=== PATIENT | male | born 1965 | race Two or more races ===

== ENCOUNTER 2020-07-16 08:16 | Outpatient (REF) | payer OTHER, SELFPAY ==
[2020-07-16 09:00] LABS: MANUAL DIFF FLAG NO
[2020-07-16 09:04] LABS: Basophils Percent Auto 0.9 % (0-2); Eosinophils Absolute Auto 0.2 X10*3/uL (0.0-0.4); Eosinophils Percent Auto 4.5 % (0-4); Hematocrit 45.7 % (42-52); Hemoglobin 14.8 g/dl (14.0-18.0); Imm Gran Abs Auto 0.02 X10*3/uL (0.00-0.03); Imm Gran Pct Auto 0.5 % (0.0-0.4); Lymphocytes Percent Auto 23.1 % (20-40); Mean Corpuscular HGB Conc 32.4 g/dl (31.0-36.0); Mean Corpuscular Hemoglobin 28.8 pg (27.0-33.0); Mean Corpuscular Volume 89.1 fL (80-98); Mean Platelet Volume 10.1 fL (9.4-12.4); Monocytes Absolute Auto 0.8 X10*3/uL (0.1-1.2); Monocytes Percent Auto 18.6 % (2-11); Neutrophils Absolute Auto 2.3 X10*3/uL (2.0-8.3); Neutrophils Percent Auto 52.4 % (45-73); Platelet Count 236 X10*3/uL (160-400); Red Blood Count 5.13 X10*6/uL (4.60-5.80); Red Cell Distribution Width 13.6 % (11.0-16.0); White Blood Count 4.4 X10*3/uL (4.8-10.8)
[2020-07-16 09:22] LABS: Alanine Aminotransferase 75 U/L (0-40); Albumin Level 4.8 g/dL (3.5-5.0); Alkaline Phosphatase 59 U/L (39-117); Anion Gap 15 (12-20); Aspartate Amino Transferase 92 U/L (5-37); Bilirubin Total 1.4 mg/dL (0.0-1.0); Blood Urea Nitrogen 9 mg/dL (9-16); Calcium 9.8 mg/dL (8.4-10.2); Carbon Dioxide 26 mmol/L (22-29); Chloride 102 mmol/L (96-108); Cholesterol 146 mg/dL; Estimated Glomerular Filt Rate > 60; Glucose Fasting 93 mg/dL (60-99); HDL Cholesterol 43 mg/dL; LDL Cholesterol Calculated 86 mg/dl; Potassium 3.8 mmol/l (3.3-5.1); Sodium 139 mmol/L (135-145); Total Protein 8.8 g/dL (6.5-8.0); Triglycerides 87 mg/dL
[2020-07-16 09:26] LABS: Glucose Urine UA NEG (NEG); Leukocyte Esterase Urine NEG (NEG); Nitrite Urine NEG (NEG); PH 7.5 (5.0-8.0); Urine Blood NEG (NEG); Urine Ketones NEG (NEG); Urine Protein NEG (NEG-TRACE)
[2020-07-16 09:27] LABS: Appearance Urine HAZY; Color Urine DARK YELLOW
== END 2020-07-16 08:17 | disposition home or self-care (01) ==
LOC: HO.LAB 08:16
PROVIDERS: Visit Provider Internal Medicine
DX: J45.909 Unspecified asthma, uncomplicated (principal); E78.00 Pure hypercholesterolemia, unspecified; R74.8 Abnormal levels of other serum enzymes; E66.3 Overweight
CPT/HCPCS: 36415; 80053; 80061; 81003; 84443; 85025

== ENCOUNTER 2020-11-07 15:22 | Emergency (ER) | payer OTHER, SELFPAY ==
[2020-11-07 15:44] VITALS: BP 141/74; PULSE 80; RESP 19; TEMP 37.2; O2SAT 98; BMI 25.8
--- NOTE | 2020-11-07 16:04 | ED.EYEPROB ---
HPI - Eye Problem General Chief complaint: Eye Problems Stated complaint: eye swelling Time Seen by Provider: 11/07/20 16:03 Source: patient Mode of arrival: ambulatory Limitations: no limitations History of Present Illness chief complaint: other (boil on eyelid) Onset (ago): day(s) (few) Onset description: gradual Duration: constant Location: left eye Eye Symptoms: redness Place: home Mechanism: direct trauma Severity: mild If Pain, Quality: aching Context: other (something hit his upper lid and developed yellow boil) Associated symptoms: none Treatments Prior to Arrival: none Related Data Previous Rx's Medication Instructions Recorded albuterol sulfate 90 mcg/actuation 2 puff INHALATION Q6H PRN 30 Days 07/11/20 aerosol inhaler #18 g fluticasone propionate 110 1 puff INHALATION BID 30 Days #12 g 07/11/20 mcg/actuation HFA aerosol inhaler cephalexin 500 mg PO BID 7 Days #14 cap 11/07/20 Allergies Allergy/AdvReac Type Severity Reaction Status Date / Time No Known Allergies Allergy Verified 07/11/20 17:11 [No Known Allergies*] Review of Systems Review of Systems: Constitutional : No Fever, No Chills ENT/Mouth : No sore throat, No Rhinorrhea Eyes: No Eye Pain, No Swelling, No Redness Cardiovascular : No Chest Pain, No SOB Respiratory : No Cough, No Sputum Gastrointestinal : No Nausea, No Vomiting, No Diarrhea, No abdominal Pain Genitourinary : No Dysuria, No Hematuria Musculoskeletal : No joint pain, No Myalgias, No Joint Swelling Skin : No Skin Lesions, positive skin abscess Neuro : No Weakness, No Numbness, No Headache Psych : No Anxiety, No Depression PMFSH Past Medical History Attestation statement: The following information was validated with the patient. Medical History Allergic rhinitis Anxiety Asthma Depression Elevated liver enzymes Overweight (BMI 25.0-29.9) Pure hypercholesterolemia Surgical History No pertinent past surgical history Family History Family History Father Medical history unknown Mother Ovarian cancer Brother No problems noted. Sister No problems noted. Sister In good health Social History Social History Alcohol intake: never Smoking Status: Former smoker Advance Directives: No Advance Directives Information Provided: No Physical Exam Vital Signs: Vital Signs: Last Vital Signs Temp 99 F 11/07/20 15:44 Pulse 80 11/07/20 15:44 Resp 19 11/07/20 15:44 BP 141/74 H 11/07/20 15:44 Pulse Ox 98 11/07/20 15:44 Body Mass Index 25.8 Appearance: Alert. Oriented X3. No acute distress. Eyes: Pupils equal, round and reactive to light. ENT: Pharynx normal. L upper lid 1cm yellow raised area with fluctuance lateral aspect above the lash line Neck: Normal inspection. Neck supple. CVS: Normal heart rate and rhythm. Pulses normal. Respiratory: No respiratory distress. Breath sounds normal. Abdomen: Soft and nontender. Skin: Skin warm and dry. Normal skin color. Normal skin turgor. Extremities: No lower extremity edema. No calf ttp Neuro: Oriented X 3. No motor deficit. No sensory deficit. Procedures Abscess I/D Site: face (left upper lid) Side (if applicable): left Technique: needle aspiration Sent for culture/gram staining?: No Irrigation: No Packing used?: none MDM - Eye Problem MDM Narrative Medical decision making narrative: 54 yo male with asthma HPL here with left upper eyelid abscess for the last few days after getting something in his eye and rubbing it the abscess is above the follicle line and painful as well as to a very yellow point, no surrounding infection, will clean with betadine and puncture area with 25G and instruct warm compressess as well as eye doctor followup PO cephalexin to prevent infection Discharge Plan Discharge Clinical Impression: Abscess Patient Disposition: Home, Self-Care Additional Instructions: return to ED for any worsening symptoms or concerns warm compresses 6 times a day, if not better in 3 days see eye doctor Prescriptions: New cephalexin 500 mg capsule 500 mg PO BID 7 Days Qty: 14 RF: 0 No Action Flovent HFA 110 mcg/actuation HFA aerosol inhaler 1 puff inhalation BID 30 Days Qty: 12 RF: 5 albuterol sulfate [ProAir HFA] 90 mcg/actuation HFA aerosol inhaler 2 puff inhalation Q6H PRN (Reason: shortness of breath or wheezing) 30 Days Qty: 18 RF: 5 Referrals: Chauncey Molina [Physician] - 3 days
== END 2020-11-07 17:09 | disposition home or self-care (01) ==
PROVIDERS: Emergency Provider Emergency Medicine; PCP Internal Medicine
DX: H00.034 Abscess of left upper eyelid (principal); H57.12 Ocular pain, left eye
CPT/HCPCS: 10160; 99283; 99284

== ENCOUNTER 2021-05-28 13:21 | Emergency (ER) | payer OTHER, SELFPAY ==
--- NOTE | ~2021-05-28 | CT_ITS ---
EXAMINATION: CT HEAD W/O IV CONTRAST CT CERVICAL SPINE W/O IV CONTRAST CLINICAL INFORMATION: 55-year-old male with history of fall, alcohol. COMPARISON: None TECHNIQUE: Head - Contiguous axial imaging of the head was performed from the skull base to the vertex without the administration of intravenous contrast, and axial images are reconstructed at 2 mm and 5 mm slice thickness. Cervical spine - A volumetric, helical CT acquisition of the cervical spine was obtained without contrast; in addition to the standard set of axial images, multiplanar reformatted images were provided in the coronal and sagittal imaging planes. This CT examination was performed using dose optimization techniques as appropriate, variously including the following: *Automated exposure control *Adjustment of mA and/or kV according to patient size (this includes techniques or standardized protocols for targeted exams where dose is matched to indication/reason for exam; i.e. extremities or head) *Use of iterative reconstruction technique DLP: 1150 mGy-cm (total) FINDINGS: HEAD: No evidence of intracranial hemorrhage, major vascular territory infarction, focal mass effect or midline shift. Vines to white matter differentiation is preserved. The ventricles have normal size and configuration. No extra-axial fluid collections. The calvarium is intact and the visualized paranasal sinuses, mastoid air cells and middle ear cavities are clear. The temporomandibular joints are unremarkable. The visualized orbits and globes are intact. There are small areas of increased attenuation in soft tissue in the occipital and right frontal scalp, likely minimal hematomas from recent trauma. CERVICAL SPINE: No acute abnormalities. The craniocervical junction is normal. The occipital condyles, dens and atlantodental articulation are intact. The vertebral body heights and alignment are maintained. No fractures in the anterior or posterior elements. No prevertebral soft tissue swelling. [id number] degenerative disc space narrowing, vertebral osteophyte formation and moderate left-sided uncovertebral hypertrophy at C5-C6. No significant stenosis of the central spinal canal. No spinal hematoma or focal fluid collection in the visualized neck. The examined lung apices are notable for minimal paraseptal emphysema. Thyroid gland is unremarkable. CT/CT cervical spine wo con IMPRESSION: * No acute intracranial pathology. Very small scalp hematomas are suspected in the right frontal and occipital regions. No calvarial fracture. * No fracture or malalignment in the cervical spine.
[2021-05-28 13:31] VITALS: BP 141/84; BP 160/80; PULSE 104; PULSE 82; RESP 16; TEMP 36.6; O2SAT 95; O2SAT 99; BMI 27.3
--- NOTE | 2021-05-28 13:34 | ED_ITS ---
HPI - Alcohol General Chief Complaint: ETOH/Substance Use Stated Complaint: ETOH, FALL. -LOC Time Seen by Provider: 05/28/21 13:23 Source: patient and EMS Mode of arrival: EMS Limitations: other (Intoxicated) History of Present Illness HPI narrative: Patient comes to emergency room by EMS, patient was found on the floor by his intoxicated. Patient states he fell but he did not lose consciousness, denies being on blood thinners. Patient denies pain anywhere. Patient's called EMS, patient, from home. Initially patient had a C- collar, patient took it off Related Data Previous Rx's Medication Instructions Recorded fluticasone propionate 110 1 puff INHALATION BID 30 Days #12 g 07/11/20 mcg/actuation HFA aerosol inhaler (Flovent HFA) cephalexin 500 mg capsule 500 mg PO BID 7 Days #14 cap 11/07/20 albuterol sulfate 90 mcg/actuation 2 puff INHALATION Q6H PRN 30 Days 12/02/20 aerosol inhaler (ProAir HFA) #18 g Allergies Allergy/AdvReac Type Severity Reaction Status Date / Time No Known Allergies Allergy Verified 07/11/20 17:11 [No Known Allergies*] Review of Systems Review of Systems: Constitutional : No fever or chills ENT/Mouth : No Hearing loss, No Ear Pain, No Nasal Congestion, No Sinus Pain, No Hoarseness, No sore throat, No Rhinorrhea, No Swallowing Difficulty Eyes: No Eye Pain, No Swelling, No Redness, No Foreign Body, No Discharge, No Vision Changes Cardiovascular : No Chest Pain, No SOB, No Dyspnea on Exertion, No Orthopnea, No Edema, No Palpitations Respiratory : No Cough, No Sputum, No Wheezing, No Smoke Exposure, No Dyspnea Gastrointestinal : No Nausea, No Vomiting, No Diarrhea, No Constipation, No abdominal Pain, No Hematochezia, No Melena Genitourinary : no irregular bleeding, No Dysuria, No Urinary Frequency, No Hematuria, No Urinary Incontinence, No Urgency, No Flank Pain, No Urinary Flow Changes, No Hesitancy Musculoskeletal : No joint pain, No Myalgias, No Joint Swelling Skin : No Skin Lesions, No rash Neuro : No Weakness, No Numbness, No Paresthesias, No Loss of Consciousness, No Dizziness, No Headache Psych : No Anxiety/Panic, No Depression, No SI/HI/AH/VH, moves to alcohol drinking Heme/Lymph: No Bruising, No Bleeding,No Lymphadenopathy Endocrine : No Polyuria, No Polydipsia, No Temperature Intolerance [facility] Past Medical History Medical History Allergic rhinitis Anxiety Asthma Depression Elevated liver enzymes Overweight (BMI 25.0-29.9) Pure hypercholesterolemia Surgical History No pertinent past surgical history Family History Family History Father Medical history unknown Mother Ovarian cancer Brother No problems noted. Sister No problems noted. Sister In good health Social History Social History Alcohol intake: never Advance Directives: No Advance Directives Information Provided: Yes Physical Exam 2 Vital Signs: Vital Signs: Last Vital Signs Temp 97.8 F 05/28/21 13:31 Pulse 104 H 05/28/21 13:31 Resp 16 05/28/21 13:31 BP 141/84 H 05/28/21 13:31 Pulse Ox 95 05/28/21 13:31 Body Mass Index 27.3 Const: Other: Appearance: Alert. Oriented X3. No acute distress. Intoxicated, calm, cooperative Eyes: Pupils equal, round and reactive to light. ENT: Pharynx normal. Neck: Normal inspection. Neck supple. No lymph nodes noted. No crepitus CVS: Normal heart rate and rhythm. Pulses normal. Normal S1 and S2 Respiratory: No respiratory distress. Breath sounds normal. No Wheezing. No rales Abdomen: Soft and nontender. No rigidity. No distention. Skin: Skin warm and dry. Normal skin color. Normal skin turgor. Extremities: No lower extremity edema. No lower extremity edema. No Lacerations. No Rash Neuro: Oriented X 3. No motor deficit. No sensory deficit. Moving all extermities. A bit slurry. Course Course Course Narrative: Patient's head and cervical spine CT shows no acute abnormality. Patient's is here to pick him up. And is able to walk MDM - Alcohol Lab Data Result diagrams: 05/28/21 15:04 05/28/21 15:04 Labs: Lab Results 05/28/21 05/28/21 05/28/21 Range/Units 13:40 15:04 15:04 WBC 4.4 L (4.8-10.8) X10*3/uL RBC 3.63 L (4.60-5.80) X10*6/uL Hgb 11.9 L (14.0-18.0) g/dl Hct 34.5 L (42.0-52.0) % MCV 95.0 (80.0-98.0) fL MCH 32.8 (27.0-33.0) pg MCHC 34.5 (31.0-36.0) g/dl RDW 15.5 (11.0-16.0) % Plt Count 189 (160-400) X10*3/uL MPV 9.7 (9.4-12.4) fL Immature Gran % (Auto) 0.2 (0.0-0.4) % Neut % (Auto) 46.7 (45-73) % Lymph % (Auto) 38.8 (20-40) % [place] % (Auto) 12.2 H (2-11) % Eos % (Auto) 1.6 (0-4) % Baso % (Auto) 0.5 (0-2) % Lymph # (Auto) 1.7 (1.2-4.9) X10*3/uL [place] # (Auto) 0.5 (0.1-1.2) X10*3/uL Eos # (Auto) 0.1 (0.0-0.4) X10*3/uL Baso # (Auto) 0.0 (0.0-0.2) X10*3/uL Abs Immat Gran (auto) 0.01 (0.00-0.03) X10*3/uL Absolute Neuts (auto) 2.0 (2.0-8.3) x10*3/uL Absolute Nucleated RBC 0.000 (0.0-0.012) X10*3/uL Nucleated RBC % (auto) 0.0 (0.0-0.2) /100WBC Sodium 146 H (135-145) mmol/L Potassium 2.9 L (3.3-5.1) mmol/L Chloride 109 H (96-108) mmol/L Carbon Dioxide 25 (22-29) mmol/L Anion Gap 15 (12-20) BUN 9 (9-16) mg/dL Creatinine 0.69 (0.5-1.4) mg/dL Estim Creat Clear Calc 126.3 Estimated GFR > 60 POC Glucose 118 H (60-115) mg/dL Random Glucose 127 H (60-115) mg/dL Calcium 8.7 D (8.4-10.2) mg/dL Total Bilirubin 0.6 (0.0-1.0) mg/dL Direct Bilirubin 0.3 (0.0-0.5) mg/dL AST 101 H (5-37) U/L ALT 29 (0-40) U/L Alkaline Phosphatase 120 H D (39-117) U/L Total Protein 7.8 (6.5-8.0) g/dL Albumin 4.0 (3.5-5.0) g/dL Imaging Data CT scan - head: Radiologist's impression: FINDINGS: HEAD: No evidence of intracranial hemorrhage, major vascular territory infarction, focal mass effect or midline shift. Vines to white matter differentiation is preserved. The ventricles have normal size and configuration. No extra-axial fluid collections. The calvarium is intact and the visualized paranasal sinuses, mastoid air cells and middle ear cavities are clear. The temporomandibular joints are unremarkable. The visualized orbits and globes are intact. There are small areas of increased attenuation in soft tissue in the occipital and right frontal scalp, likely minimal hematomas from recent trauma. CERVICAL SPINE: No acute abnormalities. The craniocervical junction is normal. The occipital condyles, dens and atlantodental articulation are intact. The vertebral body heights and alignment are maintained.? No fractures in the anterior or posterior elements. No prevertebral soft tissue swelling. [id number] degenerative disc space narrowing, vertebral osteophyte formation and moderate left-sided uncovertebral hypertrophy at C5-C6. No significant stenosis of the central spinal canal. No spinal hematoma or focal fluid collection in the visualized neck. The examined lung apices are notable for minimal paraseptal emphysema. Thyroid gland is unremarkable. CT/CT cervical spine wo con IMPRESSION: *? No acute intracranial pathology. Very small scalp hematomas are suspected in the right frontal and occipital regions. No calvarial fracture. *? No fracture or malalignment in the cervical spine. Discharge Plan Discharge Clinical Impression: Alcoholic intoxication Qualifiers: Complication of substance-induced condition: uncomplicated Qualified Code(s): F10.920 - Alcohol use, unspecified with intoxication, uncomplicated Patient Disposition: Home, Self-Care Instructions: Alcohol Intoxication (ED) Additional Instructions: Please follow-up with your primary care physician tomorrow. If you have any worsening or new symptoms, please return to the emergency room or call 911 Prescriptions: No Action albuterol sulfate [ProAir HFA] 90 mcg/actuation HFA aerosol inhaler 2 puff inhalation Q6H PRN (Reason: shortness of breath or wheezing) 30 Days Qty: 18 RF: 5 cephalexin 500 mg capsule 500 mg PO BID 7 Days Qty: 14 RF: 0 Flovent HFA 110 mcg/actuation HFA aerosol inhaler 1 puff inhalation BID 30 Days Qty: 12 RF: 5
[2021-05-28 13:44] LABS: Glucose, Whole Blood 118 mg/dL (60-115)
--- NOTE | 2021-05-28 13:59 | PC.NURSE ---
pt came in via ambulance after found him passed out on the floor and called the ambulance. pt unable to remember anything that happened before or after him being found on the floor. pt is a chronic drinker, he denies SI/HI. It is unclear if pt fell, hit his head, loss consciousness, or how long he was on the floor. pt is cooperative, alert, oriented to self and month, his vss, he denies any pain. no headache/dizziness/n/v. no feelings of anxiety. His POC 118, Dr. Cha aware. will continue to monitor.
--- NOTE | 2021-05-28 14:57 | PC.NURSE ---
will p/u when ready, , she requested lft's
[2021-05-28 15:08] LABS: MANUAL DIFF FLAG NO
[2021-05-28 15:09] LABS: Basophils Percent Auto 0.5 % (0-2); Eosinophils Absolute Auto 0.1 X10*3/uL (0.0-0.4); Eosinophils Percent Auto 1.6 % (0-4); Hematocrit 34.5 % (42.0-52.0); Hemoglobin 11.9 g/dl (14.0-18.0); Imm Gran Abs Auto 0.01 X10*3/uL (0.00-0.03); Imm Gran Pct Auto 0.2 % (0.0-0.4); Lymphocytes Absolute Auto 1.7 X10*3/uL (1.2-4.9); Lymphocytes Percent Auto 38.8 % (20-40); Mean Corpuscular HGB Conc 34.5 g/dl (31.0-36.0); Mean Corpuscular Hemoglobin 32.8 pg (27.0-33.0); Mean Platelet Volume 9.7 fL (9.4-12.4); Monocytes Absolute Auto 0.5 X10*3/uL (0.1-1.2); Monocytes Percent Auto 12.2 % (2-11); Neutrophils Percent Auto 46.7 % (45-73); Platelet Count 189 X10*3/uL (160-400); Red Blood Count 3.63 X10*6/uL (4.60-5.80); Red Cell Distribution Width 15.5 % (11.0-16.0); White Blood Count 4.4 X10*3/uL (4.8-10.8)
[2021-05-28 15:45] LABS: Alanine Aminotransferase 29 U/L (0-40); Alkaline Phosphatase 120 U/L (39-117); Anion Gap 15 (12-20); Aspartate Amino Transferase 101 U/L (5-37); Bilirubin Direct 0.3 mg/dL (0.0-0.5); Bilirubin Total 0.6 mg/dL (0.0-1.0); Blood Urea Nitrogen 9 mg/dL (9-16); Calcium 8.7 mg/dL (8.4-10.2); Carbon Dioxide 25 mmol/L (22-29); Chloride 109 mmol/L (96-108); Creatinine Clr Calc Pharmacy 126.3; Estimated Glomerular Filt Rate > 60; Glucose Random 127 mg/dL (60-115); Potassium 2.9 mmol/L (3.3-5.1); Sodium 146 mmol/L (135-145); Total Protein 7.8 g/dL (6.5-8.0)
--- NOTE | 2021-05-28 16:15 | PC.NURSE ---
spoke to pt's she will be coming to get him in a few minutes
== END 2021-05-28 16:23 | disposition home or self-care (01) ==
PROVIDERS: Emergency Provider Emergency Medicine; PCP Internal Medicine
DX: F10.920 Alcohol use, unspecified with intoxication, uncomplicated (principal); Y90.9 Presence of alcohol in blood, level not specified; Z91.81 History of falling
CPT/HCPCS: 36415; 70450; 72125; 80048; 80076; 82947; 85025; 99284

== ENCOUNTER 2022-02-12 10:53 | Outpatient (REF) | payer OTHER, SELFPAY ==
[2022-02-12 11:35] LABS: COVID-19 Test Positive (Negative); IDNOW Serial# 9DB6401D
== END 2022-02-12 10:54 | disposition home or self-care (01) ==
LOC: HO.LAB 10:53
PROVIDERS: Visit Provider Internal Medicine
DX: Z20.822 Contact with and (suspected) exposure to COVID-19 (principal)
CPT/HCPCS: 87635; C9803

== ENCOUNTER 2022-11-24 08:18 | Outpatient (REF) | payer OTHER, SELFPAY ==
--- NOTE | ~2022-11-24 | XR_ITS ---
EXAMINATION: XR CHEST CLINICAL INFORMATION: History of asthma. Cough. COMPARISON: April 14, 2019 TECHNIQUE: 2 views of the chest were obtained. FINDINGS: No significant abnormality is noted involving the heart, lungs, mediastinum, bony thorax or soft tissues. XR/XR chest 2V IMPRESSION: No acute disease.
[2022-11-24 08:31] LABS: MANUAL DIFF FLAG NO
[2022-11-24 08:40] LABS: Basophils Absolute Auto 0.1 X10*3/uL (0.0-0.2); Basophils Percent Auto 0.8 % (0-2); Eosinophils Absolute Auto 0.1 X10*3/uL (0.0-0.4); Eosinophils Percent Auto 1.2 % (0-4); Hematocrit 44.4 % (42.0-52.0); Hemoglobin 14.7 g/dl (14.0-18.0); Imm Gran Abs Auto 0.03 X10*3/uL (0.00-0.03); Imm Gran Pct Auto 0.5 % (0.0-0.4); Lymphocytes Absolute Auto 1.3 X10*3/uL (1.2-4.9); Lymphocytes Percent Auto 22.4 % (20-40); Mean Corpuscular HGB Conc 33.1 g/dl (31.0-36.0); Mean Corpuscular Hemoglobin 29.9 pg (27.0-33.0); Mean Corpuscular Volume 90.2 fL (80.0-98.0); Mean Platelet Volume 10.7 fL (9.4-12.4); Monocytes Absolute Auto 1.1 X10*3/uL (0.1-1.2); Monocytes Percent Auto 18.9 % (2-11); Neutrophils Absolute Auto 3.4 x10*3/uL (2.0-8.3); Neutrophils Percent Auto 56.2 % (45-73); Platelet Count 194 X10*3/uL (160-400); Red Blood Count 4.92 X10*6/uL (4.60-5.80)
[2022-11-24 09:19] LABS: Alanine Aminotransferase 94 U/L (0-40); Albumin Level 4.1 g/dL (3.5-5.0); Alkaline Phosphatase 68 U/L (39-117); Anion Gap 14 (12-20); Aspartate Amino Transferase 165 U/L (5-37); Bilirubin Total 2.2 mg/dL (0.0-1.0); Blood Urea Nitrogen 8 mg/dL (9-16); Calcium 9.4 mg/dL (8.4-10.2); Carbon Dioxide 25 mmol/L (22-29); Chloride 102 mmol/L (96-108); Cholesterol 188 mg/dL; Estimated Glomerular Filt Rate > 60; Glucose Fasting 112 mg/dL (60-99); HDL Cholesterol 35 mg/dL; LDL Cholesterol Calculated 135 mg/dl; Potassium 3.5 mmol/L (3.3-5.1); Sodium 137 mmol/L (135-145); Total Protein 8.6 g/dL (6.5-8.0); Triglycerides 92 mg/dL
[2022-11-24 09:35] LABS: TSH reflex Free T4 2.51 uIU/mL (0.32-4.0); Vitamin D 25-OH Total 15.8 ng/mL (>30)
== END 2022-11-24 08:19 | disposition home or self-care (01) ==
LOC: HO.LAB 08:18
PROVIDERS: PCP Internal Medicine; Visit Provider Internal Medicine
DX: R06.00 Dyspnea, unspecified (principal); E78.00 Pure hypercholesterolemia, unspecified; E55.9 Vitamin D deficiency, unspecified; I10 Essential (primary) hypertension
CPT/HCPCS: 36415; 71046; 80053; 80061; 82306; 84443; 85025

== ENCOUNTER 2023-03-22 09:38 | Outpatient (AMB) | payer SELFPAY ==
[2023-03-22 09:53] VITALS: BP 146/82; PULSE 94; O2SAT 98; BMI 31.9
--- NOTE | 2023-03-22 09:53 | A.OFFPC_ITS ---
Vital Signs 03/22/23 09:53 Height 5 ft 10 in Weight 222 lb 4 oz BMI 31.9 BP 146/82 H Blood Pressure Location Lt brachial Position Sitting Pulse 94 Pulse Source Pulse Oximeter Pulse Oximetry (%) 98 Oxygen Delivery Method Room Air Intake Visit Reasons: hyperlipidemia, asthma Etl Tester Required: No Accompanied by: Self / Same As Patient Allergies No Known Allergies [No Known Allergies*] Allergy (Verified 03/22/23 10:16) Medication List - Last Reconciled 03/22/23 by Harry Vargas MD albuterol sulfate 90 mcg/actuation (ProAir HFA) 2 puffs inhalation Q6H PRN 30 days fluticasone propionate 110 mcg/actuation (Flovent HFA) 2 inhalations PO BID Ventolin HFA 90 mcg/actuation (albuterol sulfate) 2 puffs inhalation Q6H PRN 30 days NS Tobacco use date assessed: 03/22/23 Dental Screening Dental Screen Date: 03/22/23 Did you have a dental visit in the last 12 months?: No Did you have a dental problem in the last 6 months where you did not have access to dental care?: No Was dental information given to patient?: Patient has dentist HPI hyperlipidemia, asthma HPI Details Patient comes in today for his follow up visit States that he feels okay Admits that he drinks 12 pack or more but only on weekends He denies any headaches or dizziness Denies any chest pains but feels that his asthma has been flaring up often lately even though he uses his inhalers regularly as instructed Will be needing his Flovent inhaler Rx refilled No nausea/vomiting, no abdominal pain No change in bowel habits noted Would also like to go over in more details the results of his labs done a few months ago [facility] Medical History Allergic rhinitis Anxiety Asthma Benign essential hypertension Depression Elevated liver enzymes Impaired fasting glucose Obesity (BMI 30-39.9) Overweight (BMI 25.0-29.9) Pure hypercholesterolemia Vitamin D deficiency Surgical History No pertinent past surgical history Family History Father Medical history unknown Mother Ovarian cancer Brother No problems noted. Sister No problems noted. Sister In good health Social History Housing: House Alcohol intake: never Patient Tobacco Use Status: Former Tobacco user e-Cigarette/Vaping Use: Never Used service: No Current occupational status: employed Current occupational exposures/hazards: No Cognitive needs: No Hearing needs: No Vision needs: No Questionnaire PHQ-9 Over the last 2 weeks, how often have you been bothered by any of the following problems? 1. Little interest or pleasure in doing things: not at all 2. Feeling down, depressed, or hopeless: not at all 3. Trouble falling or staying asleep, or sleeping too much: not at all 4. Feeling tired or having little energy: not at all 5. Poor appetite or overeating: not at all 6. Feeling bad about yourself - or that you are a failure or have let yourself or your family down: not at all 7. Trouble concentrating on things, such as reading the newspaper or watching television: not at all 8. Moving or speaking so slowly that other people could have noticed. Or the opposite - being so fidgety or restless that you have been moving around a lot more than usual: not at all 9. Thoughts that you would be better off or of hurting yourself in some way: not at all Total score: 0 Depression Screening Interpretation: Negative 01422 - PHQ-9 Billing: Yes Source: Developed by Drs. Ryan Spencer, Beatris Gupta, Ugo Fernandes and colleagues, with an educational sloane from [employer]. Thrive Questionnaire Date Thrive assessed: 03/22/23 I am a: Patient What is your living situation today?: I have a steady place to live Within the past 12 months, did the food you bought not last and you didn't have the money to get more?: Never true Within the past 12 months, did you worry whether your food would run out before you got money to buy more?: Never true Do you have trouble paying for medicines?: No Do you have trouble getting transportation to medical appointments?: No Do you have trouble paying your heating and electricity bill?: No Do you have trouble taking care of your child, family member or friend?: No Do you have trouble with day-to-day activities such as bathing, preparing meals, shopping, managing finances, etc.?: No Are you currently unemployed and looking for a job?: No Are you interested in more education?: No Please select the resources that you would like help with: None Currently or been in a relationship where the following occur: no concerns reported AUDIT C Alcohol Use Questionnaire (AUDIT-C) 1. How often do you have a drink containing alcohol?: 2-4 times a month Total Score: 2 Score Reviewed/Action Taken: Yes TAMIKO-7 AMB Questionnaire TAMIKO-7 Date TAMIKO - 7 assessed: 03/22/23 Feeling nervous, anxious, or on edge: 0 = Not at all Not being able to stop or control worryin = Not at all Worrying too much about different things: 0 = Not at all Trouble relaxin = Not at all Being so restless that it is hard to sit still: 0 = Not at all Becoming easily annoyed or irritable: 0 = Not at all Feeling afraid as if something awful might happen: 0 = Not at all Total TAMIKO-7 score (0-4 normal; 5-9 mild; 10-14 moderate; 15-21 severe): 0 Source: Developed by Drs. Ryan Spencer, Beatris Gupta, Ugo Fernandes and colleagues, with an educational sloane from [employer]. Review of Systems Const Denies chills, Denies fatigue, Denies fever(s) and Denies headache(s) ENT Denies dysphagia, Denies dizziness, Denies otalgia, Denies headache(s), Denies neck pain, Denies odynophagia and Denies sore throat Card Denies chest pain, Denies palpitations and Reports dyspnea on exertion (on and off lately) Resp Reports chest congestion (states that his chest feels tight at times), Reports cough (on and off lately, non-productive), Denies excessive phlegm production, Reports dyspnea on exertion (on and off lately) and Reports wheezing (at times) GI Denies abdominal pain, Denies constipation, Denies dysphagia, Denies heartburn, Denies diarrhea, Denies nausea, Denies odynophagia and Denies vomiting Denies dysuria, Denies nocturia and Denies urinary frequency Musc Denies neck pain Neuro Denies dizziness and Denies headache(s) Endo Denies fatigue and Denies palpitations Aller/Immun Reports wheezing (at times) Physical exam (Primary Care) Vital Signs: Last Vital Signs Pulse 94 03/22/23 09:53 BP 146/82 H 03/22/23 09:53 Pulse Ox 98 03/22/23 09:53 Oxygen Delivery Method Room Air 03/22/23 09:53 BMI result Body Mass Index 31.9 Tobacco/Smoking Status: Tobacco use Status Tobacco use date assessed 03/22/23 03/22/23 10:02 Patient Tobacco Use Status Former Tobacco user 03/22/23 10:02 e-Cigarette/Vaping Use Never Used 03/22/23 10:02 PHQ-9: PHQ-9 Score PHQ-9: Total score 0 03/22/23 10:02 Depression Screening Interpretation: Negative Thrive Assessment: Date of Thrive Assessment Date Thrive assessed 03/22/23 03/22/23 10:02 Currently or been in a relationship where the following occur: no concerns reported Const General: no acute distress and alert HENMT Ears: TM's normal bilaterally and EAC's normal Throat: Yes posterior oropharynx normal and Yes tonsils normal (no TP congestion) Neck Neck: Yes no lymphadenopathy and Yes supple Resp Auscultation: no rales, rhonchi (scattered) throughout, wheezes (occasional, faint) expiratory wheezes and diminished lung sounds (slightly) bilateral Cardio Rate: regular rate Rhythm: regular rhythm Heart sounds: no murmurs GI Palpation (GI): Soft to palpation and nontender Auscultation: normal bowel sounds Skin General skin exam: no rashes or lesions noted Extrem General: Yes no clubbing, cyanosis or edema Results Reviewed Results Reviewed: Laboratory Tests 11/24/22 11/24/22 08:30 08:30 WBC 6.0 Hgb 14.7 D Hct 44.4 D Plt Count 194 Sodium 137 Potassium 3.5 D Creatinine 0.80 Estimated GFR > 60 Fasting Glucose 112 H Calcium 9.4 D Total Bilirubin 2.2 H AST 165 H ALT 94 H Triglycerides 92 Cholesterol 188 LDL Cholesterol, Calc 135 HDL Cholesterol 35 25-OH Vitamin D Total 15.8 TSH 2.51 Assessment and Plan Assessment & Plan (1) Asthma: Code(s): J45.909 - Unspecified asthma, uncomplicated Qualifiers: Asthma severity: moderate Asthma persistence: persistent Asthma complication type: uncomplicated Qualified Code(s): J45.40 - Moderate persistent asthma, uncomplicated Plan: Will increase patient's Flovent HFA now to 220 mcg at 2 inhalations BID; con tinue Albuterol HFA 2 inhalations Q 6 hours PRN Chest x-rays done a few months ago came out normal (2) Pure hypercholesterolemia: Code(s): E78.00 - Pure hypercholesterolemia, unspecified Plan: Results of his labs done a few months ago reviewed and discussed with patient - cautioned that his cholesterol levels have increased significantly compared to a couple of years ago; his LDL cholesterol is now at 135 mg /dl Reinforced low cholesterol diet - advised that his LDL cholesterol used to be at 86 mg/dl a few years ago so his increased lately is most likely due to his diet Will recheck his labs and fasting lipids again in 3 months for follow up (3) Elevated liver enzymes: Code(s): R74.8 - Abnormal levels of other serum enzymes Plan: Cautioned that his LFTs have increased further from previous - is most likely due to his alcohol intake as well as his weight and partly also due to his cholesterol Will send patient for abdominal US for further evaluation Will recheck his labs and LFTs again in 3 months for follow up (4) Benign essential hypertension: Code(s): I10 - Essential (primary) hypertension Plan: Reinforced low sodium diet - goal is systolic BP of 120 mm or less Will go ahead and start patient on Lisinopril 2.5 mg QD He is instructed to try monitoring his blood pressure regularly (5) Impaired fasting glucose: Code(s): R73.01 - Impaired fasting glucose Plan: Advised that his fasting glucose has also been elevated when checked the last couple of times recently and that this may indicate that he is now around the borderline diabetes category Discussed low calorie/low carb diet and advised that exercising and losing weight can help a lot with this Will recheck his FBS and also check his HgbA1c in a few months for follow up / further evaluation (6) Allergic rhinitis: Code(s): J30.9 - Allergic rhinitis, unspecified Qualifiers: Allergic rhinitis trigger: unspecified Allergic rhinitis seasonality: unspecified Qualified Code(s): J30.9 - Allergic rhinitis, unspecified Plan: Continue OTC Loratadine 10 mg QD PRN (7) Vitamin D deficiency: Code(s): E55.9 - Vitamin D deficiency, unspecified Plan: Advised that his vitamin D level was also very low on his recent labs Will start him on Vitamin D3 tablets 2000 units QD (8) Alcohol use disorder: Code(s): F10.90 - Alcohol use, unspecified, uncomplicated Plan: Admits that he currently drinks a 12 pack or more regularly on weekends but states that he avoids drinking on weekdays Advised that what he is currently doing is practically binge-drinking on weekends and this can be just as bad, if not worse, than drinking everyday Have encouraged him to try to work on cutting back on his alcohol intake, especially now in light of his current issues, most notably his elevated LFTs and hyperbiliribunemia Advised that if he ever feels that he needs help with his alcohol cravings, we can refer him to the appropriate specialists to help him with this and all he has to do is call for referral (9) Anxiety: Code(s): F41.9 - Anxiety disorder, unspecified Plan: Was on Lorazepam 1 mg QD PRN in the past but he has not had to take this in a while He is again advised to call if he feels his anxiety is getting out of hand and if he needs to go back on his Rx Discussed that he may be drinking (alcohol) as a way to help him cope with his anxiety although patient states that he does not think so (10) Depression: Code(s): F32.9 - Major depressive disorder, single episode, unspecified Qualifiers: Depression Type: major depressive disorder Major depression recurrence: recurrent Active/Remission status: in remission of unspecified degree Qualified Code(s): F33.40 - Major depressive disorder, recurrent, in remission, unspecified Plan: Was seeing psychiatry in the past although he has not done so in a while Is advised to call if he feels that he needs to go back to see psyschiatry and we will refer him back if necessary (11) Obesity (BMI 30-39.9): Code(s): E66.9 - Obesity, unspecified Plan: Reinforced diet/exercise as tolerated/lose weight Plan Follow up in 3 months Orders: Orders US abdomen comp w elastography Today E80.6 - Other disorders of bilirubin metabolism, R74.8 - Abnormal levels of other serum enzymes Complete Blood Count Auto Diff 3 Months I10 - Essential (primary) hypertension Comprehensive [place]. Panel Fast 3 Months E78.00 - Pure hypercholesterolemia, unspecified Hemoglobin A1c 3 Months E11.9 - Type 2 diabetes mellitus without complications Lipid Panel 3 Months E78.00 - Pure hypercholesterolemia, unspecified TSH reflex Free T4 3 Months E78.00 - Pure hypercholesterolemia, unspecified UA CC w/rflx Micro + Cult 3 Months R30.0 - Dysuria Vitamin D 25-OH Total 3 Months E55.9 - Vitamin D deficiency, unspecified Gamma Glutamyl Transpeptidase 3 Months R79.89 - Other specified abnormal findings of blood chemistry Medications: New cholecalciferol (vitamin D3) 50 mcg PO DAILY 90 days 90 caps 3RF E55.9 - Vitamin D deficiency, unspecified lisinopril 2.5 mg PO DAILY 90 days 90 tabs 1RF Changed From fluticasone propionate 110 mcg/actuation (Flovent HFA) 2 inhalations PO BID 12 grams 5RF J45.909 - Unspecified asthma, uncomplicated To fluticasone propionate 220 mcg/actuation 2 inhalations PO BID 12 grams 5RF J45.909 - Unspecified asthma, uncomplicated Refilled albuterol sulfate 90 mcg/actuation (ProAir HFA) 2 puffs inhalation Q6H 30 days PRN 18 grams 5RF shortness of breath or wheezing J45.909 - Unspecified asthma, uncomplicated Ventolin HFA 90 mcg/actuation (albuterol sulfate) 2 puffs inhalation Q6H 30 days PRN 18 grams 5RF shortness of breath or wheezing NS J45.40 - Moderate persistent asthma, uncomplicated Coding Level of Care Code Est Pt Level 4 (41124) Diagnoses Asthma J45.40 Asthma severity: moderate Asthma persistence: persistent Asthma complication type: uncomplicated Pure hypercholesterolemia E78.00 Elevated liver enzymes R74.8 Benign essential hypertension I10 Impaired fasting glucose R73.01 Allergic rhinitis J30.9 Allergic rhinitis trigger: unspecified Allergic rhinitis seasonality: unspecified Vitamin D deficiency E55.9 Alcohol use disorder F10.90 Anxiety F41.9 Depression F33.40 Depression Type: major depressive disorder Major depression recurrence: recurrent Active/Remission status: in remission of unspecified degree Obesity (BMI 30-39.9) E66.9
== END 2023-03-22 10:30 | disposition home or self-care (01) ==
PROVIDERS: PCP Internal Medicine; Visit Provider Internal Medicine
DX: I10 Essential (primary) hypertension (principal); J45.40 Moderate persistent asthma, uncomplicated; E55.9 Vitamin D deficiency, unspecified; F33.40 Major depressive disorder, recurrent, in remission, unspecified; F41.9 Anxiety disorder, unspecified; E78.00 Pure hypercholesterolemia, unspecified; R74.8 Abnormal levels of other serum enzymes; R73.01 Impaired fasting glucose; J30.9 Allergic rhinitis, unspecified; F10.90 Alcohol use, unspecified, uncomplicated; E66.9 Obesity, unspecified
CPT/HCPCS: 99214

== ENCOUNTER 2023-06-19 05:02 | Inpatient (IN) | payer OTHER, SELFPAY ==
[2023-06-19] VITALS (9 sets, daily range): BP systolic 140–171; BP diastolic 76–88; PULSE 110–132; RESP 16–27; TEMP 37.1–37.9; O2SAT 92–95; BMI 32.2
--- NOTE | 2023-06-19 | ECG_ITS ---
Test Reason : ABDOMINAL PAIN Blood Pressure : / mmHG Vent. Rate : 115 BPM Atrial Rate : 115 BPM P-R Int : 128 ms QRS Dur : 094 ms QT Int : 390 ms P-R-T Axes : 024 048 031 degrees QTc Int : 539 ms Sinus tachycardia RSR' or QR pattern in V1 suggests right ventricular conduction delay Possible Left atrial enlargement Prolonged QT Abnormal ECG When compared with ECG of 14-APR-2019 19:34, Vent. rate has increased BY 38 BPM Referred By: Generic ED Physician Electronically Signed By:RAMÓN ROBLES MD
--- NOTE | ~2023-06-19 | CT_ITS ---
EXAMINATION: CT ABDOMEN AND PELVIS WITH CONTRAST CLINICAL INFORMATION: Alcoholic with abdominal pain. COMPARISON: None available. TECHNIQUE: Contiguous axial thin section helical images of the abdomen were performed following the administration of oral contrast and 85 mL of Omnipaque 350 intravenous contrast. The data set was reformatted in the coronal and sagittal planes and reviewed on an independent workstation. This CT examination was performed using dose optimization techniques as appropriate, variously including the following: *Automated exposure control *Adjustment of mA and/or kV according to patient size (this includes techniques or standardized protocols for targeted exams where dose is matched to indication/reason for exam; i.e. extremities or head) *Use of iterative reconstruction technique DLP: 684 mGy-cm FINDINGS: LUNG BASES: Subpleural reticulation is seen consistent with interstitial disease. No worrisome lung mass or pleural effusion is seen. LIVER, GALLBLADDER, AND BILIARY TREE: The liver is cirrhotic in appearance, enlarged at 20.8 cm with a nodular border. No focal liver mass or bile duct dilatation is seen. There is a recanalized umbilical vein and abdominal wall and periumbilical varices present. Some gastric and esophageal varices are present as well. There is a small splenorenal shunt. The gallbladder is contracted with a small amount of pericholecystic fluid but no evidence of radiopaque gallstones or obvious pericholecystic inflammatory changes. PANCREAS: Unremarkable. SPLEEN: The spleen is enlarged at 15.6 cm. ADRENAL GLANDS: Unremarkable. KIDNEYS AND URETERS: The kidneys are normal in size, shape, and attenuation. No hydronephrosis, hydroureter, or calculi seen. Multiple benign Bosniak class I and class II renal cysts are noted which require no additional imaging or followup. No solid renal masses are seen. No perinephric stranding. BLADDER: Unremarkable. GASTROINTESTINAL TRACT: Some mild edematous changes are present in the colon, especially on the right, which may be secondary to portal colopathy. The appendix is normal. There is some minimal prominence of some small bowel loops in the left abdomen. ABDOMINAL WALL: There is a small periumbilical hernia seen which contains a knuckle of a portion of a loop of small bowel which does not appear to be obstructing. LYMPH NODES: Some small periceliac lymph nodes are seen with some small aortocaval lymph nodes, the largest measuring about 1 cm in short axis dimension (2:35). VASCULAR: No aortic aneurysm. Minimal calcified plaque right common iliac artery. PELVIC VISCERA: The prostate and seminal vesicles are unremarkable. OSSEOUS STRUCTURES: Unremarkable. CT/CT abdomen pelvis w IV con IMPRESSION: 1. Enlarged cirrhotic liver with associated splenomegaly and varices. No focal liver mass is seen. 2. Edematous changes in the colon, especially on the right, which may be secondary to portal colopathy. 3. Small periumbilical hernia containing a knuckle of small bowel which does not appear to be obstructing. 4. Other incidental findings, as described above, including benign renal cysts which require no additional imaging or followup, small periceliac and aortocaval lymph nodes. Fleischner guidelines were followed.
--- NOTE | ~2023-06-19 | CT_ITS ---
EXAMINATION: CT CHEST WITHOUT CONTRAST CLINICAL INFORMATION: Pneumonia evaluation, shortness of breath COMPARISON: Chest x-ray performed today. TECHNIQUE: Multidetector volumetric CT imaging of the chest was done. Axial MIP volume rendering provided. Sagittal and coronal reformatted images were obtained. This CT examination was performed using dose optimization techniques as appropriate, variously including the following: *Automated exposure control *Adjustment of mA and/or kV according to patient size (this includes techniques or standardized protocols for targeted exams where dose is matched to indication/reason for exam; i.e. extremities or head) *Use of iterative reconstruction technique DLP: 331 mGy-cm FINDINGS: LUNGS: Main airways unremarkable. Subpleural reticulation with some coarsened features in the posterolateral inferior right upper lobe, posterolateral right lower lobe, posteromedial left lower lobe, and the lingula. This may reflect a combination of interstitial fibrotic change and atelectasis. No dominant suspicious masses. MEDIASTINUM: Small mediastinal nodes without suspicious enlargement. Small pericardial fluid. CORONARY ARTERY CALCIFICATION: Present. PLEURA: There is no pleural effusion. No pleural mass or thickening. AXILLA: No suspicious axillary adenopathy. UPPER ABDOMEN: Recanalized umbilical vein. Paraesophageal and celiac region nodes for example series 3 image 63 at 1.1 cm short axis. Hepatic fatty infiltration. Possible anterior lobular configuration of the liver. OSSEOUS STRUCTURES: No compression fractures. CT/CT chest wo IV con IMPRESSION: Subpleural reticulation with some coarsened features as described above. This may be related to a combination of interstitial fibrotic change and atelectasis. No effusions or suspiciously enlarged mediastinal/axillary adenopathy. Paraesophageal and celiac region nodes. Possible anterior lobular configuration of the liver which can be seen in the setting of cirrhosis. Fleischner guidelines were followed.
--- NOTE | ~2023-06-19 | CT_ITS ---
EXAMINATION: CT ABDOMEN AND PELVIS WITH CONTRAST CLINICAL INFORMATION: Alcoholic with abdominal pain. COMPARISON: None available. TECHNIQUE: Contiguous axial thin section helical images of the abdomen were performed following the administration of oral contrast and 85 mL of Omnipaque 350 intravenous contrast. The data set was reformatted in the coronal and sagittal planes and reviewed on an independent workstation. This CT examination was performed using dose optimization techniques as appropriate, variously including the following: *Automated exposure control *Adjustment of mA and/or kV according to patient size (this includes techniques or standardized protocols for targeted exams where dose is matched to indication/reason for exam; i.e. extremities or head) *Use of iterative reconstruction technique DLP: 684 mGy-cm FINDINGS: LUNG BASES: Subpleural reticulation is seen consistent with interstitial disease. No worrisome lung mass or pleural effusion is seen. LIVER, GALLBLADDER, AND BILIARY TREE: The liver is cirrhotic in appearance, enlarged at 20.8 cm with a nodular border. No focal liver mass or bile duct dilatation is seen. There is a recanalized umbilical vein and abdominal wall and periumbilical varices present. Some gastric and esophageal varices are present as well. There is a small splenorenal shunt. The gallbladder is contracted with a small amount of pericholecystic fluid but no evidence of radiopaque gallstones or obvious pericholecystic inflammatory changes. PANCREAS: Unremarkable. SPLEEN: The spleen is enlarged at 15.6 cm. ADRENAL GLANDS: Unremarkable. KIDNEYS AND URETERS: The kidneys are normal in size, shape, and attenuation. No hydronephrosis, hydroureter, or calculi seen. Multiple benign Bosniak class I and class II renal cysts are noted which require no additional imaging or followup. No solid renal masses are seen. No perinephric stranding. BLADDER: Unremarkable. GASTROINTESTINAL TRACT: Some mild edematous changes are present in the colon, especially on the right, which may be secondary to portal colopathy. The appendix is normal. There is some minimal prominence of some small bowel loops in the left abdomen. ABDOMINAL WALL: There is a small periumbilical hernia seen which contains a knuckle of a portion of a loop of small bowel which does not appear to be obstructing. LYMPH NODES: Some small periceliac lymph nodes are seen with some small aortocaval lymph nodes, the largest measuring about 1 cm in short axis dimension (2:35). VASCULAR: No aortic aneurysm. Minimal calcified plaque right common iliac artery. PELVIC VISCERA: The prostate and seminal vesicles are unremarkable. OSSEOUS STRUCTURES: Unremarkable.
--- NOTE | ~2023-06-19 | XR_ITS ---
EXAMINATION: XR CHEST CLINICAL INFORMATION: Shortness of breath COMPARISON: 11/24/2022 TECHNIQUE: Frontal view of the chest was obtained. FINDINGS: Lung volumes are symmetric. There is a region of predominantly streaky opacity at the left lung base. No evidence of pneumothorax, significant pleural effusion, or overt pulmonary edema. The cardiomediastinal contour is unremarkable. No acute osseous findings are seen. XR/XR chest 1V IMPRESSION: Predominantly streaky left basilar opacity which may reflect atelectasis or developing consolidation.
[2023-06-19 05:47] LABS: MANUAL DIFF FLAG NO
[2023-06-19 05:48] LABS: Basophils Percent Auto 0.4 % (0-2); Eosinophils Percent Auto 0.3 % (0-4); Hematocrit 37.7 % (42.0-52.0); Hemoglobin 13.2 g/dl (14.0-18.0); Imm Gran Abs Auto 0.03 X10*3/uL (0.00-0.03); Imm Gran Pct Auto 0.4 % (0.0-0.4); Lymphocytes Absolute Auto 0.6 X10*3/uL (1.2-4.9); Lymphocytes Percent Auto 8.3 % (20-40); Mean Corpuscular Hemoglobin 30.9 pg (27.0-33.0); Mean Corpuscular Volume 88.3 fL (80.0-98.0); Mean Platelet Volume 10.5 fL (9.4-12.4); Monocytes Absolute Auto 1.1 X10*3/uL (0.1-1.2); Monocytes Percent Auto 15.7 % (2-11); Neutrophils Absolute Auto 5.1 x10*3/uL (2.0-8.3); Neutrophils Percent Auto 74.9 % (45-73); Platelet Count 149 X10*3/uL (160-400); Red Blood Count 4.27 X10*6/uL (4.60-5.80); Red Cell Distribution Width 15.7 % (11.0-16.0); White Blood Count 6.9 X10*3/uL (4.8-10.8)
--- NOTE | 2023-06-19 05:57 | PC.NURSE ---
Dr. polk aware of pt meeting sepsis criteria. ekg obtained. iv established. labs drawn. pt reporting cough/sore throat swabs obtained and sent to lab. [facility] call [facility] within reach.
[2023-06-19 06:04] LABS: Alanine Aminotransferase 45 U/L (0-40); Albumin Level 3.5 g/dL (3.5-5.0); Alkaline Phosphatase 75 U/L (39-117); Anion Gap 15 (12-20); Aspartate Amino Transferase 156 U/L (5-37); Bilirubin Direct 1.2 mg/dL (0.0-0.5); Bilirubin Total 2.4 mg/dL (0.0-1.0); Blood Urea Nitrogen 7 mg/dL (9-16); Calcium 8.7 mg/dL (8.4-10.2); Carbon Dioxide 20 mmol/L (22-29); Chloride 100 mmol/L (96-108); Creatinine Clr Calc Pharmacy 134.6; Estimated Glomerular Filt Rate > 60; Glucose Random 128 mg/dL (60-115); Lactic Acid 2.4 mmol/L (0.5-2.0); Lipase 36 U/L (8-78); Potassium 3.1 mmol/L (3.3-5.1); Sodium 132 mmol/L (135-145); Total Protein 9.1 g/dL (6.5-8.0)
[2023-06-19 06:08] LABS: IDNOW Serial# 08D9AD1C; Strep A Nucleic Acid Negative (Negative)
[2023-06-19 06:34] LABS: Influenza A PCR NEGATIVE (Negative); Influenza B PCR NEGATIVE (Negative); Resp Syncy Virus RNA Qual PCR NEGATIVE (Negative); SARS COV2 PCR INHOUSE NEGATIVE (Negative)
--- NOTE | 2023-06-19 06:45 | ED_ITS ---
HPI - General Adult General Chief complaint: General Medical Stated complaint: stomach pain Time Seen by Provider: 06/19/23 06:02 Source: patient Mode of arrival: ambulatory Limitations: no limitations History of Present Illness HPI narrative: Patient is a 57 year old assigned male at with a history of asthma, anxiety, and alcohol abuse presenting to the emergency department today with abdominal pain, nausea, vomiting, and increased shortness of breath. Patient states that over the last 2 days he has been having abdominal pain and worsening shortness of breath. Patient states that he is a daily drinker. Patient denies any dizziness, lightheadedness, fever, chills, blurry vision, double vision, loss of vision, chest pain, back pain, night sweats, pain with urination, increased urinary frequency, increased urinary urgency, blood in his urine or stool, syncope or a near syncopal episode, recent trauma or falls, bowel incontinence, bladder incontinence, bowel retention, bladder retention, or any other complaints at this time. Onset (ago): day(s) (2) Location: abdomen Severity: mild Severity scale (1-10): 4 Relieving factors: none Exacerbating factors: none Associated symptoms: nausea/vomiting and shortness of breath Treatments prior to arrival: none Related Data Previous Rx's Medication Instructions Recorded albuterol sulfate 90 mcg/actuation 2 puff inhalation Q6H PRN 03/22/23 aerosol inhaler (ProAir HFA) shortness of breath or wheezing 30 days #18 grams fluticasone propionate 220 2 inh PO BID #12 grams 03/22/23 mcg/actuation HFA aerosol inhaler lisinopril 2.5 mg tablet 2.5 mg PO DAILY 90 days #90 tabs 03/22/23 Allergies Allergy/AdvReac Type Severity Reaction Status Date / Time No Known Allergies Allergy Verified 03/22/23 10:16 [No Known Allergies*] Review of Systems 2 Constitutional: Constitutional: Reports no additional constitutional complaints, Denies chills, Denies fever(s) and Denies night sweats Eyes: Eyes: Reports no additional eye complaints, Denies blurry vision, Denies change in vision, Denies diplopia, Denies eye discharge, Denies loss of vision and Denies eye pain ENT: Denies dizziness Cardiovascular: Cardiovascular: Reports no additional cardiovascular complaints, Denies chest pain, Denies lightheadedness, Denies Loss of Consciousness and Reports dyspnea Respiratory: Respiratory: Reports no additional respiratory complaints and Reports dyspnea Gastrointestinal: Gastrointestinal: Reports no additional gastrointestinal complaints, Reports abdominal pain, Denies melena, Denies hematochezia, Denies change in bowel habits, Denies change in stool character, Reports nausea and Reports vomiting Genitourinary: Genitourinary: Reports no additional male genitourinary complaints, Denies hematuria, Denies oliguria, Denies difficulty urinating, Denies dysuria, Denies urinary frequency, Denies urinary hesitancy, Denies urinary incontinence and Denies urinary urgency Musculoskeletal: Musculoskeletal: Reports no additional musculoskeletal complaints, Denies numbness and Denies tingling Neurologic: Denies dizziness, Denies loss of vision, Denies numbness and Denies tingling Psychiatric: Psychiatric: Reports no additional psychiatric complaints Endocrine: Endocrine: Reports no additional endocrine complaints Hematologic/Lymphatic: Hematologic/Lymphatic: Reports no additional hematologic/lymphatic complaints Allergic/Immunologic: Allergic/Immunologic: Reports no additional allergic/immunologic complaints [facility] Past Medical History Attestation statement: The following information was validated with the patient. Source: old records reviewed and nursing notes reviewed Medical History Vitamin D deficiency Impaired fasting glucose Benign essential hypertension Obesity (BMI 30-39.9) Overweight (BMI 25.0-29.9) Depression Anxiety Elevated liver enzymes Pure hypercholesterolemia Allergic rhinitis Asthma Surgical History No pertinent past surgical history Family History Family History Father Medical history unknown Mother Ovarian cancer Brother No problems noted. Sister No problems noted. Sister In good health Social History Social History Housing: House Alcohol intake: current Alcohol intake frequency: 3 or more drinks per day Alcohol type: beer Patient Tobacco Use Status: Former Tobacco user Smoked in Last 30 Days: No e-Cigarette/Vaping Use: Never Used Use of substances other than those prescribed or required for medical reasons: No Advance Directives: No Advance Directives Information Provided: No service: No Current occupational status: employed Current occupational exposures/hazards: No Cognitive needs: No Hearing needs: No Vision needs: No Physical Exam ED Vital Signs: Vital Signs - 24 hr 06/19/23 05:17 06/19/23 05:22 06/19/23 05:55 Temperature 99.4 F 99.4 F Pulse Rate 116 H 116 H Pulse Rate [Monitor] 113 H Respiratory Rate 16 24 H Blood Pressure 156/82 H 156/82 H Pulse Oximetry 95 95 Oxygen Delivery Method Room Air Room Air 06/19/23 07:20 06/19/23 09:56 Temperature 99.1 F 99.7 F Pulse Rate 115 H 113 H Pulse Rate [Monitor] Respiratory Rate 22 H 27 H Blood Pressure 140/79 H 142/82 H Pulse Oximetry 92 92 Oxygen Delivery Method Room Air Room Air BMI result Body Mass Index 32.2 Const General: cooperative, no acute distress, alert and awake Nutritional Appearance: well nourished Orientation/consciousness: patient oriented x3 Limitations: no limitations HENMT Head: Yes normal to inspection and Yes atraumatic Ears: hearing grossly normal bilaterally and external ears normal General nose exam: Normal external nose present, no nasal discharge noted and no epistaxis Face and sinus: Yes normal facial exam, No abrasion and No laceration Mouth: Normal oral and palatal mucosa present, no drooling and no muffled voice Eyes General: appearance normal, both eyes and all related structures Periorbital: periorbital findings normal Eyelids: Yes eyelids normal Conjunctivae: conjunctivae normal Pupils: Equal, round and reactive pupils present EOM: EOMs intact bilaterally Neck Neck: Yes normal visual inspection, Yes full ROM and Yes no lymphadenopathy Chest Chest palpation & inspection: normal inspection of the chest Resp Effort & Inspection: normal respiratory effort and able to speak in complete sentences Auscultation: wheezes scattered wheezes and throughout Cardio Rate: tachycardic Rhythm: regular rhythm GI Inspection: Yes distended Palpation (GI): Soft to palpation, not firm, Tenderness to palpation present (GI) (diffuse), no guarding and not rigid Neuro General: patient oriented x3 and moves all extremities Cranial nerves: Yes Equal, round and reactive pupils present Cognition (Neuro): normal cognition Motor exam (neuro): 5/5 motor strength present throughout Sensory Exam: Normal double simultaneous stimulation for sensation Coordination: [id number] test normal Extrem General: Yes normal to inspection, Yes full ROM and Yes capillary refill normal Psych Appearance: grossly normal Mental Status: mental status grossly normal Affect: normal affect Attitude: cooperative Thought process: Normal thought process present Thought content: Normal thought content present Insight: Good insight present (Psych) Medications Administered Discontinued Medications Generic Name Dose Route Start Last Admin Trade Name Leonel PRN Reason Stop Dose Admin Sodium Chloride 1,000 mls @ 999 mls/hr 06/19/23 07:00 06/19/23 08:58 Ns IV 06/19/23 08:00 Infused .Q1H1M CHARISSE Infusion Potassium Chloride 10 meq in 100 mls @ 100 mls/hr 06/19/23 07:00 06/19/23 10:09 Potassium Chloride/H20 IV 06/19/23 08:59 Infused Q1H CHARISSE Infusion Ceftriaxone Sodium 1 gm/ 50 mls @ 100 mls/hr 06/19/23 07:01 06/19/23 07:52 Sodium Chloride IV 06/19/23 07:30 Infused ONCE ONE Infusion Iohexol 85 ml 06/19/23 08:09 06/19/23 08:09 Iohexol 350 Mg/Ml 100 Ml Infus..Btl IV 06/19/23 08:10 85 ml ONCE ONE Administration Ondansetron HCl 4 mg 06/19/23 06:46 06/19/23 07:17 Ondansetron Hcl 4 Mg/2 Ml Vial IVPUSH 06/19/23 06:47 4 mg ONCE ONE Administration Phenobarbital Sodium 282 mg 06/19/23 08:00 06/19/23 08:15 Phenobarbital Sodium 130 Mg/Ml Im Once IM 06/19/23 08:01 282 mg ONCE ONE Administration Protocol Medical Decision Making Medical Decision Making MDM Narrative: Patient is a 57 year old assigned male at with a history of alcohol abuse presenting to the emergency department today with abdominal pain. Patient's physical exam was as noted in the physical exam portion of this note. Patient's blood work showed a sodium of 132, potassium of 3.2, lactic acid of 2.4, and chronically elevated LFTs. Patient's urine showed no acute process. Patient's EKG was unremarkable. Patient's abdomen/pelvis CT showed cirrhotic liver with diffuse edematous changes in the colon secondary to portal HTN. Patient's chest x-ray showed a possible pneumonia. Patient's clinical presentation is most consistent with alcohol withdrawal and developing pneumonia. Patient's clinical presentation is not consistent with sepsis (@0940). Patient was given IV ceftriaxone. Patient was started on phenobarb alcohol withdrawal protocol. I spoke to the hospitalist team who agreed to admission. Patient verbalized agreement and understanding with this treatment plan and admission. Differential Diagnosis Differential Diagnoses: The differential diagnosis associated with the presentation includes Alcoholism Alcohol withdrawal Cirrhosis Pneumonia Admission/Observation Consideration of admission/observation: Escalation of care including admission/observation considered Patient admitted. Consult Healthcare Provider Management of the patient was discussed with: Hospitalist (Agreed to admission.) Lab Data MDM Lab Attestation statement: I reviewed the patient's lab results. My interpretation of these results are in the MDM Rationale portion of this note. 06/19/23 05:39 06/19/23 05:39 Labs: Lab Results 06/19/23 06/19/23 06/19/23 Range/Units 05:39 05:46 08:10 WBC 6.9 (4.8-10.8) X10*3/uL RBC 4.27 L (4.60-5.80) X10*6/uL Hgb 13.2 L (14.0-18.0) g/dl Hct 37.7 L (42.0-52.0) % MCV 88.3 (80.0-98.0) fL MCH 30.9 (27.0-33.0) pg MCHC 35.0 (31.0-36.0) g/dl RDW 15.7 (11.0-16.0) % Plt Count 149 L (160-400) X10*3/uL MPV 10.5 (9.4-12.4) fL Immature Gran % (Auto) 0.4 (0.0-0.4) % Neut % (Auto) 74.9 H (45-73) % Lymph % (Auto) 8.3 L (20-40) % [place] % (Auto) 15.7 H (2-11) % Eos % (Auto) 0.3 (0-4) % Baso % (Auto) 0.4 (0-2) % Lymph # (Auto) 0.6 L (1.2-4.9) X10*3/uL [place] # (Auto) 1.1 (0.1-1.2) X10*3/uL Eos # (Auto) 0.0 (0.0-0.4) X10*3/uL Baso # (Auto) 0.0 (0.0-0.2) X10*3/uL Abs Immat Gran (auto) 0.03 (0.00-0.03) X10*3/uL Absolute Neuts (auto) 5.1 (2.0-8.3) x10*3/uL Absolute Nucleated RBC 0.000 (0.0-0.012) X10*3/uL Nucleated RBC % (auto) 0.0 (0.0-0.2) /100WBC PT 17.2 H (11.1-13.3) SEC INR 1.4 H (0.9-1.1) APTT 35.9 (26.0-36.4) SEC Sodium 132 L (135-145) mmol/L Potassium 3.1 L (3.3-5.1) mmol/L Chloride 100 (96-108) mmol/L Carbon Dioxide 20 L (22-29) mmol/L Anion Gap 15 (12-20) BUN 7 L (9-16) mg/dL Creatinine 0.71 (0.5-1.4) mg/dL Estim Creat Clear Calc 134.6 Estimated GFR > 60 Random Glucose 128 H (60-115) mg/dL Lactic Acid 2.4 H* (0.5-2.0) mmol/L Lactic Acid F/U @ 2Hr 2.4 H* (0.5-2.0) mmol/L Calcium 8.7 D (8.4-10.2) mg/dL Total Bilirubin 2.4 H (0.0-1.0) mg/dL Direct Bilirubin 1.2 H (0.0-0.5) mg/dL AST 156 H (5-37) U/L ALT 45 H (0-40) U/L Alkaline Phosphatase 75 (39-117) U/L Total Protein 9.1 H (6.5-8.0) g/dL Albumin 3.5 (3.5-5.0) g/dL Lipase 36 (8-78) U/L Urine Color Urine Appearance Urine pH (5.0-9.0) Ur Specific [place] (1.005-1.025) Urine Protein (Neg-Trace) mg/dL Urine Glucose (UA) (Negative) mg/dL Urine Ketones (Negative) mg/dL Urine Blood (Negative) Urine Nitrite (Negative) Ur Leukocyte Esterase (Negative) Influenza Type A (PCR) NEGATIVE (Negative) Influenza Type B (PCR) NEGATIVE (Negative) RSV RNA Qual (PCR) NEGATIVE (Negative) SARS-CoV-2 RNA (RT-PCR) NEGATIVE (Negative) S. pyogenes GrpA VALERIA Negative (Negative) 06/19/23 Range/Units 08:48 WBC (4.8-10.8) X10*3/uL RBC (4.60-5.80) X10*6/uL Hgb (14.0-18.0) g/dl Hct (42.0-52.0) % MCV (80.0-98.0) fL MCH (27.0-33.0) pg MCHC (31.0-36.0) g/dl RDW (11.0-16.0) % Plt Count (160-400) X10*3/uL MPV (9.4-12.4) fL Immature Gran % (Auto) (0.0-0.4) % Neut % (Auto) (45-73) % Lymph % (Auto) (20-40) % [place] % (Auto) (2-11) % Eos % (Auto) (0-4) % Baso % (Auto) (0-2) % Lymph # (Auto) (1.2-4.9) X10*3/uL [place] # (Auto) (0.1-1.2) X10*3/uL Eos # (Auto) (0.0-0.4) X10*3/uL Baso # (Auto) (0.0-0.2) X10*3/uL Abs Immat Gran (auto) (0.00-0.03) X10*3/uL Absolute Neuts (auto) (2.0-8.3) x10*3/uL Absolute Nucleated RBC (0.0-0.012) X10*3/uL Nucleated RBC % (auto) (0.0-0.2) /100WBC PT (11.1-13.3) SEC INR (0.9-1.1) APTT (26.0-36.4) SEC Sodium (135-145) mmol/L Potassium (3.3-5.1) mmol/L Chloride (96-108) mmol/L Carbon Dioxide (22-29) mmol/L Anion Gap (12-20) BUN (9-16) mg/dL Creatinine (0.5-1.4) mg/dL Estim Creat Clear Calc Estimated GFR Random Glucose (60-115) mg/dL Lactic Acid (0.5-2.0) mmol/L Lactic Acid F/U @ 2Hr (0.5-2.0) mmol/L Calcium (8.4-10.2) mg/dL Total Bilirubin (0.0-1.0) mg/dL Direct Bilirubin (0.0-0.5) mg/dL AST (5-37) U/L ALT (0-40) U/L Alkaline Phosphatase (39-117) U/L Total Protein (6.5-8.0) g/dL Albumin (3.5-5.0) g/dL Lipase (8-78) U/L Urine Color Yellow Urine Appearance Clear Urine pH 7.5 (5.0-9.0) Ur Specific [place] <= 1.005 (1.005-1.025) Urine Protein Negative (Neg-Trace) mg/dL Urine Glucose (UA) Negative (Negative) mg/dL Urine Ketones Negative (Negative) mg/dL Urine Blood Negative (Negative) Urine Nitrite Negative (Negative) Ur Leukocyte Esterase Negative (Negative) Influenza Type A (PCR) (Negative) Influenza Type B (PCR) (Negative) RSV RNA Qual (PCR) (Negative) SARS-CoV-2 RNA (RT-PCR) (Negative) S. pyogenes GrpA VALERIA (Negative) Independent Interpretation I performed an independent interpretation of an: EKG, Plain X-Ray and CT Scan Interpretation: My interpretation is in agreement with the radiologist's impression of these imaging studies. - EXAMINATION: XR CHEST CLINICAL INFORMATION: Shortness of breath COMPARISON: 11/24/2022 TECHNIQUE: Frontal view of the chest was obtained. FINDINGS: Lung volumes are symmetric. There is a region of predominantly streaky opacity at the left lung base. No evidence of pneumothorax, significant pleural effusion, or overt pulmonary edema. The cardiomediastinal contour is unremarkable. No acute osseous findings are seen. XR/XR chest 1V IMPRESSION: Predominantly streaky left basilar opacity which may reflect atelectasis or developing consolidation. Dictated By: Christian Mccallum MD Signed By: Electronically signed by Christian Mccallum MD 06/19/23 0604 - EXAMINATION: CT ABDOMEN AND PELVIS WITH CONTRAST CLINICAL INFORMATION: Alcoholic with abdominal pain. COMPARISON: None available. TECHNIQUE: Contiguous axial thin section helical images of the abdomen were performed following the administration of oral contrast and 85 mL of Omnipaque 350 intravenous contrast. The data set was reformatted in the coronal and sagittal planes and reviewed on an independent workstation. This CT examination was performed using dose optimization techniques as appropriate, variously including the following: *Automated exposure control *Adjustment of mA and/or kV according to patient size (this includes techniques or standardized protocols for targeted exams where dose is matched to indication/reason for exam; i.e. extremities or head) *Use of iterative reconstruction technique DLP: 684 mGy-cm FINDINGS: LUNG BASES: Subpleural reticulation is seen consistent with interstitial disease. No worrisome lung mass or pleural effusion is seen. LIVER, GALLBLADDER, AND BILIARY TREE: The liver is cirrhotic in appearance, enlarged at 20.8 cm with a nodular border. No focal liver mass or bile duct dilatation is seen. There is a recanalized umbilical vein and abdominal wall and periumbilical varices present. Some gastric and esophageal varices are present as well. There is a small splenorenal shunt. The gallbladder is contracted with a small amount of pericholecystic fluid but no evidence of radiopaque gallstones or obvious pericholecystic inflammatory changes. PANCREAS: Unremarkable. SPLEEN: The spleen is enlarged at 15.6 cm. ADRENAL GLANDS: Unremarkable. KIDNEYS AND URETERS: The kidneys are normal in size, shape, and attenuation. No hydronephrosis, hydroureter, or calculi seen. Multiple benign Bosniak class I and class II renal cysts are noted which require no additional imaging or followup. No solid renal masses are seen. No perinephric stranding. BLADDER: Unremarkable. GASTROINTESTINAL TRACT: Some mild edematous changes are present in the colon, especially on the right, which may be secondary to portal colopathy. The appendix is normal. There is some minimal prominence of some small bowel loops in the left abdomen. ABDOMINAL WALL: There is a small periumbilical hernia seen which contains a knuckle of a portion of a loop of small bowel which does not appear to be obstructing. LYMPH NODES: Some small periceliac lymph nodes are seen with some small aortocaval lymph nodes, the largest measuring about 1 cm in short axis dimension (2:35). VASCULAR: No aortic aneurysm. Minimal calcified plaque right common iliac artery. PELVIC VISCERA: The prostate and seminal vesicles are unremarkable. OSSEOUS STRUCTURES: Unremarkable. CT/CT abdomen w IV con IMPRESSION: 1. Enlarged cirrhotic liver with associated splenomegaly and varices. No focal liver mass is seen. 2. Edematous changes in the colon, especially on the right, which may be secondary to portal colopathy. 3. Small periumbilical hernia containing a knuckle of small bowel which does not appear to be obstructing. 4. Other incidental findings, as described above, including benign renal cysts which require no additional imaging or followup, small periceliac and aortocaval lymph nodes. Fleischner guidelines were followed. Dictated By: Burak Silva MD Signed By: Electronically signed by Burak Silva MD 06/19/23 0854 - Vent. Rate : 115 BPM Atrial Rate : 115 BPM P-R Int : 128 ms QRS Dur : 094 ms QT Int : 390 ms P-R-T Axes : 024 048 031 degrees QTc Int : 539 ms Sinus tachycardia RSR' or QR pattern in V1 suggests right ventricular conduction delay Possible Left atrial enlargement Prolonged QT Abnormal ECG When compared with ECG of 14-APR-2019 19:34, Vent. rate has increased BY 38 BPM Electronically Signed By:RAMÓN ROBLES MD Dictated By: Leon Robles MD Signed By: Electronically signed by Leon Robles MD 06/19/23 0905 Critical Care Time Critical Care Time Critical Care Time: Yes Total Critical Care Time: 55 Attestation: I spent 55 minutes of Critical Care Time with this patient. This does not include time spent on separately reported billable procedures. Discharge Plan Discharge Clinical Impression: Alcohol abuse, Alcohol withdrawal, Pneumonia Patient Disposition: Admitted As Inpatient Prescriptions: No Action albuterol sulfate [ProAir HFA] 90 mcg/actuation HFA aerosol inhaler 2 puff inhalation Q6H PRN (Reason: shortness of breath or wheezing) 30 Days Qty: 18 5RF Flovent HFA 220 mcg/actuation HFA aerosol inhaler 2 inh PO BID Qty: 12 5RF albuterol sulfate [Ventolin HFA] 90 mcg/actuation HFA aerosol inhaler 2 puff inhalation Q6H PRN (Reason: shortness of breath or wheezing) 30 Days Qty: 18 5RF cholecalciferol (vitamin D3) 50 mcg (2,000 unit) capsule 50 mcg PO DAILY 90 Days Qty: 90 3RF lisinopril 2.5 mg tablet 2.5 mg PO DAILY 90 Days Qty: 90 1RF
[2023-06-19] MEDS: cefTRIAXone sodium 1 GM in 0.9 % Sodium Chloride 50 ML IV (07:17)
[2023-06-19] MEDS: ondansetron HCL 4 MG/2 ML VIAL IVPUSH (07:17)
--- NOTE | 2023-06-19 07:21 | PC.NURSE ---
Alert and oriented. reports 5/10 abdominal pain. blood cultures obtained and abt started per sep. sinus tacy on monitor, vss. Patient denies etoh withdrawal symptoms however mild tremor noted, provider notified
[2023-06-19 07:46] LABS: Reflex Lactate? Lactic Acid Added
[2023-06-19] MEDS: 0.9 % Sodium Chloride 1,000 ML 999 ML IV (07:54)
[2023-06-19] MEDS: Potassium Chloride/H20 10 MEQ/100 ML PIGGYBACK 100 MEQ IV ×2 (07:55→08:58)
--- NOTE | 2023-06-19 08:05 | PC.NURSE ---
Returned from CT, medicated per mar
[2023-06-19] MEDS: iohexoL 350 MG/ML 100 ML INFUS..BTL 85 ML IV (08:09)
[2023-06-19] MEDS: PHENobarbitaL sodium 130 MG/ML IM ONCE 282 MG IM (08:15)
[2023-06-19 08:21] LABS: INTERNATIONAL NORM RATIO 1.4 (0.9-1.1); Prothrombin Time 17.2 SEC (11.1-13.3)
[2023-06-19 08:24] LABS: Partial Thromboplastin Time 35.9 SEC (26.0-36.4)
[2023-06-19 08:32] LABS: ~Lactic Acid-LAB USE ONLY 2.4 mmol/L (0.5-2.0)
[2023-06-19 08:56] LABS: Appearance Urine Clear; Color Urine Yellow; Glucose Urine UA Negative (Negative); Leukocyte Esterase Urine Negative (Negative); Nitrite Urine Negative (Negative); PH 7.5 (5.0-9.0); Specific Gravity - Urine <= 1.005 (1.005-1.025); Urine Blood Negative (Negative); Urine Ketones Negative (Negative); Urine Protein Negative (Neg-Trace)
[2023-06-19 10:14] LABS: Reflex Lactate? 2 Y
--- NOTE | 2023-06-19 11:02 | PHA.MEDREC ---
Pharmacy Consult ? Medication Reconciliation Pharmacy has completed the medication reconciliation. Unable to speak with patient used pharmacy claims and list from PCP visit in march
[2023-06-19] MEDS: PHENobarbitaL sodium 130 MG/ML VIAL IM Q3Hx2 212 MG IM (11:06)
--- NOTE | 2023-06-19 11:33 | PM.IMHP ---
History of Present Illness Date of Service: 06/19/23 Attending physician on admission: Duncan Davidson Chief Complaint: Abdominal pain, N/V, cough Pt is a 57-year-old male with a PMH significant for?mild intermittent asthma, HTN, and alcohol use disorder who presents to the ED with multiple complaints, though primarily complaining of lower abdominal pain that has been intermittent the past few months and more persistent the past 2-3 weeks. Last night pt says pain increased and became sharp and stabbing, which prompted his visit to the ED today. Has experienced some diarrhea since Saturday. Last bowel movement 20 minutes prior, was soft but not liquid. Pt admits to drinking a six pack or so daily, starting in the afternoon. However pt reports waking up to upper extremity tremors and daily nausea and vomiting for the past 3 weeks. Vomiting sometimes with streaks of blood in them, though denies gross hematuria. Also reports a remote hx of alcohol withdrawal years ago. Denies withdrawal seizures or hallucinations. Has had abdominal swelling for the past few months but with no noticeable increases recently. He also notes increased SOB, fatigue, and cough occasionally productive of black/brown sputum over the past 2-3 weeks. No chest pain/pressure, palpitations. No headache, auditory or visual hallucinations. Denies fever, chills. In the ED pt was tachycardic up to 160, took a 27, with low-grade fever 99.7, slightly hypertensive up to 156/82, and satting at 92% on RA. Labs were significant for H&H 13.2/37.7, sodium 132, potassium 3.1, lactic acid 2.4 with repeat 2.4, bilirubin 2 point, AST 156, and ALT 45. Renal function baseline. Lipase WNL. UA negative for UTI. Patient tested negative for influenza type a and B, RSV, COVID, strep pyogenes. CXR showed predominately streaky left basilar opacity which may reflect atelectasis or developing consolidation. CT?of abd/pelvis showed enlarged cirrhotic liver with associated splenomegaly and varices but no focal of volar mass, edematous changes to the colon likely from portal hypertension. Also found non-obstructing small periumbilical hernia, as well as benign renal cysts. EKG demonstrated sinus tachycardia of 115 with possible right ventricular conduction delay left atrial enlargement, with prolonged QTc of 539. Pt was treated with ceftriaxone, ondansetron, IVF, potassium chloride, and started on phenobarb protocol. Pt will be admitted to the hospital for treatment further evaluation pneumonia and acute alcohol withdrawal. Review of Systems Review of Systems: Lower abdominal pain increased SOB, productive cough N/V primarily in the morning Upper extremity tremors in the morning LLE, abdominal swelling [facility] Medical History Vitamin D deficiency Impaired fasting glucose Benign essential hypertension Obesity (BMI 30-39.9) Overweight (BMI 25.0-29.9) Depression Anxiety Elevated liver enzymes Pure hypercholesterolemia Allergic rhinitis Asthma Family History Father Medical history unknown Mother Ovarian cancer Brother No problems noted. Sister No problems noted. Sister In good health Surgical History No pertinent past surgical history Social History Housing: House Alcohol intake: current Alcohol intake frequency: 3 or more drinks per day Alcohol type: beer Patient Tobacco Use Status: Former Tobacco user Smoked in Last 30 Days: No e-Cigarette/Vaping Use: Never Used Use of substances other than those prescribed or required for medical reasons: No Advance Directives: No Advance Directives Information Provided: No service: No Current occupational status: employed Current occupational exposures/hazards: No Cognitive needs: No Hearing needs: No Vision needs: No Meds Allergies Allergy/AdvReac Type Severity Reaction Status Date / Time No Known Allergies Allergy Verified 03/22/23 10:16 [No Known Allergies*] Active Medications: Current Medications Pharmacy Consult (Consult Rx Etoh Phenob Im/Po) 1 each MISCELLANE ONCE PRN; Protocol PRN Reason: Consult order Phenobarbital (Phenobarbital 15 Mg Tablet) 45 mg PO BID CHARISSE; Protocol Stop: 06/21/23 09:01 Phenobarbital (Phenobarbital 30 Mg Tablet) 30 mg PO BID CHARISSE; Protocol Stop: 06/23/23 09:01 Phenobarbital (Phenobarbital 30 Mg Tablet) 30 mg PO DAILY@2100 CHARISSE; Protocol Stop: 06/24/23 21:01 Phenobarbital Sodium (Phenobarbital Sodium 130 Mg/Ml Vial Im Q3hx2) 212 mg IM Q3H CHARISSE; Protocol Stop: 06/19/23 14:01 Last Admin: 06/19/23 11:06 Dose: 212 mg Physical Exam Vital Signs and Narrative: Vital Signs: Last Vital Signs Temp 99.7 F 06/19/23 09:56 Pulse 113 H 06/19/23 09:56 Resp 27 H 06/19/23 09:56 BP 142/82 H 06/19/23 09:56 Pulse Ox 92 06/19/23 09:56 O2 Del Method Room Air 06/19/23 09:56 BMI result Body Mass Index 32.2 Constitutional: Alert, in no acute distress. Mental Status: Oriented to person, place and time. Eyes: Pupils are equal, round, and reactive to light. Ear, Nose, and Throat: Oropharynx clear, mucous membranes moist. Ears and nose without deformities. Trachea midline. Respiratory: Clear to auscultation bilaterally. No wheezing, rales, or rhonchi. Cardiovascular: S1, S2, tachy. No murmurs, rubs, or gallops. Gastrointestinal: Abdomen firm, moderately distended, with lower abdominal tenderness. Neurologic: Cranial nerves II-XII are grossly intact bilaterally. No focal neurological deficits. Moves all extremities spontaneously. Mild upper extremity tremors noted. Skin: Warm, dry. Extremities: 2+ bilateral pitting edema. Psychiatric: Normal mood and affect. Results Labs 06/19/23 05:39 06/19/23 05:39 Labs: Laboratory Results - last 24 hr 06/19/23 06/19/23 06/19/23 05:39 05:46 08:10 MCV 88.3 MCH 30.9 MCHC 35.0 RDW 15.7 Plt Count 149 L MPV 10.5 Immature Gran % (Auto) 0.4 Neut % (Auto) 74.9 H Lymph % (Auto) 8.3 L Pepin % (Auto) 15.7 H Eos % (Auto) 0.3 Baso % (Auto) 0.4 Lymph # (Auto) 0.6 L Pepin # (Auto) 1.1 Eos # (Auto) 0.0 Baso # (Auto) 0.0 Abs Immat Gran (auto) 0.03 Absolute Neuts (auto) 5.1 Absolute Nucleated RBC 0.000 Nucleated RBC % (auto) 0.0 PT 17.2 H INR 1.4 H APTT 35.9 Anion Gap 15 Estim Creat Clear Calc 134.6 Estimated GFR > 60 Random Glucose 128 H Lactic Acid 2.4 H* Lactic Acid F/U @ 2Hr 2.4 H* Calcium 8.7 D Total Bilirubin 2.4 H Direct Bilirubin 1.2 H AST 156 H ALT 45 H Alkaline Phosphatase 75 Total Protein 9.1 H Albumin 3.5 Lipase 36 Urine Color Urine Appearance Urine pH Ur Specific [place] Urine Protein Urine Glucose (UA) Urine Ketones Urine Blood Urine Nitrite Ur Leukocyte Esterase Influenza Type A (PCR) NEGATIVE Influenza Type B (PCR) NEGATIVE RSV RNA Qual (PCR) NEGATIVE SARS-CoV-2 RNA (RT-PCR) NEGATIVE S. pyogenes GrpA VALERIA Negative 06/19/23 08:48 MCV MCH MCHC RDW Plt Count MPV Immature Gran % (Auto) Neut % (Auto) Lymph % (Auto) Pepin % (Auto) Eos % (Auto) Baso % (Auto) Lymph # (Auto) Pepin # (Auto) Eos # (Auto) Baso # (Auto) Abs Immat Gran (auto) Absolute Neuts (auto) Absolute Nucleated RBC Nucleated RBC % (auto) PT INR APTT Anion Gap Estim Creat Clear Calc Estimated GFR Random Glucose Lactic Acid Lactic Acid F/U @ 2Hr Calcium Total Bilirubin Direct Bilirubin AST ALT Alkaline Phosphatase Total Protein Albumin Lipase Urine Color Yellow Urine Appearance Clear Urine pH 7.5 Ur Specific [place] <= 1.005 Urine Protein Negative Urine Glucose (UA) Negative Urine Ketones Negative Urine Blood Negative Urine Nitrite Negative Ur Leukocyte Esterase Negative Influenza Type A (PCR) Influenza Type B (PCR) RSV RNA Qual (PCR) SARS-CoV-2 RNA (RT-PCR) S. pyogenes GrpA VALERIA Imaging Radiologist's Impressions: Impressions Chest X-Ray 06/19/23 05:50 IMPRESSION: Predominantly streaky left basilar opacity which may reflect atelectasis or developing consolidation. Abdomen CT 06/19/23 07:02 IMPRESSION: 1. Enlarged cirrhotic liver with associated splenomegaly and varices. No focal liver mass is seen. 2. Edematous changes in the colon, especially on the right, which may be secondary to portal colopathy. 3. Small periumbilical hernia containing a knuckle of small bowel which does not appear to be obstructing. 4. Other incidental findings, as described above, including benign renal cysts which require no additional imaging or followup, small periceliac and aortocaval lymph nodes. Fleischner guidelines were followed. Abdomen/Pelvis CT 06/19/23 08:33 IMPRESSION: 1. Enlarged cirrhotic liver with associated splenomegaly and varices. No focal liver mass is seen. 2. Edematous changes in the colon, especially on the right, which may be secondary to portal colopathy. 3. Small periumbilical hernia containing a knuckle of small bowel which does not appear to be obstructing. 4. Other incidental findings, as described above, including benign renal cysts which require no additional imaging or followup, small periceliac and aortocaval lymph nodes. Fleischner guidelines were followed. Assessment and Plan (1) Pneumonia: Status: Acute (2) Alcohol withdrawal: Status: Acute Plan Pneumonia Patient with increased SOB, cough productive of black/brown sputum past 2-3 weeks CXR with possible atelectasis vs developing consolidation Pt meets sepsis criteria: Tachycardia, tachypnea, lactic acid 2.4 Given IVF and started on broad spectrum antibiotics in the ED Will treat with ceftriaxone, doxycycline Will get CT of chest Alcohol use disorder/acute alcohol withdrawal Mild shakiness, no hallucinations Received IVF, ondansetron, and phenobarb protocol in the ED Continue Phenobarb protocol Daily multivitamin, folic acid, Thiamine Famotidine Follow lytes, Mag, BMP CIWA scale Addiction medicine consult Monitor on telemetry Abdominal pain Pt complaining of lower abdominal pain past 2-3 weeks, worse since last night CT of abd with no clear source, but shows cirrhotic liver with splenomegaly and varices, as well as edematous changes in the colon likely secondary to portal hypertension Analgesics for pain management GI consult Lower leg edema 2+ bilateral pitting edema of lower extremities Likely secondary to portal HTN Will treat with Lasix 20mg IV daily for now Lactic acidosis, resolved Initial lactic acid 2.4 with repeats 2.4 and then 1.5 after receiving IVF Hypokalemia Potassium 3.1 at time of presentation Received potassium chloride in ED Follow BMP Prolonged QTc EKG showed sinus tachycardia with possible right ventricular conduction delay and left atrial enlargement QTc prolonged at 539 Avoid QT-prolonging agents Will repeat EKG tomorrow Asthma Not in acute exacerbation Continue home inhalers Obesity class I Encourage weight loss Full Code Attending:?Dr. Davidson DVT Prophylaxis: Lovenox Pt will require a hospitalization of at least two nights for treatment of?pneumonia and acute alcohol withdrawal with IV antibiotics, phenobarb protocol, close monitoring, and specialist consultation. Quality Stroke Does the patient have a stroke diagnosis?: No VTE Prior VTE?: No VTE Risk Level:: Medical - moderate - high VTE Device Contraindication: Treatment Not Indicated VTE Drug Contraindication: N/A - Med Ordered
[2023-06-19 12:26] LABS: ~Lactic Acid-LAB USE ONLY 1.5 mmol/L (0.5-2.0)
[2023-06-19] MEDS: lisinopriL 2.5 MG TABLET PO (13:17)
[2023-06-19] MEDS: Furosemide 20 MG/2 ML VIAL IVPUSH (13:17)
[2023-06-19] MEDS: Enoxaparin Sodium 40 MG/0.4 ML SYRINGE SUBCUT (13:18)
[2023-06-19] MEDS: Doxycycline Hyclate 100 MG in 0.9 % Sodium Chloride 250 ML 166.67 MG IV (13:24)
[2023-06-19] MEDS: Thiamine HCL 100 MG TABLET PO (15:22)
[2023-06-19] MEDS: Folic Acid 1 MG TABLET PO (15:22)
--- NOTE | 2023-06-19 15:23 | PC.NURSE ---
Patient declined phenobarb stating that he feels okay right now
--- NOTE | 2023-06-19 15:57 | PC.NURSE ---
Patient ambulating to bathroom numerous times, reports frequent diarrhea. Provider aware
[2023-06-19] MEDS: Famotidine 20 MG TABLET PO (20:14)
[2023-06-19] MEDS: PHENobarbitaL 15 MG TABLET 45 MG PO (20:14)
[2023-06-20] VITALS (8 sets, daily range): BP systolic 142–167; BP diastolic 76–86; PULSE 92–110; RESP 18–20; TEMP 36.1–37.2; O2SAT 93–95
[2023-06-20] MEDS: Doxycycline Hyclate 100 MG in 0.9 % Sodium Chloride 250 ML 166.67 MG IV ×2 (01:17→14:15)
[2023-06-20] MEDS: 0.9 % Sodium Chloride Flush 3 ML SYRINGE IVFLUSH ×4 (01:18→19:58)
[2023-06-20] MEDS: cefTRIAXone sodium 1 GM in 0.9 % Sodium Chloride 50 ML IV (05:52)
--- NOTE | 2023-06-20 07:00 | ECG_ITS ---
Test Reason : REPEAT Blood Pressure : / mmHG Vent. Rate : 119 BPM Atrial Rate : 119 BPM P-R Int : 116 ms QRS Dur : 096 ms QT Int : 358 ms P-R-T Axes : 052 055 040 degrees QTc Int : 503 ms Sinus tachycardia Possible Left atrial enlargement Nonspecific T wave abnormality Intra-ventricular conduction delay Abnormal ECG When compared with ECG of 19-JUN-2023 05:40, No significant change was found Referred By: Dana Talley Electronically Signed By:RAMÓN ROBLES MD
[2023-06-20] MEDS: Fluticasone Propionate 250 MCG BLST.W.DEV 2 PUFF INHALE ×2 (07:41→19:32)
[2023-06-20 08:04] LABS: Hematocrit 39.6 % (42.0-52.0); Hemoglobin 13.7 g/dl (14.0-18.0); Mean Corpuscular HGB Conc 34.6 g/dl (31.0-36.0); Mean Corpuscular Hemoglobin 31.1 pg (27.0-33.0); Mean Platelet Volume 11.2 fL (9.4-12.4); Platelet Count 145 X10*3/uL (160-400); Red Cell Distribution Width 15.5 % (11.0-16.0); White Blood Count 7.6 X10*3/uL (4.8-10.8)
--- NOTE | 2023-06-20 08:14 | MHC.CM.PN ---
CM met with Patient at bedside. Patient lives alone in a house that he rents a room in and he required no services nor DME CENTRAL SERVICE TECH. Home self care vs Recovery Team intervention r/t ETOH is the tentative e plan and CM has initiated and will follow for dc planning. Patient is from his but they are still supportive of one another. PCP is Dr. Harry Vargas.
[2023-06-20 08:22] LABS: Anion Gap 11 (12-20); Blood Urea Nitrogen 11 mg/dL (9-16); Carbon Dioxide 21 mmol/L (22-29); Chloride 102 mmol/L (96-108); Creatinine Clr Calc Pharmacy 132.7; Estimated Glomerular Filt Rate > 60; Glucose Random 96 mg/dL (60-115); Magnesium 1.6 mg/dL (1.6-2.6); Potassium 2.8 mmol/L (3.3-5.1); Sodium 131 mmol/L (135-145)
[2023-06-20] MEDS: Furosemide 20 MG/2 ML VIAL IVPUSH (08:28)
[2023-06-20] MEDS: Thiamine HCL 100 MG TABLET PO (08:28)
[2023-06-20] MEDS: PHENobarbitaL 15 MG TABLET 45 MG PO ×2 (08:28→19:57)
[2023-06-20] MEDS: Famotidine 20 MG TABLET PO ×2 (08:28→19:57)
[2023-06-20] MEDS: Folic Acid 1 MG TABLET PO (08:28)
[2023-06-20] MEDS: lisinopriL 2.5 MG TABLET PO (08:29)
[2023-06-20 08:46] LABS: Alanine Aminotransferase 44 U/L (0-40); Albumin Level 3.6 g/dL (3.5-5.0); Alkaline Phosphatase 65 U/L (39-117); Aspartate Amino Transferase 147 U/L (5-37); Bilirubin Direct 1.4 mg/dL (0.0-0.5); Bilirubin Total 2.2 mg/dL (0.0-1.0); Total Protein 9.3 g/dL (6.5-8.0)
[2023-06-20 10:34] LABS: CDiff Gene PCR NEGATIVE (Negative)
--- NOTE | 2023-06-20 11:46 | PM.EVENT ---
Event Note Date of Service: 06/20/23 Event Note: GI consult dictated cirrhosis likely due to alcohol usage. agree with present management abd pain resolved, may have had gastroenteritis. stool studies pending. he will need eventual egd/colonscopy, my office will arrange as outpatient. advised to cease alcohol use. Time Spent With Patient Time: Total time managing care of this patient today ____ minutes.
--- NOTE | 2023-06-20 13:31 | CONS_ITS ---
DATE OF SERVICE: 06/20/2023 REFERRING PHYSICIAN: JACLYN Aiken REASON FOR CONSULTATION: Abdominal pain and cirrhosis. HISTORY OF PRESENT ILLNESS: The patient is a pleasant 57-year-old man, who was admitted to the hospital after presenting to the emergency room yesterday with complaints of abdominal pain and shortness of breath. He states he has had abdominal discomfort across the lower abdomen for several days prior to admission. This did not seem related to diet or bowel movements. There was no associated nausea or vomiting, but he did have some diarrhea that was nonbloody. He has a history of chronic alcohol use, drinking 6 alcoholic drinks on a daily basis. He has gone through detox in the past and has been sober for periods of time. He was evaluated in the emergency department and noted to be tachycardic with a temperature of 99.7, and hypertension. Laboratory studies were obtained documenting a hematocrit of 37. Liver function tests were elevated in a pattern consistent with alcoholic hepatitis. Stool testing has been obtained since admission and is pending, although C. diff testing has been negative. Since admission, he has been treated with phenobarbital and reports no tremors. He denies any complications from liver disease such as varices or bleeding, jaundice, or ascites. CT scanning of the abdomen and pelvis is reviewed and showed cirrhotic liver with splenomegaly and varices, but no focal liver mass. There were some edematous changes thought secondary to portal colopathy in the right colon and a small periumbilical hernia. PAST MEDICAL HISTORY: 1. Asthma. 2. Anxiety/depression. 3. Hyperlipidemia. 4. Hypertension. 5. Alcohol abuse. CURRENT MEDICATIONS: His current medication list is reviewed in the chart. ALLERGIES: THERE ARE NONE REPORTED. FAMILY HISTORY: This is reviewed with the patient and is noncontributory. SOCIAL HISTORY: There is no current tobacco use. REVIEW OF SYSTEMS: SKIN: No pruritus. HEENT: Negative. CARDIOPULMONARY: He denies shortness of breath or chest pain. GASTROINTESTINAL: As above. GENITOURINARY: Negative. NEUROPSYCHIATRIC: Negative. PHYSICAL EXAMINATION: GENERAL: Shows a pleasant male, lying comfortably in bed. VITAL SIGNS: Stable. SKIN: Anicteric. HEENT: Shows no scleral icterus. NECK: Without lymphadenopathy or thyromegaly. LUNGS: Clear. HEART: Shows a regular rate and rhythm. S1, S2. No murmur. ABDOMEN: Obese and protuberant. Bowel sounds are present. There is no definite shifting dullness. There is no guarding or rebound. EXTREMITIES: Show trace edema. There is no asterixis. Laboratory data and imaging studies including CT scanning of the abdomen and pelvis are reviewed. My impression is that he does appear to have cirrhosis on the basis of his chronic alcohol use. I discussed this with him. I have recommended that he cease alcohol use and he intends to do this. I agree with treating him symptomatically and gradually advancing his diet. His stool tests are pending to rule out any treatable infectious etiology. He may have had a gastroenteritis as a cause of his lower abdominal symptoms. I have recommended eventual outpatient upper endoscopy and colonoscopy as he has not had a screening colonoscopy and he should undergo endoscopy to evaluate for esophageal varices. I advised him to call my office after he is discharged. Thanks for asking me to see him. I will follow him in the hospital with you. MD ALEXYS Jane/CHERIE / [phone]
[2023-06-20 13:35] LABS: Adenovirus F 40/41 Not Detected (Not Detect.); Astrovirus Not Detected (Not Detect.); Campylobacter Not Detected (Not Detect.); Cryptosporidium Not Detected (Not Detect.); Cyclospora cayetanensis Not Detected (Not Detect.); E. coli EAEC Not Detected (Not Detect.); E. coli EPEC Not Detected (Not Detect.); E. coli ETEC Not Detected (Not Detect.); E. coli STEC Not Detected (Not Detect.); Entamoeba histolytica Not Detected (Not Detect.); Giardia lamblia Not Detected (Not Detect.); Norovirus GI/GII Not Detected (Not Detect.); Plesiomonas shigelloides Not Detected (Not Detect.); Rotavirus A Not Detected (Not Detect.); Salmonella Not Detected (Not Detect.); Sapovirus Detected (Not Detect.); Shigella sp./EIEC Not Detected (Not Detect.); Vibrio Not Detected (Not Detect.); Vibrio Cholerae Not Detected (Not Detect.); Yersinia enterocolitica Not Detected (Not Detect.)
[2023-06-20] MEDS: Enoxaparin Sodium 40 MG/0.4 ML SYRINGE SUBCUT (14:15)
--- NOTE | 2023-06-20 15:26 | MHC.IC ---
PT IS POSITIVE FOR SAPOVIRUS. WASH HANDS WITH SOAP AND WATER/USE BLEACH ON SURFACES
--- NOTE | 2023-06-20 16:23 | HO.PM.IMPN ---
Subjective Subjective Date of Service: 06/20/23 Interval History: seen and examined this morning follow up for pneumonia, alcohol withdrawal breathing improving, some productive cough no significant withdrawal symptoms at this time Review of Systems Review of Systems: Yes all other systems are reviewed and are negative Constitutional Constitutional: Denies chills and Denies fever(s) Cardiovascular Cardiovascular: Denies chest pain Respiratory Respiratory: Reports cough Physical Exam Vital Signs: Vital Signs: Last Vital Signs Temp 97.5 F 06/20/23 15:19 Pulse 101 H 06/20/23 15:19 Resp 20 06/20/23 15:19 BP 145/82 H 06/20/23 15:19 Pulse Ox 93 06/20/23 15:19 O2 Del Method Room Air 06/20/23 15:19 BMI result Body Mass Index 32.2 Const: General: cooperative, comfortable, alert and awake Nutritional Appearance: average body habitus Orientation/consciousness: patient oriented x3 Resp: Effort & Inspection: normal respiratory effort, able to speak in complete sentences, no respiratory distress and no use of accessory muscles Cardio: Rate: tachycardic GI: Inspection: No distended Palpation (GI): Soft to palpation Neuro: General: patient oriented x3 and moves all extremities Objective Data Active Medications Acetaminophen (Acetaminophen 325 Mg Tablet) 650 mg PO Q6H PRN PRN Reason: Pain, Mild (Pain Scale 1-3) Albuterol Sulfate (Albuterol Sulfate 90 Mcg 8 Gm Inhaler) 2 puff INHALE RQ6H PRN PRN Reason: shortness of breath or wheezing Docusate Sodium (Docusate Sodium 100 Mg Capsule) 100 mg PO DAILY PRN PRN Reason: Constipation Enoxaparin Sodium (Enoxaparin Sodium 40 Mg/0.4 Ml Syringe) 40 mg SUBCUT Q24H [facility] Last Admin: 06/20/23 14:15 Dose: 40 mg Documented By: ARIAN Famotidine (Famotidine 20 Mg Tablet) 20 mg PO BID [facility] Last Admin: 06/20/23 08:28 Dose: 20 mg Documented By: ARIAN Fluticasone Propionate (Fluticasone Propionate 250 Mcg Blst.W.Dev) 2 puff INHALE RBID [facility] Last Admin: 06/20/23 07:41 Dose: 2 puff Documented By: CHRISTINE Folic Acid (Folic Acid 1 Mg Tablet) 1 mg PO DAILY [facility] Stop: 06/22/23 13:24 Last Admin: 06/20/23 08:28 Dose: 1 mg Documented By: ARIAN Furosemide (Furosemide 20 Mg/2 Ml Vial) 20 mg IVPUSH DAILY [facility]; Protocol Last Admin: 06/20/23 08:28 Dose: 20 mg Documented By: ARIAN Guaifenesin/Dextromethorphan (Guaifenesin Dm 100/10/5 Ml 5 Ml Syrup) 5 ml PO Q6H PRN PRN Reason: Cough Ceftriaxone Sodium 1 gm/ (Sodium Chloride) 50 mls @ 100 mls/hr IV Q24H [facility] Last Infusion: 06/20/23 06:22 Dose: Infused Documented By: JACI Doxycycline Hyclate 100 mg/ (Sodium Chloride) 250 mls @ 166.67 mls/hr IV Q12H [facility] Last Admin: 06/20/23 14:15 Dose: 166.67 mls/hr Documented By: ARIAN Lisinopril (Lisinopril 2.5 Mg Tablet) 2.5 mg PO DAILY [facility]; Protocol Last Admin: 06/20/23 08:29 Dose: 2.5 mg Documented By: ARIAN Pharmacy Consult (Consult Rx Etoh Phenob Im/Po) 1 each MISCELLANE ONCE PRN; Protocol PRN Reason: Consult order Phenobarbital (Phenobarbital 15 Mg Tablet) 45 mg PO BID [facility]; Protocol Stop: 06/21/23 09:01 Last Admin: 06/20/23 08:28 Dose: 45 mg Documented By: ARIAN Phenobarbital (Phenobarbital 30 Mg Tablet) 30 mg PO BID [facility]; Protocol Stop: 06/23/23 09:01 Phenobarbital (Phenobarbital 30 Mg Tablet) 30 mg PO DAILY@2100 [facility]; Protocol Stop: 06/24/23 21:01 Sodium Chloride (0.9 % Sodium Chloride Flush 3 Ml Syringe) 3 ml IVFLUSH QSHIFT [facility] Last Admin: 06/20/23 14:15 Dose: 3 ml Documented By: ARIAN Thiamine HCl (Thiamine Hcl 100 Mg Tablet) 100 mg PO DAILY [facility] Stop: 06/22/23 13:24 Last Admin: 06/20/23 08:28 Dose: 100 mg Documented By: ARIAN Labs 06/20/23 07:36 06/20/23 07:36 Labs: Laboratory Results - last 24 hr 06/20/23 06/20/23 07:36 08:34 MCV 90.0 MCH 31.1 MCHC 34.6 RDW 15.5 Plt Count 145 L MPV 11.2 Absolute Nucleated RBC 0.000 Nucleated RBC % (auto) 0.0 Anion Gap 11 L Estim Creat Clear Calc 132.7 Estimated GFR > 60 Random Glucose 96 Calcium 9.0 Magnesium 1.6 Total Bilirubin 2.2 H Direct Bilirubin 1.4 H AST 147 H ALT 44 H Alkaline Phosphatase 65 Total Protein 9.3 H Albumin 3.6 Stl C. cayetanensis PCR Not Detected Stool Rotavirus A PCR Not Detected Stl Adenov F 40/41 PCR Not Detected Stool Astrovirus (PCR) Not Detected Stool Campylobacter PCR Not Detected Stool Cryptosporidium PCR Not Detected Stl Sh Tox Pr E STEC PCR Not Detected Stool E coli O157 PCR Not applicable Stl Enterotoxigenic E PCR Not Detected Stool EPEC (PCR) Not Detected Stool EAEC (PCR) Not Detected Stl E. histolytica PCR Not Detected Stool Giardia Lamblia PCR Not Detected Stl P. shigelloides PCR Not Detected Stool Salmonella PCR Not Detected Stool Sapovirus (PCR) Detected A Stl Shigella/EIEC PCR Not Detected St Y.enterocolitica PCR Not Detected Stool Vibrio (PCR) Not Detected Stl Vibrio cholerae PCR Not Detected Stl Norovirus GI/GII PCR Not Detected C. difficile Tox B Gene NEGATIVE Microbiology Microbiology Results: Microbiology 06/19/23 07:08 Blood Culture - Preliminary Blood - Venous No growth after 24 hours. 06/19/23 07:08 Blood Culture - Preliminary Blood - Venous No growth after 24 hours. Assessment and Plan (1) Alcohol withdrawal: Status: Acute (2) Pneumonia: Status: Acute (3) Cirrhosis: Status: Acute Plan This is a 57-year-old male with history of asthma, hypertension presents to the emergency department with abdominal pain found to have likely gastroenteritis and possible pneumonia Abdominal pain with N/V/D likely due gastroenteritis stool studies +for sapovirus seems to be improving, continue supportive care Alcohol use disorder/acute alcohol withdrawal scoring low on CIWA Continue Phenobarb protocol Daily multivitamin, folic acid, Thiamine has declined Addiction medicine consult Monitor on telemetry Hypokalemia/hyopomagnesemia due to GI losses replace IV and PO Follow BMP liver cirrhosis likely due to etoh seen by GI will need outpatient egd/colonoscopy avoid alcohol Pneumonia Patient with increased SOB, cough productive of black/brown sputum past 2-3 weeks CXR with possible atelectasis vs developing consolidation Pt meets sepsis criteria: Tachycardia, tachypnea, lactic acid 2.4 Given IVF and started on broad spectrum antibiotics in the ED Will treat with ceftriaxone, doxycycline no discrete pneumonia on CT ?bronchitis blood cultures negative Lower leg edema due to liver dz s/p IV lasix Prolonged QTc EKG showed sinus tachycardia with possible right ventricular conduction delay and left atrial enlargement improving Avoid QT-prolonging agents Asthma Not in acute exacerbation Continue home inhalers Obesity class I Encourage weight loss Full Code Attending:?Dr. Davidson DVT Prophylaxis: Lovenox Pt will require a hospitalization of at least two nights for treatment of?pneumonia and acute alcohol withdrawal with IV antibiotics, phenobarb protocol, close monitoring, and specialist consultation. Quality Stroke Does the patient have a stroke diagnosis?: No VTE Prior VTE?: No VTE Risk Level:: Medical - moderate - high VTE Device Contraindication: Treatment Not Indicated VTE Drug Contraindication: N/A - Med Ordered
[2023-06-20] MEDS: Potassium Chloride Packet 20 MEQ PACKET 40 MEQ PO (17:10)
[2023-06-20] MEDS: Magnesium Sulfate/H2O 2 GM/50 ML PIGGYBACK IV (17:13)
[2023-06-20] MEDS: Potassium Chloride/H20 10 MEQ/100 ML PIGGYBACK 100 MEQ IV ×2 (19:57→21:25)
[2023-06-21] MEDS: Doxycycline Hyclate 100 MG in 0.9 % Sodium Chloride 250 ML 166.67 MG IV (01:50)
[2023-06-21 04:00] VITALS: BP 168/76; PULSE 94; RESP 18; TEMP 36.6; O2SAT 94
[2023-06-21] MEDS: cefTRIAXone sodium 1 GM in 0.9 % Sodium Chloride 50 ML IV (05:35)
[2023-06-21 06:54] LABS: Anion Gap 12 (12-20); Blood Urea Nitrogen 11 mg/dL (9-16); Calcium 8.4 mg/dL (8.4-10.2); Carbon Dioxide 19 mmol/L (22-29); Chloride 103 mmol/L (96-108); Creatinine Clr Calc Pharmacy 154.1; Estimated Glomerular Filt Rate > 60; Glucose Random 88 mg/dL (60-115); Magnesium 2.1 mg/dL (1.6-2.6); Potassium 2.9 mmol/L (3.3-5.1); Sodium 131 mmol/L (135-145)
[2023-06-21 07:23] VITALS: BP 155/81; PULSE 89; RESP 20; TEMP 36.7; O2SAT 95
[2023-06-21] MEDS: Thiamine HCL 100 MG TABLET PO (08:16)
[2023-06-21] MEDS: PHENobarbitaL 15 MG TABLET 45 MG PO (08:16)
[2023-06-21] MEDS: lisinopriL 2.5 MG TABLET PO (08:17)
[2023-06-21] MEDS: Famotidine 20 MG TABLET PO (08:17)
[2023-06-21] MEDS: Folic Acid 1 MG TABLET PO (08:17)
[2023-06-21] MEDS: Potassium Chloride Packet 20 MEQ PACKET 60 MEQ PO (08:18)
[2023-06-21] MEDS: 0.9 % Sodium Chloride Flush 3 ML SYRINGE IVFLUSH (08:21)
[2023-06-21 09:00] VITALS: PULSE 84; RESP 20; O2SAT 95
[2023-06-21] MEDS: Fluticasone Propionate 250 MCG BLST.W.DEV 2 PUFF INHALE (09:00)
[2023-06-21 11:17] VITALS: BP 141/79; PULSE 88; RESP 18; TEMP 36.5; O2SAT 95
--- NOTE | 2023-06-21 11:42 | PM.DS ---
DS: Providers Provider Date of Service: 06/21/23 Date of admission: 06/19/23 12:50 Date of discharge: 06/21/23 Primary care physician: Harry Vargas MD Consults: 06/19/23 13:00 Consult to Gastroenterology Routine Consulting Provider: Levy Goyal Reason for consultation: Lower abd pain, CT w/ cirrhotic liver, varices, edematous changes to colon Attending physician on discharge: Duncan Davidson Discharging clinician: Nora Arenas DS: Diagnosis Discharge Diagnosis (1) Alcohol withdrawal: Status: Acute (2) Pneumonia: Status: Acute (3) Cirrhosis: Status: Acute (4) Gastroenteritis: Status: Acute DS: Summary Hospital Course Hospital Course: From H&P on the day of admission Pt is a 57-year-old male with a PMH significant for?mild intermittent asthma, HTN, and alcohol use disorder who presents to the ED with multiple complaints, though primarily complaining of lower abdominal pain that has been intermittent the past few months and more persistent the past 2-3 weeks. Last night pt says pain increased and became sharp and stabbing, which prompted his visit to the ED today. Has experienced some diarrhea since Saturday. Last bowel movement 20 minutes prior, was soft but not liquid. Pt admits to drinking a six pack or so daily, starting in the afternoon. However pt reports waking up to upper extremity tremors and daily nausea and vomiting for the past 3 weeks. Vomiting sometimes with streaks of blood in them, though denies gross hematuria. Also reports a remote hx of alcohol withdrawal years ago. Denies withdrawal seizures or hallucinations. Has had abdominal swelling for the past few months but with no noticeable increases recently. He also notes increased SOB, fatigue, and cough occasionally productive of black/brown sputum over the past 2-3 weeks. No chest pain/pressure, palpitations. No headache, auditory or visual hallucinations. Denies fever, chills. In the ED pt was tachycardic up to 160, took a 27, with low-grade fever 99.7, slightly hypertensive up to 156/82, and satting at 92% on RA. Labs were significant for H&H 13.2/37.7, sodium 132, potassium 3.1, lactic acid 2.4 with repeat 2.4, bilirubin 2 point, AST 156, and ALT 45. Renal function baseline. Lipase WNL. UA negative for UTI. Patient tested negative for influenza type a and B, RSV, COVID, strep pyogenes. CXR showed predominately streaky left basilar opacity which may reflect atelectasis or developing consolidation. CT?of abd/pelvis showed enlarged cirrhotic liver with associated splenomegaly and varices but no focal of volar mass, edematous changes to the colon likely from portal hypertension. Also found non-obstructing small periumbilical hernia, as well as benign renal cysts. EKG demonstrated sinus tachycardia of 115 with possible right ventricular conduction delay left atrial enlargement, with prolonged QTc of 539. Pt was treated with ceftriaxone, ondansetron, IVF, potassium chloride, and started on phenobarb protocol. Pt will be admitted to the hospital for treatment further evaluation pneumonia and acute alcohol withdrawal. Abdominal pain with N/V/D. likely due gastroenteritis. stool studies were positive for sapovirus. c dif negative. Patient's symptoms have gradually started to improve. He is tolerating a full diet. Alcohol use disorder/acute alcohol withdrawal. He was treated with phenobarbital protocol and supplemented with multivitamin, folic acid and thiamine. He has been scoring low on the CIWA score, and he declined addiction medicine consult. Hypokalemia/hyopomagnesemia due to GI losses. replaced with both IV and PO K and IV magnesium with improvement. liver cirrhosis with thrombocytopenia likely due to etoh. Imaging found to have evidence of liver cirrhosis. He was seen by GI and will need outpatient egd/colonoscopy . Recommended to avoid alcohol. Pneumonia Patient with complaints of SOB, productive cough. CXR with possible atelectasis vs developing consolidation. He initially met sepsis criteria with tachycardia, tachypnea, lactic acid 2.4. His tachycardia and tachypnea resolved as well as lactic acidosis. He was treated with IV ceftriaxone, doxycycline. Although no discrete pneumonia seen on CT ?bronchitis, patient improving with current management, will discharge to complete course of oral antibiotics. blood cultures negative to date Time Attestation Discharge coordination time: Greater than 30 minutes Quality: Safe Use of Opioids Does Pt have an Active Cancer Diagnosis on the Problem List?: No Quality: Stroke Does the patient have a stroke diagnosis?: No Physical Exam Vital Signs: Vital Signs: Last Vital Signs Temp 97.7 F 06/21/23 11:17 Pulse 88 06/21/23 11:17 Resp 18 06/21/23 11:17 BP 141/79 H 06/21/23 11:17 Pulse Ox 95 06/21/23 11:17 O2 Del Method Room Air 06/21/23 11:17 BMI result Body Mass Index 32.2 Const: General: cooperative, comfortable, no acute distress, alert and awake Nutritional Appearance: overweight Orientation/consciousness: patient oriented x3 Resp: Effort & Inspection: normal respiratory effort, able to speak in complete sentences, no respiratory distress and no use of accessory muscles Auscultation: clear to auscultation bilaterally Cardio: Rate: regular rate GI: Inspection: No distended Palpation (GI): Soft to palpation and nontender Neuro: General: patient oriented x3, moves all extremities and CN's II-XI intact bilaterally DS: Data Data Completed and Pending Labs on day of discharge: Laboratory Results - last 24 hr 06/20/23 06/21/23 08:34 06:20 Hold Purple Top SEE NOTE Sodium 131 L Potassium 2.9 L Chloride 103 Carbon Dioxide 19 L Anion Gap 12 BUN 11 Creatinine 0.62 Estim Creat Clear Calc 154.1 Estimated GFR > 60 Random Glucose 88 Calcium 8.4 D Magnesium 2.1 Stl C. cayetanensis PCR Not Detected Stool Rotavirus A PCR Not Detected Stl Adenov F 40/41 PCR Not Detected Stool Astrovirus (PCR) Not Detected Stool Campylobacter PCR Not Detected Stool Cryptosporidium PCR Not Detected Stl Sh Tox Pr E STEC PCR Not Detected Stool E coli O157 PCR Not applicable Stl Enterotoxigenic E PCR Not Detected Stool EPEC (PCR) Not Detected Stool EAEC (PCR) Not Detected Stl E. histolytica PCR Not Detected Stool Giardia Lamblia PCR Not Detected Stl P. shigelloides PCR Not Detected Stool Salmonella PCR Not Detected Stool Sapovirus (PCR) Detected A Stl Shigella/EIEC PCR Not Detected St Y.enterocolitica PCR Not Detected Stool Vibrio (PCR) Not Detected Stl Vibrio cholerae PCR Not Detected Stl Norovirus GI/GII PCR Not Detected Preliminary micro results at discharge 06/19/23 07:08 Blood Culture - Preliminary Blood - Venous No growth after 48 hours. 06/19/23 07:08 Blood Culture - Preliminary Blood - Venous No growth after 48 hours. Discharge Plan Discharge Anticipated Discharge Date/Time: 06/21/23 12:03 Patient Disposition: Home, Self-Care Discharge Diagnosis: gastroenteritis due to sapovirus liver cirrhosis alcohol use with alcohol withdrawal hypokalemia/hypomagnesemia Referrals: Harry Vargas MD [Primary Care Provider] - 1 Week Levy Goyal MD [Physician] - 1 Week Discharge Medications: New folic acid 1 mg Tablet 1 mg PO DAILY 30 Days Qty: 30 0RF thiamine mononitrate (vit B1) 100 mg Tablet 100 mg PO DAILY 30 Days Qty: 30 0RF doxycycline hyclate 100 mg tablet 100 mg PO BID 4 Days Qty: 8 0RF cefuroxime axetil 500 mg tablet 500 mg PO BID 4 Days Qty: 8 0RF Continued albuterol sulfate [ProAir HFA] 90 mcg/actuation HFA aerosol inhaler 2 puff inhalation Q6H PRN (Reason: shortness of breath or wheezing) 30 Days Qty: 18 5RF fluticasone propionate 220 mcg/actuation HFA aerosol inhaler 2 inh PO BID Qty: 12 5RF lisinopril 2.5 mg tablet 2.5 mg PO DAILY 90 Days Qty: 90 1RF Discharge Orders: Discharge Order (Routine); Ordered 06/21/23 Ordered By: Nora Arenas Activity on Discharge: As tolerated Stand Alone Forms: Patient Portal Discharge page Care Plan Goals: see before Health Concerns: viral gastroenteritis liver cirrhosis pneumonia low potassium/low magnesium due to diarrhea alcohol withdrawal Plan of Treatment: complete course of antibiotics as prescribed call to schedule a follow up appointment with GI - you will need follow up for liver cirrhosis recommend to completely avoid alcohol potassium and magnesium levels improved with replacement call to schedule a follow up appointment with PCP Assessment: see discharge summary
[2023-06-21 11:58] LABS: Potassium 3.5 mmol/L (3.3-5.1)
--- NOTE | 2023-06-21 12:34 | MHC.CM.PN ---
PT WILL DC HOME TODAY WITH NO SERVICES PT TO ARRANGE TRANSPORT
== END 2023-06-21 12:56 | disposition home or self-care (01) | DRG 139 ==
LOC: HO.ED 11:02 → HO.EDOVER 13:07 → HO.IMC 14:48
PROVIDERS: Internal Medicine; Physician Assistant Medical; Admitting Provider Student in an Organized Health Care Education/Training Program; Emergency Provider Emergency Medicine; PCP Internal Medicine; Visit Provider Physician Assistant Medical
DX: J18.9 Pneumonia, unspecified organism (principal); K70.30 Alcoholic cirrhosis of liver without ascites; A08.39 Other viral enteritis; D69.59 Other secondary thrombocytopenia; E66.8 Other obesity; F10.139 Alcohol abuse with withdrawal, unspecified; E83.42 Hypomagnesemia; Z68.32 Body mass index [BMI] 32.0-32.9, adult; K42.9 Umbilical hernia without obstruction or gangrene; E87.6 Hypokalemia; R94.31 Abnormal electrocardiogram [ECG] [EKG]; J45.20 Mild intermittent asthma, uncomplicated; Z20.822 Contact with and (suspected) exposure to COVID-19; Z87.891 Personal history of nicotine dependence; Z79.51 Long term (current) use of inhaled steroids; Z79.899 Other long term (current) drug therapy
CPT/HCPCS: 0241U; 36415; 71045; 71250; 74160; 74177; 80048; 80076; 81003; 83605; 83690; 83735; 84132; 85025; 85027; 85610; 85730; 87040; 87493; 87507; 87651; 93005; 99285; J0696; J1650; J1940; J2405; J2560; J3475; J3480; Q9967

== ENCOUNTER → 2023-06-19 12:50 | Outpatient (BNV) | payer OTHER, SELFPAY | PROVIDERS: Admitting Provider Student in an Organized Health Care Education/Training Program; Emergency Provider Emergency Medicine; PCP Internal Medicine; Visit Provider Student in an Organized Health Care Education/Training Program | DX: F10.939 Alcohol use, unspecified with withdrawal, unspecified (principal); J18.9 Pneumonia, unspecified organism; K74.60 Unspecified cirrhosis of liver; K52.9 Noninfective gastroenteritis and colitis, unspecified | CPT/HCPCS: 99223; 99232; 99239 ==

== ENCOUNTER 2023-07-12 09:33 | Outpatient (AMB) | payer OTHER, SELFPAY ==
--- NOTE | 2023-07-12 09:46 | MHC.PC.OV ---
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 Accompanied by: Self / Same As Patient Allergies No Known Allergies [No Known Allergies*] Allergy (Verified 07/12/23 10:30) Medication List - Last Reconciled 07/12/23 by Harry Vargas MD folic acid 1 mg PO DAILY 30 days lisinopril 2.5 mg PO DAILY 90 days mometasone 100 mcg/actuation (Asmanex HFA) 2 puffs inhalation BID thiamine mononitrate (vit B1) 100 mg PO DAILY 30 days Ventolin HFA 90 mcg/actuation (albuterol sulfate) 2 puffs inhalation Q6H PRN 30 days NS Tobacco use date assessed: 07/12/23 Dental Screening Dental Screen Date: 07/12/23 Did you have a dental visit in the last 12 months?: No Did you have a dental problem in the last 6 months where you did not have access to dental care?: No Was dental information given to patient?: No HPI 3mth f/u HPI Details Patient comes in today for his follow up visit Was admitted to [facility] [place] [facility] for a couple of days at the beginning of the month when he presented to the ER then with increasing lower abdominal pain Was found to have pneumonia and gastroenteritis on work up He was also found to have some electrolyte derangements and in acute alcohol withdrawal Imaging studies done revealed the presence of cirrhosis He was treated medically and discharged home on oral Abx a couple of days later when his symptoms improved Relates that he had a lot of diarrhea while on the antibiotics he was sent home on - was on Doxycycline 100 mg BID and Cefuroxine 500 mg BID for a few days States that he completed both Abx a couple of weeks ago and his diarrhea has gradually subsided since Patient states that he stopped drinking alcohol completely since his most recent hospitalization and continues to work on staying sober; states that his is helping him a lot but he has been having trouble sleeping since he quit drinking Thinks that he was just drinking a lot of alcohol back in the past and he would just pass out in bed from being drunk Would like to know if there is anything he can take to help him sleep that is not habit-forming States that he tried to schedule an appointment with Dr. Goyal as he was instructed to do so when he was discharged but was reportedly told that he will need to get a referral from his PCP States that he presently has increased sore throat and is still coughing on and off - coughs up minimal clear to whitish phlegm at times He denies any fever, headaches or dizziness Denies any chest pains, no SOB No nausea/vomiting and he has had no abdominal pains since he was discharged He was not able to get his previously ordered labs prior to his visit today Adds that his insurance has informed him that they will no longer cover his Flovent HFA inhaler and have recommended that he switch to a covered alternative - have suggested Asmanex as one of their covered Rx [facility] Medical History (Updated 07/15/23 @ 02:04 by Harry Vargas MD) Insomnia Vitamin D deficiency Impaired fasting glucose Benign essential hypertension Obesity (BMI 30-39.9) Overweight (BMI 25.0-29.9) Depression Anxiety Elevated liver enzymes Pure hypercholesterolemia Allergic rhinitis Asthma Surgical History No pertinent past surgical history Family History Father Medical history unknown Mother Ovarian cancer Brother No problems noted. Sister No problems noted. Sister In good health Social History Household Members: Family Housing: House Do you presently have visiting nurse or other home services: No Alcohol intake: current Alcohol intake frequency: 3 or more drinks per day Alcohol type: beer Comment: PT REFUSES BED ALARM Patient Tobacco Use Status: Former Tobacco user e-Cigarette/Vaping Use: Never Used Second Hand Smoke Exposure: No service: No Current occupational status: employed Current occupational exposures/hazards: No Cognitive needs: No Hearing needs: No Vision needs: No Questionnaire PHQ-9 Over the last 2 weeks, how often have you been bothered by any of the following problems? 1. Little interest or pleasure in doing things: not at all 2. Feeling down, depressed, or hopeless: not at all 3. Trouble falling or staying asleep, or sleeping too much: not at all 4. Feeling tired or having little energy: not at all 5. Poor appetite or overeating: not at all 6. Feeling bad about yourself - or that you are a failure or have let yourself or your family down: not at all 7. Trouble concentrating on things, such as reading the newspaper or watching television: not at all 8. Moving or speaking so slowly that other people could have noticed. Or the opposite - being so fidgety or restless that you have been moving around a lot more than usual: not at all 9. Thoughts that you would be better off or of hurting yourself in some way: not at all Total score: 0 Depression Screening Interpretation: Negative Depression Screening Done: Yes 44800 - PHQ-9 Billing: Yes Source: Developed by Drs. Ryan Spencer, Beatris Gupta, Ugo Fernandes and colleagues, with an educational sloane from [employer]. Thrive Questionnaire Date Thrive assessed: 07/12/23 I am a: Patient What is your living situation today?: I have a steady place to live Within the past 12 months, did the food you bought not last and you didn't have the money to get more?: Never true Within the past 12 months, did you worry whether your food would run out before you got money to buy more?: Never true Do you have trouble paying for medicines?: No Do you have trouble getting transportation to medical appointments?: No Do you have trouble paying your heating and electricity bill?: No Do you have trouble taking care of your child, family member or friend?: No Do you have trouble with day-to-day activities such as bathing, preparing meals, shopping, managing finances, etc.?: No Are you currently unemployed and looking for a job?: No Are you interested in more education?: No Please select the resources that you would like help with: None Currently or been in a relationship where the following occur: no concerns reported AUDIT C Alcohol Use Questionnaire (AUDIT-C) 1. How often do you have a drink containing alcohol?: 2-4 times a month 3. How often do you have six or more drinks on one occasion?: Daily or almost daily Total Score: 6 Score Reviewed/Action Taken: Yes (states that he quit drinking since his discharge from hospital) TAMIKO-7 AMB Questionnaire TAMIKO-7 Date TAMIKO - 7 assessed: 07/12/23 Feeling nervous, anxious, or on edge: 0 = Not at all Not being able to stop or control worryin = Not at all Worrying too much about different things: 0 = Not at all Trouble relaxin = Not at all Being so restless that it is hard to sit still: 0 = Not at all Becoming easily annoyed or irritable: 0 = Not at all Feeling afraid as if something awful might happen: 0 = Not at all Total TAMIKO-7 score (0-4 normal; 5-9 mild; 10-14 moderate; 15-21 severe): 0 Source: Developed by Drs. Ryan Spencer, Beatris Gupta, Ugo Fernandes and colleagues, with an educational sloane from [employer]. Review of Systems Const Denies chills, Reports difficulty sleeping, Reports fatigue, Denies fever(s) and Denies headache(s) ENT Denies dysphagia, Denies dizziness, Denies otalgia, Denies headache(s), Denies neck pain, Denies odynophagia and Reports sore throat Card Denies chest pain, Denies palpitations and Denies dyspnea Resp Reports chest congestion (mild, at times), Reports cough (recurrent; coughs up minimal phlegm at times), Denies hemoptysis, Denies pain with cough, Denies dyspnea and Denies wheezing GI Denies abdominal pain, Denies constipation, Denies dysphagia, Denies heartburn, Denies diarrhea, Denies nausea, Denies odynophagia and Denies vomiting Denies dysuria, Denies nocturia and Denies urinary frequency Musc Denies neck pain Skin/Breast Denies rash Neuro Denies dizziness and Denies headache(s) Endo Reports fatigue and Denies palpitations Aller/Immun Denies wheezing Physical exam (Primary Care) Vital Signs: Last Vital Signs Pulse 89 07/12/23 09:47 BP 116/82 07/12/23 09:47 Pulse Ox 95 07/12/23 09:47 Oxygen Delivery Method Room Air 07/12/23 09:47 BMI result Body Mass Index 31.5 Tobacco/Smoking Status: Tobacco use Status Tobacco use date assessed 07/12/23 07/12/23 09:47 Patient Tobacco Use Status Former Tobacco user 07/12/23 09:47 e-Cigarette/Vaping Use Never Used 07/12/23 09:47 PHQ-9: PHQ-9 Score PHQ-9: Total score 0 07/14/23 21:18 Depression Screening Interpretation: Negative Thrive Assessment: Date of Thrive Assessment Date Thrive assessed 07/12/23 07/12/23 09:52 Currently or been in a relationship where the following occur: no concerns reported Const General: no acute distress and alert HENMT Ears: TM's normal bilaterally and EAC's normal Throat: Yes tonsils normal (no TP congestion) and Yes posterior oropharynx abnormal (increased erythema of the posterior pharynx) Neck Neck: Yes no lymphadenopathy and Yes supple Resp Auscultation: clear to auscultation bilaterally, no rales and no wheezes Cardio Rate: regular rate Rhythm: regular rhythm Heart sounds: no murmurs GI Palpation (GI): Soft to palpation and nontender Auscultation: normal bowel sounds Skin Rashes: no rashes Extrem General: No clubbing, No cyanosis and Yes pedal edema (trace edema bilaterally) Assessment and Plan Assessment & Plan (1) Asthma: Code(s): J45.909 - Unspecified asthma, uncomplicated Qualifiers: Asthma complication type: uncomplicated Asthma persistence: persistent Asthma severity: moderate Qualified Code(s): J45.40 - Moderate persistent asthma, uncomplicated Plan: Will switch patient from Flovent HFA 220 mcg 2 inhalations BID to Asmanex HFA 100 mcg 2 inhalations BID due to insurance restrictions Continue Albuterol HFA 2 inhalations Q 6 hours PRN (Rx refilled) (2) Pure hypercholesterolemia: Code(s): E78.00 - Pure hypercholesterolemia, unspecified Plan: Reminded cecelia his LDL cholesterol was most recently at 135 mg /dl when last checked in November 2022 and that he should get his follow up labs done KUNAL to look into this again (was previously at 86 mg/dl and he has not been on any cholesterol-lowering Rx in the past) Reinforced low cholesterol diet (3) Elevated liver enzymes: Code(s): R74.8 - Abnormal levels of other serum enzymes Plan: Is again most likely due to his alcohol intake as well as his weight Patient was sent for abdominal US for further evaluation a couple of months ago but this was never done He ended up getting an abdominal CT done a few weeks ago that revealed the liver to be cirrhotic in appearance and enlarged at 20.8 cm with a nodular border. No focal liver mass or bile duct dilatation is seen; there is a recanalized umbilical vein and abdominal wall and periumbilical varices present as well as some gastric and esophageal varices and small splenorenal shunt Will recheck his labs and LFTs KUNAL for follow up (4) Cirrhosis: Code(s): K74.60 - Unspecified cirrhosis of liver Qualifiers: Hepatic cirrhosis type: alcoholic cirrhosis Ascites presence: without ascites Qualified Code(s): K70.30 - Alcoholic cirrhosis of liver without ascites Plan: Abdominal CT done a few weeks ago revealed (+) liver cirrhosis - the liver is enlarged at 20.8 cm with a nodular border. No focal liver mass or bile duct dilatation is seen; there is a recanalized umbilical vein and abdominal wall and periumbilical varices present as well as some gastric and esophageal varices and small splenorenal shunt Will refer him to GI (Dr. Goyal) for further evaluation and management (5) Benign essential hypertension: Code(s): I10 - Essential (primary) hypertension Plan: Reinforced low sodium diet - goal is systolic BP of 120 mm or less Continue Lisinopril 2.5 mg QD He is reminded to monitor his blood pressure regularly (6) Impaired fasting glucose: Code(s): R73.01 - Impaired fasting glucose Plan: Patient's fasting glucose has been elevated when checked the last couple of times Reinforced low calorie/low carb diet Will recheck his FBS and check his HgbA1c for further evaluation (7) Upper respiratory tract infection: Code(s): J06.9 - Acute upper respiratory infection, unspecified Qualifiers: URI type: unspecified URI Qualified Code(s): J06.9 - Acute upper respiratory infection, unspecified Plan: Will start patient empirically on Azithromycin QD x 5 days (8) Allergic rhinitis: Code(s): J30.9 - Allergic rhinitis, unspecified Qualifiers: Allergic rhinitis seasonality: unspecified Allergic rhinitis trigger: unspecified Qualified Code(s): J30.9 - Allergic rhinitis, unspecified Plan: Continue OTC Loratadine 10 mg QD PRN (9) Vitamin D deficiency: Code(s): E55.9 - Vitamin D deficiency, unspecified Plan: Continue Vitamin D3 tablets 2000 units QD (10) Alcohol use disorder: Code(s): F10.90 - Alcohol use, unspecified, uncomplicated Plan: Patient states that he stopped drinking alcohol completely since his most recent hospitalization and continues to work on staying sober - states that his is helping him a lot Recent imaging studies revealed (+) liver cirrhosis; labs still show elevated LFTs Have encouraged patient to continue working on his sobriety and offered to refer him to addiction medicine if he wants to but he declined at present Have advised patient that he can call at any time for the referral if he changes his mind and needs help Continue Thiamine 100 mg QD and Folic Acid 1 mg QD - Rx refilled (11) Insomnia: Code(s): G47.00 - Insomnia, unspecified Qualifiers: Insomnia type: unspecified Qualified Code(s): G47.00 - Insomnia, unspecified Plan: Discussed sleep hygiene although advised that his trouble sleeping currently is most likely related to his drinking Will start patient for now on Trazodone 50 mg Q HS PRN (12) Anxiety: Code(s): F41.9 - Anxiety disorder, unspecified Plan: Was on Lorazepam 1 mg QD PRN in the past but he has not had to take this in a while He is again advised to call if he feels his anxiety is getting out of hand and he needs help (13) Depression: Code(s): F32.9 - Major depressive disorder, single episode, unspecified Qualifiers: Active/Remission status: in remission of unspecified degree Depression Type: major depressive disorder Major depression recurrence: recurrent Qualified Code(s): F33.40 - Major depressive disorder, recurrent, in remission, unspecified Plan: Was seeing psychiatry in the past although he has not done so in a while Is advised to call if he feels that he needs to go back to see psyschiatry and we will refer him back if necessary (14) Obesity (BMI 30-39.9): Code(s): E66.9 - Obesity, unspecified Plan: Reinforced diet/exercise as tolerated/lose weight Plan Follow up in 3 months Orders: Referrals Gastroenterology Referral K52.9 - Noninfective gastroenteritis and colitis, unspecified, K74.60 - Unspecified cirrhosis of liver Medications: New azithromycin take 500 mg today (day 1), then 250 mg for 4 days (days 2-5) PO 6 tabs 0RF trazodone 50 mg PO BEDTIME 30 days PRN 30 tabs 3RF sleep Changed From thiamine mononitrate (vit B1) 100 mg PO DAILY 30 days 30 tabs 0RF To thiamine mononitrate (vit B1) 100 mg PO DAILY 90 days 90 tabs 3RF From albuterol sulfate 90 mcg/actuation (ProAir HFA) 2 puffs inhalation Q6H 30 days PRN 18 grams 5RF shortness of breath or wheezing J45.909 - Unspecified asthma, uncomplicated To Ventolin HFA 90 mcg/actuation (albuterol sulfate) 2 puffs inhalation Q6H 30 days PRN 18 grams 5RF shortness of breath or wheezing NS J45.909 - Unspecified asthma, uncomplicated From folic acid 1 mg PO DAILY 30 days 30 tabs 0RF To folic acid 1 mg PO DAILY 90 days 90 tabs 3RF Coding Level of Care Code Est Pt Level 4 (42127) Diagnoses Moderate persistent asthma without complication J45.40 Asthma complication type: uncomplicated Asthma persistence: persistent Asthma severity: moderate Pure hypercholesterolemia E78.00 Elevated liver enzymes R74.8 Alcoholic cirrhosis of liver without ascites K70.30 Hepatic cirrhosis type: alcoholic cirrhosis Ascites presence: without ascites Benign essential hypertension I10 Impaired fasting glucose R73.01 Upper respiratory tract infection, unspecified type J06.9 URI type: unspecified URI Allergic rhinitis, unspecified seasonality, unspecified trigger J30.9 Allergic rhinitis seasonality: unspecified Allergic rhinitis trigger: unspecified Vitamin D deficiency E55.9 Alcohol use disorder F10.90 Insomnia, unspecified type G47.00 Insomnia type: unspecified Anxiety F41.9 Recurrent major depressive disorder, in remission F33.40 Active/Remission status: in remission of unspecified degree Depression Type: major depressive disorder Major depression recurrence: recurrent Obesity (BMI 30-39.9) E66.9
[2023-07-12 09:47] VITALS: BP 116/82; PULSE 89; O2SAT 95; BMI 31.5
== END 2023-07-12 10:47 | disposition home or self-care (01) ==
PROVIDERS: PCP Internal Medicine; Visit Provider Internal Medicine
DX: E78.00 Pure hypercholesterolemia, unspecified (principal); K70.30 Alcoholic cirrhosis of liver without ascites; F33.40 Major depressive disorder, recurrent, in remission, unspecified; J45.40 Moderate persistent asthma, uncomplicated; R74.8 Abnormal levels of other serum enzymes; I10 Essential (primary) hypertension; R73.01 Impaired fasting glucose; J06.9 Acute upper respiratory infection, unspecified; J30.9 Allergic rhinitis, unspecified; E55.9 Vitamin D deficiency, unspecified; F10.90 Alcohol use, unspecified, uncomplicated; G47.00 Insomnia, unspecified
CPT/HCPCS: 99214

== ENCOUNTER 2023-07-13 07:01 | Outpatient (REF) | payer OTHER, SELFPAY ==
[2023-07-13 07:18] LABS: MANUAL DIFF FLAG NO
[2023-07-13 09:16] LABS: Basophils Absolute Auto 0.1 X10*3/uL (0.0-0.2); Basophils Percent Auto 1.1 % (0-2); Eosinophils Absolute Auto 0.1 X10*3/uL (0.0-0.4); Eosinophils Percent Auto 1.8 % (0-4); Hematocrit 39.8 % (42.0-52.0); Imm Gran Abs Auto 0.02 X10*3/uL (0.00-0.03); Imm Gran Pct Auto 0.3 % (0.0-0.4); Lymphocytes Percent Auto 27.7 % (20-40); Mean Corpuscular HGB Conc 32.7 g/dl (31.0-36.0); Mean Corpuscular Hemoglobin 30.4 pg (27.0-33.0); Mean Platelet Volume 12.5 fL (9.4-12.4); Monocytes Absolute Auto 1.3 X10*3/uL (0.1-1.2); Monocytes Percent Auto 17.6 % (2-11); Neutrophils Absolute Auto 3.7 x10*3/uL (2.0-8.3); Neutrophils Percent Auto 51.5 % (45-73); Platelet Count 165 X10*3/uL (160-400); Red Blood Count 4.28 X10*6/uL (4.60-5.80); Red Cell Distribution Width 14.7 % (11.0-16.0); White Blood Count 7.2 X10*3/uL (4.8-10.8)
[2023-07-13 09:23] LABS: Estimated Average Glucose 100 mg/dL; Hemoglobin A1c % 5.1 % (<6.0)
[2023-07-13 09:27] LABS: Appearance Urine Clear; Color Urine Yellow; Glucose Urine UA Negative (Negative); Leukocyte Esterase Urine Negative (Negative); Nitrite Urine Negative (Negative); PH 6.5 (5.0-9.0); Urine Blood Negative (Negative); Urine Ketones Negative (Negative); Urine Protein Negative (Neg-Trace)
[2023-07-13 09:40] LABS: Alanine Aminotransferase 32 U/L (0-40); Albumin Level 3.5 g/dL (3.5-5.0); Alkaline Phosphatase 52 U/L (39-117); Anion Gap 11 (12-20); Aspartate Amino Transferase 64 U/L (5-37); Blood Urea Nitrogen 7 mg/dL (9-16); Calcium 9.4 mg/dL (8.4-10.2); Carbon Dioxide 24 mmol/L (22-29); Chloride 105 mmol/L (96-108); Cholesterol 129 mg/dL (<200); Estimated Glomerular Filt Rate > 60; Glucose Fasting 91 mg/dL (60-99); HDL Cholesterol 32 mg/dL (>40); LDL Cholesterol Calculated 83 mg/dL (<100); Potassium 3.7 mmol/L (3.3-5.1); Sodium 136 mmol/L (135-145); Total Protein 8.6 g/dL (6.5-8.0); Triglycerides 74 mg/dL (<150)
[2023-07-13 10:06] LABS: TSH reflex Free T4 2.52 uIU/mL (0.32-4.0); Vitamin D 25-OH Total 29.1 ng/mL (>30)
[2023-07-13 10:25] LABS: Gamma Glutamyl Transpeptidase 192 U/L (11-51)
== END 2023-07-13 07:02 | disposition home or self-care (01) ==
LOC: HO.LAB 07:01
PROVIDERS: PCP Internal Medicine; Visit Provider Internal Medicine
DX: E78.00 Pure hypercholesterolemia, unspecified (principal); I10 Essential (primary) hypertension; R79.89 Other specified abnormal findings of blood chemistry; E11.9 Type 2 diabetes mellitus without complications; R30.0 Dysuria; E55.9 Vitamin D deficiency, unspecified
CPT/HCPCS: 36415; 80053; 80061; 81003; 82306; 82977; 83036; 84443; 85025

== ENCOUNTER 2023-10-15 09:53 | Outpatient (AMB) | payer OTHER, SELFPAY ==
--- NOTE | 2023-10-15 10:01 | A.OFFPC_ITS ---
Vital Signs 10/15/23 10:03 Height 5 ft 9 in Weight 212 lb 8 oz BMI 31.4 BP 140/62 H Blood Pressure Location Lt brachial Position Sitting Pulse 101 H Pulse Source Pulse Oximeter Pulse Oximetry (%) 95 Oxygen Delivery Method Room Air Intake Visit Reasons: Liver cirrhosis, HTN, insomnia Intake Note: Patient is here to follow up on Liver Cirrhosis, HTN, Insomnia. Enrollment Management Coordinator Required: No Mcat Tutor: Not Required per policy Accompanied by: Self / Same As Patient Allergies No Known Allergies [No Known Allergies*] Allergy (Verified 10/15/23 10:02) Tobacco use date assessed: 10/15/23 Dental Screening Dental Screen Date: 10/15/23 Did you have a dental visit in the last 12 months?: No Did you have a dental problem in the last 6 months where you did not have access to dental care?: No Was dental information given to patient?: No HPI Liver cirrhosis, HTN, insomnia HPI Details inc pain over right dorsal wrist and over right elbow latley doing a lot of repetitive hand movement at work ON LICENSE OF [facility] Medical History (Updated 10/15/23 @ 10:46 by Harry Vargas MD) Insomnia Vitamin D deficiency Impaired fasting glucose Benign essential hypertension Obesity (BMI 30-39.9) Overweight (BMI 25.0-29.9) Depression Anxiety Elevated liver enzymes Pure hypercholesterolemia Allergic rhinitis Asthma Surgical History No pertinent past surgical history Family History Father Medical history unknown Mother Ovarian cancer Brother No problems noted. Sister No problems noted. Sister In good health Social History (Updated 10/15/23 @ 10:06 by MALORIE Cabezas) Household Members: Family Housing: House Do you presently have visiting nurse or other home services: No Alcohol intake: current Alcohol intake frequency: does not drink Alcohol type: beer Comment: PT REFUSES BED ALARM Patient Tobacco Use Status: Former Tobacco user e-Cigarette/Vaping Use: Never Used Second Hand Smoke Exposure: No service: No Current occupational status: employed Current occupational exposures/hazards: No Cognitive needs: No Hearing needs: No Vision needs: No Questionnaire PHQ-9 Over the last 2 weeks, how often have you been bothered by any of the following problems? 1. Little interest or pleasure in doing things: not at all 2. Feeling down, depressed, or hopeless: not at all 3. Trouble falling or staying asleep, or sleeping too much: not at all 4. Feeling tired or having little energy: not at all 5. Poor appetite or overeating: not at all 6. Feeling bad about yourself - or that you are a failure or have let yourself or your family down: not at all 7. Trouble concentrating on things, such as reading the newspaper or watching television: not at all 8. Moving or speaking so slowly that other people could have noticed. Or the opposite - being so fidgety or restless that you have been moving around a lot more than usual: not at all 9. Thoughts that you would be better off or of hurting yourself in some way: not at all Total score: 0 Depression Screening Interpretation: Negative Depression Screening Done: Yes Source: Developed by Drs. Ryan Spencer, Beatris Gupta, Ugo Fernandes and colleagues, with an educational sloane from [employer]. Thrive Questionnaire Date Thrive assessed: 10/15/23 I am a: Patient What is your living situation today?: I have a steady place to live Within the past 12 months, did the food you bought not last and you didn't have the money to get more?: Never true Within the past 12 months, did you worry whether your food would run out before you got money to buy more?: Never true Do you have trouble paying for medicines?: No Do you have trouble getting transportation to medical appointments?: No Do you have trouble paying your heating and electricity bill?: No Do you have trouble taking care of your child, family member or friend?: No Do you have trouble with day-to-day activities such as bathing, preparing meals, shopping, managing finances, etc.?: No Are you currently unemployed and looking for a job?: No Are you interested in more education?: No Currently or been in a relationship where the following occur: no concerns reported THRIVE Score: 0 AUDIT C Alcohol Use Questionnaire (AUDIT-C) 1. How often do you have a drink containing alcohol?: Never 2. How many drinks containing alcohol do you have on a typical day when you are drinking?: 1 or 2 3. How often do you have six or more drinks on one occasion?: Never Total Score: 0 TAMIKO-7 AMB Questionnaire TAMIKO-7 Date TAMIKO - 7 assessed: 10/15/23 Feeling nervous, anxious, or on edge: 0 = Not at all Not being able to stop or control worryin = Not at all Worrying too much about different things: 0 = Not at all Trouble relaxin = Not at all Being so restless that it is hard to sit still: 0 = Not at all Becoming easily annoyed or irritable: 0 = Not at all Feeling afraid as if something awful might happen: 0 = Not at all Total TAMIKO-7 score (0-4 normal; 5-9 mild; 10-14 moderate; 15-21 severe): 0 Source: Developed by Drs. Ryan Spencer, Beatris Gupta, Ugo Fernandes and colleagues, with an educational sloane from [employer]. Review of Systems Const Denies chills, Denies difficulty sleeping (improved with Rx), Reports fatigue, Denies fever(s) and Denies headache(s) ENT Denies dysphagia, Denies dizziness, Denies otalgia, Denies headache(s), Denies neck pain, Denies odynophagia and Reports sore throat Card Denies chest pain, Denies palpitations and Denies dyspnea Resp Denies chest congestion, Denies cough, Denies dyspnea and Denies wheezing GI Denies abdominal pain, Denies constipation, Denies dysphagia, Denies heartburn, Denies diarrhea, Denies nausea, Denies odynophagia and Denies vomiting Denies dysuria, Denies nocturia and Denies urinary frequency Musc Reports arthralgias (over the right wrist and right elbow - see HPI) and Denies neck pain Skin/Breast Denies rash Neuro Denies dizziness and Denies headache(s) Endo Reports fatigue and Denies palpitations Aller/Immun Denies wheezing Physical exam (Primary Care) Vital Signs: Last Vital Signs Pulse 101 H 10/15/23 10:03 BP 140/62 H 10/15/23 10:03 Pulse Ox 95 10/15/23 10:03 Oxygen Delivery Method Room Air 10/15/23 10:03 BMI result Body Mass Index 31.4 Tobacco/Smoking Status: Tobacco use Status Tobacco use date assessed 10/15/23 10/15/23 10:08 Patient Tobacco Use Status Former Tobacco user 10/15/23 10:08 e-Cigarette/Vaping Use Never Used 10/15/23 10:08 PHQ-9: PHQ-9 Score PHQ-9: Total score 0 10/15/23 10:08 Depression Screening Interpretation: Negative Thrive Assessment: Date of Thrive Assessment Date Thrive assessed 10/15/23 10/15/23 10:08 Currently or been in a relationship where the following occur: no concerns reported Results Reviewed Results Reviewed: Laboratory Tests 06/19/23 06/19/23 06/19/23 05:39 08:48 08:48 WBC Hgb Hct Plt Count Sodium Potassium Creatinine Estimated GFR Random Glucose Fasting Glucose Hemoglobin A1c % Calcium Total Bilirubin Direct Bilirubin GGT AST ALT Triglycerides Cholesterol LDL Cholesterol, Calc HDL Cholesterol Lipase 36 25-OH Vitamin D Total TSH Urine pH 7.5 Ur Specific Riparius <= 1.005 Urine Protein Negative Urine Glucose (UA) Negative Urine Blood Urine Nitrite Ur Leukocyte Esterase 06/20/23 06/20/23 06/21/23 07:36 07:36 06:20 WBC 7.6 Hgb 13.7 L Hct 39.6 L Plt Count 145 L Sodium Potassium Creatinine 0.62 Estimated GFR > 60 Random Glucose 88 Fasting Glucose Hemoglobin A1c % Calcium Total Bilirubin 2.2 H Direct Bilirubin 1.4 H GGT AST 147 H ALT 44 H Triglycerides Cholesterol LDL Cholesterol, Calc HDL Cholesterol Lipase 25-OH Vitamin D Total TSH Urine pH Ur Specific Riparius Urine Protein Urine Glucose (UA) Urine Blood Urine Nitrite Ur Leukocyte Esterase 06/21/23 06/21/23 07/13/23 06:20 10:59 07:07 WBC Hgb Hct Plt Count Sodium 131 L Potassium 3.5 D Creatinine Estimated GFR Random Glucose Fasting Glucose Hemoglobin A1c % Calcium Total Bilirubin Direct Bilirubin GGT AST ALT Triglycerides Cholesterol LDL Cholesterol, Calc HDL Cholesterol Lipase 25-OH Vitamin D Total TSH Urine pH Ur Specific Riparius 1.010 Urine Protein Negative Urine Glucose (UA) Negative Urine Blood Negative Urine Nitrite Negative Ur Leukocyte Esterase 07/13/23 07/13/23 07/13/23 07:07 07:15 07:15 WBC 7.2 Hgb 13.0 L Hct 39.8 L Plt Count 165 Sodium 136 Potassium 3.7 Creatinine 0.70 Estimated GFR > 60 Random Glucose Fasting Glucose 91 Hemoglobin A1c % 5.1 Calcium 9.4 D Total Bilirubin 2.0 H Direct Bilirubin GGT 192 H AST 64 H ALT Triglycerides 74 Cholesterol 129 LDL Cholesterol, Calc 83 HDL Cholesterol 32 L Lipase 25-OH Vitamin D Total 29.1 L TSH 2.52 Urine pH Ur Specific Riparius Urine Protein Urine Glucose (UA) Urine Blood Urine Nitrite Ur Leukocyte Esterase Negative 07/13/23 07:15 WBC Hgb Hct Plt Count Sodium Potassium Creatinine Estimated GFR Random Glucose Fasting Glucose Hemoglobin A1c % Calcium Total Bilirubin Direct Bilirubin GGT AST ALT 32 Triglycerides Cholesterol LDL Cholesterol, Calc HDL Cholesterol Lipase 25-OH Vitamin D Total TSH Urine pH Ur Specific Riparius Urine Protein Urine Glucose (UA) Urine Blood Urine Nitrite Ur Leukocyte Esterase Assessment and Plan Assessment & Plan (1) Asthma: Code(s): J45.909 - Unspecified asthma, uncomplicated Qualifiers: Asthma severity: moderate Asthma persistence: persistent Asthma complication type: uncomplicated Qualified Code(s): J45.40 - Moderate persistent asthma, uncomplicated Plan: Stable/controlled Continue Asmanex HFA 100 mcg 2 inhalations BID and Albuterol HFA 2 inhalations Q 6 hours PRN (Rx refilled) (2) Pure hypercholesterolemia: Code(s): E78.00 - Pure hypercholesterolemia, unspecified Plan: Results of his labs done back in June 2023 reviewed and discussed with patient His LDL cholesterol appears to have improved to 83 mg/dl then (was at 135 mg/dl back in November 2022) Reinforced low cholesterol diet (3) Elevated liver enzymes: Code(s): R74.8 - Abnormal levels of other serum enzymes Plan: Was most likely due to his alcohol intake as well as his weight - patient states that he has completely quit drinking since his ER visit back on 06/19/[address] done back on 06/19/2023 revealed a cirrhotic-appearing and enlarged liver at 20.8 cm with a nodular border. No focal liver mass or bile duct dilatation is seen; there is a recanalized umbilical vein and abdominal wall and periumbilical varices present as well as some gastric and esophageal varices and a small splenorenal shunt His LFTs back in June 2023 were still slightly elevated but have improved from a few weeks prior Will continue to monitor his LFTs and recheck his labs in 3 months for follow up (4) Cirrhosis: Code(s): K74.60 - Unspecified cirrhosis of liver Qualifiers: Hepatic cirrhosis type: alcoholic cirrhosis Ascites presence: without ascites Qualified Code(s): K70.30 - Alcoholic cirrhosis of liver without ascites Plan: Abdominal CT done on 06/19/2023 revealed (+) liver cirrhosis - the liver is enlarged at 20.8 cm with a nodular border. No focal liver mass or bile duct dilatation is seen; there is a recanalized umbilical vein and abdominal wall and periumbilical varices present as well as some gastric and esophageal varices and small splenorenal shunt He was previously referred to Dr. Goyal for GI follow up and he is scheduled to be seen by Dr. Goyal sometime in November 2023 (5) Benign essential hypertension: Code(s): I10 - Essential (primary) hypertension Plan: Reinforced low sodium diet - goal is systolic BP of 120 mm or less Continue Lisinopril 2.5 mg QD He is again reminded to continue monitoring his blood pressure regularly (6) Impaired fasting glucose: Code(s): R73.01 - Impaired fasting glucose Plan: Patient's fasting glucose has been elevated in the past but was normal on his most recent labs done in June 2023 His HgbA1c was also normal then at 5/1% Reinforced low calorie/low carb diet (7) Allergic rhinitis: Code(s): J30.9 - Allergic rhinitis, unspecified Qualifiers: Allergic rhinitis trigger: unspecified Allergic rhinitis seasonality: unspecified Qualified Code(s): J30.9 - Allergic rhinitis, unspecified Plan: Continue OTC Loratadine 10 mg QD PRN (8) Right wrist pain: Code(s): M25.531 - Pain in right wrist Plan: Is likely due to tendinitis of the wrist that is brought about by what he does (repetitively) at work Will refer him to physical therapy for further evaluation and management (9) Right elbow pain: Code(s): M25.521 - Pain in right elbow Plan: Discussed that this is most likely tendinitis of the right elbow triggered by what he does frequently at work Will also refer him to physical therapy for further evaluation and management of this issue (10) Vitamin D deficiency: Code(s): E55.9 - Vitamin D deficiency, unspecified Plan: Continue Vitamin D3 tablets 2000 units QD (11) Alcohol use disorder: Code(s): F10.90 - Alcohol use, unspecified, uncomplicated Plan: Patient states that he stopped drinking alcohol completely since his most recent hospitalization on 06/19/2023 and continues to work on staying sober - states that his is helping him a lot Recent imaging studies revealed (+) liver cirrhosis; labs still showed elevated LFTs but they are improving Have encouraged patient to continue working on his sobriety I have previously offered to refer him to addiction medicine but he declined - have advised patient that he can call at any time for the referral if he changes his mind and/or he needs help Continue Thiamine 100 mg QD and Folic Acid 1 mg QD (12) Insomnia: Code(s): G47.00 - Insomnia, unspecified Qualifiers: Insomnia type: unspecified Qualified Code(s): G47.00 - Insomnia, unspecified Plan: Sleep hygiene reinforced Continue Trazodone 50 mg Q HS PRN - states that this has helped him a lot with his sleep (13) Anxiety: Code(s): F41.9 - Anxiety disorder, unspecified Plan: Was on Lorazepam 1 mg QD PRN in the past but he has not had to take this in a while He is again advised to call if he feels his anxiety is getting out of hand and he needs help (14) Depression: Code(s): F32.9 - Major depressive disorder, single episode, unspecified Qualifiers: Depression Type: major depressive disorder Major depression recurrence: recurrent Active/Remission status: in remission of unspecified degree Qualified Code(s): F33.40 - Major depressive disorder, recurrent, in remission, unspecified Plan: Was seeing psychiatry in the past although he has not done so in a while Is advised to call if he feels that he needs to go back to see psyschiatry and we will refer him back if necessary (15) Obesity (BMI 30-39.9): Code(s): E66.9 - Obesity, unspecified Plan: Reinforced diet/exercise as tolerated/lose weight Plan Follow up in 3 months Orders: Orders Comprehensive Met. Panel 3 Months E80.6 - Other disorders of bilirubin metabolism, I10 - Essential (primary) hypertension, K74.60 - Unspecified cirrhosis of liver Vitamin D 25-OH Total 3 Months E55.9 - Vitamin D deficiency, unspecified, E80.6 - Other disorders of bilirubin metabolism, I10 - Essential (primary) hypertension, K74.60 - Unspecified cirrhosis of liver Complete Blood Count Auto Diff 3 Months D64.9 - Anemia, unspecified, E80.6 - Other disorders of bilirubin metabolism, I10 - Essential (primary) hypertension, K74.60 - Unspecified cirrhosis of liver TSH reflex Free T4 3 Months E78.00 - Pure hypercholesterolemia, unspecified, E80.6 - Other disorders of bilirubin metabolism, I10 - Essential (primary) hypertension, K74.60 - Unspecified cirrhosis of liver UA CC w/rflx Micro + Cult 3 Months E80.6 - Other disorders of bilirubin metabolism, I10 - Essential (primary) hypertension, K74.60 - Unspecified cirrhosis of liver, R30.0 - Dysuria PT Evaluation and Treatment Today M25.521 - Pain in right elbow, M25.531 - Pain in right wrist Coding Level of Care Code Est Pt Level 4 (65012) Diagnoses Moderate persistent asthma without complication J45.40 Asthma severity: moderate Asthma persistence: persistent Asthma complication type: uncomplicated Pure hypercholesterolemia E78.00 Elevated liver enzymes R74.8 Alcoholic cirrhosis of liver without ascites K70.30 Hepatic cirrhosis type: alcoholic cirrhosis Ascites presence: without ascites Benign essential hypertension I10 Impaired fasting glucose R73.01 Allergic rhinitis, unspecified seasonality, unspecified trigger J30.9 Allergic rhinitis trigger: unspecified Allergic rhinitis seasonality: unspecified Right wrist pain M25.531 Right elbow pain M25.521 Vitamin D deficiency E55.9 Alcohol use disorder F10.90 Insomnia, unspecified type G47.00 Insomnia type: unspecified Anxiety F41.9 Recurrent major depressive disorder, in remission F33.40 Depression Type: major depressive disorder Major depression recurrence: recurrent Active/Remission status: in remission of unspecified degree Obesity (BMI 30-39.9) E66.9
--- NOTE | 2023-10-15 10:01 | MHC.PC.OV ---
Vital Signs 10/15/23 10:03 Height 5 ft 9 in Weight 212 lb 8 oz BMI 31.4 BP 140/62 H Blood Pressure Location Lt brachial Position Sitting Pulse 101 H Pulse Source Pulse Oximeter Pulse Oximetry (%) 95 Oxygen Delivery Method Room Air Intake Visit Reasons: Liver cirrhosis, HTN, insomnia Intake Note: Patient is here to follow up on Liver Cirrhosis, HTN, Insomnia. 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 Accompanied by: Self / Same As Patient Allergies No Known Allergies [No Known Allergies*] Allergy (Verified 10/08/24 10:46) Medication List - Last Reconciled 10/09/24 by Harry Vargas MD blood pressure monitor As directed budesonide 180 mcg/actuation (Pulmicort Flexhaler) 1 inh inhalation BID cholecalciferol (vitamin D3) (Vitamin D3) 50 mcg PO DAILY 90 days docusate sodium (Colace) 100 mg PO BID folic acid 1 mg PO DAILY 90 days mupirocin 2% 1 appl topical BID prednisone 40 mg (2 x 20 mg) PO DAILY spironolactone 50 mg See Protocol PO BID@0900,1800 thiamine mononitrate (vit B1) 100 mg PO DAILY 90 days Ventolin HFA 90 mcg/actuation (albuterol sulfate) 2 puffs inhalation Q6H PRN 30 days NS Tobacco use date assessed: 10/15/23 Dental Screening Dental Screen Date: 10/15/23 Did you have a dental visit in the last 12 months?: No Did you have a dental problem in the last 6 months where you did not have access to dental care?: No Was dental information given to patient?: No HPI Liver cirrhosis, HTN, insomnia HPI Details Patient comes in today for his follow up visit States that he has been experiencing increased pain over his right wrist dorsally and over his right elbow lately Reports that he normally does a lot of repetitive hand movement while he is at work and thinks that this is what is triggering his recent right upper extremity symptoms States that he feels okay otherwise He denies any headaches or dizziness Denies any chest pains, no increased shortness of breath No nausea/vomiting, no abdominal pain No change in bowel habits noted He had some follow-up labs done a few months ago in May and June 2023 - to discuss his results [facility] Medical History (Updated 10/09/24 @ 03:42 by Harry Vargas MD) Hypomagnesemia Liver cirrhosis Splenomegaly Thrombocytopenia Insomnia Vitamin D deficiency Impaired fasting glucose Benign essential hypertension Overweight (BMI 25.0-29.9) Depression Anxiety Elevated liver enzymes Pure hypercholesterolemia Allergic rhinitis Asthma Surgical History No pertinent past surgical history Family History Father Medical history unknown Mother Ovarian cancer Brother No problems noted. Sister No problems noted. Sister In good health Social History Household Members: Family Housing: House Do you presently have visiting nurse or other home services: No Alcohol intake: current Alcohol intake frequency: a few times a week Alcohol type: beer Comment: ongoing patient declines bed alarm, enc to alert staff to needs Patient Tobacco Use Status: Former Tobacco user e-Cigarette/Vaping Use: Never Used Second Hand Smoke Exposure: No service: No Current occupational status: employed Current occupational exposures/hazards: No Cognitive needs: No Hearing needs: No Vision needs: No Questionnaire PHQ-9 Over the last 2 weeks, how often have you been bothered by any of the following problems? 1. Little interest or pleasure in doing things: not at all 2. Feeling down, depressed, or hopeless: not at all 3. Trouble falling or staying asleep, or sleeping too much: not at all 4. Feeling tired or having little energy: not at all 5. Poor appetite or overeating: not at all 6. Feeling bad about yourself - or that you are a failure or have let yourself or your family down: not at all 7. Trouble concentrating on things, such as reading the newspaper or watching television: not at all 8. Moving or speaking so slowly that other people could have noticed. Or the opposite - being so fidgety or restless that you have been moving around a lot more than usual: not at all 9. Thoughts that you would be better off or of hurting yourself in some way: not at all Total score: 0 Depression Screening Interpretation: Negative Depression Screening Done: Yes 75991 - PHQ-9 Billing: Yes Source: Developed by Drs. Ryan Beatris Linares Kurt Kroenke and colleagues, with an educational sloane from [employer]. Thrive Questionnaire Date Thrive assessed: 10/15/23 I am a: Patient What is your living situation today?: I have a steady place to live Within the past 12 months, did the food you bought not last and you didn't have the money to get more?: Never true Within the past 12 months, did you worry whether your food would run out before you got money to buy more?: Never true Do you have trouble paying for medicines?: No Do you have trouble getting transportation to medical appointments?: No Do you have trouble paying your heating and electricity bill?: No Do you have trouble taking care of your child, family member or friend?: No Do you have trouble with day-to-day activities such as bathing, preparing meals, shopping, managing finances, etc.?: No Are you currently unemployed and looking for a job?: No Are you interested in more education?: No Currently or been in a relationship where the following occur: no concerns reported THRIVE Score: 0 AUDIT C Alcohol Use Questionnaire (AUDIT-C) 1. How often do you have a drink containing alcohol?: Never 2. How many drinks containing alcohol do you have on a typical day when you are drinking?: 1 or 2 3. How often do you have six or more drinks on one occasion?: Never Total Score: 0 Score Reviewed/Action Taken: Yes TAMIKO-7 AMB Questionnaire TAMIKO-7 Date TAMIKO - 7 assessed: 10/15/23 Feeling nervous, anxious, or on edge: 0 = Not at all Not being able to stop or control worryin = Not at all Worrying too much about different things: 0 = Not at all Trouble relaxin = Not at all Being so restless that it is hard to sit still: 0 = Not at all Becoming easily annoyed or irritable: 0 = Not at all Feeling afraid as if something awful might happen: 0 = Not at all Total TAMIKO-7 score (0-4 normal; 5-9 mild; 10-14 moderate; 15-21 severe): 0 Source: Developed by Beatris Schuster Kurt Kroenke and colleagues, with an educational sloane from [employer]. Review of Systems Const Denies chills, Denies difficulty sleeping (improved with Rx), Reports fatigue, Denies fever(s) and Denies headache(s) ENT Denies dysphagia, Denies dizziness, Denies otalgia, Denies headache(s), Denies neck pain, Denies odynophagia and Reports sore throat Card Denies chest pain, Denies palpitations and Denies dyspnea Resp Denies chest congestion, Denies cough, Denies dyspnea and Denies wheezing GI Denies abdominal pain, Denies constipation, Denies dysphagia, Denies heartburn, Denies diarrhea, Denies nausea, Denies odynophagia and Denies vomiting Denies dysuria, Denies nocturia and Denies urinary frequency Musc Reports arthralgias (over the right wrist and right elbow - see HPI) and Denies neck pain Skin/Breast Denies rash Neuro Denies dizziness and Denies headache(s) Endo Reports fatigue and Denies palpitations Aller/Immun Denies wheezing Physical exam (Primary Care) Vital Signs: Last Vital Signs Pulse 101 H 10/15/23 10:03 BP 140/62 H 10/15/23 10:03 Pulse Ox 95 10/15/23 10:03 Oxygen Delivery Method Room Air 10/15/23 10:03 BMI result Body Mass Index 31.4 Tobacco/Smoking Status: Tobacco use Status Tobacco use date assessed 10/15/23 10/15/23 10:08 Patient Tobacco Use Status Former Tobacco user 10/15/23 10:08 e-Cigarette/Vaping Use Never Used 10/15/23 10:08 PHQ-9: PHQ-9 Score PHQ-9: Total score 0 10/15/23 10:41 Depression Screening Interpretation: Negative Thrive Assessment: Date of Thrive Assessment Date Thrive assessed 10/15/23 10/15/23 10:08 Currently or been in a relationship where the following occur: no concerns reported Const General: no acute distress and alert HENMT Ears: TM's normal bilaterally and EAC's normal Throat: Yes tonsils normal (no TP congestion) and Yes posterior oropharynx abnormal (increased erythema of the posterior pharynx) Neck Neck: Yes no lymphadenopathy and Yes supple Thyroid: Thyroid normal Resp Auscultation: clear to auscultation bilaterally, no rales and no wheezes Cardio Rate: regular rate Rhythm: regular rhythm Heart sounds: no murmurs GI Palpation (GI): Soft to palpation and nontender Auscultation: normal bowel sounds General: Yes no CVA tenderness Back/Spine/Pelvis Back: no CVA tenderness Thoracic/Lumbar Spine: No lumbar spinal tenderness Skin Rashes: no rashes Extrem General: Yes no clubbing, cyanosis or edema Right upper extremity: elbow/forearm Details: tenderness Location: of the olecranon; no swelling and wrist Details: tenderness Location: of the dorsal wrist; no swelling Results Reviewed Results Reviewed: Laboratory Tests 06/19/23 06/19/23 06/19/23 05:39 08:48 08:48 WBC Hgb Hct Plt Count Sodium Potassium Creatinine Estimated GFR Random Glucose Fasting Glucose Hemoglobin A1c % Calcium Total Bilirubin Direct Bilirubin GGT AST ALT Triglycerides Cholesterol LDL Cholesterol, Calc HDL Cholesterol Lipase 36 25-OH Vitamin D Total TSH Urine pH 7.5 Ur Specific [place] <= 1.005 Urine Protein Negative Urine Glucose (UA) Negative Urine Blood Urine Nitrite Ur Leukocyte Esterase 06/20/23 06/20/23 06/21/23 07:36 07:36 06:20 WBC 7.6 Hgb 13.7 L Hct 39.6 L Plt Count 145 L Sodium Potassium Creatinine 0.62 Estimated GFR > 60 Random Glucose 88 Fasting Glucose Hemoglobin A1c % Calcium Total Bilirubin 2.2 H Direct Bilirubin 1.4 H GGT AST 147 H ALT 44 H Triglycerides Cholesterol LDL Cholesterol, Calc HDL Cholesterol Lipase 25-OH Vitamin D Total TSH Urine pH Ur Specific [place] Urine Protein Urine Glucose (UA) Urine Blood Urine Nitrite Ur Leukocyte Esterase 06/21/23 06/21/23 07/13/23 06:20 10:59 07:07 WBC Hgb Hct Plt Count Sodium 131 L Potassium 3.5 D Creatinine Estimated GFR Random Glucose Fasting Glucose Hemoglobin A1c % Calcium Total Bilirubin Direct Bilirubin GGT AST ALT Triglycerides Cholesterol LDL Cholesterol, Calc HDL Cholesterol Lipase 25-OH Vitamin D Total TSH Urine pH Ur Specific [place] 1.010 Urine Protein Negative Urine Glucose (UA) Negative Urine Blood Negative Urine Nitrite Negative Ur Leukocyte Esterase 07/13/23 07/13/23 07/13/23 07:07 07:15 07:15 WBC 7.2 Hgb 13.0 L Hct 39.8 L Plt Count 165 Sodium 136 Potassium 3.7 Creatinine 0.70 Estimated GFR > 60 Random Glucose Fasting Glucose 91 Hemoglobin A1c % 5.1 Calcium 9.4 D Total Bilirubin 2.0 H Direct Bilirubin GGT 192 H AST 64 H ALT Triglycerides 74 Cholesterol 129 LDL Cholesterol, Calc 83 HDL Cholesterol 32 L Lipase 25-OH Vitamin D Total 29.1 L TSH 2.52 Urine pH Ur Specific [place] Urine Protein Urine Glucose (UA) Urine Blood Urine Nitrite Ur Leukocyte Esterase Negative 07/13/23 07:15 WBC Hgb Hct Plt Count Sodium Potassium Creatinine Estimated GFR Random Glucose Fasting Glucose Hemoglobin A1c % Calcium Total Bilirubin Direct Bilirubin GGT AST ALT 32 Triglycerides Cholesterol LDL Cholesterol, Calc HDL Cholesterol Lipase 25-OH Vitamin D Total TSH Urine pH Ur Specific [place] Urine Protein Urine Glucose (UA) Urine Blood Urine Nitrite Ur Leukocyte Esterase Coding Level of Care Code Est Pt Level 4 (68860) Diagnoses Moderate persistent asthma without complication J45.40 Asthma complication type: uncomplicated Asthma persistence: persistent Asthma severity: moderate Pure hypercholesterolemia E78.00 Elevated liver enzymes R74.8 Alcoholic cirrhosis of liver without ascites K70.30 Ascites presence: without ascites Hepatic cirrhosis type: alcoholic cirrhosis Benign essential hypertension I10 Impaired fasting glucose R73.01 Allergic rhinitis, unspecified seasonality, unspecified trigger J30.9 Allergic rhinitis seasonality: unspecified Allergic rhinitis trigger: unspecified Right wrist pain M25.531 Right elbow pain M25.521 Vitamin D deficiency E55.9 Alcohol use disorder F10.90 Insomnia, unspecified type G47.00 Insomnia type: unspecified Anxiety F41.9 Recurrent major depressive disorder, in remission F33.40 Active/Remission status: in remission of unspecified degree Depression Type: major depressive disorder Major depression recurrence: recurrent Obesity (BMI 30-39.9) E66.9
[2023-10-15 10:03] VITALS: BP 140/62; PULSE 101; O2SAT 95; BMI 31.4
== END 2023-10-15 10:49 | disposition home or self-care (01) ==
PROVIDERS: PCP Internal Medicine; Visit Provider Internal Medicine
DX: J45.40 Moderate persistent asthma, uncomplicated (principal); E78.00 Pure hypercholesterolemia, unspecified; R74.8 Abnormal levels of other serum enzymes; K70.30 Alcoholic cirrhosis of liver without ascites; I10 Essential (primary) hypertension; R73.01 Impaired fasting glucose; J30.9 Allergic rhinitis, unspecified; M25.531 Pain in right wrist; M25.521 Pain in right elbow; E55.9 Vitamin D deficiency, unspecified; F10.90 Alcohol use, unspecified, uncomplicated; G47.00 Insomnia, unspecified; F41.9 Anxiety disorder, unspecified; F33.40 Major depressive disorder, recurrent, in remission, unspecified; E66.9 Obesity, unspecified
CPT/HCPCS: 99499

== ENCOUNTER 2024-01-18 07:13 | Outpatient (REF) | payer OTHER, SELFPAY ==
[2024-01-18 07:29] LABS: MANUAL DIFF FLAG NO
[2024-01-18 09:15] LABS: Basophils Percent Auto 0.9 % (0-2); Eosinophils Absolute Auto 0.1 X10*3/uL (0.0-0.4); Eosinophils Percent Auto 2.1 % (0-4); Hematocrit 41.3 % (42.0-52.0); Imm Gran Abs Auto 0.01 X10*3/uL (0.00-0.03); Imm Gran Pct Auto 0.2 % (0.0-0.4); Lymphocytes Absolute Auto 1.3 X10*3/uL (1.2-4.9); Lymphocytes Percent Auto 30.5 % (20-40); Mean Corpuscular HGB Conc 33.9 g/dl (31.0-36.0); Mean Corpuscular Hemoglobin 31.1 pg (27.0-33.0); Mean Corpuscular Volume 91.8 fL (80.0-98.0); Monocytes Absolute Auto 0.8 X10*3/uL (0.1-1.2); Monocytes Percent Auto 18.9 % (2-11); Neutrophils Absolute Auto 2.1 x10*3/uL (2.0-8.3); Neutrophils Percent Auto 47.4 % (45-73); Red Cell Distribution Width 14.1 % (11.0-16.0); White Blood Count 4.3 X10*3/uL (4.8-10.8)
[2024-01-18 09:15] LABS: Appearance Urine Clear; Color Urine Dark Yellow; Glucose Urine UA Negative (Negative); Leukocyte Esterase Urine Negative (Negative); Nitrite Urine Negative (Negative); Specific Gravity - Urine 1.015 (1.005-1.025); Urine Blood Negative (Negative); Urine Ketones Negative (Negative); Urine Protein Negative (Neg-Trace)
[2024-01-18 09:31] LABS: Platelet Count 104 X10*3/uL (160-400)
[2024-01-18 09:32] LABS: Mean Platelet Volume 11.2 fL (9.4-12.4)
[2024-01-18 09:53] LABS: Alanine Aminotransferase 35 U/L (0-40); Albumin Level 4.1 g/dL (3.5-5.0); Alkaline Phosphatase 64 U/L (39-117); Anion Gap 13 (12-20); Aspartate Amino Transferase 90 U/L (5-37); Bilirubin Total 2.3 mg/dL (0.0-1.0); Blood Urea Nitrogen 7 mg/dL (9-16); Calcium 9.3 mg/dL (8.4-10.2); Carbon Dioxide 23 mmol/L (22-29); Chloride 107 mmol/L (96-108); Estimated Glomerular Filt Rate > 60; Glucose Random 93 mg/dL (60-115); Potassium 3.1 mmol/L (3.3-5.1); Sodium 140 mmol/L (135-145); Total Protein 8.7 g/dL (6.5-8.0)
[2024-01-18 10:10] LABS: TSH reflex Free T4 2.07 uIU/mL (0.32-4.0); Vitamin D 25-OH Total 41.6 ng/mL (>30)
== END 2024-01-18 07:14 | disposition home or self-care (01) ==
LOC: HO.LAB 07:13
PROVIDERS: PCP Internal Medicine; Visit Provider Internal Medicine
DX: K74.60 Unspecified cirrhosis of liver (principal); I10 Essential (primary) hypertension; E80.6 Other disorders of bilirubin metabolism; E55.9 Vitamin D deficiency, unspecified; D64.9 Anemia, unspecified; E78.00 Pure hypercholesterolemia, unspecified; R30.0 Dysuria
CPT/HCPCS: 36415; 80053; 81003; 82306; 84443; 85025

== ENCOUNTER 2024-01-28 09:56 | Outpatient (AMB) | payer OTHER, SELFPAY ==
[2024-01-28 09:58] VITALS: BP 142/70; PULSE 92; O2SAT 95; BMI 31.3
--- NOTE | 2024-01-28 09:58 | A.OFFPC_ITS ---
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: No Allergies No Known Allergies [No Known Allergies*] Allergy (Verified 01/28/24 10:26) Medication List - Last Reconciled 01/28/24 by Harry Vargas MD budesonide 180 mcg/actuation (Pulmicort Flexhaler) 1 inh inhalation BID folic acid 1 mg PO DAILY 90 days lisinopril 2.5 mg PO DAILY 90 days thiamine mononitrate (vit B1) 100 mg PO DAILY 90 days trazodone 50 mg PO BEDTIME PRN 30 days Ventolin HFA 90 mcg/actuation (albuterol sulfate) 2 puffs inhalation Q6H PRN 30 days NS Tobacco use date assessed: 10/15/23 Dental Screening Dental Screen Date: 10/15/23 HPI liver cirrhosis, elevated LFTs HPI Details Patient comes in today for his follow up visit States that he feels okay and has not had any relapse since his last hospital admission in June 2023 He denies any headaches or dizziness Denies any chest pains; states that he has not been able to get his Pulmicort inhaler in about a week now and has just been using his Ventolin inhaler PRN for the past week He now needs his Ventolin inhaler Rx refilled and needs to get back on track with his Pulmicort inhaler as well before his asthma starts to get out of control No nausea/vomiting, no abdominal pain No change in bowel habits noted He had his follow up labs done last week - to discuss his results [facility] Medical History Insomnia Vitamin D deficiency Impaired fasting glucose Benign essential hypertension Obesity (BMI 30-39.9) Overweight (BMI 25.0-29.9) Depression Anxiety Elevated liver enzymes Pure hypercholesterolemia Allergic rhinitis Asthma Surgical History No pertinent past surgical history Family History Father Medical history unknown Mother Ovarian cancer Brother No problems noted. Sister No problems noted. Sister In good health Social History Household Members: Family Housing: House Do you presently have visiting nurse or other home services: No Alcohol intake: current Alcohol intake frequency: does not drink Alcohol type: beer Comment: PT REFUSES BED ALARM Patient Tobacco Use Status: Former Tobacco user e-Cigarette/Vaping Use: Never Used Second Hand Smoke Exposure: No service: No Current occupational status: employed Current occupational exposures/hazards: No Cognitive needs: No Hearing needs: No Vision needs: No Questionnaire Thrive Questionnaire Date Thrive assessed: 10/15/23 I am a: Patient What is your living situation today?: I have a steady place to live Within the past 12 months, did the food you bought not last and you didn't have the money to get more?: Never true Within the past 12 months, did you worry whether your food would run out before you got money to buy more?: Never true Do you have trouble paying for medicines?: No Do you have trouble getting transportation to medical appointments?: No Do you have trouble paying your heating and electricity bill?: No Do you have trouble taking care of your child, family member or friend?: No Do you have trouble with day-to-day activities such as bathing, preparing meals, shopping, managing finances, etc.?: No Are you currently unemployed and looking for a job?: No Are you interested in more education?: No Please select the resources that you would like help with: None Currently or been in a relationship where the following occur: No concerns reported THRIVE Score: 0 AUDIT C Alcohol Use Questionnaire (AUDIT-C) 1. How often do you have a drink containing alcohol?: Never 2. How many drinks containing alcohol do you have on a typical day when you are drinking?: 1 or 2 3. How often do you have six or more drinks on one occasion?: Never Total Score: 0 Score Reviewed/Action Taken: Yes TAMIKO-7 AMB Questionnaire TAMIKO-7 Date TAMIKO - 7 assessed: 10/15/23 Source: Developed by Drs. Ryan Spencer, Beatris Gupta, Ugo Fernandes and colleagues, with an educational sloane from [employer]. Review of Systems Const Denies chills, Denies difficulty sleeping (improved with Rx), Denies fatigue, Denies fever(s) and Denies headache(s) ENT Denies dysphagia, Denies dizziness, Denies otalgia, Denies headache(s), Denies neck pain, Denies odynophagia and Denies sore throat Card Denies chest pain, Denies palpitations and Denies dyspnea Resp Denies chest congestion, Denies cough, Denies dyspnea and Denies wheezing GI Denies abdominal pain, Denies constipation, Denies dysphagia, Denies heartburn, Denies diarrhea, Denies nausea, Denies odynophagia and Denies vomiting Denies dysuria, Denies nocturia and Denies urinary frequency Musc Denies back pain, Denies arthralgias and Denies neck pain Skin/Breast Denies rash Neuro Denies dizziness and Denies headache(s) Endo Denies fatigue and Denies palpitations Aller/Immun Denies wheezing Physical exam (Primary Care) Vital Signs: Last Vital Signs Pulse 92 01/28/24 09:58 BP 142/70 H 01/28/24 09:58 Pulse Ox 95 01/28/24 09:58 Oxygen Delivery Method Room Air 01/28/24 09:58 BMI result Body Mass Index 31.3 Tobacco/Smoking Status: Tobacco use Status Tobacco use date assessed 10/15/23 01/28/24 09:59 Patient Tobacco Use Status Former Tobacco user 01/28/24 09:59 e-Cigarette/Vaping Use Never Used 01/28/24 09:59 Thrive Assessment: Date of Thrive Assessment Date Thrive assessed 10/15/23 01/28/24 09:59 Currently or been in a relationship where the following occur: No concerns reported Const General: no acute distress and alert HENMT Ears: TM's normal bilaterally and EAC's normal Throat: Yes posterior oropharynx normal and Yes tonsils normal (no TP congestion) Neck Neck: Yes no lymphadenopathy and Yes supple Thyroid: Thyroid normal Resp Auscultation: clear to auscultation bilaterally, no rales and no wheezes Cardio Rate: regular rate Rhythm: regular rhythm Heart sounds: no murmurs GI Palpation (GI): Soft to palpation and nontender Auscultation: normal bowel sounds General: Yes no CVA tenderness Back/Spine/Pelvis Back: no CVA tenderness Thoracic/Lumbar Spine: No lumbar spinal tenderness Skin Rashes: no rashes Extrem General: Yes no clubbing, cyanosis or edema Results Reviewed Results Reviewed: Laboratory Tests 01/18/24 01/18/24 07:23 07:27 WBC 4.3 L Hgb 14.0 Hct 41.3 L Plt Count 104 L D Sodium 140 Potassium 3.1 L Creatinine 0.71 Estimated GFR > 60 Random Glucose 93 Calcium 9.3 AST 90 H ALT 35 25-OH Vitamin D Total 41.6 TSH 2.07 Ur Specific [place] 1.015 Urine Protein Negative Urine Glucose (UA) Negative Urine Blood Negative Urine Nitrite Negative Ur Leukocyte Esterase Negative Assessment and Plan Assessment & Plan (1) Pure hypercholesterolemia: Code(s): E78.00 - Pure hypercholesterolemia, unspecified Plan: Results of his labs done last week reviewed and discussed with patient but these were non-fasting labs and did not include his fasting lipids His LDL cholesterol was much improved at 83 mg/dl when it was last checked in June 2023 (was at 135 mg/dl back in November 2022) Reinforced low cholesterol diet (2) Benign essential hypertension: Code(s): I10 - Essential (primary) hypertension Plan: Reinforced low sodium diet - goal is systolic BP of 120 mm or less Continue Lisinopril 2.5 mg QD States that he forgot to take his BP med this morning so his blood pressure is high at this time - will take it as soon as he gets home He is again reminded to continue monitoring his blood pressure regularly (3) Asthma: Code(s): J45.909 - Unspecified asthma, uncomplicated Qualifiers: Asthma severity: moderate Asthma persistence: persistent Asthma complication type: uncomplicated Qualified Code(s): J45.40 - Moderate persistent asthma, uncomplicated Plan: States that he has been out of his Pulmicort inhaler for a week now and has been getting by with using his Albuterol inhaler more frequently lately - will need both of his inhalers Rx refilled He was doing well on Asmanex HFA 100 mcg 2 inhalations BID in the past but had to switch over to Pulmicort a few months ago due to insurance formulary change Continue Pulmicort Flexhaler 180 mcg 1 inhalation BID and Albuterol HFA 2 inhalations Q 6 hours PRN (Rx refilled) (4) Liver cirrhosis: Code(s): K74.60 - Unspecified cirrhosis of liver Qualifiers: Hepatic cirrhosis type: alcoholic cirrhosis Ascites presence: without ascites Qualified Code(s): K70.30 - Alcoholic cirrhosis of liver without ascites Plan: Abdominal CT done on 06/19/2023 revealed (+) liver cirrhosis - the liver is enlarged at 20.8 cm with a nodular border. No focal liver mass or bile duct dilatation is seen; there is a recanalized umbilical vein and abdominal wall and periumbilical varices present as well as some gastric and esophageal varices and small splenorenal shunt He was previously referred to Dr. Goyal for GI follow up as Dr. Goyal has seen him when he was in the hospital last year - is scheduled to be seen by Dr. Goyal sometime soon Will also check his liver fibrosis panel in a few months (can be done together with his other routine labs) for follow up (5) Elevated liver enzymes: Code(s): R74.8 - Abnormal levels of other serum enzymes Plan: This was most likely due to his alcohol intake as well as his weight - patient states that he has completely quit drinking since his ER visit back on 06/19/[address] done back on 06/19/2023 revealed a cirrhotic-appearing and enlarged liver at 20.8 cm with a nodular border. No focal liver mass or bile duct dilatation is seen; there is a recanalized umbilical vein and abdominal wall and periumbilical varices present as well as some gastric and esophageal varices and a small splenorenal shunt His LFTs back in June 2023 were still slightly elevated but have improved from a few weeks prior - have improved further on his recent labs done last week Will continue to monitor his LFTs regularly (6) Splenomegaly: Code(s): R16.1 - Splenomegaly, not elsewhere classified Plan: This was seen on his abdominal CT in June 2023 - spleen is enlarged at 15.6 cm - and is likely related to his liver cirrhosis With his recent thrombocytopenia, will send patient for a repeat abdominal US for further evaluation (7) Thrombocytopenia: Code(s): D69.6 - Thrombocytopenia, unspecified Plan: Have advised patient that his platelet count has dropped down significantly from previous although he is still far from where we have to start being concerned This is likely due to his splenomegaly and hepatic issues Will continue to monitor his CBC regularly (8) Impaired fasting glucose: Code(s): R73.01 - Impaired fasting glucose Plan: Patient's fasting glucose has been elevated in the past but was normal on his most recent labs done in June 2023; RBS was also normal on his labs done last week His HgbA1c was normal then at 5.1% when previously checked Reinforced low calorie/low carb diet (9) Allergic rhinitis: Code(s): J30.9 - Allergic rhinitis, unspecified Qualifiers: Allergic rhinitis trigger: unspecified Allergic rhinitis seasonality: unspecified Qualified Code(s): J30.9 - Allergic rhinitis, unspecified Plan: Continue OTC Loratadine 10 mg QD PRN (10) Vitamin D deficiency: Code(s): E55.9 - Vitamin D deficiency, unspecified Plan: Continue Vitamin D3 tablets 2000 units QD (11) Alcohol use disorder: Code(s): F10.90 - Alcohol use, unspecified, uncomplicated Plan: Patient states that he stopped drinking alcohol completely since his most recent hospitalization on 06/19/2023 and continues to work on staying sober - states that his is helping him a lot Recent imaging studies revealed (+) liver cirrhosis; labs still showed slightly elevated LFTs but they have been gradually and consistently improving Have encouraged patient to continue working on his sobriety I have previously offered to refer him to addiction medicine but he declined - have advised patient that he can call at any time for the referral if he changes his mind and/or he needs help Continue Thiamine 100 mg QD and Folic Acid 1 mg QD (12) Insomnia: Code(s): G47.00 - Insomnia, unspecified Qualifiers: Insomnia type: unspecified Qualified Code(s): G47.00 - Insomnia, unspecified Plan: Sleep hygiene reinforced Continue Trazodone 50 mg Q HS PRN - states that this has helped him a lot with his sleep (13) Anxiety: Code(s): F41.9 - Anxiety disorder, unspecified Plan: Was on Lorazepam 1 mg QD PRN in the past but he has not had to take this in a while He is again advised to call if he feels his anxiety is getting out of hand and he needs help (14) Depression: Code(s): F32.9 - Major depressive disorder, single episode, unspecified Qualifiers: Depression Type: major depressive disorder Major depression recurrence: recurrent Active/Remission status: in remission of unspecified degree Qualified Code(s): F33.40 - Major depressive disorder, recurrent, in remission, unspecified Plan: Was seeing psychiatry in the past although he has not done so in a while Is advised to call if he feels that he needs to go back to see psyschiatry and we will refer him back if necessary (15) Obesity (BMI 30-39.9): Code(s): E66.9 - Obesity, unspecified Plan: Reinforced diet/exercise as tolerated/lose weight Plan Follow up in 4 months Orders: Orders US abdomen comp w elastography Today D69.6 - Thrombocytopenia, unspecified, K74.60 - Unspecified cirrhosis of liver, R16.1 - Splenomegaly, not elsewhere classified Complete Blood Count Auto Diff 4 Months D64.9 - Anemia, unspecified Comprehensive [place]. Panel Fast 4 Months E78.00 - Pure hypercholesterolemia, unspecified UA CC w/rflx Micro + Cult 4 Months R30.0 - Dysuria Vitamin B1 4 Months K74.60 - Unspecified cirrhosis of liver Liver Fibrosis Pnl 4 Months K74.60 - Unspecified cirrhosis of liver Lipid Panel 4 Months E78.00 - Pure hypercholesterolemia, unspecified TSH reflex Free T4 4 Months E78.00 - Pure hypercholesterolemia, unspecified Vitamin D 25-OH Total 4 Months E55.9 - Vitamin D deficiency, unspecified, K74.60 - Unspecified cirrhosis of liver Vitamin B12 and Folate 4 Months E53.8 - Deficiency of other specified B group vitamins, K74.60 - Unspecified cirrhosis of liver Medications: Refilled budesonide 180 mcg/actuation (Pulmicort Flexhaler) 1 inh inhalation BID 1 ea 3RF Ventolin HFA 90 mcg/actuation (albuterol sulfate) 2 puffs inhalation Q6H 30 days PRN 18 grams 5RF shortness of breath or wheezing NS J45.909 - Unspecified asthma, uncomplicated Coding Level of Care Code Est Pt Level 4 (33445) Complex EM visit Add On G2211 Diagnoses Pure hypercholesterolemia E78.00 Benign essential hypertension I10 Moderate persistent asthma without complication J45.40 Asthma severity: moderate Asthma persistence: persistent Asthma complication type: uncomplicated Alcoholic cirrhosis of liver without ascites K70.30 Hepatic cirrhosis type: alcoholic cirrhosis Ascites presence: without ascites Elevated liver enzymes R74.8 Splenomegaly R16.1 Thrombocytopenia D69.6 Impaired fasting glucose R73.01 Allergic rhinitis, unspecified seasonality, unspecified trigger J30.9 Allergic rhinitis trigger: unspecified Allergic rhinitis seasonality: unspecified Vitamin D deficiency E55.9 Alcohol use disorder F10.90 Insomnia, unspecified type G47.00 Insomnia type: unspecified Anxiety F41.9 Recurrent major depressive disorder, in remission F33.40 Depression Type: major depressive disorder Major depression recurrence: recurrent Active/Remission status: in remission of unspecified degree Obesity (BMI 30-39.9) E66.9
== END 2024-01-28 10:35 | disposition home or self-care (01) ==
PROVIDERS: PCP Internal Medicine; Visit Provider Internal Medicine
DX: K70.30 Alcoholic cirrhosis of liver without ascites (principal); R74.01 Elevation of levels of liver transaminase levels; F32.9 Major depressive disorder, single episode, unspecified; I10 Essential (primary) hypertension; J45.40 Moderate persistent asthma, uncomplicated; R16.1 Splenomegaly, not elsewhere classified; R73.01 Impaired fasting glucose; J30.9 Allergic rhinitis, unspecified; E55.9 Vitamin D deficiency, unspecified; F10.90 Alcohol use, unspecified, uncomplicated; G47.00 Insomnia, unspecified; F41.9 Anxiety disorder, unspecified
CPT/HCPCS: 99214; G2211

== ENCOUNTER 2024-06-04 09:24 | Outpatient (AMB) | payer OTHER, SELFPAY ==
[2024-06-04 09:28] VITALS: BP 150/80; PULSE 89; O2SAT 95; BMI 30.9
--- NOTE | 2024-06-04 09:28 | MHC.PC.OV ---
Vital Signs 06/04/24 09:28 06/04/24 10:05 Height 5 ft 9 in Weight 209 lb 4 oz BMI 30.9 BP 150/80 H 148/70 H Blood Pressure Location Lt brachial Lt brachial Position Sitting Sitting Pulse 89 Pulse Source Pulse Oximeter Pulse Oximetry (%) 95 Oxygen Delivery Method Room Air Intake Visit Reasons: 4mth f/u Leather Splitter Required: No Accompanied by: Self / Same As Patient Allergies No Known Allergies [No Known Allergies*] Allergy (Verified 06/04/24 10:00) Medication List - Last Reconciled 06/04/24 by Harry Vargas MD budesonide 180 mcg/actuation (Pulmicort Flexhaler) 1 inh inhalation BID cholecalciferol (vitamin D3) (Vitamin D3) 50 mcg PO DAILY folic acid 1 mg PO DAILY 90 days lisinopril 2.5 mg PO DAILY 90 days thiamine mononitrate (vit B1) 100 mg PO DAILY 90 days trazodone 50 mg PO BEDTIME PRN 30 days Ventolin HFA 90 mcg/actuation (albuterol sulfate) 2 puffs inhalation Q6H PRN 30 days NS Tobacco use date assessed: 06/04/24 Dental Screening Dental Screen Date: 06/04/24 Did you have a dental visit in the last 12 months?: No Did you have a dental problem in the last 6 months where you did not have access to dental care?: No Was dental information given to patient?: No HPI 4mt f/u HPI Details Patient comes in today for his follow up visit States that he feels okay except for some itching in his throat over the past few days; denies any sore throat Also relates (+) nasal / sinus congestion He denies any fever or chills Relates (+) HARDY yesterday - took some OTC Ibuprofen with (+) relief He denies any chest pains, no increased SOB No nausea/vomiting, no abdominal pain No change in bowel habits noted Needs a few of his Rx refilled, including his asthma inhalers He had an abdominal US with elastography ordered at his last visit but not done yet He also did not get his follow up labs done prior to his appt today [facility] Medical History Insomnia Vitamin D deficiency Impaired fasting glucose Benign essential hypertension Obesity (BMI 30-39.9) Overweight (BMI 25.0-29.9) Depression Anxiety Elevated liver enzymes Pure hypercholesterolemia Allergic rhinitis Asthma Surgical History No pertinent past surgical history Family History Father Medical history unknown Mother Ovarian cancer Brother No problems noted. Sister No problems noted. Sister In good health Social History Household Members: Family Housing: House Do you presently have visiting nurse or other home services: No Alcohol intake: current Alcohol intake frequency: does not drink Alcohol type: beer Comment: PT REFUSES BED ALARM Patient Tobacco Use Status: Former Tobacco user e-Cigarette/Vaping Use: Never Used Second Hand Smoke Exposure: No service: No Current occupational status: employed Current occupational exposures/hazards: No Cognitive needs: No Hearing needs: No Vision needs: No Questionnaire PHQ-9 Over the last 2 weeks, how often have you been bothered by any of the following problems? 1. Little interest or pleasure in doing things: not at all 2. Feeling down, depressed, or hopeless: not at all 3. Trouble falling or staying asleep, or sleeping too much: not at all 4. Feeling tired or having little energy: not at all 5. Poor appetite or overeating: not at all 6. Feeling bad about yourself - or that you are a failure or have let yourself or your family down: not at all 7. Trouble concentrating on things, such as reading the newspaper or watching television: not at all 8. Moving or speaking so slowly that other people could have noticed. Or the opposite - being so fidgety or restless that you have been moving around a lot more than usual: not at all 9. Thoughts that you would be better off or of hurting yourself in some way: not at all Total score: 0 Depression Screening Interpretation: Negative Depression Screening Done: Yes 87905 - PHQ-9 Billing: Yes Source: Developed by Drs. Ryan Spencer, Beatris Gupta, Ugo Fernandes and colleagues, with an educational sloane from [employer]. Thrive Questionnaire Date Thrive assessed: 06/04/24 I am a: Patient What is your living situation today?: I have a steady place to live Within the past 12 months, did the food you bought not last and you didn't have the money to get more?: Never true Within the past 12 months, did you worry whether your food would run out before you got money to buy more?: Never true Do you have trouble paying for medicines?: No Do you have trouble getting transportation to medical appointments?: No Do you have trouble paying your heating and electricity bill?: No Do you have trouble taking care of your child, family member or friend?: No Do you have trouble with day-to-day activities such as bathing, preparing meals, shopping, managing finances, etc.?: No Are you currently unemployed and looking for a job?: No Are you interested in more education?: No Please select the resources that you would like help with: None Currently or been in a relationship where the following occur: No concerns reported THRIVE Score: 0 AUDIT C Alcohol Use Questionnaire (AUDIT-C) 1. How often do you have a drink containing alcohol?: Never 2. How many drinks containing alcohol do you have on a typical day when you are drinking?: 1 or 2 3. How often do you have six or more drinks on one occasion?: Never Total Score: 0 Score Reviewed/Action Taken: Yes TAMIKO-7 AMB Questionnaire TAMIKO-7 Date TAMIKO - 7 assessed: 06/04/24 Feeling nervous, anxious, or on edge: 0 = Not at all Not being able to stop or control worryin = Not at all Worrying too much about different things: 0 = Not at all Trouble relaxin = Not at all Being so restless that it is hard to sit still: 0 = Not at all Becoming easily annoyed or irritable: 0 = Not at all Feeling afraid as if something awful might happen: 0 = Not at all Total TAMIKO-7 score (0-4 normal; 5-9 mild; 10-14 moderate; 15-21 severe): 0 Source: Developed by Drs. Ryan Spencer, Beatris Gupta, Ugo Fernandes and colleagues, with an educational sloane from [employer]. Review of Systems Const Denies chills, Denies difficulty sleeping (improved with Rx), Denies fatigue, Denies fever(s) and Denies headache(s) ENT Denies dysphagia, Denies dizziness, Denies otalgia, Denies headache(s), Reports nasal congestion, Denies neck pain, Denies odynophagia and Denies sore throat (but reports (+) itching of his throat) Card Denies chest pain, Denies palpitations and Denies dyspnea Resp Reports chest congestion (mild, at times recently), Denies cough, Denies dyspnea and Denies wheezing GI Denies abdominal pain, Denies constipation, Denies dysphagia, Denies heartburn, Denies diarrhea, Denies nausea, Denies odynophagia and Denies vomiting Denies dysuria, Denies nocturia and Denies urinary frequency Musc Denies back pain, Denies arthralgias and Denies neck pain Skin/Breast Denies rash Neuro Denies dizziness and Denies headache(s) Endo Denies fatigue and Denies palpitations Aller/Immun Denies wheezing Physical exam (Primary Care) Vital Signs: Last Vital Signs Pulse 89 06/04/24 09:28 BP 148/70 H 06/04/24 10:05 Pulse Ox 95 06/04/24 09:28 Oxygen Delivery Method Room Air 06/04/24 09:28 BMI result Body Mass Index 30.9 Tobacco/Smoking Status: Tobacco use Status Tobacco use date assessed 06/04/24 06/04/24 09:34 Patient Tobacco Use Status Former Tobacco user 06/04/24 09:34 e-Cigarette/Vaping Use Never Used 06/04/24 09:34 PHQ-9: PHQ-9 Score PHQ-9: Total score 0 06/04/24 09:54 Depression Screening Interpretation: Negative Thrive Assessment: Date of Thrive Assessment Date Thrive assessed 06/04/24 06/04/24 09:34 Currently or been in a relationship where the following occur: No concerns reported Const General: no acute distress and alert HENMT Ears: TM's normal bilaterally and EAC's normal Throat: Yes tonsils normal (no TP congestion) and Yes posterior oropharynx abnormal (increased erythema of the posterior pharynx) Neck Neck: Yes no lymphadenopathy and Yes supple Thyroid: Thyroid normal Resp Auscultation: clear to auscultation bilaterally, no rales and no wheezes Cardio Rate: regular rate Rhythm: regular rhythm Heart sounds: no murmurs GI Palpation (GI): Soft to palpation and nontender Auscultation: normal bowel sounds General: Yes no CVA tenderness Back/Spine/Pelvis Back: no CVA tenderness Thoracic/Lumbar Spine: No lumbar spinal tenderness Skin Rashes: no rashes Extrem General: Yes no clubbing, cyanosis or edema Office Procedures Flu Questionnaire Does the patient have a severe egg allergy?: No Immunizations Fluarix Triv [id number] (PF) 45 mcg (15 mcg x 3)/0.5 mL IM syringe Performing Provider: Harry Vargas MD [facility] [place] Documented (not given) by: MALORIE Lao on 06/04/24 09:35 Reason Not Given: Patient Refused Coding Level of Care Code Est Pt Level 4 (81602) Diagnoses Pure hypercholesterolemia E78.00 Benign essential hypertension I10 Moderate persistent asthma without complication J45.40 Asthma severity: moderate Asthma persistence: persistent Asthma complication type: uncomplicated Alcoholic cirrhosis of liver without ascites K70.30 Hepatic cirrhosis type: alcoholic cirrhosis Ascites presence: without ascites Elevated liver enzymes R74.8 Splenomegaly R16.1 Thrombocytopenia D69.6 Impaired fasting glucose R73.01 Allergic rhinitis, unspecified seasonality, unspecified trigger J30.9 Allergic rhinitis trigger: unspecified Allergic rhinitis seasonality: unspecified Vitamin D deficiency E55.9 Alcohol use disorder F10.90 Insomnia, unspecified type G47.00 Insomnia type: unspecified Anxiety F41.9 Recurrent major depressive disorder, in remission F33.40 Depression Type: major depressive disorder Major depression recurrence: recurrent Active/Remission status: in remission of unspecified degree Overweight (BMI 25.0-29.9) E66.3 Additional Codes PHQ-9 - 52712 - PHQ-9 Billing: Yes ([id number]) Assessment & Plan Assessment & Plan (1) Pure hypercholesterolemia: Code(s): E78.00 - Pure hypercholesterolemia, unspecified Category: Medical Plan: Patient was not able to get his follow-up labs done prior to his appointment today Reinforce low-cholesterol diet As his LDL cholesterol level was well controlled at his last visit, will have him pass on getting labs done at this time Will have him recheck his labs and fasting lipids in 4 months for follow-up - will just have him use his current orders (updated) for his next lab draw (2) Benign essential hypertension: Code(s): I10 - Essential (primary) hypertension Category: Medical Plan: Reinforced low sodium diet - goal is systolic BP of 120 mm or less He is advised that his blood pressure is still higher than recommended today Will go ahead and increase his Lisinopril now to 5 mg QD He is again reminded to continue monitoring his blood pressure regularly - RX for BP monitor sent to his local pharmacy (3) Asthma: Code(s): J45.909 - Unspecified asthma, uncomplicated Category: Medical Qualifiers: Asthma severity: moderate Asthma persistence: persistent Asthma complication type: uncomplicated Qualified Code(s): J45.40 - Moderate persistent asthma, uncomplicated Plan: Stable/controlled lately He was doing well on Asmanex HFA 100 mcg 2 inhalations BID in the past but had to switch over to Pulmicort a few months ago due to insurance formulary change Continue Pulmicort Flexhaler 180 mcg 1 inhalation BID and Albuterol HFA 2 inhalations Q 6 hours PRN (4) Liver cirrhosis: Code(s): K74.60 - Unspecified cirrhosis of liver Category: Medical Qualifiers: Hepatic cirrhosis type: alcoholic cirrhosis Ascites presence: without ascites Qualified Code(s): K70.30 - Alcoholic cirrhosis of liver without ascites Plan: Abdominal CT done on 06/19/2023 revealed (+) liver cirrhosis - the liver is enlarged at 20.8 cm with a nodular border. No focal liver mass or bile duct dilatation is seen; there is a recanalized umbilical vein and abdominal wall and periumbilical varices present as well as some gastric and esophageal varices and small splenorenal shunt He was previously referred to Dr. Goyal for GI follow up as Dr. Goyal has seen him when he was in the hospital last year - is scheduled to be seen by Dr. Goyal sometime soon Will also check his liver fibrosis panel in a few months (can be done together with his other routine labs) for follow up (5) Elevated liver enzymes: Code(s): R74.8 - Abnormal levels of other serum enzymes Category: Medical Plan: Abdominal CT done on 06/19/2023 revealed (+) liver cirrhosis - the liver is enlarged at 20.8 cm with a nodular border. No focal liver mass or bile duct dilatation is seen; there is a recanalized umbilical vein and abdominal wall and periumbilical varices present as well as some gastric and esophageal varices and small splenorenal shunt He was previously referred to Dr. Goyal for GI follow up as Dr. Goyal has seen him when he was in the hospital last year - is scheduled to be seen by Dr. Goyal sometime soon Will also check his liver fibrosis panel in a few months (can be done together with his other routine labs) for follow up (6) Splenomegaly: Code(s): R16.1 - Splenomegaly, not elsewhere classified Category: Medical Plan: This was seen on his abdominal CT in June 2023 - spleen is enlarged at 15.6 cm - and is likely related to his liver cirrhosis With his recent thrombocytopenia, will send patient for a repeat abdominal US for further evaluation (7) Thrombocytopenia: Code(s): D69.6 - Thrombocytopenia, unspecified Category: Medical Plan: This is likely due to his splenomegaly and hepatic issues Will continue to monitor his CBC regularly (8) Impaired fasting glucose: Code(s): R73.01 - Impaired fasting glucose Category: Medical Plan: Patient's fasting glucose has been elevated in the past but was normal on his most recent labs done His HgbA1c was normal then at 5.1% when previously checked Reinforced low calorie/low carb diet (9) Allergic rhinitis: Code(s): J30.9 - Allergic rhinitis, unspecified Category: Medical Qualifiers: Allergic rhinitis trigger: unspecified Allergic rhinitis seasonality: unspecified Qualified Code(s): J30.9 - Allergic rhinitis, unspecified Plan: Continue OTC Loratadine 10 mg QD PRN (10) Vitamin D deficiency: Code(s): E55.9 - Vitamin D deficiency, unspecified Category: Medical Plan: Continue Vitamin D3 tablets 2000 units QD (11) Alcohol use disorder: Code(s): F10.90 - Alcohol use, unspecified, uncomplicated Category: Medical Plan: Patient states that he stopped drinking alcohol completely since his most recent hospitalization on 06/19/2023 and continues to work on staying sober - states that his is helping him a lot Recent imaging studies revealed (+) liver cirrhosis; labs still showed slightly elevated LFTs but they have been gradually and consistently improving Have encouraged patient to continue working on his sobriety I have previously offered to refer him to addiction medicine but he declined - have advised patient that he can call at any time for the referral if he changes his mind and/or he needs help Continue Thiamine 100 mg QD and Folic Acid 1 mg QD (12) Insomnia: Code(s): G47.00 - Insomnia, unspecified Category: Medical Qualifiers: Insomnia type: unspecified Qualified Code(s): G47.00 - Insomnia, unspecified Plan: Sleep hygiene reinforced Continue Trazodone 50 mg Q HS PRN - states that this has helped him a lot with his sleep (13) Anxiety: Code(s): F41.9 - Anxiety disorder, unspecified Category: Medical Plan: He was on Lorazepam 1 mg QD PRN in the past but he has not had to take this in a while He is again advised to call if he feels his anxiety is getting out of hand and he needs help (14) Depression: Code(s): F32.9 - Major depressive disorder, single episode, unspecified Category: Medical Qualifiers: Depression Type: major depressive disorder Major depression recurrence: recurrent Active/Remission status: in remission of unspecified degree Qualified Code(s): F33.40 - Major depressive disorder, recurrent, in remission, unspecified Plan: He was seeing psychiatry in the past although he has not done so in a while Is advised to call if he feels that he needs to go back to see psychiatry and we will refer him back if necessary (15) Overweight (BMI 25.0-29.9): Code(s): E66.3 - Overweight Category: Medical Plan: Reinforced diet/exercise as tolerated/lose weight Plan To return in 4 months for his annual physical examination Orders: Orders Influenza [id number] Immunization 06/04/24 Z23 - Encounter for immunization Medications: New blood pressure monitor As directed 1 ea 0RF I10 - Essential (primary) hypertension cholecalciferol (vitamin D3) (Vitamin D3) 50 mcg PO DAILY 90 days 90 caps 3RF Changed From lisinopril 2.5 mg PO DAILY 90 days 90 tabs 1RF To lisinopril 5 mg PO DAILY 90 days 90 tabs 1RF Refilled budesonide 180 mcg/actuation (Pulmicort Flexhaler) 1 inh inhalation BID 1 ea 3RF Ventolin HFA 90 mcg/actuation (albuterol sulfate) 2 puffs inhalation Q6H 30 days PRN 18 grams 5RF shortness of breath or wheezing NS J45.909 - Unspecified asthma, uncomplicated
[2024-06-04 10:05] VITALS: BP 148/70
== END 2024-06-04 10:13 | disposition home or self-care (01) ==
PROVIDERS: PCP Internal Medicine; Visit Provider Internal Medicine
DX: E78.00 Pure hypercholesterolemia, unspecified (principal); K70.30 Alcoholic cirrhosis of liver without ascites; D69.6 Thrombocytopenia, unspecified; F33.40 Major depressive disorder, recurrent, in remission, unspecified; I10 Essential (primary) hypertension; J45.40 Moderate persistent asthma, uncomplicated; R74.8 Abnormal levels of other serum enzymes; R16.1 Splenomegaly, not elsewhere classified; R73.01 Impaired fasting glucose; J30.9 Allergic rhinitis, unspecified; E55.9 Vitamin D deficiency, unspecified; F10.90 Alcohol use, unspecified, uncomplicated

== ENCOUNTER → 2024-06-04 09:24 | Outpatient (BNVA) | payer OTHER, SELFPAY | PROVIDERS: PCP Internal Medicine; Visit Provider Internal Medicine | DX: E78.00 Pure hypercholesterolemia, unspecified (principal); I10 Essential (primary) hypertension; J45.40 Moderate persistent asthma, uncomplicated; K70.30 Alcoholic cirrhosis of liver without ascites; R74.8 Abnormal levels of other serum enzymes; R16.1 Splenomegaly, not elsewhere classified; D69.6 Thrombocytopenia, unspecified; R73.01 Impaired fasting glucose; J30.9 Allergic rhinitis, unspecified; E55.9 Vitamin D deficiency, unspecified; F10.90 Alcohol use, unspecified, uncomplicated; G47.00 Insomnia, unspecified; F41.9 Anxiety disorder, unspecified; F33.40 Major depressive disorder, recurrent, in remission, unspecified; E66.3 Overweight | CPT/HCPCS: 90471; 96127; 99212 ==

== ENCOUNTER 2024-07-06 01:23 | Emergency (ER) | payer OTHER, SELFPAY ==
--- NOTE | ~2024-07-06 | XR_ITS ---
EXAMINATION: XR CHEST CLINICAL INFORMATION: cough COMPARISON: CT chest 06/19/2023, chest radiograph 06/19/2023 TECHNIQUE: AP and repeat AP radiographs of the chest. FINDINGS: Normal appearance of the cardiomediastinal structures. No effusions or pneumothoraces. Normal pattern of pulmonary vasculature. No focal pulmonary consolidation. XR/XR chest 1V IMPRESSION: No acute cardiopulmonary abnormalities. Lungs clear. Electronically signed by: Michael Davis MD 07/06/2024 03:09 AM BATSHEVA
[2024-07-06 01:25] VITALS: BP 124/74; PULSE 88; RESP 20; TEMP 37.1; O2SAT 95; BMI 29.4
--- OUTSIDE RECORDS SUMMARY | 2024-07-06 01:25 | XMS_ITS ---
Author Organization [facility] Address [address] [place] [phone] Care Team Providers Care Professor Of Art Name Role Phone Sam MOYER, Nelson Primary Care Provider Unava ilable Ryan Perez [phone] REASON FOR VISIT Patient presents today for cirrhosis, gastroenteritis and colitis Encounters Encounter Location Date Provider Diagnosis [facility] [address] [place] [phone] 11/22/2023 Ryan Perez PLAN OF TREATMENT No Information
--- OUTSIDE RECORDS SUMMARY | 2024-07-06 01:25 | XMS_ITS ---
Author Organization [facility] Address [address] [place] [id number] Care Team Providers Care Harness Cleaner Name Role Phone Sam MOYER, Harry Primary Care Provider Unava ilable Ryan Perez Unavailable [phone] REASON FOR VISIT New pt no show Encounters Encounter Location Date Provider Diagnosis [facility] [address] [place] [phone] 11/22/2023 Ryan Perez PLAN OF TREATMENT No Information
--- OUTSIDE RECORDS SUMMARY | 2024-07-06 01:26 | XMS_ITS ---
Author Organization [facility] Address [address] [place] [phone] Care Team Providers Care Bariatric Coordinator Name Role Phone Sam MOYER, [place] Primary Care Provider Unava ilable Ryan Perez Unavailable [phone] Levy Goyal Jr Unavailable [phone] REASON FOR VISIT new insurance? Encounters Encounter Location Date Provider Diagnosis [facility] [address] [place] [phone] 10/28/2023 Levy Goyal Jr PLAN OF TREATMENT No Information
--- OUTSIDE RECORDS SUMMARY | 2024-07-06 01:26 | XMS_ITS | Patient Health Record ---
Author Organization [facility] Address [address] [place] [address] Care Team Providers Care Nursing Consultant Name Role Phone Sam MOYER, [place] Primary Care Provider Ryan Rich Unavailable [phone] Levy Goyal Jr Unavailable REASON FOR REFERRAL No Information SOCIAL HISTORY Sex Assigned At : Social History Observation Description Sex Assigned At Unknown PROBLEMS Problem Type ICD Code Onset Dates Problem Status W/U Status Risk SNOMED Code Notes Problem Cirrhosis (K74.60) Active confirmed Cirrhotic ([id number]) Encounters Encounter Location Date Provider Diagnosis [facility] [address] [place] [phone] 11/22/2023 Ryan Perez [facility] [address] [place] [phone] 10/28/2023 Levy Goyal Jr [facility] [address] [place] [phone] 11/22/2023 Ryan Perez PLAN OF TREATMENT No Information Insurance Providers Payer Name Payer Address Payer Phone Subscriber Number Group Number Insured Name Patient Relationship to Insured Coverage Start Date Coverage End Date [facility] [address] [address] [place], [place] [id number] MARIEL JONES Self - patient is the insured
[2024-07-06 01:58] LABS: IDNOW Serial# 6674DD1D; Strep A Nucleic Acid Negative (Negative)
[2024-07-06 02:20] LABS: Influenza A PCR NEGATIVE (Negative); Influenza B PCR NEGATIVE (Negative); Resp Syncy Virus RNA Qual PCR NEGATIVE (Negative); SARS COV2 PCR INHOUSE NEGATIVE (Negative)
--- NOTE | 2024-07-06 03:19 | ED.GENADULT ---
HPI - General Adult General Chief complaint: Upper Respiratory Symptoms Stated complaint: sore throat Time Seen by Provider: 07/06/24 02:50 Source: patient Mode of arrival: ambulatory Limitations: no limitations History of Present Illness ED Provider: Dr. Katerine Cha HPI narrative: Patient comes to the emergency room complaining of itchy oropharynx for 1 month, erythema, pain with swallowing. Patient denies any fever chills. Patient states that he has been using cough lozenges for several months without any relief. Patient denies any oropharyngeal swelling Related Data Previous Rx's ?Medication ?Instructions ?Recorded folic acid 1 mg tablet 1 mg PO DAILY 90 days #90 tabs 07/12/23 thiamine mononitrate (vit B1) 100 100 mg PO DAILY 90 days #90 tabs 07/12/23 mg tablet trazodone 50 mg tablet 50 mg PO BEDTIME PRN sleep 30 days 07/12/23 #30 tabs blood pressure monitor #1 ea 06/04/24 budesonide 180 mcg/actuation 1 inh inhalation BID #1 ea 06/04/24 breath activated powder inhaler (Pulmicort Flexhaler) cholecalciferol (vitamin D3) 50 50 mcg PO DAILY 90 days #90 caps 06/04/24 mcg (2,000 unit) capsule (Vitamin D3) lisinopril 5 mg tablet 5 mg PO DAILY 90 days #90 tabs 06/04/24 benzocaine 15 mg-menthol 2.6 mg 1 inessa mucous membrane Q2-4H PRN 06/09/24 lozenges (Cepacol Sore Throat sore throat 7 days #40 ea (benzocaine-menthol)) Ventolin HFA 90 mcg/actuation 2 puff inhalation Q6H PRN 06/30/24 aerosol inhaler (albuterol sulfate) shortness of breath or wheezing 30 days #18 grams nystatin 100,000 unit/mL oral 500,000 unit (5 mL) PO TID 10 days 07/06/24 suspension #150 mL Allergies Allergy/AdvReac Type Severity Reaction Status Date / Time No Known Allergies Allergy Verified 07/06/24 01:31 [No Known Allergies*] Review of Systems Review of Systems: Constitutional : No Weight loss, No Fever, No Chills, No Night Sweats, No Fatigue, No Malaise ENT/Mouth : No Hearing loss, No Ear Pain, No Nasal Congestion, No Sinus Pain, No Hoarseness, complaining of itchy she palate and oropharynx, mild soreness, redness, No Rhinorrhea, No Swallowing Difficulty Eyes: No Eye Pain, No Swelling, No Redness, No Foreign Body, No Discharge, No Vision Changes Cardiovascular : No Chest Pain, No SOB, No Dyspnea on Exertion, No Orthopnea, No Edema, No Palpitations Respiratory : No Cough, No Sputum, No Wheezing, No Smoke Exposure, No Dyspnea Gastrointestinal : No Nausea, No Vomiting, No Diarrhea, No Constipation, No abdominal Pain, No Hematochezia, No Melena Genitourinary : no irregular bleeding, No Dysuria, No Urinary Frequency, No Hematuria, No Urinary Incontinence, No Urgency, No Flank Pain, No Urinary Flow Changes, No Hesitancy Musculoskeletal : No joint pain, No Myalgias, No Joint Swelling Skin : No Skin Lesions, No rash Neuro : No Weakness, No Numbness, No Paresthesias, No Loss of Consciousness, No Dizziness, No Headache Psych : No Anxiety/Panic, No Depression, No SI/HI/AH/VH, No Social Issues, Heme/Lymph: No Bruising, No Bleeding,No Lymphadenopathy Endocrine : No Polyuria, No Polydipsia, No Temperature Intolerance [facility] Past Medical History Medical History Insomnia Vitamin D deficiency Impaired fasting glucose Benign essential hypertension Obesity (BMI 30-39.9) Overweight (BMI 25.0-29.9) Depression Anxiety Elevated liver enzymes Pure hypercholesterolemia Allergic rhinitis Asthma Surgical History No pertinent past surgical history Family History Family History Father Medical history unknown Mother Ovarian cancer Brother No problems noted. Sister No problems noted. Sister In good health Social History Social History Household Members: Family Housing: House Do you presently have visiting nurse or other home services: No Alcohol intake: current Alcohol intake frequency: does not drink Alcohol type: beer Comment: PT REFUSES BED ALARM Patient Tobacco Use Status: Former Tobacco user e-Cigarette/Vaping Use: Never Used Second Hand Smoke Exposure: No Advance Directives: No Advance Directives Information Provided: Yes service: No Current occupational status: employed Current occupational exposures/hazards: No Cognitive needs: No Hearing needs: No Vision needs: No Physical Exam ED Vital Signs: Vital Signs - 24 hr 07/06/24 01:25 Temperature 98.7 F Pulse Rate 88 Respiratory Rate 20 Blood Pressure 124/74 Pulse Oximetry 95 Oxygen Delivery Method Room Air BMI result Body Mass Index 29.4 Const Other: Appearance: Alert. Oriented X3. No acute distress. Eyes: Pupils equal, round and reactive to light. ENT: Pharynx is erythematous from the palate to the distal oropharynx, whitish patches in the roof of the palate and uvula, tonsils not swollen Neck: Normal inspection. Neck supple. No lymph nodes noted. No crepitus CVS: Normal heart rate and rhythm. Pulses normal. Normal S1 and S2 Respiratory: No respiratory distress. Breath sounds normal. No Wheezing. No rales Abdomen: Soft and nontender. No rigidity. No distention. Skin: Skin warm and dry. Normal skin color. Normal skin turgor. Extremities: No lower extremity edema. No Lacerations. No Rash Neuro: Oriented X 3. No motor deficit. No sensory deficit. Moving all extremities. No slurred speech. CN 2 through 12 grossly intact Psych: calm, cooperative, normal affect Medical Decision Making Medical Decision Making MDM Narrative: Patient tested negative for COVID and strep -I discussed the physical exam with the patient, patient likely has oral thrush -patient is known to be a heavy alcohol drinker. Patient denies it but patient has been seen multiple times for alcohol intoxication. Patient's at bedside states that he does drink quite a bit. -patient will be giving a prescription for nystatin swish and swallow, patient agrees with plan, will follow-up with his PCP Lab Data MDM Lab Attestation statement: I reviewed the patient's lab results. Labs: Lab Results 07/06/24 Range/Units 01:34 Influenza Type A (PCR) NEGATIVE (Negative) Influenza Type B (PCR) NEGATIVE (Negative) RSV RNA Qual (PCR) NEGATIVE (Negative) SARS-CoV-2 RNA (RT-PCR) NEGATIVE (Negative) S. pyogenes GrpA VALERIA Negative (Negative) Discharge Plan Discharge Clinical Impression: Esophageal thrush Patient Disposition: Home, Self-Care Instructions: Oral Candidiasis (ED) Additional Instructions: Please follow-up with your primary care physician tomorrow. If you have any worsening or new symptoms, please return to the emergency room or call 911 Prescriptions: New nystatin 100,000 unit/mL suspension 500,000 unit PO TID 10 Days Qty: 150 0RF Rx Instructions: Swish and swallow No Action Cepacol Sore Throat (debbie-men) 15-2.6 mg lozenge 1 inessa mucous membrane Q2-4H PRN (Reason: sore throat) 7 Days Qty: 40 0RF albuterol sulfate [Ventolin HFA] 90 mcg/actuation HFA aerosol inhaler 2 puff inhalation Q6H PRN (Reason: shortness of breath or wheezing) 30 Days Qty: 18 5RF trazodone 50 mg tablet 50 mg PO BEDTIME PRN (Reason: sleep) 30 Days Qty: 30 3RF folic acid 1 mg tablet 1 mg PO DAILY 90 Days Qty: 90 3RF thiamine mononitrate (vit B1) 100 mg tablet 100 mg PO DAILY 90 Days Qty: 90 3RF cholecalciferol (vitamin D3) [Vitamin D3] 50 mcg (2,000 unit) capsule 50 mcg PO DAILY 90 Days Qty: 90 3RF Pulmicort Flexhaler 180 mcg/actuation aerosol powdr breath activated 1 inh inhalation BID Qty: 1 3RF lisinopril 5 mg tablet 5 mg PO DAILY 90 Days Qty: 90 1RF (DME) blood pressure monitor Kit See Rx Instructions .ROUTE .MEDSUPPLY Qty: 1 0RF Rx Instructions: As directed Print Language: French
[2024-07-06 03:30] VITALS: BP 134/84; PULSE 68; RESP 16; TEMP 36.7; O2SAT 96
== END 2024-07-06 03:31 | disposition home or self-care (01) ==
PROVIDERS: Emergency Provider Emergency Medicine; PCP Internal Medicine
DX: J02.9 Acute pharyngitis, unspecified (principal); R05.9 Cough, unspecified; Z87.891 Personal history of nicotine dependence; Z03.818 Encounter for observation for suspected exposure to other biological agents ruled out; Z79.899 Other long term (current) drug therapy
CPT/HCPCS: 0241U; 71045; 87651; 99282; 99283

== ENCOUNTER 2024-08-24 03:41 | Emergency (ER) | payer OTHER, SELFPAY ==
--- NOTE | ~2024-08-24 | CT_ITS ---
EXAMINATION: CT CERVICAL SPINE WITHOUT CONTRAST CLINICAL INFORMATION: Fall, head strike COMPARISON: CT cervical spine 05/28/2021 TECHNIQUE: Axial 3 mm thin and reformatted 2 mm thin sagittal and coronal images of cervical spine were obtained without contrast. This CT examination was performed using dose optimization techniques as appropriate, variously including the following: *Automated exposure control *Adjustment of mA and/or kV according to patient size (this includes techniques or standardized protocols for targeted exams where dose is matched to indication/reason for exam; i.e. extremities or head)/ *Use of iterative reconstruction technique DLP: 1267 mGy/cm. FINDINGS: There is mild straightening of cervical lordosis. The vertebral heights and alignment is normal. There is loss of C5-6 disc height with ventral spondylosis C4-5, C5-6 disc levels. The craniovertebral junction and C1-C2 alignment is normal. The C2-3, C3-4 and C4-5 disc levels are unremarkable. The neural foramina are widely patent. The facet joints are symmetrical and normal. At C5-6 disc level there is degenerative disc changes with mild diffuse bulge/osteophyte complex resulting in mild AP canal stenosis. There is moderate left neural foraminal narrowing from uncovertebral hypertrophic changes. The right neural foramina is minimally narrowed. The C6-7 and C7-T1 disc levels are unremarkable. CT/CT cervical spine wo IV con IMPRESSION: C5-6 disc level diffuse bulge/osteophyte complex resulting in mild AP canal stenosis. There is moderate left and mild right neural foramina narrowing from uncovertebral hypertrophic changes. Similar findings are visualized on previous MRI 05/28/2021 Mild straightening of cervical lordosis likely spasm. Fleischner guidelines were followed. Electronically signed by: Preet Harrison MD 08/24/2024 08:40 AM [facility]
--- NOTE | ~2024-08-24 | CT_ITS ---
EXAMINATION: CT HEAD WITHOUT CONTRAST CLINICAL INFORMATION: Fall, head strike. COMPARISON: CT brain 05/28/2021. TECHNIQUE: Contiguous axial imaging was performed from the skull base to vertex without intravenous administration of contrast. This CT examination was performed using dose optimization techniques as appropriate, variously including the following: *Automated exposure control *Adjustment of mA and/or kV according to patient size (this includes techniques or standardized protocols for targeted exams where dose is matched to indication/reason for exam; i.e. extremities or head) *Use of iterative reconstruction technique DLP: 1267 mGy/cm. FINDINGS: There is no acute intra-axial, extra-axial bleed, masses or midline shift. There is no acute infarction evolution. There is no edema. The wesley to white matter differentiation is maintained normal. The lateral ventricles are symmetrical in size and configuration without enlargement. Bone windows reveal no calvarial abnormality. No scalp soft tissue abnormality seen. Bilateral paranasal sinuses and mastoid air cells are well-aerated. CT/CT head/brain wo IV con IMPRESSION: No acute intracranial process seen. Electronically signed by: Preet Harrison MD 08/24/2024 08:34 AM EST
--- NOTE | ~2024-08-24 | XR_ITS ---
CLINICAL HISTORY: injury 2 view right knee Comparison: None Findings: No fractures or dislocations. Medial and patellofemoral compartment osteophyte formation with mild medial joint space loss. No joint effusion. No radiopaque foreign body. IMPRESSION: 1. Mild medial and patellofemoral compartment osteoarthropathy. This document has been electronically signed by: Cherri Bautista MD on 08/24/2024 06:10:16
[2024-08-24 03:42] VITALS: BP 144/66; PULSE 96; O2SAT 94
[2024-08-24 03:51] VITALS: BP 133/72; PULSE 92; RESP 18; TEMP 36.8; O2SAT 96; BMI 29.1
[2024-08-24 06:31] VITALS: BP 113/60; PULSE 99; RESP 12; TEMP 37; O2SAT 92
--- NOTE | 2024-08-24 06:55 | ED_ITS ---
HPI - General Adult General Chief complaint: Fall Stated complaint: Fall downstairs +HS, LOC,-thin, /kneepain ETOH Time Seen by Provider: 08/24/24 06:51 Source: patient and EMS Mode of arrival: EMS Limitations: no limitations History of Present Illness ED Provider: Tracy Hernandez PA-C HPI narrative: Patient is a 58 year old assigned male at with a history of alcohol abuse, depression, anxiety, asthma, and HTN presenting to the emergency department today with bilateral knee pain after a fall. Patient states that he slipped and fell down a set of wooden stairs. Patient states that he hit his head and may have loss consciousness. Patient states that his knees hurt, specifically his right one more than his left one. Patient denies any dizziness, lightheadedness, abdominal pain, nausea, vomiting, fever, chills, blurry vision, double vision, loss of vision, chest pain, difficulty breathing, shortness of breath, back pain, night sweats, pain with urination, increased urinary frequency, increased urinary urgency, blood in his urine or stool, syncope or a near syncopal episode, bowel incontinence, bladder incontinence, or any other complaints at this time. Relieving factors: none Exacerbating factors: none Associated symptoms: denies other symptoms Treatments prior to arrival: none Related Data Previous Rx's ?Medication ?Instructions ?Recorded trazodone 50 mg tablet 50 mg PO BEDTIME PRN sleep 30 days 07/12/23 #30 tabs blood pressure monitor #1 ea 06/04/24 budesonide 180 mcg/actuation 1 inh inhalation BID #1 ea 06/04/24 breath activated powder inhaler (Pulmicort Flexhaler) cholecalciferol (vitamin D3) 50 50 mcg PO DAILY 90 days #90 caps 06/04/24 mcg (2,000 unit) capsule (Vitamin D3) lisinopril 5 mg tablet 5 mg PO DAILY 90 days #90 tabs 06/04/24 benzocaine 15 mg-menthol 2.6 mg 1 inessa mucous membrane Q2-4H PRN 06/09/24 lozenges (Cepacol Sore Throat sore throat 7 days #40 ea (benzocaine-menthol)) Ventolin HFA 90 mcg/actuation 2 puff inhalation Q6H PRN 06/30/24 aerosol inhaler (albuterol sulfate) shortness of breath or wheezing 30 days #18 grams nystatin 100,000 unit/mL oral 500,000 unit (5 mL) PO TID 10 days 07/06/24 suspension #150 mL folic acid 1 mg tablet 1 mg PO DAILY 90 days #90 tabs 07/30/24 thiamine mononitrate (vit B1) 100 100 mg PO DAILY 90 days #90 tabs 07/30/24 mg tablet Allergies Allergy/AdvReac Type Severity Reaction Status Date / Time No Known Allergies Allergy Verified 08/24/24 03:52 [No Known Allergies*] Review of Systems Constitutional: Constitutional: Reports no additional constitutional complaints, Denies chills, Denies fever(s) and Denies night sweats Eyes: Eyes: Reports no additional eye complaints, Denies blurry vision, Denies change in vision, Denies diplopia, Denies eye discharge, Denies loss of vision and Denies eye pain ENT: Denies dizziness Cardiovascular: Cardiovascular: Reports no additional cardiovascular complaints, Denies chest pain, Denies lightheadedness, Denies Loss of Consciousness and Denies dyspnea Respiratory: Respiratory: Reports no additional respiratory complaints and Denies dyspnea Gastrointestinal: Gastrointestinal: Reports no additional gastrointestinal complaints, Denies abdominal pain, Denies melena, Denies hematochezia, Denies change in bowel habits and Denies change in stool character Genitourinary: Genitourinary: Reports no additional male genitourinary complaints, Denies hematuria, Denies oliguria, Denies difficulty urinating, Denies dysuria, Denies urinary frequency, Denies urinary hesitancy, Denies urinary incontinence and Denies urinary urgency Musculoskeletal: Musculoskeletal: Reports no additional musculoskeletal complaints, Denies numbness and Denies tingling Comments: bilateral knee pain right worse than left Neurologic: Denies dizziness, Denies loss of vision, Denies numbness and Denies tingling Psychiatric: Psychiatric: Reports no additional psychiatric complaints Endocrine: Endocrine: Reports no additional endocrine complaints Hematologic/Lymphatic: Hematologic/Lymphatic: Reports no additional hematologic/lymphatic complaints Allergic/Immunologic: Allergic/Immunologic: Reports no additional allergic/immunologic complaints PMFSH Past Medical History Attestation statement: The following information was validated with the patient. Source: old records reviewed and nursing notes reviewed Medical History Insomnia Vitamin D deficiency Impaired fasting glucose Benign essential hypertension Obesity (BMI 30-39.9) Overweight (BMI 25.0-29.9) Depression Anxiety Elevated liver enzymes Pure hypercholesterolemia Allergic rhinitis Asthma Surgical History No pertinent past surgical history Family History Family History Father Medical history unknown Mother Ovarian cancer Brother No problems noted. Sister No problems noted. Sister In good health Social History Social History Household Members: Family Housing: House Do you presently have visiting nurse or other home services: No Alcohol intake: current Alcohol intake frequency: a few times a week Alcohol type: beer Comment: PT REFUSES BED ALARM Patient Tobacco Use Status: Former Tobacco user Smoked in Last 30 Days: No e-Cigarette/Vaping Use: Never Used Second Hand Smoke Exposure: No Use of substances other than those prescribed or required for medical reasons: No Advance Directives: No Advance Directives Information Provided: Yes service: No Current occupational status: employed Current occupational exposures/hazards: No Cognitive needs: No Hearing needs: No Vision needs: No Physical Exam ED Vital Signs: Vital Signs - 24 hr 08/24/24 03:51 08/24/24 06:31 08/24/24 07:25 Temperature 98.2 F 98.6 F 98.6 F Pulse Rate 92 99 97 Respiratory Rate 18 12 18 Blood Pressure 133/72 113/60 113/54 L Pulse Oximetry 96 92 96 Oxygen Delivery Method Room Air Room Air Room Air BMI result Body Mass Index 29.1 Const General: cooperative, no acute distress, alert and awake Nutritional Appearance: well nourished Orientation/consciousness: patient oriented x3 Limitations: no limitations HENMT Head: Yes normal to inspection and Yes atraumatic Ears: hearing grossly normal bilaterally and external ears normal General nose exam: Normal external nose present, no nasal discharge noted and no epistaxis Face and sinus: Yes normal facial exam, No abrasion and No laceration Mouth: Normal oral and palatal mucosa present, no drooling and no muffled voice Eyes General: appearance normal, both eyes and all related structures Periorbital: periorbital findings normal Eyelids: Yes eyelids normal Conjunctivae: conjunctivae normal Pupils: Equal, round and reactive pupils present EOM: EOMs intact bilaterally Neck Neck: Yes normal visual inspection, Yes full ROM and Yes no lymphadenopathy Chest Chest palpation & inspection: normal inspection of the chest Resp Effort & Inspection: normal respiratory effort and able to speak in complete sentences GI Inspection: Yes normal to inspection Neuro General: patient oriented x3 and moves all extremities Cranial nerves: Yes Equal, round and reactive pupils present Cognition (Neuro): normal cognition Extrem General: Yes normal to inspection, Yes full ROM and Yes capillary refill normal Psych Appearance: grossly normal Mental Status: mental status grossly normal Affect: normal affect Attitude: cooperative Thought process: Normal thought process present Thought content: Normal thought content present Insight: Good insight present (Psych) Medications Administered Discontinued Medications Generic Name Dose Route Start Last Admin Trade Name Freq PRN Reason Stop Dose Admin Oxycodone HCl 10 mg 08/24/24 07:06 08/24/24 07:23 Oxycodone Hcl Immed Release 5 Mg Tablet PO 08/24/24 07:07 10 mg ONCE ONE Administration Medical Decision Making Medical Decision Making [facility] Narrative: Patient is a 58 year old assigned male at with a history of alcohol abuse, depression, anxiety, asthma, and HTN presenting to the emergency department today with bilateral knee pain after a fall. Patient's physical exam was unremarkable. Patient's right knee x-ray, head CT, and c-spine CT showed no acute process. I explained my physical exam findings as well as all test results to the patient. I answered all questions asked by the patient. I stressed the importance of the patient taking his medication as directed (either prescribed or as the over the counter packaging recommends). I stressed the importance of the patient following up with his primary care provider. I stressed the importance of the patient returning to the emergency department immediately if his symptoms were to worsen or if he were to develop any dizziness, shortness of breath, difficulty breathing, chest pain, blurry vision, loss of vision, nausea, vomiting, abdominal pain, fever, chills, back pain, or any other complaints. Patient verbalized agreement and understanding with this treatment plan and discharge. Differential Diagnosis Differential Diagnoses: The differential diagnosis associated with the presentation includes Fall Knee pain Concussion Contusion Fracture Intracranical injury Admission/Observation Consideration of admission/observation: Escalation of care including admission/observation considered Patient would have been admitted to the hospital had his work up had any findings where hospital admission was appropriate and his clinical presentation warranted hospital admission. Independent Interpretation I performed an independent interpretation of an: Plain X-Ray and CT Scan Interpretation: My interpretation is in agreement with the radiologist's impression of these imaging studies. Report Number: [id number]: Total DLP = 502.00 mGy-cm EXAMINATION: CT CERVICAL SPINE WITHOUT CONTRAST CLINICAL INFORMATION: Fall, head strike COMPARISON: CT cervical spine 05/28/2021 TECHNIQUE: Axial 3 mm thin and reformatted 2 mm thin sagittal and coronal images of cervical spine were obtained without contrast. This CT examination was performed using dose optimization techniques as appropriate, variously including the following: *Automated exposure control *Adjustment of mA and/or kV according to patient size (this includes techniques or standardized protocols for targeted exams where dose is matched to indication/reason for exam; i.e. extremities or head)/ *Use of iterative reconstruction technique DLP: 1267 mGy/cm. FINDINGS: There is mild straightening of cervical lordosis. The vertebral heights and alignment is normal. There is loss of C5-6 disc height with ventral spondylosis C4-5, C5-6 disc levels. The craniovertebral junction and C1-C2 alignment is normal. The C2-3, C3-4 and C4-5 disc levels are unremarkable. The neural foramina are widely patent. The facet joints are symmetrical and normal. At C5-6 disc level there is degenerative disc changes with mild diffuse bulge/osteophyte complex resulting in mild AP canal stenosis. There is moderate left neural foraminal narrowing from uncovertebral hypertrophic changes. The right neural foramina is minimally narrowed. The C6-7 and C7-T1 disc levels are unremarkable. CT/CT cervical spine wo IV con IMPRESSION: C5-6 disc level diffuse bulge/osteophyte complex resulting in mild AP canal stenosis. There is moderate left and mild right neural foramina narrowing from uncovertebral hypertrophic changes. Similar findings are visualized on previous MRI 05/28/2021 Mild straightening of cervical lordosis likely spasm. Fleischner guidelines were followed. Electronically signed by: Preet Harrison MD 08/24/2024 08:40 AM EST RP Dictated By: Preet Harrison MD Signed By: Electronically signed by Preet Harrison MD 08/24/24 0840 Report Number: [id number]: Total DLP = 764.00 mGy-cm EXAMINATION: CT HEAD WITHOUT CONTRAST CLINICAL INFORMATION: Fall, head strike. COMPARISON: CT brain 05/28/2021. TECHNIQUE: Contiguous axial imaging was performed from the skull base to vertex without intravenous administration of contrast. This CT examination was performed using dose optimization techniques as appropriate, variously including the following: *Automated exposure control *Adjustment of mA and/or kV according to patient size (this includes techniques or standardized protocols for targeted exams where dose is matched to indication/reason for exam; i.e. extremities or head) *Use of iterative reconstruction technique DLP: 1267 mGy/cm. FINDINGS: There is no acute intra-axial, extra-axial bleed, masses or midline shift. There is no acute infarction evolution. There is no edema. The wesley to white matter differentiation is maintained normal. The lateral ventricles are symmetrical in size and configuration without enlargement. Bone windows reveal no calvarial ab normality. No scalp soft tissue abnormality seen. Bilateral paranasal sinuses and mastoid air cells are well-aerated. CT/CT head/brain wo IV con IMPRESSION: No acute intracranial process seen. Electronically signed by: Preet Harrison MD 08/24/2024 08:34 AM EST RP Dictated By: Preet Harrison MD Signed By: Electronically signed by Preet Harrison MD 08/24/24 0834 CLINICAL HISTORY: injury 2 view right knee Comparison: None Findings: No fractures or dislocations. Medial and patellofemoral compartment osteophyte formation with mild medial joint space loss. No joint effusion. No radiopaque foreign body. IMPRESSION: 1. Mild medial and patellofemoral compartment osteoarthropathy. This document has been electronically signed by: Cherri Bautista MD on 08/24/2024 06:10:16 Dictated By: Cherri Bautista MD Signed By: Electronically signed by Cherri Bautista MD 08/24/24 0610 Radiology Impression Discussion of test interpretation with radiology: I have reviewed the radiologist's reading. Independent Historian Clinical information obtained from an independent historian. History obtained from or confirmed by: EMS (EMS provided additional history and confirmed the history provided by the patient.) Discharge Plan Discharge Clinical Impression: Fall from slipping, Bilateral knee pain Patient Disposition: Home, Self-Care Instructions: Knee Pain (ED) Additional Instructions: Your work up today is unremarkable for any acute process. Follow up with your primary care provider. Return to the emergency department immediately if your symptoms worsen or if you develop any dizziness, shortness of breath, difficulty breathing, chest pain, blurry vision, loss of vision, nausea, vomiting, abdominal pain, fever, chills, back pain, or any other complaints. Prescriptions: No Action Cepacol Sore Throat (debbie-men) 15-2.6 mg lozenge 1 inessa mucous membrane Q2-4H PRN (Reason: sore throat) 7 Days Qty: 40 0RF albuterol sulfate [Ventolin HFA] 90 mcg/actuation HFA aerosol inhaler 2 puff inhalation Q6H PRN (Reason: shortness of breath or wheezing) 30 Days Qty: 18 5RF folic acid 1 mg tablet 1 mg PO DAILY 90 Days Qty: 90 3RF thiamine mononitrate (vit B1) 100 mg tablet 100 mg PO DAILY 90 Days Qty: 90 3RF nystatin 100,000 unit/mL suspension 500,000 unit PO TID 10 Days Qty: 150 0RF Rx Instructions: Swish and swallow trazodone 50 mg tablet 50 mg PO BEDTIME PRN (Reason: sleep) 30 Days Qty: 30 3RF cholecalciferol (vitamin D3) [Vitamin D3] 50 mcg (2,000 unit) capsule 50 mcg PO DAILY 90 Days Qty: 90 3RF Pulmicort Flexhaler 180 mcg/actuation aerosol powdr breath activated 1 inh inhalation BID Qty: 1 3RF lisinopril 5 mg tablet 5 mg PO DAILY 90 Days Qty: 90 1RF (DME) blood pressure monitor Kit See Rx Instructions .ROUTE .MEDSUPPLY Qty: 1 0RF Rx Instructions: As directed Referrals: Harry Vargas MD [Primary Care Provider] - Stand Alone Forms: Work/School Release Print Language: Guyanese
--- NOTE | 2024-08-24 06:55 | PC.NURSE ---
Pt A&Ox3, reports 10/10 right knee pain. Pt ambulated with walker use to BR.
[2024-08-24] MEDS: oxyCODONE HCl Immed Release 5 MG TABLET 10 MG PO (07:23)
[2024-08-24 07:25] VITALS: BP 113/54; PULSE 97; RESP 18; TEMP 37; O2SAT 96
[2024-08-24 09:09] VITALS: BP 142/72; PULSE 95; RESP 15; TEMP 36.7; O2SAT 92
[2024-08-24 09:26] VITALS: BP 142/72; PULSE 95; RESP 15; TEMP 36.7; O2SAT 92
== END 2024-08-24 09:27 | disposition home or self-care (01) ==
PROVIDERS: Emergency Provider Emergency Medicine; PCP Internal Medicine
DX: S09.90XA Unspecified injury of head, initial encounter (principal); S89.91XA Unspecified injury of right lower leg, initial encounter; M54.2 Cervicalgia; R51.9 Headache, unspecified; M25.561 Pain in right knee; M25.562 Pain in left knee; W10.9XXA Fall (on) (from) unspecified stairs and steps, initial encounter; Y93.9 Activity, unspecified; Y92.89 Other specified places as the place of occurrence of the external cause; Y99.8 Other external cause status
CPT/HCPCS: 70450; 72125; 73560; 99284

== ENCOUNTER → 2024-08-24 05:30 | Outpatient (BNV) | payer OTHER, SELFPAY | PROVIDERS: PCP Internal Medicine; Visit Provider Radiology Diagnostic Radiology | DX: M48.02 Spinal stenosis, cervical region (principal); M25.561 Pain in right knee; R51.9 Headache, unspecified; W01.198A Fall on same level from slipping, tripping and stumbling with subsequent striking against other object, initial encounter | CPT/HCPCS: 70450; 72125; 73560 ==

== ENCOUNTER 2024-08-31 05:41 | Inpatient (IN) | payer OTHER, SELFPAY ==
[2024-08-31] VITALS (7 sets, daily range): BP systolic 113–137; BP diastolic 62–78; PULSE 91–107; RESP 16–22; TEMP 36.4–36.8; O2SAT 93–96; BMI 33.2
--- NOTE | 2024-08-31 | ECG_ITS ---
Test Reason : SOB Blood Pressure : */* mmHG Vent. Rate : 92 BPM Atrial Rate : 92 BPM P-R Int : 136 ms QRS Dur : 106 ms QT Int : 426 ms P-R-T Axes : 40 30 -3 degrees QTcB Int : 526 ms Normal sinus rhythm Prolonged QT Abnormal ECG When compared with ECG of 19-Jun-2023 15:53, No significant change was found Referred By: Generic ED Physician Electronically Signed By: LINUS GREEN MD
--- NOTE | ~2024-08-31 | US_ITS ---
EXAMINATION: US RENAL WITH DOPPLER CLINICAL INFORMATION: Cirrhosis. Ascites. Concerning portal venous thrombosis. COMPARISON: None available. TECHNIQUE: Ultrasound along with color Doppler imaging and spectral analysis was performed of the portal veins, hepatic veins and the hepatic arteries. FINDINGS: The main portal veins, right and left portal veins are patent with hepatopedal flow direction. Peak systolic velocity approximately 20 cm/s. The main hepatic veins are patent with normal hepatofugal flow direction. The hepatic artery is patent with antegrade flow and peak systolic velocity: 126 cm/s. Ascites, no fully evaluated. US/US duplex arterial venous comp IMPRESSION: Normal patency and flow directions of the interrogated vessels. Electronically signed by: Kevin Vora MD 09/01/2024 02:06 PM [facility]
--- NOTE | ~2024-08-31 | XR_ITS ---
EXAMINATION: XR KNEE, RIGHT CLINICAL INFORMATION: Fall COMPARISON: August 24, 2024. TECHNIQUE: Four views of the right knee. FINDINGS: Joint space narrowing, medial compartment. Mild articular surface sclerosis of the medial tibial plateau. No acute cortical disruption or malalignment. No lytic or blastic lesions. Vascular calcifications. No suprapatellar bursa joint effusion. XR/XR knee RT 4V IMPRESSION: Medial compartment osteoarthrosis without acute fracture or dislocation. Electronically signed by: Kevin Vora MD 08/31/2024 11:30 AM [facility]
--- NOTE | ~2024-08-31 | CT_ITS ---
EXAMINATION: CT CHEST WITH CONTRAST CLINICAL INFORMATION: Fall and dyspnea COMPARISON: 06/19/2023. TECHNIQUE: Multidetector volumetric CT imaging of the chest was obtained after the administration of 50 mL of Omnipaque 350 intravenous contrast without immediate adverse reactions. Axial MIP volume rendering provided. Sagittal and coronal reformatted images were obtained. This CT examination was performed using dose optimization techniques as appropriate, variously including the following: *Automated exposure control *Adjustment of mA and/or kV according to patient size (this includes techniques or standardized protocols for targeted exams where dose is matched to indication/reason for exam; i.e. extremities or head) *Use of iterative reconstruction technique FINDINGS: LUNGS: No pneumothorax or pleural effusion. Platelike atelectasis in the right lower lobe and lesser degree in the left base. Subpleural interstitial changes in the posterolateral inferior right upper lobe, posterolateral right lower lobe, posteromedial left lower lobe, and the lingula. This reflects mild scarring/subpleural fibrosis. Small airways appear normal. Lungs otherwise clear. MEDIASTINUM: Normal thyroid. Normal aorta. Main pulmonary artery is prominent, but not enlarged by size criteria. There is no lymphadenopathy present. There are small esophageal varices. Heart size is normal. No pericardial effusion. There are moderate coronary calcifications. PLEURA: There is no pleural effusion. No pleural mass or thickening. AXILLA/CHEST WALL: No lymphadenopathy. UPPER ABDOMEN: Hepatic cirrhosis with [id number] volume ascites. Hepatomegaly and splenomegaly. No suspicious hepatic lesions. Geographic fatty infiltration. There are splenic and gastric varices. Refer to the dedicated report. OSSEOUS STRUCTURES: No fractures evident. Spinal column, sternum, imaged ribs intact. CT/CT chest w IV con IMPRESSION: 1. No acute posttraumatic abnormality of the thorax. No active lung disease. No pneumothorax or effusions. 2. Platelike atelectasis versus scarring right greater than left lower lobes. 3. Mild subpleural interstitial fibrosis most notable right middle lobe and lingula, consistent with stable mild scarring. 4. Additional ancillary findings as discussed in the body of the report. Electronically signed by: Donte Hebert MD 08/31/2024 12:32 PM [facility]
--- NOTE | ~2024-08-31 | US_ITS ---
Ultrasound paracentesis History: Ascites. Risks and benefits and possible complications were discussed with the patient and consent form was signed. A safe pocket of ascitic fluid was identified using ultrasound guidance, and the overlying skin was marked. The abdomen prepped and draped in sterile fashion. 1% lidocaine was used as a local anesthetic. Using ultrasound guidance, a 5 fr catheter was placed into the ascitic pocket. 3.0 liters of yellow fluid was removed passively. The catheter was then removed. A few airport representative images from before and after the examination were obtained. The procedure was performed by Stuart Paiz PA-C and supervised by Dr. He. US/US paracentesis abd w/image Impression: Ultrasound-guided paracentesis as described above. No immediate complications Electronically signed by: Raymond He MD 09/14/2024 04:17 PM [facility]
--- NOTE | ~2024-08-31 | CT_ITS ---
EXAMINATION: CT HEAD WITHOUT CONTRAST CLINICAL INFORMATION: Fall, head strike COMPARISON: 08/24/2024. TECHNIQUE: Contiguous axial imaging was performed from the skull base to vertex without intravenous administration of contrast. This CT examination was performed using dose optimization techniques as appropriate, variously including the following: *Automated exposure control *Adjustment of mA and/or kV according to patient size (this includes techniques or standardized protocols for targeted exams where dose is matched to indication/reason for exam; i.e. extremities or head) *Use of iterative reconstruction technique FINDINGS: There is no evidence of intracranial hemorrhage or extra-axial fluid collection. There is no mass effect, or edema. No CT evidence of acute territorial infarct. Ventricles, sulci, and cisterns are normal in size and configuration for patient age. No hydrocephalus. No midline shift. Negative hyperdense MCA sign. Negative insular ribbon sign. No significant white matter change. Normal pituitary. Globes and orbital contents image normally. No extracranial soft tissue abnormalities. The paranasal sinuses, mastoid air cells, and tympanic cavities are normally aerated. No suspicious bony abnormalities. There are no acute fractures evident. Old nasal bone fractures likely present. CT/CT head/brain wo IV con IMPRESSION: No acute intracranial abnormality. Electronically signed by: Donte Hebert MD 08/31/2024 12:21 PM [facility]
--- NOTE | ~2024-08-31 | CT_ITS ---
EXAMINATION: CT CERVICAL SPINE WITHOUT CONTRAST CLINICAL INFORMATION: Status post fall. COMPARISON: August 24, 2024. TECHNIQUE: Contiguous axial images through the cervical spine using 3 mm collimation with bone and soft tissue algorithm. Sagittal and coronal reformatted images acquired. This CT examination was performed using dose optimization techniques as appropriate, variously including the following: *Automated exposure control *Adjustment of mA and/or kV according to patient size (this includes techniques or standardized protocols for targeted exams where dose is matched to indication/reason for exam; i.e. extremities or head) *Use of iterative reconstruction technique DLP: 478.08 mGy centimeter. FINDINGS: Craniocervical junction is intact. C1 is intact. C2 is intact. C3 is intact. C4 is intact. C5 is intact. C6 is intact. C7 is intact. Marginal osteophyte formation and decreased intervertebral disc height and endplate irregularities at C5-6 and to a lesser extent C4-5 and C6-7. Reverse curvature apex at C5. No gross malalignment between the vertebral bodies or the facet joints. No gross prevertebral compartment hematoma. Calcified plaques in the carotid bulbs and proximal ICAs more conspicuous on the left side. Tympanic cavities and mastoid air cells are aerated. CT/CT cervical spine wo IV con IMPRESSION: Multilevel cervical spondylosis more conspicuous at C5-6 without acute fracture or trauma-related listhesis. If patient's symptoms persist consider MRI cervical spine for further imaging evaluation. Fleischner guidelines were followed. Electronically signed by: Kevin Vora MD 08/31/2024 12:23 PM [facility]
--- NOTE | ~2024-08-31 | XR_ITS ---
CLINICAL HISTORY: shortness of breath, rib pain 2 view chest x-ray Comparison: CR/SR - XR CHEST 1V - 07/06/24 02:04 EST Findings: Lungs are well inflated. Cardiac silhouette is within normal limits. Streaky perihilar densities with mild perihilar bronchial wall thickening. No focal areas of consolidation. No pleural effusion or pneumothorax. IMPRESSION: Perihilar bronchitis. This document has been electronically signed by: aCli Brewer MD on 08/31/2024 07:07:15
--- NOTE | ~2024-08-31 | CT_ITS ---
EXAMINATION: CT ABDOMEN AND PELVIS WITH CONTRAST CLINICAL INFORMATION: Fall, history of cirrhosis. COMPARISON: CT abdomen and pelvis with IV contrast 06/19/2023 TECHNIQUE: Multidetector volumetric images were obtained from the superior aspect of the liver through the pubic symphysis following administration 85 mL of Omnipaque 350 intravenous contrast. Sagittal and coronal reformatted images were obtained on the technologist's workstation. Oral contrast: No This CT examination was performed using dose optimization techniques as appropriate, variously including the following: *Automated exposure control *Adjustment of mA and/or kV according to patient size (this includes techniques or standardized protocols for targeted exams where dose is matched to indication/reason for exam; i.e. extremities or head) *Use of iterative reconstruction technique [facility] FINDINGS: LUNG BASES: There is a bandlike atelectasis right lower lobe. Minimal atelectatic changes in left lung base. Heart size is normal. LIVER, GALLBLADDER, AND BILIARY TREE: The liver is normal in size, lobulated shape, and attenuation. No focal hepatic lesion or biliary ductal dilatation is present. The gallbladder is unremarkable with no evidence of radiopaque gallstones, gallbladder wall thickening, or obvious pericholecystic inflammatory changes. There is perihepatic and perisplenic ascites. PANCREAS: Unremarkable. SPLEEN: The measures 16 cm in length and mildly enlarged. No focal lesion seen. ADRENAL GLANDS: Unremarkable. KIDNEYS AND URETERS: The kidneys are normal in size, shape, and attenuation. No hydronephrosis, hydroureter, or calculi seen. No perinephric stranding. There is a 1.2 cm hypodensity upper pole left kidney and lower pole right kidney with posterior wall calcification. BLADDER: Unremarkable. GASTROINTESTINAL TRACT: There is moderate diffuse submucosal thickening involving the ascending colon and the right transverse colon likely inflammatory changes. There are left transverse and the descending colon is of normal caliber. Small bowel loops are normal caliber. The stomach is nondistended. There is diffuse ascites. No free air. There is mild mesenteric haziness from ascites. ABDOMINAL WALL: Small umbilical hernia containing ascites fluid is noted. There is mild anasarca especially along the lower abdomen was LYMPH NODES: No abnormal lymph nodes seen. VASCULAR: Unremarkable. PELVIC VISCERA: Unremarkable. OSSEOUS STRUCTURES: No aggressive lytic or sclerotic process seen. CT/CT abdomen pelvis w IV con IMPRESSION: Cirrhotic liver with mild splenomegaly and diffuse ascites. No mesenteric haziness from edema Umbilical hernia with fluid within.. Diffuse submucosal thickening involving the ascending and right transverse colon likely nonspecific inflammatory or infectious etiology. Similar findings were seen on 06/19/2023 CT abdomen and pelvis exam. Simple cyst upper pole left kidney and a complex cyst Bosniak 2 lower pole right kidney. They are stable. Fleischner guidelines were followed. Electronically signed by: Preet Harrison MD 08/31/2024 12:32 PM [facility]
--- OUTSIDE RECORDS SUMMARY | 2024-08-31 06:19 | XMS_ITS | Clinical Summary ---
Author Organization [facility] it Address [address] [place] [address] Care Team Providers Care Security Shift Supervisor Name Role Phone Unavailable Primary Care Provider Unavailabl e Social History Tobacco Use Types Packs/Day Years Used Date Smoking Tobacco: Never Assessed Sex and Gender Information Value Date Recorded Sex Assigned at Not on file Legal Sex Male 3:32 PM EST Gender Identity Not on file Sexual Orientation Not on file Plan of Treatment Health Maintenance Due Date Last Done Comments DTaP,Tdap,and Td Vaccines (1 - Tdap) 1985 Hepatitis B Vaccines (1 of 3 - 19+ 3-dose series) 1985 Zoster Vaccines (1 of 2) 2016 COVID-19 Vaccine ( - 2023-2 5 season) 2024 Influenza Vaccine (#1) 2024 HIB Vaccines Aged Out No longer eligi ble based on patient's age to complete this topic HPV Vaccines Aged Out No longer eligi ble based on patient's age to complete this topic Hepatitis A Vaccines Aged Out No long er eligible based on patient's age to complete this topic IPV Vaccines Aged Out No longer eligi ble based on patient's age to complete this topic MMR Vaccines Aged Out No longer eligi ble based on patient's age to complete this topic Meningococcal ACWY Vaccine Aged Out N o longer eligible based on patient's age to complete this topic Pneumococcal Vaccine: Pediat rics (0 to 5 Years) and At-Risk Patients (6 to 64 Years) Aged Out No longer eligible b ased on patient's age to complete this topic RSV Immunization Patients Un adithya 20 months Aged Out No longer eligible b ased on patient's age to complete this topic Varicella Vaccines Aged Out No longer eligible based on patient's age to complete this topic
--- OUTSIDE RECORDS SUMMARY | 2024-08-31 06:19 | XMS_ITS ---
Author Organization [facility] Address [address] [place] [address] Care Team Providers Care Dramatic Coach Name Role Phone Sam MOYER, [place] Primary Care Provider Unava ilable Ryan Perez [facility] [phone] REASON FOR VISIT Patient presents today for cirrhosis, gastroenteritis and colitis Encounters Encounter Location Date Provider Diagnosis [facility] [address] [place] [phone] 11/22/2023 Ryan Perez PLAN OF TREATMENT No Information
--- OUTSIDE RECORDS SUMMARY | 2024-08-31 06:19 | XMS_ITS | Patient Health Record ---
Author Organization [facility] Address [address] [place] [address] Care Team Providers Care Small Appliance Assembly Supervisor Name Role Phone Sam MOYER, [place] Primary Care Provider Ryan Rich Unavailable [phone] Levy Goyal Jr Unavailable REASON FOR REFERRAL No Information SOCIAL HISTORY Sex Assigned At : Social History Observation Description Sex Assigned At Unknown PROBLEMS Problem Type ICD Code Onset Dates Problem Status W/U Status Risk SNOMED Code Notes Problem Cirrhosis (K74.60) Active confirmed Cirrhotic ([id number]) Encounters Encounter Location Date Provider Diagnosis [facility] [address] [place] [phone] 11/22/2023 Ryan Perez [facility] [address] [place] [phone] 10/28/2023 Levy Goyal Jr [facility] [address] [place] [phone] 11/22/2023 Ryan Perez PLAN OF TREATMENT No Information Insurance Providers Payer Name Payer Address Payer Phone Subscriber Number Group Number Insured Name Patient Relationship to Insured Coverage Start Date Coverage End Date [facility] [address] [address] [place], [place] [id number] MARIEL JONES Self - patient is the insured
--- OUTSIDE RECORDS SUMMARY | 2024-08-31 06:20 | XMS_ITS ---
Author Organization [facility] Address [address] [place] [phone] Care Team Providers Care Customs Entry Clerk Name Role Phone Sam MOYER, [place] Primary Care Provider Unava ilable Ryan Perez Unavailable [phone] REASON FOR VISIT New pt no show Encounters Encounter Location Date Provider Diagnosis [facility] [address] [place] [phone] 11/22/2023 Ryan Perez PLAN OF TREATMENT No Information
--- OUTSIDE RECORDS SUMMARY | 2024-08-31 06:20 | XMS_ITS ---
Author Organization [facility] Address [address] [place] [phone] Care Team Providers Care Real Estate Administrator Name Role Phone Sam MOYER, [place] Primary Care Provider Unava ilable Ryan Perez Unavailable [phone] Levy Goyal Jr Unavailable REASON FOR VISIT new insurance? Encounters Encounter Location Date Provider Diagnosis [facility] [address] [place] [phone] 10/28/2023 Levy Goyal Jr PLAN OF TREATMENT No Information
[2024-08-31 06:27] LABS: MANUAL DIFF FLAG NO
[2024-08-31 06:29] LABS: Basophils Absolute Auto 0.1 X10*3/uL (0.0-0.2); Basophils Percent Auto 0.6 % (0-2); Eosinophils Absolute Auto 0.1 X10*3/uL (0.0-0.4); Eosinophils Percent Auto 1.2 % (0-4); Hematocrit 26.3 % (42.0-52.0); Hemoglobin 9.5 g/dl (14.0-18.0); Imm Gran Abs Auto 0.12 X10*3/uL (0.00-0.03); Imm Gran Pct Auto 1.5 % (0.0-0.4); Lymphocytes Absolute Auto 1.3 X10*3/uL (1.2-4.9); Lymphocytes Percent Auto 15.5 % (20-40); Mean Corpuscular HGB Conc 36.1 g/dl (31.0-36.0); Mean Corpuscular Hemoglobin 32.1 pg (27.0-33.0); Mean Corpuscular Volume 88.9 fL (80.0-98.0); Mean Platelet Volume 10.5 fL (9.4-12.4); Monocytes Absolute Auto 1.5 X10*3/uL (0.1-1.2); Monocytes Percent Auto 18.2 % (2-11); Neutrophils Absolute Auto 5.1 x10*3/uL (2.0-8.3); Platelet Count 104 X10*3/uL (160-400); Red Blood Count 2.96 X10*6/uL (4.60-5.80); Red Cell Distribution Width 21.2 % (11.0-16.0); White Blood Count 8.1 X10*3/uL (4.8-10.8)
[2024-08-31 06:48] LABS: Alanine Aminotransferase 19 U/L (0-40); Albumin Level 2.2 g/dL (3.5-5.0); Alkaline Phosphatase 111 U/L (39-117); Anion Gap 13 (12-20); Aspartate Amino Transferase 132 U/L (5-37); Bilirubin Direct 8.8 mg/dL (0.0-0.5); Bilirubin Total 11.5 mg/dL (0.0-1.0); Blood Urea Nitrogen 21 mg/dL (9-16); Calcium 7.7 mg/dL (8.4-10.2); Carbon Dioxide 21 mmol/L (22-29); Chloride 104 mmol/L (96-108); Creatinine Clr Calc Pharmacy 69.6; Estimated Glomerular Filt Rate 51; Glucose Random 97 mg/dL (60-115); Lipase 61 U/L (8-78); Potassium 3.2 mmol/L (3.3-5.1); Sodium 135 mmol/L (135-145); Total Protein 7.1 g/dL (6.5-8.0)
[2024-08-31 08:06] LABS: Ethanol 318 mg/dL
[2024-08-31 09:24] LABS: Ammonia 32 umol/L (13-55)
[2024-08-31 09:27] LABS: INTERNATIONAL NORM RATIO 1.6 (0.9-1.1); Prothrombin Time 18.7 SEC (10.9-12.4)
[2024-08-31 09:30] LABS: Partial Thromboplastin Time 38.8 SEC (26.0-36.8)
[2024-08-31 09:36] LABS: Acetaminophen LAB < 3 mcg/mL (<30)
--- NOTE | 2024-08-31 09:43 | ED.GENADULT ---
HPI - General Adult General Chief complaint: General Medical Stated complaint: Rib pain, bloated/hard time breathing Time Seen by Provider: 08/31/24 09:42 History of Present Illness ED Provider: Dr. Bean HPI narrative: 58 y/o M patient; PMH alcohol use disorder with liver cirrhosis, HTN; presents from home with report of shortness of breath and left-sided rib pain after a fall several days ago. The patient states he think he fell down approx 4 - 5 steps but does not remember it. He has residual knee pain right > left from the fall. He has been using a right knee brace and a cane to walk. Patient states he has been drinking alcohol regularly recently. He otherwise denies: fever or chills, abdominal pain, nausea/vomiting, chest pain, cough/congestion. No known sick contacts. Related Data Home Medications ?Medication ?Instructions ?Recorded ?Confirmed budesonide 180 mcg/actuation 1 inh inhalation BID 08/31/24 08/31/24 breath activated powder inhaler (Pulmicort Flexhaler) Previous Rx's ?Medication ?Instructions ?Recorded blood pressure monitor #1 ea 06/04/24 cholecalciferol (vitamin D3) 50 50 mcg PO DAILY 90 days #90 caps 06/04/24 mcg (2,000 unit) capsule (Vitamin D3) lisinopril 5 mg tablet 5 mg PO DAILY 90 days #90 tabs 06/04/24 Ventolin HFA 90 mcg/actuation 2 puff inhalation Q6H PRN 06/30/24 aerosol inhaler (albuterol sulfate) shortness of breath or wheezing 30 days #18 grams folic acid 1 mg tablet 1 mg PO DAILY 90 days #90 tabs 07/30/24 thiamine mononitrate (vit B1) 100 100 mg PO DAILY 90 days #90 tabs 07/30/24 mg tablet Allergies Allergy/AdvReac Type Severity Reaction Status Date / Time No Known Allergies Allergy Verified 08/31/24 06:03 [No Known Allergies*] Review of Systems Review of Systems: Yes all other systems are reviewed and are negative PMFSH Past Medical History Attestation statement: The following information was validated with the patient. Source: old records reviewed Medical History Insomnia Vitamin D deficiency Impaired fasting glucose Benign essential hypertension Obesity (BMI 30-39.9) Overweight (BMI 25.0-29.9) Depression Anxiety Elevated liver enzymes Pure hypercholesterolemia Allergic rhinitis Asthma Surgical History No pertinent past surgical history Family History Family History Father Medical history unknown Mother Ovarian cancer Brother No problems noted. Sister No problems noted. Sister In good health Social History Social History Household Members: Family Housing: House Do you presently have visiting nurse or other home services: No Alcohol intake: current Alcohol intake frequency: a few times a week Alcohol type: beer Comment: PT REFUSES BED ALARM Patient Tobacco Use Status: Former Tobacco user Smoked in Last 30 Days: No e-Cigarette/Vaping Use: Never Used Second Hand Smoke Exposure: No Use of substances other than those prescribed or required for medical reasons: No Advance Directives: No Advance Directives Information Provided: Yes service: No Current occupational status: employed Current occupational exposures/hazards: No Cognitive needs: No Hearing needs: No Vision needs: No Physical Exam ED Vital Signs: Vital Signs - 24 hr 08/31/24 05:50 08/31/24 10:03 Temperature 97.5 F Pulse Rate 92 95 Respiratory Rate 22 H 20 Blood Pressure 113/62 125/70 Pulse Oximetry 94 96 Oxygen Delivery Method Room Air Room Air BMI result Body Mass Index 33.2 Patient is afebrile and hemodynamically stable, 94% on RA. Const General: cooperative HENMT Head: Yes normal to inspection and Yes atraumatic Eyes General: appearance normal, both eyes and all related structures Conjunctivae: other Sclerae: abnormal sclerae (+ scleral icterus ) Pupils: Equal, round and reactive pupils present EOM: EOMs intact bilaterally Neck Neck: Yes normal visual inspection, Yes full ROM, Yes supple and No tender Chest Chest palpation & inspection: normal inspection of the chest and normal palpation of entire chest wall Resp Effort & Inspection: normal respiratory effort, able to speak in complete sentences, no cough and no respiratory distress Auscultation: clear to auscultation bilaterally Cardio Rate: regular rate Rhythm: regular rhythm Peripheral pulses: Peripheral pulses 2+ throughout GI Inspection: Yes distended Palpation (GI): not soft, Firmness to palpation present (GI), nontender, no guarding and not rigid Auscultation: normal bowel sounds Back/Spine/Pelvis Back: No back tenderness Neuro Cranial nerves: Yes Equal, round and reactive pupils present Course Course Course Narrative: Patient is afebrile and hemodynamically stable. Ordered for EKG and laboratory studies. Labs reviewed. No leukocytosis. Hgb 9.5 (decrease from baseline 14 in 01/18/2024). Thrombocytopenia 104 (baseline). INR 1.6. Hypokalemia 3.2. Cr 1.42 (baseline 0.71 in 01/18/2024). Hypocalcemia 7.7. Total bilirubin 11.5. Direct bilirubin 8.8. AST 132. Albumin 2.2. Ethanol 318. CXR with perihilar bronchitis. Reevaluation(s) Reevaluation #1: Ordered for CT Head/Neck due to reported at least one fall, and CT Chest/Abdomen/Pelvis. Will discuss with GI. Will require admission for JANE, hyperbilirubinemia, cirrhosis in the setting of alcohol misuse. Child Dinero Score 11: total bili >3, albumin <2.8, INR <1.7, moderate ascites, and no encephalopathy (although this is difficult to be sure of given patient is quite intoxicated with alcohol >300). Life expectancy 1 - 3 years. MELD-NA Score 26: no dialysis, cr 1.42, bili 11.5, INR 1.6, sodium 135. 14 - 15% chance of 90 day mortality. Provided high dose thiamine and folic acid IV. Placed on CIWA. Reevaluation #2: XR Knee without fx or dislocation noted. CT Head/Neck unremarkable for acute traumatic process. CT Chest without acute abnormalities. CT Abdomen/Pelvis with cirrhotic liver with mild splenomegaly and diffuse ascites. No mesenteric haziness from edema. GI consulted. Agree with holding antibiotics at this time as low suspicion for SBP. Recommend 10mg IV Vitamin K and PPI. Plan: Admit to hospitalist for JANE, anemia, decompensated alcoholic cirrhosis, alcohol use disorder Condition: Stable Medications Administered Discontinued Medications Generic Name Dose Route Start Last Admin Trade Name Freq PRN Reason Stop Dose Admin Thiamine HCl 500 mg/ Sodium 105 mls @ 210 mls/hr 08/31/24 10:07 08/31/24 13:13 Chloride IV 08/31/24 10:36 Infused ONCE ONE Infusion Folic Acid 1 mg/ Sodium 50.2 mls @ 100.4 mls/hr 08/31/24 10:07 08/31/24 12:06 Chloride IV 08/31/24 10:36 Not Given ONCE ONE Folic Acid 1 mg/ Sodium 50.2 mls @ 100.4 mls/hr 08/31/24 10:15 08/31/24 13:13 Chloride IV 08/31/24 10:44 Infused ONCE ONE Infusion Iohexol 85 ml 08/31/24 12:10 08/31/24 12:10 Iohexol 350 Mg/Ml 75 Ml Infus..Btl IV 08/31/24 12:11 85 ml ONCE ONE Administration Medical Decision Making Lab Data 08/31/24 06:18 08/31/24 06:18 Labs: Lab Results 08/31/24 08/31/24 Range/Units 06:18 09:10 WBC 8.1 (4.8-10.8) X10*3/uL RBC 2.96 L D (4.60-5.80) X10*6/uL Hgb 9.5 L D (14.0-18.0) g/dl Hct 26.3 L D (42.0-52.0) % MCV 88.9 (80.0-98.0) fL MCH 32.1 (27.0-33.0) pg MCHC 36.1 H (31.0-36.0) g/dl RDW 21.2 H (11.0-16.0) % Plt Count 104 L (160-400) X10*3/uL MPV 10.5 (9.4-12.4) fL Immature Gran % (Auto) 1.5 H (0.0-0.4) % Neut % (Auto) 63.0 (45-73) % Lymph % (Auto) 15.5 L (20-40) % [place] % (Auto) 18.2 H (2-11) % Eos % (Auto) 1.2 (0-4) % Baso % (Auto) 0.6 (0-2) % Lymph # (Auto) 1.3 (1.2-4.9) X10*3/uL [place] # (Auto) 1.5 H (0.1-1.2) X10*3/uL Eos # (Auto) 0.1 (0.0-0.4) X10*3/uL Baso # (Auto) 0.1 (0.0-0.2) X10*3/uL Abs Immat Gran (auto) 0.12 H (0.00-0.03) X10*3/uL Absolute Neuts (auto) 5.1 (2.0-8.3) x10*3/uL Absolute Nucleated RBC 0.000 (0.0-0.012) X10*3/uL Nucleated RBC % (auto) 0.0 (0.0-0.2) /100WBC PT 18.7 H (10.9-12.4) SEC INR 1.6 H (0.9-1.1) APTT 38.8 H (26.0-36.8) SEC Sodium 135 (135-145) mmol/L Potassium 3.2 L (3.3-5.1) mmol/L Chloride 104 (96-108) mmol/L Carbon Dioxide 21 L (22-29) mmol/L Anion Gap 13 (12-20) BUN 21 H (9-16) mg/dL Creatinine 1.42 H (0.5-1.4) mg/dL Estim Creat Clear Calc 69.6 Estimated GFR 51 Random Glucose 97 (60-115) mg/dL Calcium 7.7 L D (8.4-10.2) mg/dL Total Bilirubin 11.5 H (0.0-1.0) mg/dL Direct Bilirubin 8.8 H (0.0-0.5) mg/dL AST 132 H (5-37) U/L ALT 19 (0-40) U/L Alkaline Phosphatase 111 (39-117) U/L Ammonia 32 (13-55) umol/L Total Protein 7.1 (6.5-8.0) g/dL Albumin 2.2 L (3.5-5.0) g/dL Lipase 61 (8-78) U/L Acetaminophen < 3 (<30) mcg/mL Ethyl Alcohol 318 H* mg/dL Hepatitis A IgM Ab Nonreactive (Nonreactive) Hep Bs Antigen Negative (Negative) Hep Bs Antibody NONREACTIVE (Nonreactive) Hep B Core Total Ab Nonreactive (Nonreactive) Hepatitis C Ab (EIA) Nonreactive (Nonreactive) Influenza Type A (PCR) NEGATIVE (Negative) Influenza Type B (PCR) NEGATIVE (Negative) RSV RNA Qual (PCR) NEGATIVE (Negative) SARS-CoV-2 RNA (RT-PCR) NEGATIVE (Negative) Independent Interpretation I performed an independent interpretation of an: EKG Interpretation: NSR 92BPM with QTc 526 Radiology Impression Discussion of test interpretation with radiology: I have reviewed the radiologist's reading. Radiologist Impression: CLINICAL HISTORY: shortness of breath, rib pain 2 view chest x-ray Comparison: CR/SR - XR CHEST 1V - 07/06/24 02:04 EST Findings: Lungs are well inflated. Cardiac silhouette is within normal limits. Streaky perihilar densities with mild perihilar bronchial wall thickening. No focal areas of consolidation. No pleural effusion or pneumothorax. IMPRESSION: Perihilar bronchitis. This document has been electronically signed by: Cali Brewer MD on 08/31/2024 07:07:15 EXAMINATION: XR KNEE, RIGHT CLINICAL INFORMATION: Fall COMPARISON: August 24, 2024. TECHNIQUE: Four views of the right knee. FINDINGS: Joint space narrowing, medial compartment. Mild articular surface sclerosis of the medial tibial plateau. No acute cortical disruption or malalignment. No lytic or blastic lesions. Vascular calcifications. No suprapatellar bursa joint effusion. XR/XR knee RT 4V IMPRESSION: Medial compartment osteoarthrosis without acute fracture or dislocation. Electronically signed by: Kevin Vora MD 08/31/2024 11:[address] CERVICAL SPINE WITHOUT CONTRAST CLINICAL INFORMATION: Status post fall. COMPARISON: August 24, 2024. TECHNIQUE: Contiguous axial images through the cervical spine using 3 mm collimation with bone and soft tissue algorithm. Sagittal and coronal reformatted images acquired. This CT examination was performed using dose optimization techniques as appropriate, variously including the following: *Automated exposure control *Adjustment of mA and/or kV according to patient size (this includes techniques or standardized protocols for targeted exams where dose is matched to indication/reason for exam; i.e. extremities or head) *Use of iterative reconstruction technique DLP: 478.08 mGy centimeter. FINDINGS: Craniocervical junction is intact. C1 is intact. C2 is intact. C3 is intact. C4 is intact. C5 is intact. C6 is intact. C7 is intact. Marginal osteophyte formation and decreased intervertebral disc height and endplate irregularities at C5-6 and to a lesser extent C4-5 and C6-7. Reverse curvature apex at C5. No gross malalignment between the vertebral bodies or the facet joints. No gross prevertebral compartment hematoma. Calcified plaques in the carotid bulbs and proximal ICAs more conspicuous on the left side. Tympanic cavities and mastoid air cells are aerated. CT/CT cervical spine wo IV con IMPRESSION: Multilevel cervical spondylosis more conspicuous at C5-6 without acute fracture or trauma-related listhesis. If patient's symptoms persist consider MRI cervical spine for further imaging evaluation. Fleischner guidelines were followed. Electronically signed by: Kevin Vora MD 08/31/2024 12:[address] HEAD WITHOUT CONTRAST CLINICAL INFORMATION: Fall, head strike COMPARISON: 08/24/2024. TECHNIQUE: Contiguous axial imaging was performed from the skull base to vertex without intravenous administration of contrast. This CT examination was performed using dose optimization techniques as appropriate, variously including the following: *Automated exposure control *Adjustment of mA and/or kV according to patient size (this includes techniques or standardized protocols for targeted exams where dose is matched to indication/reason for exam; i.e. extremities or head) *Use of iterative reconstruction technique FINDINGS: There is no evidence of intracranial hemorrhage or extra-axial fluid collection. There is no mass effect, or edema. No CT evidence of acute territorial infarct. Ventricles, sulci, and cisterns are normal in size and configuration for patient age. No hydrocephalus. No midline shift. Negative hyperdense MCA sign. Negative insular ribbon sign. No significant white matter change. Normal pituitary. Globes and orbital contents image normally. No extracranial soft tissue abnormalities. The paranasal sinuses, mastoid air cells, and tympanic cavities are normally aerated. No suspicious bony abnormalities. There are no acute fractures evident. Old nasal bone fractures likely present. CT/CT head/brain wo IV con IMPRESSION: No acute intracranial abnormality. Electronically signed by: Donte Hebert MD 08/31/2024 12:21 PM EST RP Report Number: [id number]: Total DLP = 351.00 mGy-cm EXAMINATION: CT CHEST WITH CONTRAST CLINICAL INFORMATION: Fall and dyspnea COMPARISON: 06/19/2023. TECHNIQUE: Multidetector volumetric CT imaging of the chest was obtained after the administration of 50 mL of Omnipaque 350 intravenous contrast without immediate adverse reactions. Axial MIP volume rendering provided. Sagittal and coronal reformatted images were obtained. This CT examination was performed using dose optimization techniques as appropriate, variously including the following: *Automated exposure control *Adjustment of mA and/or kV according to patient size (this includes techniques or standardized protocols for targeted exams where dose is matched to indication/reason for exam; i.e. extremities or head) *Use of iterative reconstruction technique FINDINGS: LUNGS: No pneumothorax or pleural effusion. Platelike atelectasis in the right lower lobe and lesser degree in the left base. Subpleural interstitial changes in the posterolateral inferior right upper lobe, posterolateral right lower lobe, posteromedial left lower lobe, and the lingula. This reflects mild scarring/subpleural fibrosis. Small airways appear normal. Lungs otherwise clear. MEDIASTINUM: Normal thyroid. Normal aorta. Main pulmonary artery is prominent, but not enlarged by size criteria. There is no lymphadenopathy present. There are small esophageal varices. Heart size is normal. No pericardial effusion. There are moderate coronary calcifications. PLEURA: There is no pleural effusion. No pleural mass or thickening. AXILLA/CHEST WALL: No lymphadenopathy. UPPER ABDOMEN: Hepatic cirrhosis with [id number] volume ascites. Hepatomegaly and splenomegaly. No suspicious hepatic lesions. Geographic fatty infiltration. There are splenic and gastric varices. Refer to the dedicated report. OSSEOUS STRUCTURES: No fractures evident. Spinal column, sternum, imaged ribs intact. CT/CT chest w IV con IMPRESSION: 1. No acute posttraumatic abnormality of the thorax. No active lung disease. No pneumothorax or effusions. 2. Platelike atelectasis versus scarring right greater than left lower lobes. 3. Mild subpleural interstitial fibrosis most notable right middle lobe and lingula, consistent with stable mild scarring. 4. Additional ancillary findings as discussed in the body of the report. CT ABDOMEN AND PELVIS WITH CONTRAST CLINICAL INFORMATION: Fall, history of cirrhosis. COMPARISON: CT abdomen and pelvis with IV contrast 06/19/2023 TECHNIQUE: Multidetector volumetric images were obtained from the superior aspect of the liver through the pubic symphysis following administration 85 mL of Omnipaque 350 intravenous contrast. Sagittal and coronal reformatted images were obtained on the technologist's workstation. Oral contrast: No This CT examination was performed using dose optimization techniques as appropriate, variously including the following: *Automated exposure control *Adjustment of mA and/or kV according to patient size (this includes techniques or standardized protocols for targeted exams where dose is matched to indication/reason for exam; i.e. extremities or head) *Use of iterative reconstruction technique DL [id number] FINDINGS: LUNG BASES: There is a bandlike atelectasis right lower lobe. Minimal atelectatic changes in left lung base. Heart size is normal. LIVER, GALLBLADDER, AND BILIARY TREE: The liver is normal in size, lobulated shape, and attenuation. No focal hepatic lesion or biliary ductal dilatation is present. The gallbladder is unremarkable with no evidence of radiopaque gallstones, gallbladder wall thickening, or obvious pericholecystic inflammatory changes. There is perihepatic and perisplenic ascites. PANCREAS: Unremarkable. SPLEEN: The measures 16 cm in length and mildly enlarged. No focal lesion seen. ADRENAL GLANDS: Unremarkable. KIDNEYS AND URETERS: The kidneys are normal in size, shape, and attenuation. No hydronephrosis, hydroureter, or calculi seen. No perinephric stranding. There is a 1.2 cm hypodensity upper pole left kidney and lower pole right kidney with posterior wall calcification. BLADDER: Unremarkable. GASTROINTESTINAL TRACT: There is moderate diffuse submucosal thickening involving the ascending colon and the right transverse colon likely inflammatory changes. There are left transverse and the descending colon is of normal caliber. Small bowel loops are normal caliber. The stomach is nondistended. There is diffuse ascites. No free air. There is mild mesenteric haziness from ascites. ABDOMINAL WALL: Small umbilical hernia containing ascites fluid is noted. There is mild anasarca especially along the lower abdomen was LYMPH NODES: No abnormal lymph nodes seen. VASCULAR: Unremarkable. PELVIC VISCERA: Unremarkable. OSSEOUS STRUCTURES: No aggressive lytic or sclerotic process seen. CT/CT abdomen pelvis w IV con IMPRESSION: Cirrhotic liver with mild splenomegaly and diffuse ascites. No mesenteric haziness from edema Umbilical hernia with fluid within.. Diffuse submucosal thickening involving the ascending and right transverse colon likely nonspecific inflammatory or infectious etiology. Similar findings were seen on 06/19/2023 CT abdomen and pelvis exam. Simple cyst upper pole left kidney and a complex cyst Bosniak 2 lower pole right kidney. They are stable. Fleischner guidelines were followed. Electronically signed by: Preet Harrison MD 08/31/2024 12:32 PM [facility] Discharge Plan Discharge Clinical Impression: Hyperbilirubinemia, Alcohol use disorder, Cirrhosis, Anemia, JANE (acute kidney injury) Patient Disposition: Admitted As Inpatient Print Language: Chinese
[2024-08-31 09:54] LABS: HBc Num1 0.14 S/CO (0.00-0.79); HBsAGNum1 0.25 S/CO (0.00-0.99); Hepatitis B Core Antibody Nonreactive (Nonreactive); Hepatitis B Surface Antigen Negative (Negative); ~HepC Num1 0.18 S/CO (0.00-0.79); ~Hepatitis A Antibody IgM Nonreactive (Nonreactive); ~Hepatitis B Surface Antibody NONREACTIVE (Nonreactive); ~Hepatitis C Antibody Nonreactive (Nonreactive)
[2024-08-31 10:01] LABS: Influenza A PCR NEGATIVE (Negative); Influenza B PCR NEGATIVE (Negative); Resp Syncy Virus RNA Qual PCR NEGATIVE (Negative); SARS COV2 PCR INHOUSE NEGATIVE (Negative)
--- NOTE | 2024-08-31 10:09 | PC.NURSE ---
pt reports not drinking, not forthcoming with how much he drinks. Did report that he has never had seizures form withdrawals.
--- NOTE | 2024-08-31 11:37 | PHA.MEDREC ---
Addendum entered by Marta Phillips RPh 08/31/24 12:03: Med rec was reviewed by [facility]. Original Note: Pharmacy Consult ? Medication Reconciliation Pharmacy has completed the medication reconciliation. Spoke to patient and at bedside to confirm med list. Patients states patient is no longer taking Trazodone 50 mg and Nystatin. Patient last took his medications yesterday 08/30/24
[2024-08-31] MEDS: Folic Acid 1 MG in 0.9 % Sodium Chloride 50 ML 100.4 MG IV (12:06)
[2024-08-31] MEDS: Thiamine HCL 500 MG in 0.9 % Sodium Chloride 100 ML 210 MG IV (12:06)
[2024-08-31] MEDS: iohexoL 350 MG/ML 75 ML INFUS..BTL 85 ML IV (12:10)
[2024-08-31 14:06] LABS: Iron 74 mcg/dL (45-160); Percent Iron Saturation 75 % (15-50); Total Iron Binding Capacity 99 mcg/dL (228-428); Unsaturated Iron Binding < 25 ug/dL
[2024-08-31] MEDS: Pantoprazole Sodium 40 MG/10 ML VIAL IVPUSH (14:17)
[2024-08-31] MEDS: Phytonadione (Vit K1) 10 MG in 0.9 % Sodium Chloride 50 ML 51 MG IV (14:17)
--- NOTE | 2024-08-31 14:47 | PM.EVENT ---
Event Note Date of Service: 08/31/24 Event Note: GI Consult-Full note dictated-History from patient, RN, and EMR. 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 Rec: U/S-guided paracentesis for both therapeutic measures for comfort and diagnostic to R/O SBP(ordered stat). Supportive care with nutrition and IV Vit K. PPI prohylaxis. Would hold off on prednisolone for the alcohol-induced hepatitis for the time being until SBP is ruled out. F/U labs daily in the meantime. D/W patient in detail and he is comfortable with this plan. Thanks Time Spent With Patient Time: Total time managing care of this patient today ____ minutes.
--- NOTE | 2024-08-31 15:06 | PM.IMHP ---
History of Present Illness Date of Service: 08/31/24 Chief Complaint: DEcompensated cirrhosis, JANE, Abd pain A 58 years old male with PMH of alcohol abuse, cirrhosis, HTN, asthma, HLD, depression among others who presents to the hospital with sudden onset left sided abdominal pain, increase abdominal girth and lower extremities swelling with jaundice. The patient reports drinking 6 pints of rum daily. he fell last week and was evaluated in ED with no reported injuries. Today he is coming back with left sided abd\rib pain with no injuries that he remember. Found to be jaundiced with abdominal distension and lower extremities swelling. Blood work showed elevated Bili at 11.5 w direct of 8.8, elevated INR, CR and low Albumin. Alcohol level >300. CT scan showing signs of cirrhosis with spleenomegaly and asictes and colonc submucosal thickening (chronic). Admitted for further evaluation and management. Review of Systems Review of Systems: No fever, chills or weakness No chest pain, palpitation No shortness of breath or coughing has abdominal pain with no nausea or vomiting No urinary symptoms increase swelling, abd girth No wounds [facility] Medical History Insomnia Vitamin D deficiency Impaired fasting glucose Benign essential hypertension Obesity (BMI 30-39.9) Overweight (BMI 25.0-29.9) Depression Anxiety Elevated liver enzymes Pure hypercholesterolemia Allergic rhinitis Asthma Family History Father Medical history unknown Mother Ovarian cancer Brother No problems noted. Sister No problems noted. Sister In good health Surgical History No pertinent past surgical history Social History Household Members: Family Housing: House Do you presently have visiting nurse or other home services: No Alcohol intake: current Alcohol intake frequency: a few times a week Alcohol type: beer Comment: PT REFUSES BED ALARM Patient Tobacco Use Status: Former Tobacco user Smoked in Last 30 Days: No e-Cigarette/Vaping Use: Never Used Second Hand Smoke Exposure: No Use of substances other than those prescribed or required for medical reasons: No Advance Directives: No Advance Directives Information Provided: Yes service: No Current occupational status: employed Current occupational exposures/hazards: No Cognitive needs: No Hearing needs: No Vision needs: No Meds Allergies Allergy/AdvReac Type Severity Reaction Status Date / Time No Known Allergies Allergy Verified 08/31/24 06:03 [No Known Allergies*] Active Medications: Current Medications Acetaminophen (Acetaminophen 325 Mg Tablet) 650 mg PO Q6H PRN PRN Reason: Pain, Mild 1-3,fever,headache Albuterol Sulfate (Albuterol Sulfate 90 Mcg 8 Gm Inhaler) 2 puff INHALE Q6H PRN PRN Reason: shortness of breath or wheezing Benzonatate (Benzonatate 100 Mg Capsule) 100 mg PO TID PRN PRN Reason: Cough Budesonide (Budesonide 180 Mcg Aer.Pow.Ba) 1 puff INHALE BID [facility] Calcium Carbonate (Calcium Carbonate 750 Mg Tab.Chew) 750 mg PO Q4H PRN PRN Reason: Heartburn Folic Acid (Folic Acid 1 Mg Tablet) 1 mg PO DAILY [facility] Albumin Human (Kedbumin 25 %) 100 mls @ 100 mls/hr IV Q6H [facility] Stop: 09/01/24 09:59 Magnesium Hydroxide (Milk Of Magnesia 30 Ml Oral.Susp) 30 ml PO DAILY PRN PRN Reason: Constipation Melatonin (Melatonin 3 Mg Tablet) 6 mg PO BEDTIME PRN PRN Reason: Insomnia Midodrine (Midodrine Hcl 5 Mg Tablet) 5 mg PO TID [facility] Octreotide Acetate (Octreotide Acetate 100 Mcg/Ml Ampul) 200 mcg SUBCUT Q8H [facility] Ondansetron HCl (Ondansetron Hcl 4 Mg/2 Ml Vial) 4 mg IVPUSH Q8H PRN PRN Reason: Nausea and Vomiting Prednisolone Sodium Phosphate (Prednisolone Sodium Phosphate 15 Mg/5 Ml Solution) 40 mg PO DAILY [facility] Sodium Chloride (0.9 % Sodium Chloride Flush 3 Ml Syringe) 3 ml IVFLUSH QSHIFT [facility] Thiamine HCl (Thiamine Hcl 100 Mg Tablet) 100 mg PO DAILY [facility] Vitamin D (Cholecalciferol (Vitamin D3) 25 Mcg Tablet) 50 mcg PO DAILY [facility] Home Medications ?Medication ?Instructions ?Recorded ?Confirmed ?Last Taken ?Type budesonide 180 mcg/actuation 1 inh inhalation BID 08/31/24 08/31/24 08/30/24 History breath activated powder inhaler (Pulmicort Flexhaler) Physical Exam Vital Signs and Narrative: Vital Signs: Last Vital Signs Temp 97.5 F 08/31/24 05:50 Pulse 94 08/31/24 14:18 Resp 16 08/31/24 14:18 BP 137/74 08/31/24 14:18 Pulse Ox 96 08/31/24 14:18 O2 Del Method Room Air 08/31/24 14:18 BMI result Body Mass Index 33.2 Const: Other: Constitutional : Awake, interactive, jaundiced, not in distress Neck : Normal inspection, Supple Cardiovascular : RRR, no JVP, +2 bilateral lower extremity edema Respiratory : good bilateral air entry, no crackles, wheezes or rhonchi Gastrointestinal: soft, lax, Normal bowel sounds, LUQ mild tenderness, no rebound. large amount of ascites Skin : Warm, Dry Neurological : Alert & oriented x3, No focal deficit Results Labs 08/31/24 06:18 08/31/24 06:18 Labs: Laboratory Results - last 24 hr 08/31/24 08/31/24 06:18 09:10 MCV 88.9 MCH 32.1 MCHC 36.1 H RDW 21.2 H Plt Count 104 L MPV 10.5 Immature Gran % (Auto) 1.5 H Neut % (Auto) 63.0 Lymph % (Auto) 15.5 L K[place]haw % (Auto) 18.2 H Eos % (Auto) 1.2 Baso % (Auto) 0.6 Lymph # (Auto) 1.3 [place]haw # (Auto) 1.5 H Eos # (Auto) 0.1 Baso # (Auto) 0.1 Abs Immat Gran (auto) 0.12 H Absolute Neuts (auto) 5.1 Absolute Nucleated RBC 0.000 Nucleated RBC % (auto) 0.0 PT 18.7 H INR 1.6 H APTT 38.8 H Anion Gap 13 Estim Creat Clear Calc 69.6 Estimated GFR 51 Random Glucose 97 Calcium 7.7 L D Iron 74 TIBC 99 L % Saturation 75 H Unsat Iron Binding < 25 Total Bilirubin 11.5 H Direct Bilirubin 8.8 H AST 132 H ALT 19 Alkaline Phosphatase 111 Ammonia 32 Total Protein 7.1 Albumin 2.2 L Lipase 61 Acetaminophen < 3 Ethyl Alcohol 318 H* Hepatitis A IgM Ab Nonreactive Hep Bs Antigen Negative Hep Bs Antibody NONREACTIVE Hep B Core Total Ab Nonreactive Hepatitis C Ab (EIA) Nonreactive Influenza Type A (PCR) NEGATIVE Influenza Type B (PCR) NEGATIVE RSV RNA Qual (PCR) NEGATIVE SARS-CoV-2 RNA (RT-PCR) NEGATIVE Imaging Radiologist's Impressions: Impressions Abdomen/Pelvis CT 08/31/24 09:45 IMPRESSION: Cirrhotic liver with mild splenomegaly and diffuse ascites. No mesenteric haziness from edema Umbilical hernia with fluid within.. Diffuse submucosal thickening involving the ascending and right transverse colon likely nonspecific inflammatory or infectious etiology. Similar findings were seen on 06/19/2023 CT abdomen and pelvis exam. Simple cyst upper pole left kidney and a complex cyst Bosniak 2 lower pole right kidney. They are stable. Fleischner guidelines were followed. Electronically signed by: Preet Harrison MD 08/31/2024 12:32 PM EST RP Cervical Spine CT 08/31/24 09:45 IMPRESSION: Multilevel cervical spondylosis more conspicuous at C5-6 without acute fracture or trauma-related listhesis. If patient's symptoms persist consider MRI cervical spine for further imaging evaluation. Fleischner guidelines were followed. Electronically signed by: Kevin Vora MD 08/31/2024 12:23 PM EST RP Head CT 08/31/24 09:45 IMPRESSION: No acute intracranial abnormality. Electronically signed by: Donte Hebert MD 08/31/2024 12:21 PM EST RP Knee X-Ray 08/31/24 10:34 IMPRESSION: Medial compartment osteoarthrosis without acute fracture or dislocation. Electronically signed by: Kevin Vora MD 08/31/2024 11:30 AM EST RP Chest CT 08/31/24 11:24 IMPRESSION: 1. No acute posttraumatic abnormality of the thorax. No active lung disease. No pneumothorax or effusions. 2. Platelike atelectasis versus scarring right greater than left lower lobes. 3. Mild subpleural interstitial fibrosis most notable right middle lobe and lingula, consistent with stable mild scarring. 4. Additional ancillary findings as discussed in the body of the report. Electronically signed by: Donte Hebert MD 08/31/2024 12:32 PM EST RP Assessment and Plan (1) JANE (acute kidney injury): Status: Acute (2) Anemia: Status: Acute (3) Cirrhosis: Status: Acute (4) Splenomegaly: Status: Acute (5) Liver cirrhosis: Qualifiers: Hepatic cirrhosis type: alcoholic cirrhosis Ascites presence: without ascites Qualified Code(s): K70.30 - Alcoholic cirrhosis of liver without ascites Status: Acute (6) Alcohol use disorder: Status: Acute Plan A 58 years old male with PMH of alcohol abuse, cirrhosis, HTN, asthma, HLD, depression among others who presents to the hospital with sudden onset left sided abdominal pain, increase abdominal girth and lower extremities swelling with jaundice. Acute alcoholic hepatitis with decompensated cirrhosis elevated Maddery score at 43 CT scan as reported Pending Paracentesis Prednisolone therapy GI evaluation follow LFT Folic acid, Thiamine IRon Def anemia likely from chronic blood loss check occult Start PPI follow CBC Left sided abd pain has spleenomegaly US Doppler for splenic V infarct ? JANE Cr of 1.4 from 0.7 could be secondary to HRS Albumin, Midodrine and OCtreotide for now follow BMP avoid nephrotoxic Hx Alcoholosim w cirrhosis CIWA Phenobarbprotocol when needed acute hypokalemia replacement, follow BMP DVT PPx SCDs The patient will need 2 overnight hospital stay for treatment of alcoholic cirrhosis pending GI eval, repeat blood work and possible intervention which can not be done in any less acute setting Quality Stroke Does the patient have a stroke diagnosis?: No VTE Prior VTE?: No VTE Risk Level:: Medical - moderate - high VTE Device Contraindication: N/A - Device Ordered VTE Drug Contraindication: Treatment Not Indicated
[2024-08-31] MEDS: Midodrine HCl 5 MG TABLET PO ×2 (16:14→22:07)
[2024-08-31] MEDS: 0.9 % Sodium Chloride Flush 3 ML SYRINGE IVFLUSH (16:15)
[2024-08-31] MEDS: Albumin Human 25 % 100 ML IV ×2 (16:15→22:17)
[2024-08-31] MEDS: Octreotide Acetate 100 MCG/ML AMPUL 200 MCG SUBCUT ×2 (16:15→22:10)
[2024-08-31 16:57] LABS: MN% 96.8 %; PMN% 3.2 %; WBC Peritoneal Fluid 0.123 X10*3/uL
[2024-08-31 16:58] LABS: RBC Peritoneal Fluid < 0.002 X10*6/uL
--- NOTE | 2024-08-31 18:38 | PC.NURSE ---
From US: Patient is going to get a paracentesis and abdomen Doppler done tmrw morning. We need the patient fasting overnight for his exams, please. NEEDS TO BE NPO at midnight. Hold tray ordered by THEO elliott already in chart. Will pass along to next shift RN.
[2024-08-31] MEDS: Spironolactone 25 MG TABLET 50 MG PO (18:41)
[2024-08-31 19:02] LABS: BF Shift QC OK YES; Lymphocyte Peritoneal Fl 4 %; Monocytes Peritoneal Fl 20 %; Neutrophils Peritoneal Fluid 2 %; Other Peritioneal Fl 74 %
[2024-09-01] VITALS (14 sets, daily range): BP systolic 137–152; BP diastolic 70–89; PULSE 90–110; RESP 18–20; TEMP 36.7–37.4; O2SAT 92–95
--- NOTE | 2024-09-01 01:24 | CONS_ITS ---
DATE OF SERVICE: 08/31/2024 REASON FOR CONSULTATION: Cirrhosis with associated ascites, jaundice, and coagulopathy in relation to alcohol. HISTORY OF PRESENT ILLNESS: This has been obtained from the patient, his ER nurse, and the medical record. The patient is a 58-year-old male with a longstanding history of intermittent alcohol use including over the past 2-3 months. He apparently had a fall at home recently causing some rib pain and lower extremity pain. He came to the ER due to some shortness of breath. He was noticed to be jaundice in the ER. The patient describes using alcohol regularly for at least the past 2-3 months. He denies any definitive history of jaundice nor any known complications of liver disease in the past. Most recently, he has noticed increasing abdominal girth and lower extremity edema. He has had some mild nausea, but no vomiting. He describes that his bowel movements have been brown. He denies any fevers or chills. He does describe darkened urine, but no dysuria. He does describe some obvious jaundice as well. The patient does describe a history of some probable ascites in the past, but has never required a paracentesis. He presently feels fairly well, although his abdominal exam is quite distended and he is somewhat uncomfortable from that. He denies any significant heartburn nor dysphagia. He describes his bowel movements are fairly regular and again without any sign of hematochezia nor melena. There is no family history of liver disease in any first-degree relatives. He does use alcohol regularly and to excess. He denies any drug use. MEDICATIONS: At home include inhalers. Medications given to him in the ER include vitamin K and pantoprazole. PAST MEDICAL HISTORY: Acute and chronic alcohol abuse with associated liver disease. Asthma. Hypertension. He denies history of LA, stroke, nor diabetes. PAST SURGICAL HISTORY: He denies any significant surgical history other than a fractured left foot that required placement of some hardware. SOCIAL HISTORY: He is . Alcohol as above. FAMILY HISTORY: Noncontributory. REVIEW OF SYSTEMS: CONSTITUTIONAL: He has been feeling progressively poorly at home with fatigue. CARDIAC: No chest pain. PULMONARY: No coughing nor hemoptysis. GI: As above. URINARY: No dysuria, no hematuria. PHYSICAL EXAMINATION: GENERAL: The patient is alert, pleasant, cooperative male. SKIN: Warm, dry. He does have icteric sclerae. Moist mucous membranes. NECK: Supple. CHEST: Clear. CARDIAC: Normal S1, S2. ABDOMEN: Soft and markedly distended with fluid. There is no focal mass, rebound or guarding. EXTREMITIES: Reveal pitting edema pretibially. NEUROLOGICAL: He is alert and oriented. He answers questions appropriately. There is no obvious asterixis. LABORATORY DATA: White blood cell count 8.1, hemoglobin 9.5, MCV 89, and platelets 104,000. His hemoglobin in December of 2023 was 14.0. PT was 18.7 with INR 1.6. His PT was 17.2 in 2022. Normal electrolytes except for potassium 3.2. BUN 21, creatinine 1.4. Calcium 7.7. Iron 74, iron saturation 25%, total bilirubin is 11.5, direct bilirubin 8.8, AST 132, ALT 19, and alkaline phosphatase 111. Albumin 2.2. Ammonia level is 32. Lipase 61. His alcohol level on admission was 318. Hepatitis A, B, and C studies are negative. IMPRESSION: The patient is a 58-year-old male with a longstanding history of intermittent alcohol use, coming in with what appears to be cirrhosis and alcohol induced hepatitis with associated complications of jaundice, ascites, and coagulopathy. At this point, he does not show any signs of GI bleeding nor hepatic encephalopathy. He does not show any clinical evidence of spontaneous bacterial peritonitis, but this will need to be ruled out. At this point, I have ordered a stat ultrasound with paracentesis to obtain fluid and hopefully, rule out spontaneous bacterial peritonitis. In the meantime, I would continue supportive care with advancing his diet once the ultrasound is done and keeping him on nutritional supplements as needed. I would continue his IV pantoprazole. He has already received vitamin K. I would hold off on administering prednisolone for alcohol-induced hepatitis for the time being until spontaneous bacterial peritonitis has been ruled out. Depending upon his clinical course, he may not need the prednisolone if his LFTs began to improve. He will have daily laboratories in the morning. I did review with the patient in detail the need to abstain completely from alcohol long-term. Thank you for the consultation. MD ADRIEN Woodward/CHERIE / [phone]
[2024-09-01] MEDS: Albumin Human 25 % 100 ML IV ×4 (02:57→21:38)
[2024-09-01] MEDS: Pantoprazole Sodium 40 MG/10 ML VIAL IVPUSH (05:54)
[2024-09-01] MEDS: ondansetron HCL 4 MG/2 ML VIAL IVPUSH (05:54)
[2024-09-01 06:04] LABS: Basophils Percent Auto 0.7 % (0-2); Eosinophils Absolute Auto 0.1 X10*3/uL (0.0-0.4); Eosinophils Percent Auto 0.9 % (0-4); Hematocrit 26.3 % (42.0-52.0); Hemoglobin 9.5 g/dl (14.0-18.0); Imm Gran Pct Auto 1.8 % (0.0-0.4); Lymphocytes Absolute Auto 0.6 X10*3/uL (1.2-4.9); Lymphocytes Percent Auto 9.9 % (20-40); MANUAL DIFF FLAG SCAN; Mean Corpuscular HGB Conc 36.1 g/dl (31.0-36.0); Mean Corpuscular Hemoglobin 32.3 pg (27.0-33.0); Mean Corpuscular Volume 89.5 fL (80.0-98.0); Monocytes Absolute Auto 1.2 X10*3/uL (0.1-1.2); Monocytes Percent Auto 21.8 % (2-11); Neutrophils Absolute Auto 3.6 x10*3/uL (2.0-8.3); Neutrophils Percent Auto 64.9 % (45-73); Red Blood Count 2.94 X10*6/uL (4.60-5.80); SCAN SMEAR FLAG 1; White Blood Count 5.5 X10*3/uL (4.8-10.8)
[2024-09-01 06:07] LABS: Platelet Count 87 X10*3/uL (160-400)
[2024-09-01 06:10] LABS: Ammonia 52 umol/L (13-55)
[2024-09-01 06:23] LABS: Alanine Aminotransferase 20 U/L (0-40); Alkaline Phosphatase 93 U/L (39-117); Anion Gap 14 (12-20); Aspartate Amino Transferase 170 U/L (5-37); Bilirubin Total 16.8 mg/dL (0.0-1.0); Blood Urea Nitrogen 14 mg/dL (9-16); Calcium 7.8 mg/dL (8.4-10.2); Carbon Dioxide 21 mmol/L (22-29); Chloride 104 mmol/L (96-108); Creatinine Clr Calc Pharmacy 137.4; Estimated Glomerular Filt Rate > 60; Glucose Random 115 mg/dL (60-115); Potassium 4.1 mmol/L (3.3-5.1); Sodium 135 mmol/L (135-145); Total Protein 7.7 g/dL (6.5-8.0)
[2024-09-01 06:25] LABS: INTERNATIONAL NORM RATIO 1.6 (0.9-1.1); Prothrombin Time 18.4 SEC (10.9-12.4)
[2024-09-01 06:35] LABS: SLIDE REVIEW VERIFIED
[2024-09-01] MEDS: Octreotide Acetate 100 MCG/ML AMPUL 200 MCG SUBCUT ×3 (07:25→23:19)
[2024-09-01] MEDS: 0.9 % Sodium Chloride Flush 3 ML SYRINGE IVFLUSH ×2 (07:26→18:08)
[2024-09-01] MEDS: Budesonide 180 MCG AER.POW.BA 1 PUFF INHALE ×2 (07:36→19:49)
[2024-09-01 08:02] LABS: Albumin Peritoneal Fluid 0.4
[2024-09-01] MEDS: Thiamine HCL 100 MG TABLET PO (08:53)
[2024-09-01] MEDS: Folic Acid 1 MG TABLET PO (08:53)
[2024-09-01] MEDS: Cholecalciferol (Vitamin D3) 25 MCG TABLET 50 MCG PO (08:53)
[2024-09-01] MEDS: Spironolactone 25 MG TABLET 50 MG PO ×2 (08:53→18:08)
[2024-09-01] MEDS: Midodrine HCl 5 MG TABLET PO ×2 (08:54→15:13)
--- NOTE | 2024-09-01 10:36 | PC.NURSE ---
Provider and ultrasound doing parcentesis at bedside at this time. BP being monitored, pt on cardiac surgeon.
--- NOTE | 2024-09-01 10:53 | PC.NURSE ---
Pt tolerated the procedure well, per US, 3L of fluid was taken off.
[2024-09-01] MEDS: Lidocaine HCl 1 % MPF 5 ML VIAL SUBCUT (11:14)
[2024-09-01 11:42] LABS: WBC Peritoneal Fluid 0.201 X10*3/uL
[2024-09-01 11:50] LABS: RBC Peritoneal Fluid < 0.002 X10*6/uL
[2024-09-01 12:47] LABS: Lymphocyte Peritoneal Fl 19 %; Monocytes Peritoneal Fl 18 %; Neutrophils Peritoneal Fluid 2 %
[2024-09-01 12:48] LABS: BF Shift QC OK YES; Man Diluent Bkgrd OK YES; Other Peritioneal Fl 61 %
--- NOTE | 2024-09-01 12:54 | HO.PM.IMPN ---
Subjective Subjective Date of Service: 09/01/24 Interval History: Seen and evaluated this morning waiting Paracentesis Feels little better , on RA CIWA score low no other events Review of Systems No fever, chills or weakness No chest pain, palpitation No shortness of breath or coughing has abdominal pain with no nausea or vomiting No urinary symptoms increase swelling, abd girth No wounds Physical Exam Vital Signs: Vital Signs: Last Vital Signs Temp 99 F 09/01/24 11:27 Pulse 108 H 09/01/24 11:27 Resp 20 09/01/24 11:27 BP 145/70 H 09/01/24 11:27 Pulse Ox 93 09/01/24 11:27 O2 Del Method Room Air 09/01/24 11:27 BMI result Body Mass Index 33.2 Const: Other: Constitutional : Awake, interactive, jaundiced, not in distress Neck : Normal inspection, Supple Cardiovascular : RRR, no JVP, +2 bilateral lower extremity edema Respiratory : good bilateral air entry, no crackles, wheezes or rhonchi Gastrointestinal: soft, lax, Normal bowel sounds, LUQ mild tenderness, no rebound. large amount of ascites Skin : Warm, Dry Neurological : Alert & oriented x3, No focal deficit Objective Data Active Medications Acetaminophen (Acetaminophen 325 Mg Tablet) 650 mg PO Q6H PRN PRN Reason: Pain, Mild 1-3,fever,headache Albuterol Sulfate (Albuterol Sulfate 90 Mcg 8 Gm Inhaler) 2 puff INHALE Q6H PRN PRN Reason: shortness of breath or wheezing Benzonatate (Benzonatate 100 Mg Capsule) 100 mg PO TID PRN PRN Reason: Cough Budesonide (Budesonide 180 Mcg Aer.Pow.Ba) 1 puff INHALE BID [facility] Last Admin: 09/01/24 07:36 Dose: 1 puff Documented By: CHELSY Calcium Carbonate (Calcium Carbonate 750 Mg Tab.Chew) 750 mg PO Q4H PRN PRN Reason: Heartburn Folic Acid (Folic Acid 1 Mg Tablet) 1 mg PO DAILY [facility] Last Admin: 09/01/24 08:53 Dose: 1 mg Documented By: JOSE ALEJANDRO Magnesium Hydroxide (Milk Of Magnesia 30 Ml Oral.Susp) 30 ml PO DAILY PRN PRN Reason: Constipation Melatonin (Melatonin 3 Mg Tablet) 6 mg PO BEDTIME PRN PRN Reason: Insomnia Midodrine (Midodrine Hcl 5 Mg Tablet) 5 mg PO TID [facility] Last Admin: 09/01/24 08:54 Dose: 5 mg Documented By: JOSE ALEJANDRO Octreotide Acetate (Octreotide Acetate 100 Mcg/Ml Ampul) 200 mcg SUBCUT Q8H [facility] Last Admin: 09/01/24 07:25 Dose: 200 mcg Documented By: JOSE ALEJANDRO Ondansetron HCl (Ondansetron Hcl 4 Mg/2 Ml Vial) 4 mg IVPUSH Q8H PRN PRN Reason: Nausea and Vomiting Last Admin: 09/01/24 05:54 Dose: 4 mg Documented By: RASHEEDA Pantoprazole Sodium (Pantoprazole Sodium 40 Mg/10 Ml Vial) 40 mg IVPUSH DAILY@0630 [facility] Last Admin: 09/01/24 05:54 Dose: 40 mg Documented By: RASHEEDA Prednisolone Sodium Phosphate (Prednisolone Sodium Phosphate 15 Mg/5 Ml Solution) 40 mg PO DAILY [facility] Sodium Chloride (0.9 % Sodium Chloride Flush 3 Ml Syringe) 3 ml IVFLUSH QSHIFT [facility] Last Admin: 09/01/24 07:26 Dose: 3 ml Documented By: JOSE ALEJANDRO Spironolactone (Spironolactone 25 Mg Tablet) 50 mg PO BID@0900,1800 [facility]; Protocol Last Admin: 09/01/24 08:53 Dose: 50 mg Documented By: JOSE ALEJANDRO Thiamine HCl (Thiamine Hcl 100 Mg Tablet) 100 mg PO DAILY [facility] Last Admin: 09/01/24 08:53 Dose: 100 mg Documented By: JOSE ALEJANDRO Vitamin D (Cholecalciferol (Vitamin D3) 25 Mcg Tablet) 50 mcg PO DAILY [facility] Last Admin: 09/01/24 08:53 Dose: 50 mcg Documented By: JOSE ALEJANDRO Labs 09/01/24 05:49 09/01/24 05:49 Labs: Laboratory Results - last 24 hr 08/31/24 08/31/24 08/31/24 06:18 16:30 16:31 MCV MCH MCHC RDW Plt Count MPV Immature Gran % (Auto) Neut % (Auto) Lymph % (Auto) Clay % (Auto) Eos % (Auto) Baso % (Auto) Lymph # (Auto) Clay # (Auto) Eos # (Auto) Baso # (Auto) Abs Immat Gran (auto) Absolute Neuts (auto) Absolute Nucleated RBC Nucleated RBC % (auto) Smear Tech's Comments PT INR Anion Gap Estim Creat Clear Calc Estimated GFR Random Glucose Calcium Iron 74 TIBC 99 L % Saturation 75 H Unsat Iron Binding < 25 Total Bilirubin AST ALT Alkaline Phosphatase Ammonia Total Protein Albumin Peritoneal WBC 0.123 Peritoneal RBC < 0.002 Periton Neutrophils 2 Periton Lymphocytes 4 Peritoneal Monocytes 20 Peritoneal Other Cells 74 Peritoneal Albumin 0.4 09/01/24 09/01/24 05:49 11:24 MCV 89.5 MCH 32.3 MCHC 36.1 H RDW 21.0 H Plt Count 87 L MPV 10.0 Immature Gran % (Auto) 1.8 H Neut % (Auto) 64.9 Lymph % (Auto) 9.9 L Clay % (Auto) 21.8 H Eos % (Auto) 0.9 Baso % (Auto) 0.7 Lymph # (Auto) 0.6 L Clay # (Auto) 1.2 Eos # (Auto) 0.1 Baso # (Auto) 0.0 Abs Immat Gran (auto) 0.10 H Absolute Neuts (auto) 3.6 Absolute Nucleated RBC 0.000 Nucleated RBC % (auto) 0.0 Smear Tech's Comments VERIFIED PT 18.4 H INR 1.6 H Anion Gap 14 Estim Creat Clear Calc 137.4 Estimated GFR > 60 Random Glucose 115 Calcium 7.8 L Iron TIBC % Saturation Unsat Iron Binding Total Bilirubin 16.8 H AST 170 H ALT 20 Alkaline Phosphatase 93 Ammonia 52 Total Protein 7.7 Albumin 3.0 L Peritoneal WBC 0.201 Peritoneal RBC < 0.002 Periton Neutrophils 2 Periton Lymphocytes 19 Peritoneal Monocytes 18 Peritoneal Other Cells 61 Peritoneal Albumin Microbiology Microbiology Results: Microbiology 08/31/24 16:31 Gram Stain - Final Ascites Fluid Routine Culture - Preliminary No growth to date. Anaerobic Culture - Preliminary No growth to date. Assessment and Plan (1) JANE (acute kidney injury): Status: Acute (2) Anemia: Status: Acute (3) Cirrhosis: Status: Acute (4) Thrombocytopenia: Status: Acute (5) Splenomegaly: Status: Acute (6) Liver cirrhosis: Status: Acute Plan A 58 years old male with PMH of alcohol abuse, cirrhosis, HTN, asthma, HLD, depression among others who presents to the hospital with sudden onset left sided abdominal pain, increase abdominal girth and lower extremities swelling with jaundice. Acute alcoholic hepatitis with decompensated cirrhosis elevated Maddery score at 52 CT scan as reported Pending Paracentesis today start Prednisolone therapy as no evidence of SBP GI input appreciated, follow LFT Folic acid, Thiamine IRon Def anemia likely from chronic blood loss , stable 9.5 check occult Start PPI follow CBC Left sided abd pain has spleenomegaly US Doppler for splenic\portal V infarct ? JANE Cr improved back to 0.7 could be secondary to HRS Albumin, Midodrine and OCtreotide for now follow BMP avoid nephrotoxic Hx Alcoholosim w cirrhosis CIWA Phenobarbprotocol when needed acute hypokalemia replacement, follow BMP DVT PPx SCDs The patient will need overnight hospital stay for treatment of alcoholic cirrhosis pending GI eval, repeat blood work and possible intervention which can not be done in any less acute setting Quality Stroke Does the patient have a stroke diagnosis?: No VTE Prior VTE?: No VTE Risk Level:: Medical - moderate - high VTE Device Contraindication: N/A - Device Ordered VTE Drug Contraindication: Treatment Not Indicated
--- NOTE | 2024-09-01 14:12 | MHC.CM.PN ---
PT LIVES WITH HE IS INDEPENDENT HAS HIS OWN RIDE HOME DC PLAN HOME NO SERVICES
[2024-09-01] MEDS: prednisoLONE sodium phosphate 15 MG/5 ML SOLUTION 40 MG PO (15:13)
[2024-09-01] MEDS: Furosemide 20 MG/2 ML VIAL IVPUSH (18:09)
[2024-09-01 21:13] LABS: OBS1 NEGATIVE (NEGATIVE)
[2024-09-01 21:14] LABS: OBS Int Ctl Valid YES
[2024-09-02] VITALS (8 sets, daily range): BP systolic 128–148; BP diastolic 68–80; PULSE 77–95; RESP 16–18; TEMP 36.1–37.6; O2SAT 90–93
--- NOTE | 2024-09-02 02:21 | PC.NURSE ---
Pt sen on bed alert and oriented, routine Vitals showed BP 147/74, Dr. Flowers was made aware, scheduled Midodrine tab held.
[2024-09-02] MEDS: Albumin Human 25 % 100 ML IV ×2 (03:52→09:16)
[2024-09-02] MEDS: Pantoprazole Sodium 40 MG/10 ML VIAL IVPUSH (06:15)
[2024-09-02] MEDS: Octreotide Acetate 100 MCG/ML AMPUL 200 MCG SUBCUT ×3 (06:19→23:09)
[2024-09-02 06:53] LABS: MANUAL DIFF FLAG NO
[2024-09-02 07:06] LABS: Basophils Percent Auto 0.3 % (0-2); Hematocrit 23.6 % (42.0-52.0); Hemoglobin 8.5 g/dl (14.0-18.0); Imm Gran Abs Auto 0.09 X10*3/uL (0.00-0.03); Imm Gran Pct Auto 1.2 % (0.0-0.4); Lymphocytes Absolute Auto 0.9 X10*3/uL (1.2-4.9); Lymphocytes Percent Auto 12.6 % (20-40); Mean Corpuscular Hemoglobin 32.8 pg (27.0-33.0); Mean Corpuscular Volume 91.1 fL (80.0-98.0); Mean Platelet Volume 10.9 fL (9.4-12.4); Monocytes Absolute Auto 1.2 X10*3/uL (0.1-1.2); Monocytes Percent Auto 16.6 % (2-11); Neutrophils Absolute Auto 5.1 x10*3/uL (2.0-8.3); Neutrophils Percent Auto 69.3 % (45-73); Platelet Count 78 X10*3/uL (160-400); Red Blood Count 2.59 X10*6/uL (4.60-5.80); Red Cell Distribution Width 20.7 % (11.0-16.0); White Blood Count 7.4 X10*3/uL (4.8-10.8)
[2024-09-02 07:09] LABS: INTERNATIONAL NORM RATIO 1.9 (0.9-1.1); Prothrombin Time 21.9 SEC (10.9-12.4)
[2024-09-02 07:41] LABS: Alanine Aminotransferase 16 U/L (0-40); Albumin Level 3.2 g/dL (3.5-5.0); Alkaline Phosphatase 76 U/L (39-117); Anion Gap 12 (12-20); Aspartate Amino Transferase 138 U/L (5-37); Bilirubin Direct 10.8 mg/dL (0.0-0.5); Bilirubin Total 18.9 mg/dL (0.0-1.0); Blood Urea Nitrogen 12 mg/dL (9-16); Calcium 8.2 mg/dL (8.4-10.2); Carbon Dioxide 24 mmol/L (22-29); Chloride 101 mmol/L (96-108); Creatinine Clr Calc Pharmacy 141.3; Estimated Glomerular Filt Rate > 60; Glucose Random 110 mg/dL (60-115); Sodium 133 mmol/L (135-145); Total Protein 7.4 g/dL (6.5-8.0)
[2024-09-02] MEDS: Budesonide 180 MCG AER.POW.BA 1 PUFF INHALE ×2 (07:56→19:36)
[2024-09-02] MEDS: Midodrine HCl 5 MG TABLET PO ×3 (08:29→21:23)
[2024-09-02] MEDS: Spironolactone 25 MG TABLET 50 MG PO ×2 (08:29→18:16)
[2024-09-02] MEDS: Folic Acid 1 MG TABLET PO (08:29)
[2024-09-02] MEDS: Cholecalciferol (Vitamin D3) 25 MCG TABLET 50 MCG PO (08:29)
[2024-09-02] MEDS: Thiamine HCL 100 MG TABLET PO (08:29)
[2024-09-02] MEDS: prednisoLONE sodium phosphate 15 MG/5 ML SOLUTION 40 MG PO (08:30)
[2024-09-02] MEDS: 0.9 % Sodium Chloride Flush 3 ML SYRINGE IVFLUSH ×3 (09:16→21:25)
--- NOTE | 2024-09-02 10:11 | P.PNIM_ITS ---
Subjective Subjective Date of Service: 09/02/24 Interval History: Appetite is good but starting to have withdrawal symptoms Physical Exam 2 Vital Signs: Vital Signs: Last Vital Signs Temp 96.9 F 09/02/24 07:17 Pulse 86 09/02/24 07:56 Resp 16 09/02/24 07:56 BP 140/72 H 09/02/24 07:17 Pulse Ox 90 L 09/02/24 07:17 O2 Del Method Room Air 09/02/24 07:17 BMI result Body Mass Index 33.2 Resting tremor, alert oriented x3, jaundice, abdomen soft and nontender Objective Data Active Medications Acetaminophen (Acetaminophen 325 Mg Tablet) 650 mg PO Q6H PRN PRN Reason: Pain, Mild 1-3,fever,headache Albuterol Sulfate (Albuterol Sulfate 90 Mcg 8 Gm Inhaler) 2 puff INHALE Q6H PRN PRN Reason: shortness of breath or wheezing Benzonatate (Benzonatate 100 Mg Capsule) 100 mg PO TID PRN PRN Reason: Cough Budesonide (Budesonide 180 Mcg Aer.Pow.Ba) 1 puff INHALE BID [facility] Last Admin: 09/02/24 07:56 Dose: 1 puff Documented By: RENY Calcium Carbonate (Calcium Carbonate 750 Mg Tab.Chew) 750 mg PO Q4H PRN PRN Reason: Heartburn Folic Acid (Folic Acid 1 Mg Tablet) 1 mg PO DAILY [facility] Last Admin: 09/02/24 08:29 Dose: 1 mg Documented By: MARY Albumin Human (Kedbumin 25 %) 100 mls @ 100 mls/hr IV Q6H [facility] Stop: 09/02/24 10:44 Last Admin: 09/02/24 09:16 Dose: 100 mls/hr Documented By: MARY Magnesium Hydroxide (Milk Of Magnesia 30 Ml Oral.Susp) 30 ml PO DAILY PRN PRN Reason: Constipation Melatonin (Melatonin 3 Mg Tablet) 6 mg PO BEDTIME PRN PRN Reason: Insomnia Midodrine (Midodrine Hcl 5 Mg Tablet) 5 mg PO TID [facility] Last Admin: 09/02/24 08:29 Dose: 5 mg Documented By: MARY Octreotide Acetate (Octreotide Acetate 100 Mcg/Ml Ampul) 200 mcg SUBCUT Q8H [facility] Last Admin: 09/02/24 06:19 Dose: 200 mcg Documented By: MOI Ondansetron HCl (Ondansetron Hcl 4 Mg/2 Ml Vial) 4 mg IVPUSH Q8H PRN PRN Reason: Nausea and Vomiting Last Admin: 09/01/24 05:54 Dose: 4 mg Documented By: RASHEEDA Pantoprazole Sodium (Pantoprazole Sodium 40 Mg/10 Ml Vial) 40 mg IVPUSH DAILY@0630 [facility] Last Admin: 09/02/24 06:15 Dose: 40 mg Documented By: MOI Pharmacy Consult (Consult Rx Etoh Phenob Im/Po) 1 each MISCELLANE ONCE PRN; Protocol PRN Reason: Consult order Phenobarbital (Phenobarbital 15 Mg Tablet) 45 mg PO BID [facility]; Protocol Stop: 09/04/24 09:01 Phenobarbital (Phenobarbital 30 Mg Tablet) 30 mg PO BID [facility]; Protocol Stop: 09/06/24 09:01 Phenobarbital (Phenobarbital 30 Mg Tablet) 30 mg PO DAILY [facility]; Protocol Stop: 09/07/24 09:01 Phenobarbital Sodium (Phenobarbital Sodium 130 Mg/Ml Vial Im Q3hx2) 175 mg IM Q3H [facility]; Protocol Stop: 09/02/24 16:01 Prednisolone Sodium Phosphate (Prednisolone Sodium Phosphate 15 Mg/5 Ml Solution) 40 mg PO DAILY [facility] Last Admin: 09/02/24 08:30 Dose: 40 mg Documented By: MARY Sodium Chloride (0.9 % Sodium Chloride Flush 3 Ml Syringe) 3 ml IVFLUSH QSHIFT [facility] Last Admin: 09/02/24 09:16 Dose: 3 ml Documented By: MARY Spironolactone (Spironolactone 25 Mg Tablet) 50 mg PO BID@0900,1800 [facility]; Protocol Last Admin: 09/02/24 08:29 Dose: 50 mg Documented By: MARY Thiamine HCl (Thiamine Hcl 100 Mg Tablet) 100 mg PO DAILY [facility] Last Admin: 09/02/24 08:29 Dose: 100 mg Documented By: MARY Vitamin D (Cholecalciferol (Vitamin D3) 25 Mcg Tablet) 50 mcg PO DAILY [facility] Last Admin: 09/02/24 08:29 Dose: 50 mcg Documented By: MARY Labs 09/02/24 06:07 09/02/24 06:07 Labs: Laboratory Results - last 24 hr 02/11/25 02/11/25 02/12/25 11:24 21:03 06:07 MCV 91.1 MCH 32.8 MCHC 36.0 RDW 20.7 H Plt Count 78 L MPV 10.9 Immature Gran % (Auto) 1.2 H Neut % (Auto) 69.3 Lymph % (Auto) 12.6 L [place] % (Auto) 16.6 H Eos % (Auto) 0.0 Baso % (Auto) 0.3 Lymph # (Auto) 0.9 L [place] # (Auto) 1.2 Eos # (Auto) 0.0 Baso # (Auto) 0.0 Abs Immat Gran (auto) 0.09 H Absolute Neuts (auto) 5.1 Absolute Nucleated RBC 0.000 Nucleated RBC % (auto) 0.0 PT 21.9 H INR 1.9 H Anion Gap 12 Estim Creat Clear Calc 141.3 Estimated GFR > 60 Random Glucose 110 Calcium 8.2 L Total Bilirubin 18.9 H Direct Bilirubin 10.8 H AST 138 H ALT 16 Alkaline Phosphatase 76 Total Protein 7.4 Albumin 3.2 L Peritoneal WBC 0.201 Peritoneal RBC < 0.002 Periton Neutrophils 2 Periton Lymphocytes 19 Peritoneal Monocytes 18 Peritoneal Other Cells 61 Stool Occult Blood NEGATIVE Microbiology Microbiology Results: Microbiology 08/31/24 16:31 Gram Stain - Final Ascites Fluid Routine Culture - Preliminary No growth to date. Anaerobic Culture - Preliminary No growth to date. Assessment and Plan (1) JANE (acute kidney injury): Status: Acute (2) Anemia: Status: Acute (3) Cirrhosis: Status: Acute (4) Thrombocytopenia: Status: Acute (5) Splenomegaly: Status: Acute (6) Liver cirrhosis: Status: Acute Plan 58M PMH of alcohol abuse, cirrhosis, HTN, asthma, HLD, depression among others who presented to the hospital with sudden onset left sided abdominal pain, increase abdominal girth and lower extremities swelling with jaundice. Acute alcoholic hepatitis with decompensated cirrhosis elevated Maddery score s/p paracentesis with albumin, no SBP started Prednisolone GI input appreciated follow LFT Folic acid, Thiamine Iron Def anemia likely from chronic blood loss , stable 9.5 Started PPI follow CBC Left sided abd pain has splenomegaly US Doppler for splenic\portal V infarct negative JANE Cr improved back to 0.7 resolved Hx Alcoholosim w cirrhosis now with acute withdrawal CIWA Phenobarb protocol starting acute hypokalemia replacemed DVT PPx SCDs - elevated inr, thrombocytopneia reason for continued hospitalization:now with withdrawal, lfts increasing Quality Stroke Does the patient have a stroke diagnosis?: No VTE Prior VTE?: No VTE Risk Level:: Medical - moderate - high VTE Device Contraindication: N/A - Device Ordered VTE Drug Contraindication: Treatment Not Indicated
[2024-09-02] MEDS: PHENobarbitaL sodium 130 MG/ML IM ONCE 234 MG IM (10:21)
--- NOTE | 2024-09-02 12:55 | MHC.CM.PN ---
PER ROUNDS PT NOT READY MEDICALLY READY FOR DC PLAN REMAINSHOME N/S
[2024-09-02] MEDS: PHENobarbitaL sodium 130 MG/ML VIAL IM Q3Hx2 175 MG IM ×2 (13:19→15:56)
[2024-09-02] MEDS: PHENobarbitaL 15 MG TABLET 45 MG PO (21:23)
[2024-09-03] VITALS (9 sets, daily range): BP systolic 139–155; BP diastolic 69–75; PULSE 81–88; RESP 15–18; TEMP 36.7–37.5; O2SAT 92–96
[2024-09-03] MEDS: Pantoprazole Sodium 40 MG/10 ML VIAL IVPUSH (06:08)
[2024-09-03] MEDS: Budesonide 180 MCG AER.POW.BA 1 PUFF INHALE ×2 (07:47→19:37)
--- NOTE | 2024-09-03 08:28 | P.PNIM_ITS ---
Subjective Subjective Date of Service: 09/03/24 Interval History: Appetite is good withdrawal resolved Physical Exam 2 Vital Signs: Vital Signs: Last Vital Signs Temp 98.5 F 09/03/24 07:26 Pulse 84 09/03/24 07:47 Resp 16 09/03/24 07:47 BP 139/69 09/03/24 07:26 Pulse Ox 92 09/03/24 07:26 O2 Del Method Room Air 09/03/24 07:26 BMI result Body Mass Index 33.2 General: AO X 3, no acute distress Resp: CTA bilateral, no accessory muscles used CVS: S1,S2,RRR GI: soft, non tender, non distended Neuro: motor grossly intact, alert Psych: appropriate affect, appropriate insight juandiced Objective Data Active Medications Acetaminophen (Acetaminophen 325 Mg Tablet) 650 mg PO Q6H PRN PRN Reason: Pain, Mild 1-3,fever,headache Albuterol Sulfate (Albuterol Sulfate 90 Mcg 8 Gm Inhaler) 2 puff INHALE Q6H PRN PRN Reason: shortness of breath or wheezing Benzonatate (Benzonatate 100 Mg Capsule) 100 mg PO TID PRN PRN Reason: Cough Budesonide (Budesonide 180 Mcg Aer.Pow.Ba) 1 puff INHALE BID [facility] Last Admin: 09/03/24 07:47 Dose: 1 puff Documented By: CARLOS Calcium Carbonate (Calcium Carbonate 750 Mg Tab.Chew) 750 mg PO Q4H PRN PRN Reason: Heartburn Folic Acid (Folic Acid 1 Mg Tablet) 1 mg PO DAILY [facility] Last Admin: 09/02/24 08:29 Dose: 1 mg Documented By: MARY Magnesium Hydroxide (Milk Of Magnesia 30 Ml Oral.Susp) 30 ml PO DAILY PRN PRN Reason: Constipation Melatonin (Melatonin 3 Mg Tablet) 6 mg PO BEDTIME PRN PRN Reason: Insomnia Midodrine (Midodrine Hcl 5 Mg Tablet) 5 mg PO TID [facility] Last Admin: 09/02/24 21:23 Dose: 5 mg Documented By: BLADIMIR Octreotide Acetate (Octreotide Acetate 100 Mcg/Ml Ampul) 200 mcg SUBCUT Q8H [facility] Last Admin: 09/02/24 23:09 Dose: 200 mcg Documented By: BLADIMIR Ondansetron HCl (Ondansetron Hcl 4 Mg/2 Ml Vial) 4 mg IVPUSH Q8H PRN PRN Reason: Nausea and Vomiting Last Admin: 09/01/24 05:54 Dose: 4 mg Documented By: RASHEEDA Pantoprazole Sodium (Pantoprazole Sodium 40 Mg/10 Ml Vial) 40 mg IVPUSH DAILY@0630 [facility] Last Admin: 09/03/24 06:08 Dose: 40 mg Documented By: BLADIMIR Pharmacy Consult (Consult Rx Etoh Phenob Im/Po) 1 each MISCELLANE ONCE PRN; Protocol PRN Reason: Consult order Phenobarbital (Phenobarbital 15 Mg Tablet) 45 mg PO BID [facility]; Protocol Stop: 09/04/24 09:01 Last Admin: 09/02/24 21:23 Dose: 45 mg Documented By: BLADIMIR Phenobarbital (Phenobarbital 30 Mg Tablet) 30 mg PO BID [facility]; Protocol Stop: 09/06/24 09:01 Phenobarbital (Phenobarbital 30 Mg Tablet) 30 mg PO DAILY [facility]; Protocol Stop: 09/07/24 09:01 Prednisolone Sodium Phosphate (Prednisolone Sodium Phosphate 15 Mg/5 Ml Solution) 40 mg PO DAILY [facility] Last Admin: 09/02/24 08:30 Dose: 40 mg Documented By: MARY Sodium Chloride (0.9 % Sodium Chloride Flush 3 Ml Syringe) [facility] Last Admin: 09/02/24 21:25 Dose: 3 ml Documented By: BLADIMIR Spironolactone (Spironolactone 25 Mg Tablet) 50 mg PO BID@0900,1800 [facility]; Protocol Last Admin: 09/02/24 18:16 Dose: 50 mg Documented By: MARY Thiamine HCl (Thiamine Hcl 100 Mg Tablet) 100 mg PO DAILY [facility] Last Admin: 09/02/24 08:29 Dose: 100 mg Documented By: MARY Vitamin D (Cholecalciferol (Vitamin D3) 25 Mcg Tablet) 50 mcg PO DAILY [facility] Last Admin: 09/02/24 08:29 Dose: 50 mcg Documented By: MARY Labs 09/02/24 06:07 09/02/24 06:07 Microbiology Microbiology Results: Microbiology 08/31/24 16:31 Gram Stain - Final Ascites Fluid Routine Culture - Preliminary No growth to date. Anaerobic Culture - Preliminary No growth to date. Assessment and Plan (1) JANE (acute kidney injury): Status: Acute (2) Anemia: Status: Acute (3) Cirrhosis: Status: Acute (4) Thrombocytopenia: Status: Acute (5) Splenomegaly: Status: Acute (6) Liver cirrhosis: Status: Acute Plan 58M PMH of alcohol abuse, cirrhosis, HTN, asthma, HLD, depression among others who presented to the hospital with sudden onset left sided abdominal pain, increase abdominal girth and lower extremities swelling with jaundice. Acute alcoholic hepatitis with decompensated cirrhosis elevated Maddery score s/p paracentesis with albumin, no SBP started Prednisolone GI input appreciated follow LFT Folic acid, Thiamine Iron Def anemia likely from chronic blood loss , stable 9.5 Started PPI follow CBC Left sided abd pain has splenomegaly US Doppler for splenic\portal V infarct negative JANE Cr improved back to 0.7 resolved Hx Alcoholosim w cirrhosis now with acute withdrawal CIWA Phenobarb protocol acute hypokalemia replacemed DVT PPx SCDs - elevated inr, thrombocytopneia reason for continued hospitalization:waiting for lft plateua Quality Stroke Does the patient have a stroke diagnosis?: No VTE Prior VTE?: No VTE Risk Level:: Medical - moderate - high VTE Device Contraindication: N/A - Device Ordered VTE Drug Contraindication: Treatment Not Indicated
[2024-09-03] MEDS: Cholecalciferol (Vitamin D3) 25 MCG TABLET 50 MCG PO (08:52)
[2024-09-03] MEDS: Folic Acid 1 MG TABLET PO (08:52)
[2024-09-03] MEDS: Thiamine HCL 100 MG TABLET PO (08:52)
[2024-09-03] MEDS: Midodrine HCl 5 MG TABLET PO (08:53)
[2024-09-03] MEDS: Octreotide Acetate 100 MCG/ML AMPUL 200 MCG SUBCUT ×3 (08:53→23:08)
[2024-09-03] MEDS: PHENobarbitaL 15 MG TABLET 45 MG PO ×2 (08:53→21:12)
[2024-09-03] MEDS: Spironolactone 25 MG TABLET 50 MG PO ×2 (08:53→17:30)
[2024-09-03] MEDS: 0.9 % Sodium Chloride Flush 3 ML SYRINGE IVFLUSH ×3 (08:54→21:13)
[2024-09-03] MEDS: prednisoLONE sodium phosphate 15 MG/5 ML SOLUTION 40 MG PO (08:56)
[2024-09-03 10:06] LABS: Albumin Peritoneal Fluid 0.4
[2024-09-03 10:06] LABS: Hematocrit 24.4 % (42.0-52.0); Hemoglobin 8.7 g/dl (14.0-18.0); Mean Corpuscular HGB Conc 35.7 g/dl (31.0-36.0); Mean Corpuscular Hemoglobin 32.7 pg (27.0-33.0); Mean Corpuscular Volume 91.7 fL (80.0-98.0); Mean Platelet Volume 11.2 fL (9.4-12.4); Platelet Count 74 X10*3/uL (160-400); Red Blood Count 2.66 X10*6/uL (4.60-5.80); Red Cell Distribution Width 19.9 % (11.0-16.0); White Blood Count 6.9 X10*3/uL (4.8-10.8)
[2024-09-03 10:25] LABS: Alanine Aminotransferase 21 U/L (0-40); Albumin Level 3.1 g/dL (3.5-5.0); Alkaline Phosphatase 73 U/L (39-117); Anion Gap 13 (12-20); Aspartate Amino Transferase 155 U/L (5-37); Bilirubin Total 21.6 mg/dL (0.0-1.0); Blood Urea Nitrogen 10 mg/dL (9-16); Calcium 8.5 mg/dL (8.4-10.2); Carbon Dioxide 24 mmol/L (22-29); Chloride 99 mmol/L (96-108); Creatinine Clr Calc Pharmacy 137.4; Estimated Glomerular Filt Rate > 60; Glucose Random 151 mg/dL (60-115); Magnesium 1.3 mg/dL (1.6-2.6); Potassium 3.7 mmol/L (3.3-5.1); Sodium 132 mmol/L (135-145); Total Protein 7.4 g/dL (6.5-8.0)
[2024-09-03] MEDS: Magnesium Oxide 400 MG TABLET 800 MG PO ×2 (12:16→17:30)
--- NOTE | 2024-09-03 19:13 | PC.NURSE ---
BP 155/69. Dr. Pete ordered to hold 3pm dose of midodrine.
[2024-09-04 03:07] VITALS: BP 135/69; PULSE 77; RESP 16; TEMP 37.2; O2SAT 94
[2024-09-04 06:18] LABS: Hemoglobin 8.5 g/dl (14.0-18.0); Mean Corpuscular HGB Conc 35.4 g/dl (31.0-36.0); Mean Corpuscular Hemoglobin 32.6 pg (27.0-33.0); Mean Platelet Volume 11.4 fL (9.4-12.4); NRBC Pct Auto 0.3 /100WBC (0.0-0.2); Red Blood Count 2.61 X10*6/uL (4.60-5.80); Red Cell Distribution Width 19.5 % (11.0-16.0); White Blood Count 7.3 X10*3/uL (4.8-10.8)
[2024-09-04 06:19] LABS: Platelet Count 75 X10*3/uL (160-400)
[2024-09-04] MEDS: Pantoprazole Sodium 40 MG/10 ML VIAL IVPUSH (06:20)
[2024-09-04 06:25] LABS: INTERNATIONAL NORM RATIO 2.1 (0.9-1.1); Prothrombin Time 24.9 SEC (10.9-12.4)
[2024-09-04] MEDS: Octreotide Acetate 100 MCG/ML AMPUL 200 MCG SUBCUT (06:34)
[2024-09-04 06:51] LABS: Alanine Aminotransferase 23 U/L (0-40); Alkaline Phosphatase 75 U/L (39-117); Anion Gap 12 (12-20); Aspartate Amino Transferase 146 U/L (5-37); Bilirubin Total 20.5 mg/dL (0.0-1.0); Blood Urea Nitrogen 10 mg/dL (9-16); Calcium 8.6 mg/dL (8.4-10.2); Carbon Dioxide 24 mmol/L (22-29); Chloride 98 mmol/L (96-108); Creatinine Clr Calc Pharmacy 154.6; Estimated Glomerular Filt Rate > 60; Glucose Random 87 mg/dL (60-115); Magnesium 1.3 mg/dL (1.6-2.6); Potassium 3.9 mmol/L (3.3-5.1); Sodium 130 mmol/L (135-145); Total Protein 7.3 g/dL (6.5-8.0)
[2024-09-04 07:46] VITALS: BP 119/62; PULSE 98; RESP 98; TEMP 36.8; O2SAT 92
[2024-09-04] MEDS: Cholecalciferol (Vitamin D3) 25 MCG TABLET 50 MCG PO (08:27)
[2024-09-04] MEDS: prednisoLONE sodium phosphate 15 MG/5 ML SOLUTION 40 MG PO (08:27)
[2024-09-04] MEDS: Midodrine HCl 5 MG TABLET PO (08:27)
[2024-09-04] MEDS: PHENobarbitaL 15 MG TABLET 45 MG PO (08:27)
[2024-09-04] MEDS: Folic Acid 1 MG TABLET PO (08:27)
[2024-09-04] MEDS: Spironolactone 25 MG TABLET 50 MG PO (08:27)
[2024-09-04] MEDS: Magnesium Sulfate/H2O 2 GM/50 ML PIGGYBACK IV (08:27)
[2024-09-04] MEDS: Thiamine HCL 100 MG TABLET PO (08:27)
[2024-09-04] MEDS: 0.9 % Sodium Chloride Flush 3 ML SYRINGE IVFLUSH (08:28)
[2024-09-04] MEDS: Magnesium Oxide 400 MG TABLET 800 MG PO (08:28)
[2024-09-04] MEDS: Budesonide 180 MCG AER.POW.BA 1 PUFF INHALE (08:37)
--- NOTE | 2024-09-04 08:38 | PM.DS ---
DS: Providers Provider Date of Service: 09/04/24 Date of admission: 08/31/24 14:46 Date of discharge: 09/04/24 Primary care physician: Harry Vargas MD Consults: 08/31/24 14:51 Consult to Gastroenterology Routine Consulting Provider: Ryan Perez Reason for consultation: HRS, alcoholic cirrhosis, anemia for eval 08/31/24 15:24 Addiction Medicine Routine Consulting Provider: Addiction Covering Reason for consultation: Alcohol use disorder DS: Diagnosis Discharge Diagnosis (1) JANE (acute kidney injury): Status: Acute (2) Anemia: Status: Acute (3) Cirrhosis: Status: Acute (4) Thrombocytopenia: Status: Acute (5) Splenomegaly: Status: Acute DS: Summary Hospital Course Hospital Course: from initial hpi: 58 years old male with PMH of alcohol abuse, cirrhosis, HTN, asthma, HLD, depression among others who presents to the hospital with sudden onset left sided abdominal pain, increase abdominal girth and lower extremities swelling with jaundice. The patient reports drinking 6 pints of rum daily. he fell last week and was evaluated in ED with no reported injuries. Today he is coming back with left sided abd\rib pain with no injuries that he remember. Found to be jaundiced with abdominal distension and lower extremities swelling. Blood work showed elevated Bili at 11.5 w direct of 8.8, elevated INR, CR and low Albumin. Alcohol level >300. CT scan showing signs of cirrhosis with spleenomegaly and asictes and colonc submucosal thickening (chronic). Admitted for further evaluation and management. hospital course: Was admitted for acute alcoholic hepatitis with decompensated cirrhosis. He underwent paracentesis with albumin given, no signs of spontaneous bacterial peritonitis, started on Aldactone. He was started on prednisolone due to elevated Maddrey score. On discharge will continue prednisone 40 mg daily for another 3 weeks and then to taper. He will also follow up with Gastroenterology. Patient's liver function tests were trended on discharge bilirubin appears to have plateaued around 20, INR around 2. Course complicated by alcohol dependence with withdrawal was treated with phenobarbital protocol and withdrawal symptoms resolved. For chronic iron deficiency anemia hemoglobin remained stable did not require transfusion. For patient's left-sided abdominal pain was likely due to ascites and splenomegaly, ultrasound was negative for thrombosis. On admission patient was noted to have acute kidney injury which resolved. For acute hypokalemia was given replacement. Patient is feeling better eating well will be discharged home. Time Attestation Discharge Coordination Time (in mins): 32 Quality: Safe Use of Opioids Does Pt have an Active Cancer Diagnosis on the Problem List?: No Quality: Stroke Does the patient have a stroke diagnosis?: No Physical Exam Vital Signs: Vital Signs: Last Vital Signs Temp 98.2 F 09/04/24 07:46 Pulse 98 09/04/24 07:46 Resp 98 H 09/04/24 07:46 BP 119/62 09/04/24 07:46 Pulse Ox 92 09/04/24 07:46 O2 Del Method Room Air 09/04/24 07:46 BMI result Body Mass Index 33.2 General: AO X 3, no acute distress Resp: CTA bilateral, no accessory muscles used CVS: S1,S2,RRR GI: soft, non tender, non distended Neuro: motor grossly intact, alert Psych: appropriate affect, appropriate insight juandiced DS: Data Data Completed and Pending Completed studies during hospitalization [Text1]: Pending at discharge 09/01/24 15:22 Cytology [PTH] Stat Procedures Detoxification Services for Substance Abuse Treatment (06/19/23) Labs on day of discharge: Laboratory Results - last 24 hr 09/01/24 09/03/24 09/04/24 11:24 09:22 05:34 WBC 6.9 7.3 RBC 2.66 L 2.61 L Hgb 8.7 L 8.5 L Hct 24.4 L 24.0 L MCV 91.7 92.0 MCH 32.7 32.6 MCHC 35.7 35.4 RDW 19.9 H 19.5 H Plt Count 74 L 75 L MPV 11.2 11.4 Absolute Nucleated RBC 0.000 0.020 H Nucleated RBC % (auto) 0.0 0.3 H PT 23.0 H 24.9 H INR 2.0 H 2.1 H Sodium 132 L 130 L Potassium 3.7 3.9 Chloride 99 98 Carbon Dioxide 24 24 Anion Gap 13 12 BUN 10 10 Creatinine 0.72 0.64 Estim Creat Clear Calc 137.4 154.6 Estimated GFR > 60 > 60 Random Glucose 151 H 87 Calcium 8.5 8.6 Magnesium 1.3 L* 1.3 L* Total Bilirubin 21.6 H 20.5 H Direct Bilirubin 13.0 H 13.0 H AST 155 H 146 H ALT 21 23 Alkaline Phosphatase 73 75 Total Protein 7.4 7.3 Albumin 3.1 L 3.0 L Peritoneal Albumin 0.4 Preliminary micro results at discharge 08/31/24 16:31 Anaerobic Culture - Preliminary Ascites Fluid No growth to date. Discharge Plan Discharge Anticipated Discharge Date/Time: 09/04/24 08:31 Patient Disposition: Home, Self-Care Discharge Diagnosis: etoh hepatitis Referrals: Harry Vargas MD [Primary Care Provider] - 1 Week Ryan Perez MD [Physician] - 1 Week Discharge Medications: New spironolactone 25 mg Tablet 50 mg PO BID@0900,1800 Qty: 270 0RF Protocol: Hold for SBP< HOLD for SBP < : 90 prednisone 20 mg tablet 40 mg PO DAILY Qty: 42 0RF Rx Instructions: 40mg daily for 3 weeks, then follow up with GI for taper Continued albuterol sulfate [Ventolin HFA] 90 mcg/actuation HFA aerosol inhaler 2 puff inhalation Q6H PRN (Reason: shortness of breath or wheezing) 30 Days Qty: 18 5RF folic acid 1 mg tablet 1 mg PO DAILY 90 Days Qty: 90 3RF thiamine mononitrate (vit B1) 100 mg tablet 100 mg PO DAILY 90 Days Qty: 90 3RF Pulmicort Flexhaler 180 mcg/actuation aerosol powdr breath activated 1 inh INHALATION BID cholecalciferol (vitamin D3) [Vitamin D3] 50 mcg (2,000 unit) capsule 50 mcg PO DAILY 90 Days Qty: 90 3RF (DME) blood pressure monitor Kit See Rx Instructions .ROUTE .MEDSUPPLY Qty: 1 0RF Rx Instructions: As directed Discontinued lisinopril 5 mg tablet 5 mg PO DAILY 90 Days Qty: 90 1RF Discharge Orders: Discharge Order (Routine); Ordered 09/04/24 Ordered By: Carlo Pete Diet: Advance to usual diet Activity on Discharge: As tolerated Stand Alone Forms: Patient Portal Discharge page, Work/School Release Print Language: Spanish Care Plan Goals: recovery Health Concerns: etoh hepatitis Plan of Treatment: prednisone 40mg daily for now, then taper, follow up with GI no etoh start aldactone Assessment: see above
[2024-09-04 08:39] VITALS: PULSE 93; RESP 18; O2SAT 94
--- NOTE | 2024-09-04 08:39 | MHC.CM.PN ---
PT TO DC HOME TODAY WITH NO SERVICES VIA PRIVATE TRANSPORT
[2024-09-04 10:20] VITALS: BP 129/67; PULSE 85; RESP 18; TEMP 36.8; O2SAT 92
== END 2024-09-04 11:06 | disposition home or self-care (01) | DRG 280 ==
LOC: HO.ED 13:22 → HO.EDOVER 15:03 → HO.S3 09-01 14:23
PROVIDERS: Internal Medicine; Physician Assistant Surgical; Admitting Provider Student in an Organized Health Care Education/Training Program; Emergency Provider Emergency Medicine; PCP Internal Medicine; Visit Provider Internal Medicine
DX: K70.31 Alcoholic cirrhosis of liver with ascites (principal); K70.11 Alcoholic hepatitis with ascites; K76.7 Hepatorenal syndrome; N17.9 Acute kidney failure, unspecified; D68.4 Acquired coagulation factor deficiency; D73.2 Chronic congestive splenomegaly; D50.0 Iron deficiency anemia secondary to blood loss (chronic); F10.229 Alcohol dependence with intoxication, unspecified; E78.5 Hyperlipidemia, unspecified; I10 Essential (primary) hypertension; E87.6 Hypokalemia; F10.239 Alcohol dependence with withdrawal, unspecified; Y90.8 Blood alcohol level of 240 mg/100 ml or more; Z20.822 Contact with and (suspected) exposure to COVID-19; Z87.891 Personal history of nicotine dependence; Z79.899 Other long term (current) drug therapy
CPT/HCPCS: 0241U; 36415; 49083; 70450; 71046; 71260; 72125; 73564; 74177; 80048; 80053; 80076; 80143; 80307; 82042; 82140; 82248; 82272; 83540; 83690; 83735; 85025; 85027; 85610; 85730; 86704; 86706; 86709; 86803; 87070; 87073; 87205; 87340; 88112; 88305; 89051; 93005; 93975; 99285; J1940; J2003; J2354; J2405; J2470; J2560; J3411; J3430; J3475; P9047; Q9967; S9485

== ENCOUNTER → 2024-08-31 06:13 | Outpatient (BNV) | payer OTHER, SELFPAY | PROVIDERS: Emergency Provider Emergency Medicine; PCP Internal Medicine; Visit Provider Internal Medicine Cardiovascular Disease | DX: R06.02 Shortness of breath (principal); R94.31 Abnormal electrocardiogram [ECG] [EKG] | CPT/HCPCS: 93010 ==

== ENCOUNTER → 2024-08-31 06:40 | Outpatient (BNV) | payer OTHER, SELFPAY | PROVIDERS: PCP Internal Medicine; Visit Provider Radiology Diagnostic Radiology | DX: M25.561 Pain in right knee (principal); R06.02 Shortness of breath; R07.89 Other chest pain; R51.9 Headache, unspecified; M48.02 Spinal stenosis, cervical region; W01.198A Fall on same level from slipping, tripping and stumbling with subsequent striking against other object, initial encounter; R06.09 Other forms of dyspnea; K74.60 Unspecified cirrhosis of liver; R16.1 Splenomegaly, not elsewhere classified; K42.9 Umbilical hernia without obstruction or gangrene | CPT/HCPCS: 70450; 71046; 71260; 72125; 73564; 74177 ==

== ENCOUNTER 2024-08-31 14:46 | Outpatient (BNV) | payer OTHER, SELFPAY | END 2024-09-01 07:00 | PROVIDERS: Admitting Provider Student in an Organized Health Care Education/Training Program; Emergency Provider Emergency Medicine; PCP Internal Medicine; Visit Provider Radiology Diagnostic Radiology | DX: K74.60 Unspecified cirrhosis of liver (principal) | CPT/HCPCS: 93975 ==

== ENCOUNTER → 2024-08-31 14:46 | Outpatient (BNV) | payer OTHER, SELFPAY | PROVIDERS: Admitting Provider Student in an Organized Health Care Education/Training Program; Emergency Provider Emergency Medicine; PCP Internal Medicine; Visit Provider Student in an Organized Health Care Education/Training Program | DX: N17.9 Acute kidney failure, unspecified (principal); D64.9 Anemia, unspecified; K74.60 Unspecified cirrhosis of liver; D69.6 Thrombocytopenia, unspecified; R16.1 Splenomegaly, not elsewhere classified; K70.30 Alcoholic cirrhosis of liver without ascites | CPT/HCPCS: 99222; 99232 ==

== ENCOUNTER 2024-09-09 09:55 | Outpatient (AMB) | payer OTHER, SELFPAY ==
[2024-09-09 10:03] VITALS: BP 136/78; PULSE 91; TEMP 36.9; O2SAT 94; BMI 29.6
--- NOTE | 2024-09-09 10:03 | A.OFFPC_ITS ---
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 Accompanied by: Self / Same As Patient Allergies No Known Allergies [No Known Allergies*] Allergy (Verified 09/09/24 10:29) Medication List - Last Reconciled 09/09/24 by CUCA Wright blood pressure monitor As directed budesonide 180 mcg/actuation (Pulmicort Flexhaler) 1 inh inhalation BID cholecalciferol (vitamin D3) (Vitamin D3) 50 mcg PO DAILY 90 days folic acid 1 mg PO DAILY 90 days prednisone 40 mg (2 x 20 mg) PO DAILY spironolactone 50 mg See Protocol PO BID@0900,1800 thiamine mononitrate (vit B1) 100 mg PO DAILY 90 days Ventolin HFA 90 mcg/actuation (albuterol sulfate) 2 puffs inhalation Q6H PRN 30 days NS Tobacco use date assessed: 09/09/24 Dental Screening Dental Screen Date: 09/09/24 Did you have a dental visit in the last 12 months?: No Did you have a dental problem in the last 6 months where you did not have access to dental care?: No Was dental information given to patient?: No HPI [facility] [place] HPI Details The patient is 58 year old male with PMH of alcohol abuse, cirrhosis, HTN, asthma, HLD, depression, vitamin D deficiency. Patient of Dr. Vargas. He was last seen in the office on 06/04/24. The patient is presenting today for post [facility] [place] for decompensated Cirrhosis The patient went into the hospital with complaints of sudden onset of left sided abdominal pain, increased abdominal girth and lower extremities swelling with jaundice. The patient reported per hosp note that he is drinking 6 pints of rum daily. Blood work showed elevated Bili at 11.5 with diret of 8.8, elevated INR, CR and low Albumin. Alcohol level great than 300 CT scan showing sighns of cirrhosis with spleenomegaly and ascites and colon submucosal thickening The patient underwent paracentesis with albumin given. He was started on Aldactone. He was started on prednisone due to elevated Maddrey score. The patient hospital course was complicated by alcohol dependence with withdrawal was treated with phenobarbital protocol. His chronic iron deficiency anemia remained stable and the patient did not had to be transfused. His left sided abdominal pain was suspected to by due to ascites and splenomegaly. Ultrasound was negative for thrombosis The patient was discharged on spironolactone 25 mg BID and Prednisone 20 mg tablet: 40 mg daily for 3 weeks, then follow up with GI for taper. Lisinopril 5 mg daily was discontinued. The patient in office today accompanied by . The patient is jaundice in skin and sclera. His abdomen distended and he had pitting edema in the lower extremites The patient and endorse that he is looking much better. Reports that he was more swollen. The patient denies, sob, chest pain, heart palpitation, dizziness. He denies abdominal pain. He reports that he is constipated. Colace 100mg BID ordered. On exam: The patient was noted to have left nare small cut in left nostril with dried up blood in place-Mupirocin ointment ordered-discussed with patient that he could use a qtip to apply the ointment. Bilateral lower extremites with +2 pitting edema. He denies calf pain. [facility] Medical History Insomnia Vitamin D deficiency Impaired fasting glucose Benign essential hypertension Obesity (BMI 30-39.9) Overweight (BMI 25.0-29.9) Depression Anxiety Elevated liver enzymes Pure hypercholesterolemia Allergic rhinitis Asthma Surgical History No pertinent past surgical history Family History Father Medical history unknown Mother Ovarian cancer Brother No problems noted. Sister No problems noted. Sister In good health Social History Household Members: Family Housing: House Do you presently have visiting nurse or other home services: No Alcohol intake: current Alcohol intake frequency: a few times a week Alcohol type: beer Comment: ongoing patient declines bed alarm, enc to alert staff to needs Patient Tobacco Use Status: Former Tobacco user e-Cigarette/Vaping Use: Never Used Second Hand Smoke Exposure: No service: No Current occupational status: employed Current occupational exposures/hazards: No Cognitive needs: No Hearing needs: No Vision needs: No Questionnaire PHQ-9 Over the last 2 weeks, how often have you been bothered by any of the following problems? 1. Little interest or pleasure in doing things: not at all 2. Feeling down, depressed, or hopeless: not at all 3. Trouble falling or staying asleep, or sleeping too much: not at all 4. Feeling tired or having little energy: not at all 5. Poor appetite or overeating: not at all 6. Feeling bad about yourself - or that you are a failure or have let yourself or your family down: not at all 7. Trouble concentrating on things, such as reading the newspaper or watching television: not at all 8. Moving or speaking so slowly that other people could have noticed. Or the opposite - being so fidgety or restless that you have been moving around a lot more than usual: not at all 9. Thoughts that you would be better off or of hurting yourself in some way: not at all Total score: 0 Depression Screening Interpretation: Negative Depression Screening Done: Yes 72220 - PHQ-9 Billing: Yes Source: Developed by Drs. Ryan Spencer, Beatris Gupta, Ugo Fernandes and colleagues, with an educational sloane from [employer]. Thrive Questionnaire Date Thrive assessed: 09/09/24 I am a: Patient What is your living situation today?: I have a steady place to live Within the past 12 months, did the food you bought not last and you didn't have the money to get more?: Never true Within the past 12 months, did you worry whether your food would run out before you got money to buy more?: Never true Do you have trouble paying for medicines?: No Do you have trouble getting transportation to medical appointments?: No Do you have trouble paying your heating and electricity bill?: No Do you have trouble taking care of your child, family member or friend?: No Do you have trouble with day-to-day activities such as bathing, preparing meals, shopping, managing finances, etc.?: No Are you currently unemployed and looking for a job?: No Are you interested in more education?: No Please select the resources that you would like help with: None Currently or been in a relationship where the following occur: No concerns reported THRIVE Score: 0 AUDIT C Alcohol Use Questionnaire (AUDIT-C) 1. How often do you have a drink containing alcohol?: Never 2. How many drinks containing alcohol do you have on a typical day when you are drinking?: 1 or 2 3. How often do you have six or more drinks on one occasion?: Never Total Score: 0 Score Reviewed/Action Taken: Yes TAMIKO-7 AMB Questionnaire TAMIKO-7 Date TAMIKO - 7 assessed: 09/09/24 Feeling nervous, anxious, or on edge: 0 = Not at all Not being able to stop or control worryin = Not at all Worrying too much about different things: 0 = Not at all Trouble relaxin = Not at all Being so restless that it is hard to sit still: 0 = Not at all Becoming easily annoyed or irritable: 0 = Not at all Feeling afraid as if something awful might happen: 0 = Not at all Total TAMIKO-7 score (0-4 normal; 5-9 mild; 10-14 moderate; 15-21 severe): 0 Source: Developed by Drs. Ryan Spencer, Beatris Gupta, Ugo Fernandes and colleagues, with an educational sloane from [employer]. TAMIKO-7 Assessment Billing TAMIKO-7 Assessment Tool: TAMIKO-7 Assessment 45952 Review of Systems Const Details: Denies chills, +fatigue, Denies fever(s), Denies headache(s) and + weakness HEENT Denies change in vision, Denies dizziness, Denies headache(s), Denies hearing loss, Denies nasal congestion, Denies sinus pain, Denies sinus pressure and Denies sore throat Card Denies chest pain, Denies lightheadedness, Denies dyspnea and Denies other (palpitations) Resp Denies cough, Denies dyspnea and Denies wheezing GI Denies abdominal pain, Denies melena, Denies hematochezia, Denies change in bowel habits, Denies dyspepsia and Denies nausea Denies hematuria and Denies dysuria Musc Denies abnormal gait, Denies myalgias, Denies arthralgias, Denies numbness and Denies tingling Skin/Breast Denies rash, Denies unusual bruising and Denies wounds Neuro Denies abnormal gait, Denies dizziness, Denies headache(s), Denies memory loss, Denies numbness, Denies Sensory deficit (Neuro), Denies tingling and Denies weakness Psych Denies anxiety, Denies depression and Denies memory loss Endo Denies cold intolerance, Denies fatigue, Denies heat intolerance, Denies polydipsia and Denies polyuria Ag/Lymph Denies easy bleeding and Denies easy bruising Aller/Immun Denies wheezing Physical exam (Primary Care) Vital Signs: Last Vital Signs Temp 98.4 F 09/09/24 10:03 Pulse 91 09/09/24 10:03 BP 136/78 09/09/24 10:03 Pulse Ox 94 09/09/24 10:03 Oxygen Delivery Method Room Air 09/09/24 10:03 BMI result Body Mass Index 29.6 Tobacco/Smoking Status: Tobacco use Status Tobacco use date assessed 09/09/24 09/09/24 10:12 Patient Tobacco Use Status Former Tobacco user 09/09/24 10:12 e-Cigarette/Vaping Use Never Used 09/09/24 10:12 PHQ-9: PHQ-9 Score PHQ-9: Total score 0 09/09/24 10:43 Depression Screening Interpretation: Negative Thrive Assessment: Date of Thrive Assessment Date Thrive assessed 09/09/24 09/09/24 10:12 Currently or been in a relationship where the following occur: No concerns reported Const Other: General: no acute distress, well developed, alert and awake Nutritional Appearance: well nourished Orientation/consciousness: patient oriented x3 HENMT Head: Yes normocephalic and Yes atraumatic Ears: hearing grossly normal bilaterally and TM's normal bilaterally General nose exam: Normal external nose present. Left nare small cut and dried up blood Mouth: Normal oral and palatal mucosa present and moist mucous membranes Teeth and gingiva: dentition normal Throat: Yes oropharynx normal Eyes Pupils: Equal, round and reactive pupils present and Pupil accommodation reflex normal EOM: EOMs intact bilaterally +scleara jaundice in both eyes Neck Neck: Yes normal visual inspection, Yes no lymphadenopathy and Yes trachea midline Thyroid: Thyroid normal Carotids: no bruits Lymphatic: no lymphadenopathy noted Chest Chest palpation & inspection: normal inspection of the chest Resp Effort & Inspection: normal respiratory effort Auscultation: clear to auscultation bilaterally Cardio Rate: regular rate Rhythm: regular rhythm Heart sounds: S1 normal heart sound present, S2 normal heart sound present, no gallops, no murmurs and no rubs Bruits: no abdominal aortic bruits and no carotid bruits GI Palpation (GI): No Abdominal aortic bruit present, Soft to palpation, nontender, No hepatosplenomegaly present and No Rebound tenderness present Auscultation: normal bowel sounds General: Yes no CVA tenderness Back/Spine/Pelvis Back: no CVA tenderness Cervical Spine: cervical ROM normal and No Cervical spine tenderness Thoracic/Lumbar Spine: thoraco-lumbar ROM normal, No pain with thoraco-lumbar ROM, No thoracic spinal tenderness and No lumbar spinal tenderness Skin General: warm and dry.+jaundice. skin tenting Lesions: no lesions Rashes: no rashes Nails: normal Neuro General: patient oriented x3, gait normal Cranial nerves: Yes Equal, round and reactive pupils present Cognition (Neuro): normal cognition Gait exam (Neuro): Normal gait present Extrem General: +2 pitting edema and No calf tenderness Psych Appearance: grossly normal Affect: normal affect Attitude: cooperative Thought process: Normal thought process present Coding Level of Care Code Est Pt Level 4 (79962) Diagnoses Alcoholic cirrhosis of liver without ascites K70.30 Hepatic cirrhosis type: alcoholic cirrhosis Ascites presence: without ascites Splenomegaly R16.1 Thrombocytopenia D69.6 Iron deficiency anemia, unspecified iron deficiency anemia type D50.9 Anemia type: iron deficiency Iron deficiency anemia type: unspecified iron deficiency JANE (acute kidney injury) N17.9 Abrasion of nose, initial encounter S00.31XA Encounter type: initial encounter Additional Codes PHQ-9 - 44965 - PHQ-9 Billing: Yes ([id number]) TAMIKO-7 Assessment Billing - TAMIKO-7 Assessment Tool: TAMIKO-7 Assessment 70810 ([id number]) Time Spent (min) 36 Assessment & Plan Assessment & Plan (1) Liver cirrhosis: Code(s): K74.60 - Unspecified cirrhosis of liver Category: Medical Qualifiers: Hepatic cirrhosis type: alcoholic cirrhosis Ascites presence: without ascites Qualified Code(s): K70.30 - Alcoholic cirrhosis of liver without a scites Plan: The patient underwent paracentesis with albumin given, no signs of spontaneous bacterial peritonitis, started on Aldactone. He was started on prednisone due to elevated Maddrey score. He was discharged on prednisone 40mg x3 weeks and the patient to follow up with GI for tapering of the prednisone after the 3 weeks. (2) Splenomegaly: Code(s): R16.1 - Splenomegaly, not elsewhere classified Category: Medical Plan: The patient initially left abdominal pain was suspected to be due to ascites and splenomegaly, ultrasound was negative for thrombosis (3) Thrombocytopenia: Code(s): D69.6 - Thrombocytopenia, unspecified Category: Medical Plan: platelets remains in the mid 70s will continue to monitor Educated the patient on his bleeding risk, small cut noted to left nostril discouraged the patient from picking his nose (4) Anemia: Code(s): D64.9 - Anemia, unspecified Category: Medical Qualifiers: Anemia type: iron deficiency Iron deficiency anemia type: unspecified iron deficiency Qualified Code(s): D50.9 - Iron deficiency anemia, unspecified Plan: Hemoglobin remained stable did not require any transfusion in the hospital (5) JANE (acute kidney injury): Code(s): N17.9 - Acute kidney failure, unspecified Category: Medical Plan: The patient was noted to have JANE on admission to the hospital which resolved. Hypokalemia was given replacement (6) Nose abrasion: Code(s): S00.31XA - Abrasion of nose, initial encounter Category: Medical Qualifiers: Encounter type: initial encounter Qualified Code(s): S00.31XA - Abrasion of nose, initial encounter Plan: Left nostril with small abraded area. Mupirocin ointment ordered. Explained to patient that he could use a Qtip to appy the oinment. Plan The patient has a follow up appt on 10/08/24-Discussed with patient to keep this appt and to complete the labs prior to the appt Medications: New mupirocin 2% 1 appl topical BID 22 grams 0RF docusate sodium (Colace) 100 mg PO BID 60 caps 2RF
--- OUTSIDE RECORDS SUMMARY | 2024-09-09 10:19 | XMS_ITS | Patient Health Record ---
Author Organization [facility] Address [address] [place] [address] Care Team Providers Care Prescription Clerk Lenses Name Role Phone Sam MOYER, Harry Primary Care Provider Ryan Rich Unavailable [phone] Levy Goyal Jr Unavailable [phone] RESULTS Component Value Reference Range Notes Cell Ct wDiff Peritoneal FL Reviewed date:08/31/2024 07:19:32 PM Interpretation: Performing Lab:[facility], [address] [place] [phone] Notes/Report: WBC Peritoneal Fluid 0.123 Body Fluid WBC is a total nucleated cell count. When a differential is performed, the specimen is concentrated by cytocentrifugation. This sometimes results in the number of cells in the differential being greater than the actual cell count performed on the non-concentrated specimen. RBC Peritoneal Fluid < 0.002 The reference interval(s) and other method performance specifications are unavailable for this body fluid. Comparison of the result with concentration in the blood, serum, or plasma is recommended. Neutrophils Peritoneal Fluid 2 Lymphocyte Peritoneal Fl 4 Monocytes Peritoneal Fl 20 Other Peritioneal Fl 74 Albumin Peritoneal Fluid Reviewed date:09/01/2024 09:26:49 AM Interpretation: Performing Lab:[facility], [address] [place] [phone] Notes/Report: Albumin Peritoneal Fluid 0.4 UNITS: GM/DL The reference range and other method performance specifications have not been established for this body fluid. The test result must be integrated into the clinical context for interpretation. Performing Labs: [facility], [address] [place] [id number] Dir: Nicolas Silverman MD CLIA# [id number] For inquiries, the physician may contact Branch: [phone] Lab: [phone] Gram stain Reviewed date:09/06/2024 03:44:57 PM Interpretation: Performing Lab:[facility], [address] [place] [phone] Notes/Report: Gram stain Gram stain results: Gram stain No polys Gram stain No organisms seen Routine Culture Reviewed date:09/06/2024 03:45:14 PM Interpretation: Performing Lab:[facility], [address] [place] [phone] Notes/Report: Routine Culture No growth after 2 days Anaerobic Culture Reviewed date:09/06/2024 04:10:09 PM Interpretation: Performing Lab:[facility], [address] [place] [phone] Notes/Report: Anaerobic Culture NO GROWTH AFTER 5 DAYS Prothrombin Time INR Reviewed date:09/01/2024 07:29:40 AM Interpretation: Performing Lab:[facility], [address] [place] [phone] Notes/Report: Prothrombin Time 18.4 10.9-12.4 SEC INTERNATIONAL NORM RATIO 1.6 0.9-1.1 INTERNATIONAL NORMALIZED RATIO (INR) REFERENCE RANGES Reference Range For patients not on anticoagulant therapy: 0.9 - 1.1 INR ranges for oral anticoagulant therapy: For prevention and treatment of venous thrombosis and pulmonary embolism: 2.0 - 3.0 For acute myocardial infarction with aspirin therapy: 2.0 - 3.0 For acute myocardial infarction without aspirin therapy: 3.0 - 4.0 For patients with mechanical prosthetic heart valves: 2.5 - 3.5 Ammonia Reviewed date:09/01/2024 07:29:32 AM Interpretation: Performing Lab:[facility], [address] [place] [phone] Notes/Report: Ammonia 52 13-55 umol/L Pathology Reviewed date:09/04/2024 07:58:00 PM Interpretation: Performing Lab:[facility], [address] [place] [phone] Notes/Report: US duplex arterial venous co mp Reviewed date:09/01/2024 03:54:35 PM Interpretation: Performing Lab: Notes/Report: [address] [address] Ultrasound Report Signed Patient: Jerome Garrido MR#: [id number] 9 : 1965 Acct:[id number] Age/Sex: 58 / M ADM Date: 08/31/24 Loc: [place] [address]: Sheryl Lim MD Ordering Physician: Ryan Perez MD Date of Service: 09/01/24 Procedure(s): US duplex arterial venous comp Accession Number(s): [id number] cc: Harry Vargas MD; Ryan Perez MD EXAMINATION: US RENAL WITH DOPPLER CLINICAL INFORMATION: Cirrhosis. Ascites. Concerning portal venous thrombosis. COMPARISON: None available. TECHNIQUE: Ultrasound along with color Doppler imaging and spectral analysis was performed of the portal veins, hepatic veins and the hepatic arteries. FINDINGS: The main portal veins, right and left portal veins are patent with hepatopedal flow direction. Peak systolic velocity approximately 20 cm/s. The main hepatic veins are patent with normal hepatofugal flow direction. The hepatic artery is patent with antegrade flow and peak systolic velocity: 126 cm/s. Ascites, no fully evaluated. US/US duplex arterial venous comp IMPRESSION: Normal patency and flow directions of the interrogated vessels. Electronically signed by: Kevin Vora MD 09/01/2024 02:06 PM [facility] Dictated By: Kevin Ramirez MD Signed By: <Electronically signed by Kevin Chan MD in OV> 09/01/24 1406 DD/ 1238 TD/TT: 09/01/24 1254 Ice Guard Tester: Prothrombin Time INR Reviewed date:09/02/2024 02:19:12 PM Interpretation: Performing Lab:[facility], [address] [place] [phone] Notes/Report: Jessica LYON 0602 09/02/24 Prothrombin Time 21.9 10.9-12.4 SEC INTERNATIONAL NORM RATIO 1.9 0.9-1.1 INTERNATIONAL NORMALIZED RATIO (INR) REFERENCE RANGES Reference Range For patients not on anticoagulant therapy: 0.9 - 1.1 INR ranges for oral anticoagulant therapy: For prevention and treatment of venous thrombosis and pulmonary embolism: 2.0 - 3.0 For acute myocardial infarction with aspirin therapy: 2.0 - 3.0 For acute myocardial infarction without aspirin therapy: 3.0 - 4.0 For patients with mechanical prosthetic heart valves: 2.5 - 3.5 REASON FOR REFERRAL No Information SOCIAL HISTORY Sex Assigned At : Social History Observation Description Sex Assigned At Unknown PROBLEMS Problem Type ICD Code Onset Dates Problem Status W/U Status Risk SNOMED Code Notes Problem Cirrhosis (K74.60) Active confirmed Cirrhotic (942018713) Encounters Encounter Location Date Provider Diagnosis [facility] [address] [place] [phone] 11/22/2023 Ryan Perez [facility] [address] [place] [phone] 10/28/2023 Levy Goyal Jr [facility] [address] [place] [phone] 11/22/2023 Ryan Perez PLAN OF TREATMENT No Information Insurance Providers Payer Name Payer Address Payer Phone Subscriber Number Group Number Insured Name Patient Relationship to Insured Coverage Start Date Coverage End Date [facility] [address] [address] [place], [place] [id number] JEROME GARRIDO Self - patient is the insured
--- OUTSIDE RECORDS SUMMARY | 2024-09-09 10:20 | XMS_ITS ---
Author Organization [facility] Address [address] [place] [address] Care Team Providers Care Retail Analytics Manager Name Role Phone Sam MOYER, [place] Primary Care Provider Unava ilable Ryan Perez Unavailable [phone] Levy Goyal Jr Unavailable REASON FOR VISIT new insurance? Encounters Encounter Location Date Provider Diagnosis [facility] [address] [place] [phone] 10/28/2023 Levy Goyal Jr PLAN OF TREATMENT No Information
--- OUTSIDE RECORDS SUMMARY | 2024-09-09 10:20 | XMS_ITS ---
Author Organization [facility] Address [address] [place] [phone] Care Team Providers Care Brick Maker Name Role Phone Sam MOYER, Harry Primary Care Provider Unava ilable Ryan Perez Unavailable [phone] REASON FOR VISIT New pt no show Encounters Encounter Location Date Provider Diagnosis [facility] [address] [place] [phone] 11/22/2023 Ryan Perez PLAN OF TREATMENT No Information
--- OUTSIDE RECORDS SUMMARY | 2024-09-09 10:20 | XMS_ITS | Clinical Summary ---
Author Organization [facility] Address [address] [place] [address] Care Team Providers Care Singing Waiter Or Waitress Name Role Phone Unavailable Primary Care Provider [...] of 3 - 19+ 3-dose series) 1985 Pneumococcal Vaccine: 50+ Ye ars (1 of 1 - PCV) 2016 Zoster Vaccines (1 of 2) 2016 COVID-19 [...] patient's age to complete this topic Meningococcal B Vacine Aged Out No lo nger eligible based on patient's age to complete [...]
--- OUTSIDE RECORDS SUMMARY | 2024-09-09 10:20 | XMS_ITS ---
Author Organization [facility] Address [address] [place] [phone] Care Team Providers Care Estate Planning Director Name Role Phone Sam MOYER, [place] Primary Care Provider Unava ilable Ryan Perez [phone] REASON FOR VISIT Patient presents today for cirrhosis, gastroenteritis and colitis Encounters Encounter Location Date Provider Diagnosis [facility] [address] [place] [phone] 11/22/2023 Ryan Perez PLAN OF TREATMENT No Information
== END 2024-09-09 10:51 | disposition home or self-care (01) ==
PROVIDERS: PCP Internal Medicine
DX: K70.30 Alcoholic cirrhosis of liver without ascites (principal); R16.1 Splenomegaly, not elsewhere classified; D69.6 Thrombocytopenia, unspecified; D50.9 Iron deficiency anemia, unspecified; N17.9 Acute kidney failure, unspecified; S00.31XA Abrasion of nose, initial encounter

== ENCOUNTER → 2024-09-09 09:55 | Outpatient (BNVA) | payer OTHER, SELFPAY | PROVIDERS: PCP Internal Medicine | DX: K70.30 Alcoholic cirrhosis of liver without ascites (principal); R16.1 Splenomegaly, not elsewhere classified; D69.6 Thrombocytopenia, unspecified; D50.9 Iron deficiency anemia, unspecified; N17.9 Acute kidney failure, unspecified; S00.31XD Abrasion of nose, subsequent encounter | CPT/HCPCS: 96127; 99212 ==

== ENCOUNTER 2024-10-08 10:16 | Outpatient (REF) | payer OTHER, SELFPAY ==
[2024-10-08 12:04] LABS: Basophils Absolute Auto 0.1 X10*3/uL (0.0-0.2); Basophils Percent Auto 1.2 % (0-2); Eosinophils Absolute Auto 0.2 X10*3/uL (0.0-0.4); Eosinophils Percent Auto 2.4 % (0-4); Hematocrit 32.7 % (42.0-52.0); Hemoglobin 10.8 g/dl (14.0-18.0); Imm Gran Abs Auto 0.11 X10*3/uL (0.00-0.03); Imm Gran Pct Auto 1.5 % (0.0-0.4); Lymphocytes Absolute Auto 2.2 X10*3/uL (1.2-4.9); Lymphocytes Percent Auto 28.7 % (20-40); MANUAL DIFF FLAG SCAN; Mean Corpuscular Hemoglobin 32.5 pg (27.0-33.0); Mean Corpuscular Volume 98.5 fL (80.0-98.0); Mean Platelet Volume 11.1 fL (9.4-12.4); Monocytes Absolute Auto 1.9 X10*3/uL (0.1-1.2); Monocytes Percent Auto 24.9 % (2-11); Neutrophils Absolute Auto 3.1 x10*3/uL (2.0-8.3); Neutrophils Percent Auto 41.3 % (45-73); Platelet Count 135 X10*3/uL (160-400); Red Blood Count 3.32 X10*6/uL (4.60-5.80); Red Cell Distribution Width 15.3 % (11.0-16.0); SCAN SMEAR FLAG 1; White Blood Count 7.5 X10*3/uL (4.8-10.8)
[2024-10-08 12:43] LABS: Alanine Aminotransferase 40 U/L (0-40); Albumin Level 2.8 g/dL (3.5-5.0); Alkaline Phosphatase 77 U/L (39-117); Anion Gap 8 (12-20); Aspartate Amino Transferase 88 U/L (5-37); Bilirubin Total 6.1 mg/dL (0.0-1.0); Blood Urea Nitrogen 10 mg/dL (9-16); Calcium 8.8 mg/dL (8.4-10.2); Carbon Dioxide 25 mmol/L (22-29); Chloride 104 mmol/L (96-108); Estimated Glomerular Filt Rate > 60; Glucose Random 77 mg/dL (60-115); Iron 103 mcg/dL (45-160); Magnesium 1.7 mg/dL (1.6-2.6); Percent Iron Saturation 80 % (15-50); Potassium 4.1 mmol/L (3.3-5.1); Sodium 133 mmol/L (135-145); Total Iron Binding Capacity 128 mcg/dL (228-428); Total Protein 8.4 g/dL (6.5-8.0); Unsaturated Iron Binding < 25 ug/dL
[2024-10-08 12:50] LABS: TSH reflex Free T4 1.95 uIU/mL (0.32-4.0); Vitamin D 25-OH Total 14.9 ng/mL (>30)
[2024-10-08 13:15] LABS: SLIDE REVIEW VERIFIED
[2024-10-08 13:33] LABS: Folate 13.5 ng/mL (> or = 4.0); Vitamin B12 1140 pg/mL (200-900)
[2024-10-08 13:52] LABS: Appearance Urine Clear; Color Urine Dark Yellow; Glucose Urine UA Negative (Negative); Leukocyte Esterase Urine Negative (Negative); Nitrite Urine Negative (Negative); PH 6.5 (5.0-9.0); Urine Blood Negative (Negative); Urine Ketones Negative (Negative); Urine Protein Negative (Neg-Trace)
[2024-10-14 15:54] LABS: FIB-ALT 34 U/L (9-46); FIB-Alpha-2-Macroglobulin 222 mg/dL (106-279); FIB-Apolipoprotein A1 116 mg/dL (94-176); FIB-GGT 77 U/L (3-85); FIB-Haptoglobin <8 mg/dL (43-212); FIB-Total Bilirubin 6.3 mg/dL (0.2-1.2); Liver Fibrosis Score 0.97; Liver Fibrosis Stage F4; Nec Inflam Act Grade A1-A2; Nec Inflam Act Score 0.37
[2024-10-16 14:33] LABS: Vitamin B1 64 nmol/L (8-30)
== END 2024-10-08 10:17 | disposition home or self-care (01) ==
LOC: HO.LAB 10:16
PROVIDERS: PCP Internal Medicine; Visit Provider Internal Medicine
DX: Z00.00 Encounter for general adult medical examination without abnormal findings (principal); K70.30 Alcoholic cirrhosis of liver without ascites; K70.11 Alcoholic hepatitis with ascites; D50.9 Iron deficiency anemia, unspecified; D69.6 Thrombocytopenia, unspecified; R16.1 Splenomegaly, not elsewhere classified; R74.8 Abnormal levels of other serum enzymes; F10.90 Alcohol use, unspecified, uncomplicated; E78.00 Pure hypercholesterolemia, unspecified; I10 Essential (primary) hypertension; E55.9 Vitamin D deficiency, unspecified; E83.42 Hypomagnesemia; J45.40 Moderate persistent asthma, uncomplicated; G47.00 Insomnia, unspecified; F41.9 Anxiety disorder, unspecified; F33.40 Major depressive disorder, recurrent, in remission, unspecified; E66.3 Overweight; R30.0 Dysuria; Z79.899 Other long term (current) drug therapy
CPT/HCPCS: 36415; 80053; 81003; 81596; 82306; 82607; 82746; 83540; 83735; 84425; 84443; 85025; 96127; 99396

== ENCOUNTER 2024-10-08 10:16 | Outpatient (AMB) | payer OTHER, SELFPAY ==
[2024-10-08 10:19] VITALS: BP 132/66; PULSE 89; O2SAT 97; BMI 29.0
--- NOTE | 2024-10-08 10:19 | MHC.PC.OV ---
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 Required: No Accompanied by: Self / Same As Patient Allergies No Known Allergies [No Known Allergies*] Allergy (Verified 10/08/24 10:46) Medication List - Last Reconciled 10/08/24 by Harry Vargas MD blood pressure monitor As directed budesonide 180 mcg/actuation (Pulmicort Flexhaler) 1 inh inhalation BID cholecalciferol (vitamin D3) (Vitamin D3) 50 mcg PO DAILY 90 days docusate sodium (Colace) 100 mg PO BID folic acid 1 mg PO DAILY 90 days mupirocin 2% 1 appl topical BID prednisone 40 mg (2 x 20 mg) PO DAILY spironolactone 50 mg See Protocol PO BID@0900,1800 thiamine mononitrate (vit B1) 100 mg PO DAILY 90 days Ventolin HFA 90 mcg/actuation (albuterol sulfate) 2 puffs inhalation Q6H PRN 30 days NS Tobacco use date assessed: 10/08/24 Dental Screening Dental Screen Date: 10/08/24 Did you have a dental visit in the last 12 months?: No Did you have a dental problem in the last 6 months where you did not have access to dental care?: No Was dental information given to patient?: No HPI pe HPI Details Patient comes in today for his annual physical examination He was recently admitted to [facility] last month for acute alcoholic hepatitis with decompensated cirrhosis after he went to the emergency room with acute left-sided abdominal pain, increased abdominal girth and lower extremity swelling with jaundice Workups done revealed cirrhosis with splenomegaly and ascites seen on abdominal CT He underwent paracentesis and was given some albumin infusion He was started as well on Aldactone and on oral Prednisone due to an elevated Maddrey score His overall condition gradually improved with medical management and he was eventually discharged home after few days with instructions to follow-up with GI and with his PCP KUNAL Patient states that they tried reaching out to Dr. Perez's office to schedule a follow-up appointment a couple of weeks ago and was advised that he will need to get a referral from his PCP Patient states that he currently feels okay and has not had another drop of alcohol to drink since he was admitted last month and he resolves to continue to stay sober He denies any headaches or dizziness; denies any fever Denies any chest pains, no increased shortness of breath No nausea/vomiting and he has not had any further episodes of abdominal pain since his discharge from the hospital last month No change in bowel habits noted He denies any acute urinary symptoms He has never had a screening colonoscopy done in the past and was recommended by Dr. Goyal to contact his office and schedule an appointment for a screening colonoscopy as well as possibly an upper endoscopy back in June 2023 but patient never did get to this [facility] Medical History (Updated 10/09/24 @ 03:42 by Harry Vargas MD) Hypomagnesemia Liver cirrhosis Splenomegaly Thrombocytopenia Insomnia Vitamin D deficiency Impaired fasting glucose Benign essential hypertension Overweight (BMI 25.0-29.9) Depression Anxiety Elevated liver enzymes Pure hypercholesterolemia Allergic rhinitis Asthma Surgical History No pertinent past surgical history Family History Father Medical history unknown Mother Ovarian cancer Brother No problems noted. Sister No problems noted. Sister In good health Social History Household Members: Family Housing: House Do you presently have visiting nurse or other home services: No Alcohol intake: current Alcohol intake frequency: a few times a week Alcohol type: beer Comment: ongoing patient declines bed alarm, enc to alert staff to needs Patient Tobacco Use Status: Former Tobacco user e-Cigarette/Vaping Use: Never Used Second Hand Smoke Exposure: No service: No Current occupational status: employed Current occupational exposures/hazards: No Cognitive needs: No Hearing needs: No Vision needs: No Questionnaire PHQ-9 Over the last 2 weeks, how often have you been bothered by any of the following problems? 1. Little interest or pleasure in doing things: several days 2. Feeling down, depressed, or hopeless: several days 3. Trouble falling or staying asleep, or sleeping too much: not at all 4. Feeling tired or having little energy: not at all 5. Poor appetite or overeating: not at all 6. Feeling bad about yourself - or that you are a failure or have let yourself or your family down: not at all 7. Trouble concentrating on things, such as reading the newspaper or watching television: not at all 8. Moving or speaking so slowly that other people could have noticed. Or the opposite - being so fidgety or restless that you have been moving around a lot more than usual: not at all 9. Thoughts that you would be better off or of hurting yourself in some way: not at all Total score: 2 Depression Screening Interpretation: Negative Depression Screening Done: Yes 71223 - PHQ-9 Billing: Yes Source: Developed by Drs. Ryan Spencer, Beatris Gupta, Ugo Fernandes and colleagues, with an educational sloane from [employer]. Thrive Questionnaire Date Thrive assessed: 10/08/24 I am a: Patient What is your living situation today?: I have a steady place to live Within the past 12 months, did the food you bought not last and you didn't have the money to get more?: I choose not to answer this question Within the past 12 months, did you worry whether your food would run out before you got money to buy more?: I choose not to answer this question Do you have trouble paying for medicines?: I choose not to answer this question Do you have trouble getting transportation to medical appointments?: I choose not to answer this question Do you have trouble paying your heating and electricity bill?: I choose not to answer this question Do you have trouble taking care of your child, family member or friend?: I choose not to answer this question Do you have trouble with day-to-day activities such as bathing, preparing meals, shopping, managing finances, etc.?: I choose not to answer this question Are you currently unemployed and looking for a job?: No Are you interested in more education?: No Please select the resources that you would like help with: None Currently or been in a relationship where the following occur: I choose not to answer THRIVE Score: 0 AUDIT C Alcohol Use Questionnaire (AUDIT-C) 1. How often do you have a drink containing alcohol?: Never 3. How often do you have six or more drinks on one occasion?: Never Total Score: 0 Score Reviewed/Action Taken: Yes TAMIKO-7 AMB Questionnaire TAMIKO-7 Date TAMIKO - 7 assessed: 10/08/24 Feeling nervous, anxious, or on edge: 1 = Several days Not being able to stop or control worryin = Several days Worrying too much about different things: 1 = Several days Trouble relaxin = Several days Being so restless that it is hard to sit still: 1 = Several days Becoming easily annoyed or irritable: 1 = Several days Feeling afraid as if something awful might happen: 1 = Several days Total TAMIKO-7 score (0-4 normal; 5-9 mild; 10-14 moderate; 15-21 severe): 7 Source: Developed by Drs. Ryan Spencer, Beatris Gupta, Ugo Fernandes and colleagues, with an educational sloane from [employer]. Review of Systems Const Denies chills, Reports fatigue, Denies fever(s), Denies headache(s), Denies malaise and Denies weakness Eyes Denies blurry vision, Denies change in vision, Denies irritation and Denies itchy eyes ENT Denies dysphagia, Denies dizziness, Denies otalgia, Denies headache(s), Denies nasal congestion, Denies neck pain, Denies odynophagia and Denies sore throat Card Denies chest pain, Denies rapid heart rate, Denies irregular heart rhythm, Denies palpitations and Denies dyspnea Resp Denies chest congestion, Denies cough, Denies dyspnea and Denies wheezing GI Denies abdominal pain, Reports bloating, Denies constipation, Denies dysphagia, Denies heartburn, Denies diarrhea, Denies nausea, Denies odynophagia and Denies vomiting Denies hematuria, Denies difficulty urinating, Denies dysuria, Reports urinary frequency (he is currently on oral diuretics) and Denies urinary urgency Musc Reports back pain (at times), Denies arthralgias, Denies joint swelling, Denies muscle weakness and Denies neck pain Skin/Breast Reports change in pigmentation, Denies lesions, Denies rash and Denies unusual bruising Neuro Denies dizziness, Denies headache(s), Denies paresthesias and Denies weakness Endo Reports fatigue and Denies palpitations Aller/Immun Denies itchy eyes and Denies wheezing Physical exam (Primary Care) Vital Signs: Last Vital Signs Pulse 89 10/08/24 10:19 BP 132/66 10/08/24 10:19 Pulse Ox 97 10/08/24 10:19 Oxygen Delivery Method Room Air 10/08/24 10:19 BMI result Body Mass Index 29.0 Tobacco/Smoking Status: Tobacco use Status Tobacco use date assessed 10/08/24 10/08/24 10:27 Patient Tobacco Use Status Former Tobacco user 10/08/24 10:27 e-Cigarette/Vaping Use Never Used 10/08/24 10:27 PHQ-9: PHQ-9 Score PHQ-9: Total score 2 10/08/24 10:47 Depression Screening Interpretation: Negative Thrive Assessment: Date of Thrive Assessment Date Thrive assessed 10/08/24 10/08/24 10:27 Currently or been in a relationship where the following occur: I choose not to answer Const General: no acute distress, alert and awake Orientation/consciousness: patient oriented x3 HENMT Head: Yes normocephalic and Yes atraumatic Ears: external ears normal, TM's normal bilaterally and EAC's normal General nose exam: No nasal discharge present Face and sinus: Yes normal facial exam and Yes sinuses nontender Teeth and gingiva: dentition normal Throat: Yes posterior oropharynx normal and Yes tonsils normal (no TP congestion) Eyes Eyelids: Yes eyelids normal Conjunctivae: conjunctival abnormal bilateral conjunctival icterus Pupils: Equal, round and reactive pupils present EOM: EOMs intact bilaterally Neck Neck: Yes supple and No lymphadenopathy Thyroid: Thyroid normal Resp Auscultation: clear to auscultation bilaterally, no rales and no wheezes Cardio Rate: regular rate Rhythm: regular rhythm Heart sounds: no murmurs GI Palpation (GI): Soft to palpation, nontender, no guarding, not rigid and Hepatosplenomegaly present Percussion: Yes dullness to percussion (mild) Auscultation: normal bowel sounds General: Yes no CVA tenderness Back/Spine/Pelvis Back: no CVA tenderness Thoracic/Lumbar Spine: No lumbar spinal tenderness Skin General skin exam: spider nevi (scattered over both lower extremities) Rashes: no rashes Neuro General: patient oriented x3, moves all extremities, no focal motor deficits and CN's II-XI intact bilaterally Cranial nerves: Yes Equal, round and reactive pupils present Cognition (Neuro): normal cognition Gait exam (Neuro): Normal gait present Extrem General: No clubbing, No cyanosis and Yes edema (2+ over both lower extremities) Results Reviewed Results Reviewed: Laboratory Tests 09/04/24 05:34 WBC 7.3 Hgb 8.5 L Hct 24.0 L Plt Count 75 L Sodium 130 L Potassium 3.9 Creatinine 0.64 Estimated GFR > 60 Random Glucose 87 Calcium 8.6 Magnesium 1.3 L* Total Bilirubin 20.5 H Direct Bilirubin 13.0 H AST 146 H ALT 23 Coding Level of Care Code Est Pt Prev Care 40-64y(34303) Diagnoses Annual physical exam Z00.00 Alcoholic cirrhosis of liver without ascites K70.30 Hepatic cirrhosis type: alcoholic cirrhosis Ascites presence: without ascites Alcoholic hepatitis with ascites K70.11 Ascites presence: with ascites Iron deficiency anemia, unspecified iron deficiency anemia type D50.9 Anemia type: iron deficiency Iron deficiency anemia type: unspecified iron deficiency Thrombocytopenia D69.6 Splenomegaly R16.1 Elevated liver enzymes R74.8 Alcohol use disorder F10.90 Pure hypercholesterolemia E78.00 Benign essential hypertension I10 Vitamin D deficiency E55.9 Hypomagnesemia E83.42 Moderate persistent asthma without complication J45.40 Asthma severity: moderate Asthma persistence: persistent Asthma complication type: uncomplicated Insomnia, unspecified type G47.00 Insomnia type: unspecified Anxiety F41.9 Recurrent major depressive disorder, in remission F33.40 Depression Type: major depressive disorder Major depression recurrence: recurrent Active/Remission status: in remission of unspecified degree Overweight (BMI 25.0-29.9) E66.3 Additional Codes PHQ-9 - 53811 - PHQ-9 Billing: Yes ([id number]) Assessment & Plan Assessment & Plan (1) Annual physical exam: Code(s): Z00.00 - Encounter for general adult medical examination without abnormal findings Category: Medical Plan: Results of his labs done at the hospital last month reviewed and discussed with patient Will have him go get some follow-up/repeat labs done KUNAL He has never had a screening colonoscopy done in the past and was advised by Dr. Goyal back in June 2023 to schedule for this but patient has never gotten around to it so far (2) Liver cirrhosis: Code(s): K74.60 - Unspecified cirrhosis of liver Category: Medical Qualifiers: Hepatic cirrhosis type: alcoholic cirrhosis Ascites presence: without ascites Qualified Code(s): K70.30 - Alcoholic cirrhosis of liver without ascites Plan: He was recently admitted to [facility] last month for acute alcoholic hepatitis with decompensated cirrhosis requiring abdominal paracentesis and albumin infusion Abdominal CT done at the ER last month revealed findings of cirrhosis with splenomegaly and ascites Continue Aldactone 50 mg BID Will refer him to Dr. Chris SYED for GI follow up (3) Alcoholic hepatitis: Code(s): K70.10 - Alcoholic hepatitis without ascites Category: Medical Qualifiers: Ascites presence: with ascites Qualified Code(s): K70.11 - Alcoholic hepatitis with ascites Plan: He was admitted to [facility] last month for acute alcoholic hepatitis His LFTs and serum bilirubin level were still significantly elevated on his labs at discharge last month He also had an elevated Maddrey score and was started on oral Prednisone, which he is still currently on Will have patient get some repeat labs done to recheck these for follow up Will also refer him to Dr. Chris SYED for GI follow-up and continuing management (4) Anemia: Code(s): D64.9 - Anemia, unspecified Category: Medical Qualifiers: Anemia type: iron deficiency Iron deficiency anemia type: unspecified iron deficiency Qualified Code(s): D50.9 - Iron deficiency anemia, unspecified Plan: His H/H were still low at 8.5/24.0 when he was discharged from the hospital last month Will have patient recheck his CBC and other labs KUNAL for follow up (5) Thrombocytopenia: Code(s): D69.6 - Thrombocytopenia, unspecified Category: Medical Plan: This is likely related to his splenomegaly and chronic [place] [address] when last checked about a month ago Will recheck his CBC and platelet count KUNAL for follow up (6) Splenomegaly: Code(s): R16.1 - Splenomegaly, not elsewhere classified Category: Medical Plan: This was previously seen on his abdominal CT in June 2023 (spleen was enlarged at 15.6 cm at the time) and also on his more recent abdominal CT done last month (measuring 16 cm in length) - is mostly related to his liver cirrhosis (7) Elevated liver enzymes: Code(s): R74.8 - Abnormal levels of other serum enzymes Category: Medical Plan: Patient's LFTs were significantly elevated on his recent labs done last month as he was still actively drinking heavily before he went to the ER last month with sudden onset of abdominal pain He also remains icteric on exam Will recheck his LFTs and labs for follow up KUNAL (8) Alcohol use disorder: Code(s): F10.90 - Alcohol use, unspecified, uncomplicated Category: Medical Plan: He was reportedly still actively drinking about 6 pt of rum daily at the time when he went to the ER last month with acute abdominal pain Patient states that he has not had any alcohol to drink since then Continue Thiamine 100 mg QD and Folic Acid 1 mg QD He is encouraged to continue to stay sober and to call for help if he starts to relapse - may need to refer him for addiction counseling and management then (9) Pure hypercholesterolemia: Code(s): E78.00 - Pure hypercholesterolemia, unspecified Category: Medical Plan: Reinforced low-cholesterol diet His total and LDL cholesterol were both well-controlled at 129 mg/dL and 83 mg/dL respectively when they were last checked back in June 2023 Will have him recheck his labs and fasting lipids in 3 months for follow up (10) Benign essential hypertension: Code(s): I10 - Essential (primary) hypertension Category: Medical Plan: Reinforced low sodium diet - goal is systolic BP of 120 mm or less He used to take Lisinopril 5 mg QD but this was likely discontinued when he was admitted to the hospital last month with JANE He has since been started on Aldactone 50 mg BID for his liver cirrhosis and ascites - this will also help with his blood pressure He is again reminded to continue monitoring his blood pressure regularly (11) Vitamin D deficiency: Code(s): E55.9 - Vitamin D deficiency, unspecified Category: Medical Plan: Continue Vitamin D3 2000 units QD Will recheck his Vitamin D level for follow up (12) Hypomagnesemia: Code(s): E83.42 - Hypomagnesemia Category: Medical Plan: His serum Magnesium level was very low when it was last checked at the hospital last month and he reportedly received some supplements to correct this Will have him recheck his serum Megnesium level for follow up (13) Asthma: Code(s): J45.909 - Unspecified asthma, uncomplicated Category: Medical Qualifiers: Asthma severity: moderate Asthma persistence: persistent Asthma complication type: uncomplicated Qualified Code(s): J45.40 - Moderate persistent asthma, uncomplicated Plan: Appears stable/controlled Continue Pulmicort Flexhaler 180 mcg 1 inhalation BID and Albuterol HFA 2 inhalations Q 6 hours PRN (14) Insomnia: Code(s): G47.00 - Insomnia, unspecified Category: Medical Qualifiers: Insomnia type: unspecified Qualified Code(s): G47.00 - Insomnia, unspecified Plan: Sleep hygiene reinforced He used to take Trazodone 50 mg Q HS PRN but does not appear to be on the Rx at this time (15) Anxiety: Code(s): F41.9 - Anxiety disorder, unspecified Category: Medical Plan: He was on Lorazepam 1 mg QD PRN in the past but he has not taken this in a while (16) Depression: Code(s): F32.9 - Major depressive disorder, single episode, unspecified Category: Medical Qualifiers: Depression Type: major depressive disorder Major depression recurrence: recurrent Active/Remission status: in remission of unspecified degree Qualified Code(s): F33.40 - Major depressive disorder, recurrent, in remission, unspecified Plan: He was seeing psychiatry in the past but he has not done so in a while He has been advised to call any time he feels that he needs to go back to see psychiatry and we will refer him back if necessary (17) Overweight (BMI 25.0-29.9): Code(s): E66.3 - Overweight Category: Medical Plan: Reinforced diet/exercise as tolerated/lose weight Plan Follow up in 3 months Orders: Orders Magnesium 10/08/24 E83.42 - Hypomagnesemia, K74.60 - Unspecified cirrhosis of liver Complete Blood Count Auto Diff 3 Months D64.9 - Anemia, unspecified UA CC w/rflx Micro + Cult 3 Months R30.0 - Dysuria Vitamin D 25-OH Total 3 Months E55.9 - Vitamin D deficiency, unspecified Comprehensive Met. Panel 10/08/24 K74.60 - Unspecified cirrhosis of liver IRON PROFILE 10/08/24 D50.9 - Iron deficiency anemia, unspecified Lipid Panel 3 Months E78.00 - Pure hypercholesterolemia, unspecified Comprehensive [place]. Panel Fast 3 Months E78.00 - Pure hypercholesterolemia, unspecified Magnesium 3 Months E83.42 - Hypomagnesemia Referrals Gastroenterology Referral K74.60 - Unspecified cirrhosis of liver, R16.1 - Splenomegaly, not elsewhere classified
== END 2024-10-08 11:06 | disposition home or self-care (01) ==
LOC: HO.HMCH 10:17
PROVIDERS: PCP Internal Medicine; Visit Provider Internal Medicine
DX: Z00.00 Encounter for general adult medical examination without abnormal findings (principal); K70.30 Alcoholic cirrhosis of liver without ascites; K70.11 Alcoholic hepatitis with ascites; D69.6 Thrombocytopenia, unspecified; F33.40 Major depressive disorder, recurrent, in remission, unspecified; D50.9 Iron deficiency anemia, unspecified; R16.1 Splenomegaly, not elsewhere classified; R74.8 Abnormal levels of other serum enzymes; F10.90 Alcohol use, unspecified, uncomplicated; E78.00 Pure hypercholesterolemia, unspecified; I10 Essential (primary) hypertension; E55.9 Vitamin D deficiency, unspecified

== ENCOUNTER 2024-10-28 14:55 | Outpatient (REF) | payer OTHER, SELFPAY ==
[2024-10-28 15:38] LABS: Basophils Absolute Auto 0.1 X10*3/uL (0.0-0.2); Basophils Percent Auto 1.4 % (0-2); Eosinophils Absolute Auto 0.2 X10*3/uL (0.0-0.4); Eosinophils Percent Auto 4.1 % (0-4); Hematocrit 31.9 % (42.0-52.0); Hemoglobin 10.9 g/dl (14.0-18.0); Imm Gran Abs Auto 0.02 X10*3/uL (0.00-0.03); Imm Gran Pct Auto 0.4 % (0.0-0.4); Lymphocytes Absolute Auto 1.7 X10*3/uL (1.2-4.9); Lymphocytes Percent Auto 29.7 % (20-40); MANUAL DIFF FLAG SCAN; Mean Corpuscular HGB Conc 34.2 g/dl (31.0-36.0); Mean Corpuscular Hemoglobin 32.2 pg (27.0-33.0); Mean Corpuscular Volume 94.4 fL (80.0-98.0); Mean Platelet Volume 9.7 fL (9.4-12.4); Monocytes Absolute Auto 1.1 X10*3/uL (0.1-1.2); Monocytes Percent Auto 20.1 % (2-11); Neutrophils Absolute Auto 2.5 x10*3/uL (2.0-8.3); Neutrophils Percent Auto 44.3 % (45-73); Platelet Count 106 X10*3/uL (160-400); Red Blood Count 3.38 X10*6/uL (4.60-5.80); Red Cell Distribution Width 13.6 % (11.0-16.0); SCAN SMEAR FLAG 1; White Blood Count 5.6 X10*3/uL (4.8-10.8)
[2024-10-28 15:51] LABS: INTERNATIONAL NORM RATIO 1.8 (0.9-1.1); Prothrombin Time 20.6 SEC (10.9-12.4)
[2024-10-28 16:39] LABS: Alanine Aminotransferase 40 U/L (0-40); Albumin Level 2.8 g/dL (3.5-5.0); Anion Gap 9 (12-20); Aspartate Amino Transferase 75 U/L (5-37); Bilirubin Direct 2.1 mg/dL (0.0-0.5); Bilirubin Total 3.8 mg/dL (0.0-1.0); Blood Urea Nitrogen 11 mg/dL (9-16); Calcium 9.3 mg/dL (8.4-10.2); Carbon Dioxide 24 mmol/L (22-29); Chloride 105 mmol/L (96-108); Estimated Glomerular Filt Rate > 60; Glucose Random 90 mg/dL (60-115); Iron 97 mcg/dL (45-160); Percent Iron Saturation 61 % (15-50); Potassium 3.9 mmol/L (3.3-5.1); Sodium 134 mmol/L (135-145); Total Iron Binding Capacity 159 mcg/dL (228-428); Total Protein 7.6 g/dL (6.5-8.0); Unsaturated Iron Binding 62 ug/dL
[2024-10-28 16:40] LABS: SLIDE REVIEW VERIFIED
[2024-10-28 16:55] LABS: Alkaline Phosphatase 68 U/L (39-117)
[2024-10-28 17:04] LABS: Ferritin 556 ng/mL (20-250)
--- OUTSIDE RECORDS SUMMARY | 2024-10-28 17:06 | XMS_ITS | Clinical Summary ---
Author Organization [facility] Address [address] [place] [address] Care Team Providers Care Public Relations Account Executive Name Role Phone Unavailable Primary Care Provider [...] - 2023-2 5 season) 2024 Influenza Vaccine (Season Ended) 2025 HIB Vaccines Aged Out No longer eligi [...] age to complete this topic Meningococcal B Vaccine Aged Out No l onger eligible based on patient's age to complete [...]
[2024-10-29 13:08] LABS: Alpha Fetoprotein 10.6 ng/mL (<6.1)
[2024-11-03 00:54] LABS: FIB-ALT 33 U/L (9-46); FIB-Alpha-2-Macroglobulin 205 mg/dL (106-279); FIB-Apolipoprotein A1 143 mg/dL (94-176); FIB-GGT 50 U/L (3-85); FIB-Haptoglobin <8 mg/dL (43-212); FIB-Total Bilirubin 3.9 mg/dL (0.2-1.2); Liver Fibrosis Score 0.92; Liver Fibrosis Stage F4; Nec Inflam Act Grade A1; Nec Inflam Act Score 0.34; Reference ID 5434652
== END 2024-10-28 14:56 | disposition home or self-care (01) ==
LOC: HO.LAB 14:55
PROVIDERS: PCP Internal Medicine; Visit Provider Internal Medicine
DX: K70.31 Alcoholic cirrhosis of liver with ascites (principal)
CPT/HCPCS: 36415; 80048; 80076; 81596; 82105; 82728; 83540; 85025; 85610

== ENCOUNTER 2025-02-04 12:01 | Outpatient (AMB) | payer OTHER, SELFPAY ==
[2025-02-04 12:02] VITALS: BP 126/70; PULSE 86; O2SAT 95; BMI 29.7
--- NOTE | 2025-02-04 12:02 | MHC.PC.OV ---
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 Accompanied by: Self / Same As Patient Allergies No Known Allergies (No Known Allergies*) Allergy (Verified 02/04/25 12:11) Medication List - Last Reconciled 02/04/25 by Harry Vargas MD blood pressure monitor As directed budesonide 180 mcg/actuation (Pulmicort Flexhaler) 1 inh PO BID cholecalciferol (vitamin D3) (Vitamin D3) 50 mcg PO DAILY 90 days docusate sodium (Colace) 100 mg PO BID folic acid 1 mg PO DAILY 90 days mupirocin 2% 1 appl topical BID spironolactone 50 mg See Protocol PO BID@0900,1800 thiamine mononitrate (vit B1) 100 mg PO DAILY 90 days Ventolin HFA 90 mcg/actuation (albuterol sulfate) 2 puffs inhalation Q6H PRN 30 days NS Tobacco use date assessed: 10/08/24 Dental Screening Dental Screen Date: 10/08/24 HPI liver cirrhosis HPI Details Patient comes in today for his follow up States that he currently feels okay He denies any headaches or dizziness; denies any fever Denies any chest pains, no increased shortness of breath No nausea/vomiting, no abdominal pain No change in bowel habits noted Needs a few of his Rx refilled He had some follow up labs done with Dr. Perez a few months ago He was seen by Dr. Perez for GI follow up last October 2024 and was advised that he appears stable at this time and he will be seen again in the fall for routine GI follow up FORMERLY [facility], [facility] Medical History Hypomagnesemia Liver cirrhosis Splenomegaly Thrombocytopenia Insomnia Vitamin D deficiency Impaired fasting glucose Benign essential hypertension Overweight (BMI 25.0-29.9) Depression Anxiety Elevated liver enzymes Pure hypercholesterolemia Allergic rhinitis Asthma Surgical History No pertinent past surgical history Family History Father Medical history unknown Mother Ovarian cancer Brother No problems noted. Sister No problems noted. Sister In good health Social History Household Members: Family Housing: House Do you presently have visiting nurse or other home services: No Alcohol intake: current Alcohol intake frequency: a few times a week Alcohol type: beer Comment: ongoing patient declines bed alarm, enc to alert staff to needs Patient Tobacco Use Status: Former Tobacco user e-Cigarette/Vaping Use: Never Used Second Hand Smoke Exposure: No service: No Current occupational status: employed Current occupational exposures/hazards: No Cognitive needs: No Hearing needs: No Vision needs: No Questionnaire PHQ-9 Over the last 2 weeks, how often have you been bothered by any of the following problems? 1. Little interest or pleasure in doing things: several days 2. Feeling down, depressed, or hopeless: several days 3. Trouble falling or staying asleep, or sleeping too much: several days 4. Feeling tired or having little energy: several days 5. Poor appetite or overeating: not at all 6. Feeling bad about yourself - or that you are a failure or have let yourself or your family down: not at all 7. Trouble concentrating on things, such as reading the newspaper or watching television: several days 8. Moving or speaking so slowly that other people could have noticed. Or the opposite - being so fidgety or restless that you have been moving around a lot more than usual: not at all 9. Thoughts that you would be better off or of hurting yourself in some way: not at all Total score: 2 Depression Screening Interpretation: Negative Depression Screening Done: Yes 55335 - PHQ-9 Billing: Yes Source: Developed by Drs. Ryan Spencer, Beatris Gupta, Ugo Fernandes and colleagues, with an educational sloane from [employer]. Thrive Questionnaire Date Thrive assessed: 10/08/24 I am a: Patient What is your living situation today?: I have a steady place to live Within the past 12 months, did the food you bought not last and you didn't have the money to get more?: I choose not to answer this question Within the past 12 months, did you worry whether your food would run out before you got money to buy more?: I choose not to answer this question Do you have trouble paying for medicines?: I choose not to answer this question Do you have trouble getting transportation to medical appointments?: I choose not to answer this question Do you have trouble paying your heating and electricity bill?: I choose not to answer this question Do you have trouble taking care of your child, family member or friend?: I choose not to answer this question Do you have trouble with day-to-day activities such as bathing, preparing meals, shopping, managing finances, etc.?: I choose not to answer this question Are you currently unemployed and looking for a job?: No Are you interested in more education?: No Please select the resources that you would like help with: None Currently or been in a relationship where the following occur: I choose not to answer THRIVE Score: 0 AUDIT C Alcohol Use Questionnaire (AUDIT-C) 3. How often do you have six or more drinks on one occasion?: Never Total Score: 0 Score Reviewed/Action Taken: Yes TAMIKO-7 AMB Questionnaire TAMIKO-7 Date TAMIKO - 7 assessed: 10/08/24 Source: Developed by Drs. Ryan Spencer, Beatris Gupta, Ugo Fernandes and colleagues, with an educational sloane from [employer]. Review of Systems Const Denies chills, Reports fatigue, Denies fever(s) and Denies headache(s) ENT Denies dysphagia, Denies dizziness, Denies otalgia, Denies headache(s), Denies neck pain, Denies odynophagia and Denies sore throat Card Denies chest pain, Denies rapid heart rate, Denies irregular heart rhythm, Denies palpitations and Denies dyspnea Resp Denies chest congestion, Denies cough and Denies dyspnea GI Denies abdominal pain, Denies constipation, Denies dysphagia, Denies heartburn, Denies diarrhea, Denies nausea, Denies odynophagia and Denies vomiting Denies difficulty urinating, Denies dysuria and Reports urinary frequency (he is currently on oral diuretics) Musc Reports back pain (at times), Denies arthralgias and Denies neck pain Skin/Breast Denies rash Neuro Denies dizziness, Denies headache(s) and Denies paresthesias Endo Reports fatigue and Denies palpitations Physical exam (Primary Care) Vital Signs: Last Vital Signs Pulse 86 02/04/25 12:02 BP 126/70 02/04/25 12:02 Pulse Ox 95 02/04/25 12:02 Oxygen Delivery Method Room Air 02/04/25 12:02 BMI result Body Mass Index 29.7 Tobacco/Smoking Status: Tobacco use Status Tobacco use date assessed 10/08/24 02/04/25 12:08 Patient Tobacco Use Status Former Tobacco user 02/04/25 12:08 e-Cigarette/Vaping Use Never Used 02/04/25 12:08 Depression Screening Interpretation: Negative Thrive Assessment: Date of Thrive Assessment Date Thrive assessed 10/08/24 02/04/25 12:08 Currently or been in a relationship where the following occur: I choose not to answer Const General: no acute distress and alert HENMT Ears: TM's normal bilaterally and EAC's normal Throat: Yes posterior oropharynx normal and Yes tonsils normal (no TP congestion) Neck Neck: Yes supple and No lymphadenopathy Thyroid: Thyroid normal Resp Auscultation: clear to auscultation bilaterally, no rales and no wheezes Cardio Rate: regular rate Rhythm: regular rhythm Heart sounds: no murmurs GI Palpation (GI): Soft to palpation, nontender and Hepatosplenomegaly present Percussion: Yes dullness to percussion (mild) Auscultation: normal bowel sounds General: Yes no CVA tenderness Back/Spine/Pelvis Back: no CVA tenderness Thoracic/Lumbar Spine: No lumbar spinal tenderness Skin General skin exam: spider nevi (scattered over both lower extremities) Rashes: no rashes Extrem General: No clubbing, No cyanosis and Yes edema (2+ over both lower extremities) Results Reviewed Results Reviewed: Laboratory Tests 10/08/24 10/28/24 11:33 15:20 WBC 5.6 Hgb 10.9 L Hct 31.9 L Plt Count 106 L Sodium 134 L Potassium 3.9 Creatinine 0.63 Estimated GFR > 60 Random Glucose 90 Calcium 9.3 Iron 97 TIBC 159 L % Saturation 61 H Ferritin 556 H Total Bilirubin 3.8 H Direct Bilirubin 2.1 H AST 75 H ALT 40 Liver Fibrosis Stage F4 25-OH Vitamin D Total 14.9 L TSH 1.95 Coding Level of Care Code Est Pt Level 4 (09545) Diagnoses Alcoholic cirrhosis of liver without ascites K70.30 Hepatic cirrhosis type: alcoholic cirrhosis Ascites presence: without ascites Alcoholic hepatitis with ascites K70.11 Ascites presence: with ascites Iron deficiency anemia, unspecified iron deficiency anemia type D50.9 Anemia type: iron deficiency Iron deficiency anemia type: unspecified iron deficiency Thrombocytopenia D69.6 Splenomegaly R16.1 Elevated liver enzymes R74.8 Alcohol use disorder F10.90 Pure hypercholesterolemia E78.00 Benign essential hypertension I10 Vitamin D deficiency E55.9 Hypomagnesemia E83.42 Moderate persistent asthma without complication J45.40 Asthma severity: moderate Asthma persistence: persistent Asthma complication type: uncomplicated Insomnia, unspecified type G47.00 Insomnia type: unspecified Anxiety F41.9 Recurrent major depressive disorder, in remission F33.40 Depression Type: major depressive disorder Major depression recurrence: recurrent Active/Remission status: in remission of unspecified degree Overweight (BMI 25.0-29.9) E66.3 Additional Codes PHQ-9 - 88838 - PHQ-9 Billing: Yes ([id number]) Assessment & Plan Assessment & Plan (1) Liver cirrhosis: Code(s): K74.60 - Unspecified cirrhosis of liver Category: Medical Qualifiers: Hepatic cirrhosis type: alcoholic cirrhosis Ascites presence: without ascites Qualified Code(s): K70.30 - Alcoholic cirrhosis of liver without ascites Plan: He was admitted to [facility] [place] this [place] for acute alcoholic hepatitis with decompensated cirrhosis requiring abdominal paracentesis and albumin infusion Abdominal CT done at the ER a few months ago revealed findings of cirrhosis with splenomegaly and ascites Continue Aldactone 50 mg BID Follow up with GI (Dr. Perez) as scheduled (2) Alcoholic hepatitis: Code(s): K70.10 - Alcoholic hepatitis without ascites Category: Medical Qualifiers: Ascites presence: with ascites Qualified Code(s): K70.11 - Alcoholic hepatitis with ascites Plan: He was admitted to [facility] [place] earlier this year for acute alcoholic hepatitis His LFTs and serum bilirubin level were still significantly elevated on his labs at discharge a few months ago He also had an elevated Maddrey score and was started on oral Prednisone, which he is still currently on (3) Anemia: Code(s): D64.9 - Anemia, unspecified Category: Medical Qualifiers: Anemia type: iron deficiency Iron deficiency anemia type: unspecified iron deficiency Qualified Code(s): D50.9 - Iron deficiency anemia, unspecified Plan: His H/H were still low at 10.9/31.9 when he was discharged from the hospital a few months ago Will have patient recheck his CBC and other labs KUNAL for follow up (4) Thrombocytopenia: Code(s): D69.6 - Thrombocytopenia, unspecified Category: Medical Plan: This is likely related to his splenomegaly and chronic liver disease His platelet count was at [id number] when last checked a few months ago Will recheck his CBC and platelet count KUNAL for follow up (5) Splenomegaly: Code(s): R16.1 - Splenomegaly, not elsewhere classified Category: Medical Plan: This was previously seen on his abdominal CT in June 2023 (spleen was enlarged at 15.6 cm at the time) and also on his more recent abdominal CT done a few months ago (measuring 16 cm in length) - is mostly related to his liver cirrhosis (6) Elevated liver enzymes: Code(s): R74.8 - Abnormal levels of other serum enzymes Category: Medical Plan: Patient's LFTs were significantly elevated on his recent labs done a few months ago as he was still actively drinking heavily before he went to the ER a few months ago with sudden onset of abdominal pain He also remains icteric on exam Will recheck his LFTs and labs for follow up KUNAL (7) Alcohol use disorder: Code(s): F10.90 - Alcohol use, unspecified, uncomplicated Category: Medical Plan: He was reportedly still actively drinking about 6 pt of rum daily at the time when he went to the ER a few months ago with acute abdominal pain Patient states that he has not had any alcohol to drink since then Continue Thiamine 100 mg QD and Folic Acid 1 mg QD He is encouraged to continue to stay sober and to call for help if he starts to relapse - may need to refer him for addiction counseling and management then (8) Pure hypercholesterolemia: Code(s): E78.00 - Pure hypercholesterolemia, unspecified Category: Medical Plan: Reinforced low-cholesterol diet His total and LDL cholesterol were both well-controlled at 129 mg/dL and 83 mg/dL respectively when they were last checked back in June 2023 Will have him recheck his labs and fasting lipids in 4 months for follow up (9) Benign essential hypertension: Code(s): I10 - Essential (primary) hypertension Category: Medical Plan: Reinforced low sodium diet - goal is systolic BP of 120 mm or less He used to take Lisinopril 5 mg QD but this was likely discontinued when he was admitted to the hospital a few months ago with JANE He has since been started on Aldactone 50 mg BID for his liver cirrhosis and ascites - this will also help with his blood pressure He is again reminded to continue monitoring his blood pressure regularly (10) Vitamin D deficiency: Code(s): E55.9 - Vitamin D deficiency, unspecified Category: Medical Plan: Continue Vitamin D3 2000 units QD (11) Hypomagnesemia: Code(s): E83.42 - Hypomagnesemia Category: Medical Plan: His serum Magnesium level was very low when it was last checked at the hospital a few months ago and he reportedly received some supplements to correct this Will have him recheck his serum Megnesium level for follow up (12) Asthma: Code(s): J45.909 - Unspecified asthma, uncomplicated Category: Medical Qualifiers: Asthma severity: moderate Asthma persistence: persistent Asthma complication type: uncomplicated Qualified Code(s): J45.40 - Moderate persistent asthma, uncomplicated Plan: Controlled Continue Pulmicort Flexhaler 180 mcg 1 inhalation BID and Albuterol HFA 2 inhalations Q 6 hours PRN (13) Insomnia: Code(s): G47.00 - Insomnia, unspecified Category: Medical Qualifiers: Insomnia type: unspecified Qualified Code(s): G47.00 - Insomnia, unspecified Plan: Sleep hygiene reinforced He used to take Trazodone 50 mg Q HS PRN but does not appear to be on the Rx at this time (14) Anxiety: Code(s): F41.9 - Anxiety disorder, unspecified Category: Medical Plan: He was on Lorazepam 1 mg QD PRN in the past but he has not taken this in a while (15) Depression: Code(s): F32.9 - Major depressive disorder, single episode, unspecified Category: Medical Qualifiers: Depression Type: major depressive disorder Major depression recurrence: recurrent Active/Remission status: in remission of unspecified degree Qualified Code(s): F33.40 - Major depressive disorder, recurrent, in remission, unspecified Plan: He was seeing psychiatry in the past but he has not done so in a while He has been advised to call any time he feels that he needs to go back to see psychiatry and we will refer him back if necessary (16) Overweight (BMI 25.0-29.9): Code(s): E66.3 - Overweight Category: Medical Plan: Reinforced diet/exercise as tolerated/lose weight Plan Follow up in 4 months Medications: Refilled cholecalciferol (vitamin D3) (Vitamin D3) 50 mcg PO DAILY 90 caps 3RF 90 days thiamine mononitrate (vit B1) 100 mg PO DAILY 90 tabs 3RF 90 days budesonide 180 mcg/actuation (Pulmicort Flexhaler) 1 inh PO BID 1 ea 3RF Ventolin HFA 90 mcg/actuation (albuterol sulfate) 2 puffs inhalation Q6H PRN 18 grams 5RF shortness of breath or wheezing 30 days NS J45.909 - Unspecified asthma, uncomplicated
--- OUTSIDE RECORDS SUMMARY | 2025-02-04 12:41 | XMS_ITS | Patient Health Record ---
Author Organization [facility] Address [address] [place] [address] Care Team Providers Care Roll Carrier Name Role Phone Latosha Vargas MDh Primary Care Provider Ryan Rich [phone] Allergies No Known Allergies Results Component Value Reference Range Notes Prothrombin Time INR Reviewed date:10/28/2024 06:55:50 PM Interpretation: Performing Lab:[facility], [address] [place] [phone] Notes/Report: Prothrombin Time 20.6 10.9-12.4 SEC INTERNATIONAL NORM RATIO 1.8 0.9-1.1 INTERNATIONAL NORMALIZED RATIO (INR) REFERENCE RANGES [...] mechanical prosthetic heart valves: 2.5 - 3.5 Liver Panel Reviewed date:10/28/2024 06:55:31 PM Interpretation: Performing Lab:[address] [phone] Notes/Report: Bilirubin Total 3.8 0.0-1.0 mg/dL Slight Icte lsisa. Bilirubin Direct 2.1 0.0-0.5 mg/dL Slight Ict erus. Aspartate Amino Transferase 75 5-37 U/L Alanine Aminotransferase 40 0-40 U/L Total Protein 7.6 6.5-8.0 g/dL Albumin Level 2.8 3.5-5.0 g/dL Alkaline Phosphatase 68 39-117 U/L Ferritin Reviewed date:10/28/2024 06:55:40 PM Interpretation: Performing Lab:[facility], [address] [place] [phone] Notes/Report: Ferritin 556 20-250 ng/mL Liver Fibrosis Pnl Reviewed date:11/13/2024 02:02:14 PM Interpretation: Performing Lab:[facility], [address] [place] [phone] Notes/Report: Liver Fibrosis Score 0.92 Liver Fibrosis Stage F4 Liver Fibrosis Interpretation SEE NOTE severe fibrosis Fibro Test Score (f) Metavir Score f>=0 and f<=0.21 : F0 (no fibrosis) f>0.21 and f<=0.27 : F0-F1 (no fibrosis) f>0.27 and f<=0.31 : F1 (minimal fibrosis) f>0.31 and f<=0.48 : F1-F2 (minimal fibrosis) f>0.48 and f<=0.58 : F2 (moderate fibrosis) f>0.58 and f<=0.72 : F3 (advanced fibrosis) f>0.72 and f<=0.74 : F3-F4 (advanced fibrosis) f>0.74 and f<=1.00 : F4 (severe fibrosis) Nec Inflam Act Score 0.34 Nec Inflam Act Grade A1 Nec Inflam Act Interpretation SEE NOTE minimal activity ActiTest Score (a) Metavir Score a>=0 and a<=0.17 : A0 (no activity) a>0.17 and a<=0.29 : A0-A1 (no activity) a>0.29 and a<=0.36 : A1 (minimal activity) a>0.36 and a<=0.52 : A1-A2 (minimal activity) a>0.52 and a<=0.60 : A2 (significant activity) a>0.60 and a<=0.62 : A2-A3 (significant activity) a>0.62 and a<=1.00 : A3 (severe activity) QAZ-Wzoqy-0-Macroglobulin 205 106-279 mg/dL FIB-Haptoglobin <8 43-212 mg/dL Check if haemolysis as bilirubin is high and haptoglobin low. FIB-Apolipoprotein A1 143 94-176 mg/dL FIB-Total Bilirubin 3.9 0.2-1.2 mg/dL Check if haemolysis as bilirubin is high and haptoglobin low. FIB-GGT 50 3-85 U/L FIB-ALT 33 9-46 U/L Reference ID [id number] Footnote SEE NOTE The reliability of results is dependent on compliance with the preanalytical and analytical conditions recommended by [employer]. The tests have to be deferred for: acute hemolysis, acute hepatitis, acute inflammation, extra hepatic cholestasis. The advice of a specialist should be sought for interpretation in chronic hemolysis and Gilbert's syndrome. The test interpretation is not validated in liver transplant patients. Isolated extreme values of one of the components should lead to caution in interpreting the results. In case of discordance between a biopsy result and a test, it is recommended to seek the advice of a specialist. The causes of these discordances could be due to a flaw of the test or to a flaw in the biopsy: i.e. a liver biopsy has a 33% variability rate for one fibrosis stage. FibroTest is interpretable for chronic hepatitis B and C, alcoholic and non alcoholic steatosis. ActiTest is interpretable for chronic hepatitis B and C. The performance characteristics have been determined by [facility]. It has not been cleared or approved by the U.S. Food and Drug Administration. Performance characteristics refer to the analytical performance of the test. [employer], the associated logo, [employer] and all associated [employer] rocha are the registered trademarks of [employer]. All third republican rocha - (R) and (TM) - are the property of their respective owners. (C) 0920-5675 [employer]. All rights reserved. THIS TEST WAS PERFORMED AT: [employer] [facility] [address] [place] [address] ROBB TIM MD,PHD,ANNALISA Cell Ct wDiff Peritoneal FL Reviewed date:08/31/2024 07:19:32 PM Interpretation: Performing Lab:[facility], [address] [place] [phone] Notes/Report: WBC Peritoneal Fluid 0.123 Body Fluid [...] Fluid Reviewed date:09/01/2024 09:26:49 AM Interpretation: Performing Lab:[address] [address] Notes/Report: Albumin Peritoneal Fluid 0.4 UNITS: GM/DL The reference range and other method performance specifications have not been established for this body fluid. The test result must be integrated into the clinical context for interpretation. Performing Labs: [facility], [address] [place] [address] Dir: Nicolas Silverman MD CLIA# [id number] For inquiries, the physician may contact Branch: [phone] Lab: [phone] Gram stain Reviewed date:09/06/2024 03:44:57 PM Interpretation: Performing Lab:[address] [address] Notes/Report: Gram stain Gram stain results: Gram stain No polys Gram stain No organisms seen Routine Culture Reviewed date:09/06/2024 03:45:14 PM Interpretation: Performing Lab:[facility], [address] [place] [phone] Notes/Report: Routine Culture No growth after 2 days Anaerobic Culture Reviewed date:09/06/2024 04:10:09 PM Interpretation: Performing Lab:[facility], [address] [place] [phone] Notes/Report: Anaerobic Culture NO GROWTH AFTER 5 DAYS Prothrombin Time INR Reviewed date:09/01/2024 07:29:40 AM Interpretation: Performing Lab:[facility], [address] [place] [phone] Notes/Report: Prothrombin Time 18.4 10.9-12.4 SEC INTERNATIONAL [...] Ammonia Reviewed date:09/01/2024 07:29:32 AM Interpretation: Performing Lab:[address] [phone] Notes/Report: Ammonia 52 13-55 umol/L Pathology Reviewed date:09/04/2024 07:58:00 PM Interpretation: Performing Lab:[address] [address] Notes/Report: US paracentesis abd w/image (Not yet reviewed by provider) Interpretation: Performing Lab: Notes/Report: [address] [address] Ultrasound Report Signed Patient: Mariel Jones MR#: [id number] 9 : 1965 Acct:[id number] Age/Sex: 58 / M ADM Date: 08/31/24 Loc: .S3 346-[address]: Carlo Pete MD Ordering Physician: Ryan Perez MD Date of Service: 09/01/24 Procedure(s): US paracentesis abd w/image Accession Number(s): [id number] cc: Harry Vargas MD; Ryan Perez MD Ultrasound paracentesis History: Ascites. Risks and benefits and possible complications were discussed with the patient and consent form was signed. A safe pocket of ascitic fluid was identified using ultrasound guidance, and the overlying skin was marked. The abdomen prepped and draped in sterile fashion. 1% lidocaine was used as a local anesthetic. Using ultrasound guidance, a 5 fr catheter was placed into the ascitic pocket. 3.0 liters of yellow fluid was removed passively. The catheter was then removed. A few dental detail representative images from before and after the examination were obtained. The procedure was performed by Stuart Paiz PA-C and supervised by Dr. He. US/US paracentesis abd w/image Impression: Ultrasound-guided paracentesis as described above. No immediate complications Electronically signed by: Raymond He MD 09/14/2024 04:17 PM EST RP Dictated By: Stuart Paiz Signed By: <Electronically signed by Stuart Paiz in OV> 09/14/24 1617 <Electronically signed by Raymond He MD in OV> 09/14/24 1620 DD/ 1000 TD/TT: 09/01/24 1100 Fur Cutter: US duplex arterial venous co mp Reviewed date:09/01/2024 03:54:35 PM Interpretation: Performing Lab: Notes/Report: [address] [address] Ultrasound Report Signed Patient: Mariel Jones MR#: [id number] 9 : 1965 Acct:[id number] Age/Sex: 58 / M ADM Date: 08/31/24 Loc: [place] [address]: Sheryl Lim MD Ordering Physician: Ryan Perez MD Date of Service: 09/01/24 Procedure(s): US duplex arterial venous comp Accession Number(s): [id number] cc: Harry Vargas MD; Ryan Perez MD [...] by: Kevin Vora MD 09/01/2024 02:06 PM EST RP Dictated By: Kevin Ramirez MD Signed By: <Electronically signed by Kevin Chan MD in OV> 09/01/24 1406 DD/ 1238 TD/TT: 09/01/24 1254 Fur Cutter: Prothrombin Time INR Reviewed date:09/02/2024 02:19:12 PM Interpretation: Performing Lab:[facility], [address] [place] [phone] Notes/Report: Jessica LYON 0602 09/02/24 Prothrombin Time [...] mechanical prosthetic heart valves: 2.5 - 3.5 Complete Blood Count Auto Di ff Reviewed date:10/28/2024 06:54:55 PM Interpretation: Performing Lab:[facility], [address] [place] [phone] Notes/Report: White Blood Count 5.6 4.8-10.8 X10*3/uL Red Blood Count 3.38 4.60-5.80 X10*6/uL Hemoglobin 10.9 14.0-18.0 g/dl Hematocrit 31.9 42.0-52.0 % Mean Corpuscular Volume 94.4 80.0-98.0 fL Mean Corpuscular Hemoglobin 32.2 27.0-33.0 pg Mean Corpuscular HGB Conc 34.2 31.0-36.0 g/dl Red Cell Distribution Width 13.6 11.0-16.0 % Platelet Count 106 160-400 X10*3/uL Mean Platelet Volume 9.7 9.4-12.4 fL Neutrophils Percent Auto 44.3 45-73 % Imm Gran Pct Auto 0.4 0.0-0.4 % Lymphocytes Percent Auto 29.7 20-40 % Monocytes Percent Auto 20.1 2-11 % Eosinophils Percent Auto 4.1 0-4 % Basophils Percent Auto 1.4 0-2 % NRBC Pct Auto 0.0 0.0-0.2 /100WBC Neutrophils Absolute Auto 2.5 2.0-8.3 x10*3/u L Imm Gran Abs Auto 0.02 0.00-0.03 X10*3/uL Lymphocytes Absolute Auto 1.7 1.2-4.9 X10*3/u L Monocytes Absolute Auto 1.1 0.1-1.2 X10*3/uL Eosinophils Absolute Auto 0.2 0.0-0.4 X10*3/u L Basophils Absolute Auto 0.1 0.0-0.2 X10*3/uL NRBC Abs Auto 0.000 0.0-0.012 X10*3/uL White Blood Count 5.6 4.8-10.8 X10*3/uL Red Blood Count 3.38 4.60-5.80 X10*6/uL Hemoglobin 10.9 14.0-18.0 g/dl Hematocrit 31.9 42.0-52.0 % Mean Corpuscular Volume 94.4 80.0-98.0 fL Mean Corpuscular Hemoglobin 32.2 27.0-33.0 pg Mean Corpuscular HGB Conc 34.2 31.0-36.0 g/dl Red Cell Distribution Width 13.6 11.0-16.0 % Platelet Count 106 160-400 X10*3/uL Mean Platelet Volume 9.7 9.4-12.4 fL Neutrophils Percent Auto 44.3 45-73 % Imm Gran Pct Auto 0.4 0.0-0.4 % Lymphocytes Percent Auto 29.7 20-40 % Monocytes Percent Auto 20.1 2-11 % Eosinophils Percent Auto 4.1 0-4 % Basophils Percent Auto 1.4 0-2 % NRBC Pct Auto 0.0 0.0-0.2 /100WBC Neutrophils Absolute Auto 2.5 2.0-8.3 x10*3/u L Imm Gran Abs Auto 0.02 0.00-0.03 X10*3/uL Lymphocytes Absolute Auto 1.7 1.2-4.9 X10*3/u L Monocytes Absolute Auto 1.1 0.1-1.2 X10*3/uL Eosinophils Absolute Auto 0.2 0.0-0.4 X10*3/u L Basophils Absolute Auto 0.1 0.0-0.2 X10*3/uL NRBC Abs Auto 0.000 0.0-0.012 X10*3/uL Basic Metabolic Panel Reviewed date:10/28/2024 06:54:08 PM Interpretation: Performing Lab:[facility], [address] [place] [phone] Notes/Report: Sodium 134 135-145 mmol/L Potassium 3.9 3.3-5.1 mmol/L Chloride 105 96-108 mmol/L Carbon Dioxide 24 22-29 mmol/L Anion Gap 9 12-20 Blood Urea Nitrogen 11 9-16 mg/dL Creatinine 0.63 0.5-1.4 mg/dL Estimated Glomerular Filt Rate > 60 Chronic Kidney Disease: Estimated GFR < 60 mL/min/1.73m2 Severe Kidney Disease: Estimated GFR < 15 mL/min/1.73m2 Glucose Random 90 60-115 mg/dL Calcium 9.3 8.4-10.2 mg/dL IRON PROFILE Reviewed date:10/28/2024 06:53:03 PM Interpretation: Performing Lab:[facility], [address] [place] [phone] Notes/Report: Iron 97 45-160 mcg/dL Total Iron Binding Capacity 159 228-428 mcg/dL Percent Iron Saturation 61 15-50 % Unsaturated Iron Binding 62 Alpha Fetoprotein (Not yet r eviewed by provider) Interpretation: Performing Lab:[facility], [address] [place] [phone] Notes/Report: Alpha Fetoprotein 10.6 <6.1 ng/mL This test was performed using the Aaron Nicole chemiluminescent method. Values obtained from different assay methods cannot be used interchangeably. AFP levels, regardless of value, should not be interpreted as absolute evidence of the presence or absence of disease. THIS TEST WAS PERFORMED AT: [employer] [address] [place] [phone] VALENTINA BAXTER MD SLIDE REVIEW Reviewed date:10/28/2024 06:54:23 PM Interpretation: Performing Lab:[facility], [address] [place] [phone] Notes/Report: SLIDE REVIEW VERIFIED Reason For Referral No Information Medications Medication SIG (Take, Route, Frequency, Duration) Notes Start Date End Date Status Thiamine Mononitrate 100 MG TAKE ONE TAB LET BY MOUTH EVERY DAY Oral for 90 Days Active Thiamine Mononitrate 100 MG Oral for 90 Days Active Spironolactone 25 MG TAKE 2 TABLETS 50MG ) TWICE DAILY AT 9AM AND 6PM. DISCONTINUE LISINOPRIL) Oral for 64 Days Active Ventolin HFA 108 (90 Base) MCG/ACT INHALE TWO PUFFS BY MOUTH EVERY 6 HOURS NEEDED FOR SHORTNESS OF BREATH OR WHEEZING. Inhalation for 25 Days Active Folic Acid 1 MG Oral for 90 Days Active Docusate Sodium 100 MG TAKE ONE CAPSULE BY MOUTH TWICE A DAY Oral for 30 Days Active D3 Super Strength 50 MCG (2000 UT) TAKE 1 CAPSULE BY MOUTH DAILY. Oral for 90 Days Active Pulmicort Flexhaler 180 MCG/ACT INHALE ONE PUFF BY MOUTH TWICE A DAY Inhalation for 60 Days Active Immunizations Vaccine Route Administration Date Status Comme nts Influenza Unknown 10/28/2024 Refused Social History Tobacco Use: Social History Observation Description Date Details (start date - stop date) Former Smoker NA - NA Tobacco Control (Standard) Question Answer Notes Tobacco use: Former smoker AUDIT-C (Standard) Question Answer Notes Did you have a drink containing alcohol in the p ast year? No Points 0 Interpretation Negative Section Notes: Has had a longstanding histo ry of alcohol abuse and reports sobriety for 2 months as of the 10/28/24 office visit. He does not smoke. Problems Problem Type SNOMED Code ICD Code Onset Dates Problem Status W/U Status Risk Notes Problem Alcoholic cirrhosis (591657463) Alcoholic cirrhosis of liver with ascites (K70.31) Active confirmed Problem Cirrhotic (556144963) Cirrhosis (K74.60) Active confirmed Problem Alcoholic hepatitis (763610844) Alcoholic hepatitis (K70.10) Active confirmed Vital Signs Temperature 98.0 degrees Fahrenheit 10/28/2024 Blood pressure diastolic 01 mm Hg 10/28/2024 Height 70 in 10/28/2024 Blood pressure systolic 001 mm Hg 10/28/2024 Weight 213.4 lbs 10/28/2024 BMI 30.62 kg/m2 10/28/2024 Encounters Encounter Location Date Provider Diagnosis [facility] [address] [place] [phone] 10/28/2024 Ryan Perez Cirrhosis K74.60 ; Alcoholic cirrhosis of liver with ascites K70.31 and Alcoholic hepatitis K70.10 Assessments Encounter Date Diagnosis (ICD Code) Assessment Notes Treatment Notes Treatment Clinical Notes Section Notes 10/28/2024 Alcoholic cirrhosis of liver with ascites (ICD-10 - K70.31) Continue the same vitamins and Spironolactone 25mg twice a day Avoid salt Avoid all pain medication Avoid all alcohol forever Overall, Mariel appears reasonably well considering his significant liver disease and longstanding history of alcohol abuse. His liver disease appears to be stable at the present time and definitely improved compared to what it was in August when he was admitted with acute alcohol-induced hepatitis. He presently does not show any signs of significant ascites, spontaneous bacterial peritonitis, or hepatic encephalopathy. He does not give any history of any recent GI bleeding. We did have a detailed discussion today that his 2 months of sobriety have definitely helped to stabilize things and he will need to continue his complete sobriety long-term if he has any hopes of remaining stable and avoiding any associated worsening morbidity and early mortality. We did review that he needs to avoid all medications such as NSAIDs and acetaminophen. We did discuss a low-salt diet. At this point since his ascites seems to be stable I am going to have him stay on the current dosage of spironolactone 25 mg twice a day. I shall check laboratories today as outlined below including chemistries and renal function I do not think he needs any further imaging studies of his liver at this time. Depending upon his clinical course we may need to increase the spironolactone and/or possibly add a low-dose of furosemide. If things remain stable he will see me again in the Fall for a follow-up visit. I did advise him to definitely contact me in the interim if he has any problems or questions I can be of assistance with. I did advise him to be sure he continues on the spironolactone and call for refills if need be. Mariel had a good understanding of this at this time and was comfortable with the plan. Thank you again for allowing me to participate in Mariel's care. I shall continue to keep you advised of his progress.. 10/28/2024 Cirrhosis (ICD-10 - K74.60) Overall, Mariel appears reasonably well considering his significant liver disease and longstanding history of alcohol abuse. His liver disease appears to be stable at the present time and definitely improved compared to what it was in August when he was admitted with acute alcohol-induced hepatitis. He presently does not show any signs of significant ascites, spontaneous bacterial peritonitis, or hepatic encephalopathy. He does not give any history of any recent GI bleeding. We did have a detailed discussion today that his 2 months of sobriety have definitely helped to stabilize things and he will need to continue his complete sobriety long-term if he has any hopes of remaining stable and avoiding any associated worsening morbidity and early mortality. We did review that he needs to avoid all medications such as NSAIDs and acetaminophen. We did discuss a low-salt diet. At this point since his ascites seems to be stable I am going to have him stay on the current dosage of spironolactone 25 mg twice a day. I shall check laboratories today as outlined below including chemistries and renal function I do not think he needs any further imaging studies of his liver at this time. Depending upon his clinical course we may need to increase the spironolactone and/or possibly add a low-dose of furosemide. If things remain stable he will see me again in the Fall for a follow-up visit. I did advise him to definitely contact me in the interim if he has any problems or questions I can be of assistance with. I did advise him to be sure he continues on the spironolactone and call for refills if need be. Mariel had a good understanding of this at this time and was comfortable with the plan. Thank you again for allowing me to participate in Mariel's care. I shall continue to keep you advised of his progress.. 10/28/2024 Alcoholic hepatitis (ICD-10 - K70.10) Overall, Mariel appears reasonably well considering his significant liver disease and longstanding history of alcohol abuse. His liver disease appears to be stable at the present time and definitely improved compared to what it was in August when he was admitted with acute alcohol-induced hepatitis. He presently does not show any signs of significant ascites, spontaneous bacterial peritonitis, or hepatic encephalopathy. He does not give any history of any recent GI bleeding. We did have a detailed discussion today that his 2 months of sobriety have definitely helped to stabilize things and he will need to continue his complete sobriety long-term if he has any hopes of remaining stable and avoiding any associated worsening morbidity and early mortality. We did review that he needs to avoid all medications such as NSAIDs and acetaminophen. We did discuss a low-salt diet. At this point since his ascites seems to be stable I am going to have him stay on the current dosage of spironolactone 25 mg twice a day. I shall check laboratories today as outlined below including chemistries and renal function I do not think he needs any further imaging studies of his liver at this time. Depending upon his clinical course we may need to increase the spironolactone and/or possibly add a low-dose of furosemide. If things remain stable he will see me again in the Fall for a follow-up visit. I did advise him to definitely contact me in the interim if he has any problems or questions I can be of assistance with. I did advise him to be sure he continues on the spironolactone and call for refills if need be. Mariel had a good understanding of this at this time and was comfortable with the plan. Thank you again for allowing me to participate in Mariel's care. I shall continue to keep you advised of his progress.. Plan Of Treatment Pending Test Test Name Order Date CHEM 7 PROFILE 10/28/2024 IRON + IBC (FE) 10/28/2024 CBC w DIFF 10/28/2024 ALPHA-FETOPROTEIN,TUMOR MARKER 5 Alpha Fetoprotein 10/28/2024 US paracentesis abd w/image 09/01/2024 Next Appt Details Provider Name:Ryan Perez , 04/29/2025 10:20:00 AM, [address] [place] [address], [facility] [address], [place], [address], Insurance Providers Payer Name Payer Address Payer Phone Subscriber Number Group Number Insured Name Patient Relationship to Insured Coverage Start Date Coverage End Date [facility] [address] [address] [place], [place] [id number] MARIEL JONES Self - patient is the insured Medical (General) History Medical History History ICD Code kidney issues cirrhosis asthma hypertension Hospitalization History Reason Date(Month/Year) cirrhosis
--- OUTSIDE RECORDS SUMMARY | 2025-02-04 12:41 | XMS_ITS | Clinical Summary ---
Author Organization [facility] it Address [address] [place] [address] Care Team Providers Care Cosmetology Professor Name Role Phone Unavailable Primary Care Provider [...] 2023-2 5 season) 2024 Influenza Vaccine (#1) 2025 HIB Vaccines Aged Out No longer [...] 5 Years) and At-Risk Patients (6 to 49 Years) Aged Out No longer eligible b ased on patient's age to complete this topic RSV Immunization Patients Un adithya 20 months Aged Out No longer eligible b ased on patient's age to complete this topic Varicella Vaccines Aged Out No longer eligible based on patient's age to complete this topic
== END 2025-02-04 12:22 | disposition home or self-care (01) ==
LOC: HO.HMCH 12:01
PROVIDERS: PCP Internal Medicine; Visit Provider Internal Medicine
DX: K70.30 Alcoholic cirrhosis of liver without ascites (principal); K70.10 Alcoholic hepatitis without ascites; D50.9 Iron deficiency anemia, unspecified; D69.6 Thrombocytopenia, unspecified; R16.1 Splenomegaly, not elsewhere classified; R74.8 Abnormal levels of other serum enzymes; F10.90 Alcohol use, unspecified, uncomplicated; E78.00 Pure hypercholesterolemia, unspecified; E66.3 Overweight; Z68.29 Body mass index [BMI] 29.0-29.9, adult; I10 Essential (primary) hypertension; E55.9 Vitamin D deficiency, unspecified

== ENCOUNTER → 2025-02-04 12:01 | Outpatient (BNVA) | payer OTHER, SELFPAY | PROVIDERS: PCP Internal Medicine; Visit Provider Internal Medicine | DX: K70.11 Alcoholic hepatitis with ascites (principal); D50.9 Iron deficiency anemia, unspecified; D69.6 Thrombocytopenia, unspecified; R16.1 Splenomegaly, not elsewhere classified; R74.8 Abnormal levels of other serum enzymes; F10.90 Alcohol use, unspecified, uncomplicated; E78.00 Pure hypercholesterolemia, unspecified; I10 Essential (primary) hypertension; E83.42 Hypomagnesemia; J45.40 Moderate persistent asthma, uncomplicated; G47.00 Insomnia, unspecified; F41.9 Anxiety disorder, unspecified; F33.40 Major depressive disorder, recurrent, in remission, unspecified; E66.3 Overweight; Z68.29 Body mass index [BMI] 29.0-29.9, adult | CPT/HCPCS: 96127; 99212 ==

== ENCOUNTER 2025-06-16 11:02 | Outpatient (AMB) | payer OTHER, SELFPAY ==
--- NOTE | 2025-06-16 11:11 | A.OFFPC_ITS ---
Vital Signs 06/16/25 11:12 Height 5 ft 10 in Weight 215 lb 8 oz BMI 30.9 BP 120/64 Blood Pressure Location Lt brachial Position Sitting Pulse 68 Pulse Source Pulse Oximeter Temp 98.1 F Temp Source Temporal Artery Scan Pulse Oximetry (%) 96 Oxygen Delivery Method Room Air Intake Visit Reasons: liver cirrhosis Intake Note: Pt states few weeks ago he started waking up in the mornings not remembering the day or where he is at. 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 Accompanied by: Self / Same As Patient Allergies No Known Allergies (No Known Allergies*) Allergy (Verified 06/16/25 11:46) Medication List - Last Reconciled 06/16/25 by Harry Vargas MD blood pressure monitor As directed budesonide 180 mcg/actuation (Pulmicort Flexhaler) 1 inh PO BID cholecalciferol (vitamin D3) (Vitamin D3) 50 mcg PO DAILY 90 days docusate sodium (Colace) 100 mg PO BID folic acid 1 mg PO DAILY 90 days mupirocin 2% 1 appl topical BID spironolactone 50 mg See Protocol PO BID@0900,1800 thiamine mononitrate (vit B1) 100 mg PO DAILY 90 days Ventolin HFA 90 mcg/actuation (albuterol sulfate) 2 puffs inhalation Q6H PRN 30 days NS Tobacco use date assessed: 10/08/24 Dental Screening Dental Screen Date: 10/08/24 Did you have a dental visit in the last 12 months?: Yes Did you have a dental problem in the last 6 months where you did not have access to dental care?: No Was dental information given to patient?: Patient has dentist HPI liver cirrhosis HPI Details Patient comes in today for his follow up visit Feels that he has been having some issues with his memory recently - notes that he would sometimes wake up in the mornings feeling confused temporarily, not remembering what the day is or where he is at States that he would then revert back to his usual self in a couple of minutes He denies any headaches or dizziness lately Denies any chest pains, no increased SOB No nausea/vomiting, no abdominal pain No change in bowel habits noted States that he has not had any alcohol to drink now since July 2024 He was not able to get his follow up labs done prior to his appointment today [facility] Medical History Hypomagnesemia Liver cirrhosis Splenomegaly Thrombocytopenia Insomnia Vitamin D deficiency Impaired fasting glucose Benign essential hypertension Overweight (BMI 25.0-29.9) Depression Anxiety Elevated liver enzymes Pure hypercholesterolemia Allergic rhinitis Asthma Surgical History No pertinent past surgical history Family History Father Medical history unknown Mother Ovarian cancer Brother No problems noted. Sister No problems noted. Sister In good health Social History Household Members: Family Housing: House Do you presently have visiting nurse or other home services: No Alcohol intake: current Alcohol intake frequency: a few times a week Alcohol type: beer Comment: ongoing patient declines bed alarm, enc to alert staff to needs Patient Tobacco Use Status: Former Tobacco user e-Cigarette/Vaping Use: Never Used Second Hand Smoke Exposure: No service: No Current occupational status: employed Current occupational exposures/hazards: No Cognitive needs: No Hearing needs: No Vision needs: No Questionnaire PHQ-9 Over the last 2 weeks, how often have you been bothered by any of the following problems? Depression Screening Interpretation: Negative Depression Screening Done: Yes Source: Developed by Drs. Ryan Spencer, Beatris Gupta, Ugo Fernandes and colleagues, with an educational sloane from [employer]. Thrive Questionnaire Date Thrive assessed: 10/08/24 I am a: Patient What is your living situation today?: I have a steady place to live Within the past 12 months, did the food you bought not last and you didn't have the money to get more?: I choose not to answer this question Within the past 12 months, did you worry whether your food would run out before you got money to buy more?: I choose not to answer this question Do you have trouble paying for medicines?: I choose not to answer this question Do you have trouble getting transportation to medical appointments?: I choose not to answer this question Do you have trouble paying your heating and electricity bill?: I choose not to answer this question Do you have trouble taking care of your child, family member or friend?: I choose not to answer this question Do you have trouble with day-to-day activities such as bathing, preparing meals, shopping, managing finances, etc.?: I choose not to answer this question Are you currently unemployed and looking for a job?: No Are you interested in more education?: No Please select the resources that you would like help with: None Currently or been in a relationship where the following occur: I choose not to answer THRIVE Score: 0 TAMIKO-7 AMB Questionnaire TAMIKO-7 Date TAMIKO - 7 assessed: 10/08/24 Feeling nervous, anxious, or on edge: 0 = Not at all Not being able to stop or control worryin = Not at all Worrying too much about different things: 0 = Not at all Trouble relaxin = Not at all Being so restless that it is hard to sit still: 0 = Not at all Becoming easily annoyed or irritable: 0 = Not at all Feeling afraid as if something awful might happen: 0 = Not at all Total TAMIKO-7 score (0-4 normal; 5-9 mild; 10-14 moderate; 15-21 severe): 0 Source: Developed by Drs. Ryan Spencer, Beatris Gupta, Ugo Fernandes and colleagues, with an educational sloane from [employer]. Review of Systems Const Denies chills, Reports fatigue, Denies fever(s) and Denies headache(s) ENT Denies dysphagia, Denies dizziness, Denies otalgia, Denies headache(s), Denies neck pain, Denies odynophagia and Denies sore throat Card Denies chest pain, Denies rapid heart rate, Denies irregular heart rhythm, Denies palpitations and Denies dyspnea Resp Denies chest congestion, Denies cough and Denies dyspnea GI Denies abdominal pain, Denies constipation, Denies dysphagia, Denies heartburn, Denies diarrhea, Denies nausea, Denies odynophagia and Denies vomiting Denies difficulty urinating, Denies dysuria and Reports urinary frequency (he is currently on oral diuretics) Musc Reports back pain (at times), Denies arthralgias and Denies neck pain Skin/Breast Denies rash Neuro Denies dizziness, Denies headache(s), Reports memory loss (transient, on and off - see HPI) and Denies paresthesias Psych Reports memory loss (transient, on and off - see HPI) Endo Reports fatigue and Denies palpitations Physical exam (Primary Care) Vital Signs: Last Vital Signs Temp 98.1 F 06/16/25 11:12 Pulse 68 06/16/25 11:12 BP 120/64 06/16/25 11:12 Pulse Ox 96 06/16/25 11:12 Oxygen Delivery Method Room Air 06/16/25 11:12 BMI result Body Mass Index 30.9 Tobacco/Smoking Status: Tobacco use Status Tobacco use date assessed 10/08/24 06/16/25 11:15 Patient Tobacco Use Status Former Tobacco user 06/16/25 11:15 e-Cigarette/Vaping Use Never Used 06/16/25 11:15 Depression Screening Interpretation: Negative Thrive Assessment: Date of Thrive Assessment Date Thrive assessed 10/08/24 06/16/25 11:15 Currently or been in a relationship where the following occur: I choose not to answer Const General: no acute distress and alert HENMT Ears: TM's normal bilaterally and EAC's normal Throat: Yes posterior oropharynx normal and Yes tonsils normal (no TP congestion) Neck Neck: Yes supple and No lymphadenopathy Thyroid: Thyroid normal Resp Auscultation: clear to auscultation bilaterally, no rales and no wheezes Cardio Rate: regular rate Rhythm: regular rhythm Heart sounds: no murmurs GI Palpation (GI): Soft to palpation, nontender and Hepatosplenomegaly present Percussion: Yes dullness to percussion (mild) Auscultation: normal bowel sounds General: Yes no CVA tenderness Back/Spine/Pelvis Back: no CVA tenderness Thoracic/Lumbar Spine: No lumbar spinal tenderness Skin General skin exam: spider nevi (scattered over both lower extremities) Rashes: no rashes Extrem General: No clubbing, No cyanosis and Yes edema (2+ over both lower extremities) Coding Level of Care Code Est Pt Level 4 (87028) Diagnoses Alcoholic cirrhosis of liver without ascites K70.30 Hepatic cirrhosis type: alcoholic cirrhosis Ascites presence: without ascites Alcoholic hepatitis with ascites K70.11 Ascites presence: with ascites Iron deficiency anemia, unspecified iron deficiency anemia type D50.9 Anemia type: iron deficiency Iron deficiency anemia type: unspecified iron deficiency Thrombocytopenia D69.6 Splenomegaly R16.1 Elevated liver enzymes R74.8 Alcohol use disorder F10.90 Pure hypercholesterolemia E78.00 Benign essential hypertension I10 Vitamin D deficiency E55.9 Hypomagnesemia E83.42 Moderate persistent asthma without complication J45.40 Asthma severity: moderate Asthma persistence: persistent Asthma complication type: uncomplicated Transient memory loss R41.3 Insomnia, unspecified type G47.00 Insomnia type: unspecified Anxiety F41.9 Recurrent major depressive disorder, in remission F33.40 Depression Type: major depressive disorder Major depression recurrence: recurrent Active/Remission status: in remission of unspecified degree Obesity (BMI 30-39.9) E66.9 Assessment & Plan Assessment & Plan (1) Liver cirrhosis: Code(s): K74.60 - Unspecified cirrhosis of liver Category: Medical Qualifiers: Hepatic cirrhosis type: alcoholic cirrhosis Ascites presence: without ascites Qualified Code(s): K70.30 - Alcoholic cirrhosis of liver without ascites Plan: He was admitted to [facility] [facility] earlier this year for acute alcoholic hepatitis with decompensated cirrhosis requiring abdominal paracentesis and albumin infusion Abdominal CT done at the ER a few months ago revealed findings of cirrhosis with splenomegaly and ascites Continue Aldactone 50 mg BID Follow up with GI (Dr. Perez) as scheduled (2) Alcoholic hepatitis: Code(s): K70.10 - Alcoholic hepatitis without ascites Category: Medical Qualifiers: Ascites presence: with ascites Qualified Code(s): K70.11 - Alcoholic hepatitis with ascites Plan: He was admitted to [facility] [place] earlier this year for acute alcoholic hepatitis His LFTs and serum bilirubin level were still significantly elevated on his labs at discharge a few months ago He also had an elevated Maddrey score and was started on oral Prednisone, which he is still currently on Will have him go and get his previously ordered labs done KUNAL for follow up (3) Anemia: Code(s): D64.9 - Anemia, unspecified Category: Medical Qualifiers: Anemia type: iron deficiency Iron deficiency anemia type: unspecified iron deficiency Qualified Code(s): D50.9 - Iron deficiency anemia, unspecified Plan: His H/H were still low at 10.9/31.9 when he was discharged from the hospital a few months ago in October 2024 Will have patient recheck his CBC and other labs KUNAL for follow up (4) Thrombocytopenia: Code(s): D69.6 - Thrombocytopenia, unspecified Category: Medical Plan: This is likely related to his splenomegaly and chronic liver disease His platelet count was at [id number] when last checked in October 2024 Will recheck his CBC and platelet count KUNAL for follow up (5) Splenomegaly: Code(s): R16.1 - Splenomegaly, not elsewhere classified Category: Medical Plan: This was previously seen on his abdominal CT in June 2023 (spleen was enlarged at 15.6 cm at the time) and also on his more recent abdominal CT done a few months ago (measuring 16 cm in length) - is mostly related to his liver c irrhosis (6) Elevated liver enzymes: Code(s): R74.8 - Abnormal levels of other serum enzymes Category: Medical Plan: Patient's LFTs were significantly elevated on his recent labs done a few months ago as he was still actively drinking heavily before he went to the ER earlier this year with sudden onset of abdominal pain He also remains slightly icteric on exam Will recheck his LFTs and labs for follow up KUNAL (7) Alcohol use disorder: Code(s): F10.90 - Alcohol use, unspecified, uncomplicated Category: Medical Plan: He was reportedly still actively drinking about 6 pt of rum daily at the time when he went to the ER earlier this year with acute abdominal pain Patient states that he has not had any alcohol to drink since July 2024 Continue Thiamine 100 mg QD and Folic Acid 1 mg QD He is encouraged to continue to stay sober and to call for help if he starts to relapse - may need to refer him for addiction counseling and management then (8) Pure hypercholesterolemia: Code(s): E78.00 - Pure hypercholesterolemia, unspecified Category: Medical Plan: Reinforced low-cholesterol diet His total and LDL cholesterol were both well-controlled at 129 mg/dL and 83 mg/dL respectively when they were last checked back in June 2023 Will have him recheck his labs and fasting lipids in 4 months for follow up (9) Benign essential hypertension: Code(s): I10 - Essential (primary) hypertension Category: Medical Plan: Reinforced low sodium diet - goal is systolic BP of 120 mm or less He used to take Lisinopril 5 mg QD but this was likely discontinued when he was admitted to the hospital earlier this year with JANE He has since been started on Aldactone 50 mg BID for his liver cirrhosis and ascites - this will also help with his blood pressure He is again reminded to continue monitoring his blood pressure regularly (10) Vitamin D deficiency: Code(s): E55.9 - Vitamin D deficiency, unspecified Category: Medical Plan: Continue Vitamin D3 2000 units QD (11) Hypomagnesemia: Code(s): E83.42 - Hypomagnesemia Category: Medical Plan: His serum Magnesium level was very low when it was last checked at the hospital a few months ago and he reportedly received some supplements to correct this Will have him recheck his serum Megnesium level for follow up (12) Asthma: Code(s): J45.909 - Unspecified asthma, uncomplicated Category: Medical Qualifiers: Asthma severity: moderate Asthma persistence: persistent Asthma complication type: uncomplicated Qualified Code(s): J45.40 - Moderate persistent asthma, uncomplicated Plan: Controlled Continue Pulmicort Flexhaler 180 mcg 1 inhalation BID and Albuterol HFA 2 inhalations Q 6 hours PRN (13) Transient memory loss: Code(s): R41.3 - Other amnesia Category: Medical Plan: This is mostly manifested as transient/brief confusion to time and place, mostly occurring when he wakes up in the morning recently Will send him for some additional labs KUNAL for further evaluation, including serum ammonia level and B12 level (14) Insomnia: Code(s): G47.00 - Insomnia, unspecified Category: Medical Qualifiers: Insomnia type: unspecified Qualified Code(s): G47.00 - Insomnia, unspecified Plan: Sleep hygiene reinforced He used to take Trazodone 50 mg Q HS PRN but does not appear to be on the Rx at this time (15) Anxiety: Code(s): F41.9 - Anxiety disorder, unspecified Category: Medical Plan: He was on Lorazepam 1 mg QD PRN in the past but he has not taken this in a while (16) Depression: Code(s): F32.9 - Major depressive disorder, single episode, unspecified Category: Medical Qualifiers: Depression Type: major depressive disorder Major depression recurrence: recurrent Active/Remission status: in remission of unspecified degree Qualified Code(s): F33.40 - Major depressive disorder, recurrent, in remission, unspecified Plan: He was seeing psychiatry in the past but he has not done so in a while He has been advised to call any time he feels that he needs to go back to see psychiatry and we will refer him back if necessary (17) Obesity (BMI 30-39.9): Code(s): E66.9 - Obesity, unspecified Category: Medical Plan: Reinforced diet/exercise as tolerated/lose weight - he has gained some weight since his last visit here a few months ago Plan Patient declined offer to give him a flu vaccine today Follow up in 4 months Orders: Orders Vitamin B1 Today E51.9 - Thiamine deficiency, unspecified Vitamin B6 Today E53.1 - Pyridoxine deficiency Ammonia Today K76.82 - Hepatic encephalopathy Vitamin B12 and Folate Today E53.8 - Deficiency of other specified B group vitamins
[2025-06-16 11:12] VITALS: BP 120/64; PULSE 68; TEMP 36.7; O2SAT 96; BMI 30.9
--- OUTSIDE RECORDS SUMMARY | 2025-06-16 13:40 | XMS_ITS | Clinical Summary ---
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
== END 2025-06-16 11:50 | disposition home or self-care (01) ==
LOC: HO.HMCH 11:03
PROVIDERS: PCP Internal Medicine; Visit Provider Internal Medicine
DX: K70.30 Alcoholic cirrhosis of liver without ascites (principal); K70.11 Alcoholic hepatitis with ascites; D50.9 Iron deficiency anemia, unspecified; D69.6 Thrombocytopenia, unspecified; R16.1 Splenomegaly, not elsewhere classified; R74.8 Abnormal levels of other serum enzymes; F10.90 Alcohol use, unspecified, uncomplicated; E78.00 Pure hypercholesterolemia, unspecified; I10 Essential (primary) hypertension; E55.9 Vitamin D deficiency, unspecified; E83.42 Hypomagnesemia; J45.40 Moderate persistent asthma, uncomplicated; R41.3 Other amnesia; G47.00 Insomnia, unspecified; F41.9 Anxiety disorder, unspecified; F33.40 Major depressive disorder, recurrent, in remission, unspecified; E66.9 Obesity, unspecified

== ENCOUNTER → 2025-06-16 11:02 | Outpatient (BNVA) | payer OTHER, SELFPAY | PROVIDERS: PCP Internal Medicine; Visit Provider Internal Medicine | DX: K70.30 Alcoholic cirrhosis of liver without ascites (principal); K70.11 Alcoholic hepatitis with ascites; D50.9 Iron deficiency anemia, unspecified; D69.6 Thrombocytopenia, unspecified; R16.1 Splenomegaly, not elsewhere classified; R74.8 Abnormal levels of other serum enzymes; F10.90 Alcohol use, unspecified, uncomplicated; E78.00 Pure hypercholesterolemia, unspecified; I10 Essential (primary) hypertension; E83.42 Hypomagnesemia; J45.40 Moderate persistent asthma, uncomplicated; R41.3 Other amnesia; G47.00 Insomnia, unspecified; F41.9 Anxiety disorder, unspecified; F33.40 Major depressive disorder, recurrent, in remission, unspecified; E66.9 Obesity, unspecified; E51.9 Thiamine deficiency, unspecified; E53.1 Pyridoxine deficiency; K76.82 Hepatic encephalopathy; E53.8 Deficiency of other specified B group vitamins; Z68.30 Body mass index [BMI] 30.0-30.9, adult | CPT/HCPCS: 99212 ==